=== PATIENT | female | born 1990 | race Caucasian/White ===

== ENCOUNTER 2017-05-02 06:43 | Outpatient (CLI) | payer BC, SELFPAY ==
[2017-05-02 07:34] VITALS: BMI 40.7
[2017-05-02] MEDS: Betamethasone/Betamethasone 30 MG/5 ML Vial 12 MG IM (07:40)
[2017-05-02 07:55] LABS: Absolute Lymphocyte Count 1.14 X10^3/ul (0.83-4.51); Absolute Neutrophil Count 4.5 X10^3/uL (2.0-7.7); Eosinophils% 1.6 % (0-5); Hematocrit 34.3 % (37-47); Hemoglobin 11.7 g/dl (12.0-15.0); Lymphocyte # 1.14 X10^3/ul (4.0); Lymphocyte % 18.1 % (19-41); Mean Corp Hgb Conc 34.1 g/gl (32-36); Mean Corpuscular Hgb 30.6 pg (27.0-32.0); Mean Corpuscular Volume 89.8 fL (81-99); Mean Platelet Vol. 11.2 fl (6.2-12.0); Monocyte# 0.52 X10^3/uL; Monocyte% 8.3 % (0-10); Neutrophil # 4.52 X10^3/uL (2.7-7.7); Neutrophil % 71.8 % (47-70); POSITIVE COUNT NO; POSITIVE DIFFERENTIAL NO; POSITIVE MORPHOLOGY NO; Platelet Count 198 K/mm3 (150-450); RBC Distribution Width CV 14.1 % (11.6-14.6); RBC Distribution Width SD 46.3 fl (35.1-43.9); Red Blood Count 3.82 M/mm3 (4.2-5.4); White Blood Count 6.3 K/mm3 (4.4-11.0)
[2017-05-02] MEDS: Lactated Ringers 1,000 ML 15 ML IV (08:02)
--- NOTE | 2017-05-02 08:11 | OB.TRI.NOTE ---
History of Present Illness Date of Service: 05/02/17 Was patient seen by the physician?: Yes Reason For Visit: ROL Date of Service: 05/02/17 Final ELENI: 08/24/17 Final ELENI Source: US <20 weeks Gestational age: 23 Weeks and 5 Days History of Present Illness: @ 23.5 wks c/o spotting this morning. patient reports no leaking of fluid or cramping, just some bloating sensation. pt reports good movement. pt reports intercourse over the weekend but did not have pain or bleeding at that time. Home Medications Medication Instructions Recorded Vits [Prenatabs FA ] 1 tablet PO DAILY 07/31/16 Hydroxyprogesterone Caproate 250 mg IM Q7D 05/02/17 [[place]] Allergies No Known Allergies Allergy (Verified 05/02/17 07:52) - Pertinent Past Medical History Pertinent Past Medical History: OBHX: loss at 22 wks - SROM Physical Exam General: Alert, Oriented x3 Abdomen: Soft, Non Tender, Gravid Estimated gestational size: Appropriate for gestational size Presentation: Unable to assess Cervix Dilation (cm): 3 - bulging bag Effacement (%): 90 NST - FHR Rate Baby A Baseline: 150s Uterine Activity:: no ctx Impression/Plan 26yo @ 23.5 wks, suspected cervical incompetence 1) MAG started 2) Celestone x 1 given now 3) M Dr. Vallejo consulted will transport to dr. henderson at [facility] for possible emergency cerclage 4) transport notified.
[2017-05-02] MEDS: Magnesium Sulfate 20 GM/500 ML BAG IV (08:13)
--- NOTE | 2017-05-02 08:16 | OB.TRI.HP_ITS ---
History of Present Illness Date of Service: 05/02/17 Was patient seen by the physician?: Yes Reason For Visit: ROL Date of Service: 05/02/17 Final ELENI: 08/24/17 Final ELENI Source: US <20 weeks Gestational age: 23 Weeks and 5 Days History of Present Illness: @ 23.5 wks c/o spotting this morning. patient reports no leaking of fluid or cramping, just some bloating sensation. pt reports good movement. pt reports intercourse over the weekend but did not have pain or bleeding at that time. Home Medications Medication Instructions Recorded Vits [Prenatabs FA ] 1 tablet PO DAILY 07/31/16 Hydroxyprogesterone Caproate 250 mg IM Q7D 05/02/17 [[place]] Allergies No Known Allergies Allergy (Verified 05/02/17 07:52) - Pertinent Past Medical History Pertinent Past Medical History: OBHX: loss at 22 wks - SROM Physical Exam General: Alert, Oriented x3 Abdomen: Soft, Non Tender, Gravid Estimated gestational size: Appropriate for gestational size Presentation: Unable to assess Cervix Dilation (cm): 3 - bulging bag Effacement (%): 90 NST - FHR Rate Baby A Baseline: 150s Uterine Activity:: no ctx Impression/Plan 26yo @ 23.5 wks, suspected cervical incompetence 1) MAG started 2) Celestone x 1 given now 3) M Dr. Vallejo consulted will transport to dr. henderson at [facility] for possible emergency cerclage 4) transport notified.
== END 2017-05-02 08:30 | disposition home or self-care (01) ==
LOC: WPOUT 07:09 → WP 07:10
PROVIDERS: Obstetrics & Gynecology; Visit Provider Obstetrics & Gynecology
DX: O26.852 Spotting complicating pregnancy, second trimester (principal); Z3A.23 23 weeks gestation of pregnancy
CPT/HCPCS: 36415; 59050; 85025; 86850; 86900; 94760; 96372; 99218; J7120; A4216; G0378; J0702

== ENCOUNTER 2021-03-15 17:46 | Outpatient (CLI) | payer BC, SELFPAY | END 2021-03-15 23:59 | disposition short-term general hospital (02) | PROVIDERS: PCP Family Medicine; Referring Provider Family Medicine; Visit Provider Family Medicine | DX: U07.1 COVID-19 (principal) | CPT/HCPCS: 87635; U0003; U0005 ==

== ENCOUNTER 2021-06-30 09:20 | Inpatient (IN) | payer BC, SELFPAY ==
--- NOTE | 2021-06-28 16:19 | HP.PCM_ITS ---
History and Physical Date of Admission: 06/30/21 Pre-Op History and Physical ` HPI: The patient is a 30 year old female presenting for pre-operative visit. She is scheduled for , for previous cs and abdominal cerclage on 06/30/21. Procedure discussed along with risks, benefits and complications. Other alternatives discussed for management. Consent form signed? Yes. ? ? PAST MEDICAL HISTORY PAST MEDICAL HISTORY Diagnosis Date ? Cervical incompetence 11/2017 ? Gestational diabetes mellitus (GDM) in third trimester 10/17/2019 ? Shivam's thyroiditis ? ? Infertility, female ? ? Miscarriage ? ? Obesity ? ? Pre-eclampsia, severe 11/21/2019 ? Pre-eclampsia, severe ? ? Thyroid antibody positive ? ? ? PAST SURGICAL HISTORY PAST SURGICAL HISTORY Procedure Laterality Date ? ABDOMINAL REVISION OF CERCLAGE ? 11/2017 ? SECTION HX ? 05/02/2017 ? x2 - 23.5 weeks ? EXTRACTION ERUPTED TOOTH/EXR ? 01/2009 ? [place] teeth removed ? LAPS SURG CHOLECYSTECTOMY W/CHOLANGIOGRAPHY ? 11/14/2012 ? ? ? CURRENT MEDICATIONS Current Outpatient Medications Medication Sig Dispense Refill ? blood sugar diagnostic (ONETOUCH ULTRA TEST) test strip Pt is to test blood sugars 4 times daily 120 Each 2 ? insulin NPH (HumuLIN N,NovoLIN N) pen Inject 10 Units subcutaneously daily at bedtime. 3 mL 3 ? Insulin [place], Disposable, (MICRODOT INSULIN PEN NEEDLE) 31 gauge x 1/4 ndle 1 Pen Needle once daily. 30 Each 3 ? Lancets (ONETOUCH ULTRASOFT LANCETS) lancets Use as instructed 120 Each 2 ? blood sugar diagnostic (TRUE METRIX GLUCOSE TEST STRIP) test strip Use as instructed 120 Strip 2 ? Lancets lancets Use as instructed 120 Each 2 ? HYDROXYprogesterone caproate (JAYSHREE) 250 mg/mL injection Inject 1 mL intramuscularly one time a week for 11 doses. 4 mL 2 ? aspirin, enteric coated (ASPIRIN, ENTERIC COATED) 81 mg EC tablet Take 1 tablet by mouth once daily. ? ? ? cholecalciferol, vitamin D3, (VITAMIN D3 ORAL) Take 2,000 Units by mouth. ? ? ? Uhkfhnhk-Hx-Hbg-Fe-FA ( VITAMIN) tab Take 1 tablet by mouth once daily. ? ? ? Current Facility-Administered Medications Medication Dose Route Frequency Provider Last Rate Last Admin ? HYDROXYprogesterone caproate (PF) 250 mg injection (JAYSHREE) 250 mg INTRAMUSCULAR 1/WK Eleni Pearson MD 250 mg at 06/15/21 1444 ? ? ALLERGIES: Patient has no known allergies. ? PERSONAL HISTORY: SOCIAL HISTORY Social History ? Tobacco Use ? Smoking status: Never Smoker ? Smokeless tobacco: Never Used ? Tobacco comment: parents quit smoking Vaping Use ? Vaping Use: Never used Substance Use Topics ? Alcohol use: No ? Drug use: No ? FAMILY HISTORY: FAMILY HISTORY FAMILY HISTORY Problem Relation Age of Onset ? Hypertension Mother ? ? Alcohol/Drug Father ? ? Cancer Father ? ? other (endometriosis) Sister ? ? No Known Problems Brother ? ? No Known Problems Brother ? ? Hypertension Maternal Grandmother ? ? other (parkinsons) Maternal Grandmother ? ? Hypertension Maternal Grandfather ? ? other (myocardial infarction) Maternal Grandfather ? ? Diabetes Paternal Grandmother ? ? Hypertension Paternal Grandmother ? ? Alzheimer's Disease Paternal Grandmother ? ? Hypertension Paternal Grandfather ? ? No Known Problems Daughter ? ? No Known Problems Son ? ? Diabetes Paternal Uncle ? ? Asthma Other ? ? nephew ? ? REVIEW OF SYMPTOMS: negative except as noted above PHYSICAL EXAMINATION: ? VITALS: Blood pressure 136/86, weight 231 lb (104.8 kg), last menstrual period 10/06/2020, currently . ? GENERAL: The patient is well nourished, well hydrated in no acute distress. , The patient is oriented to time, place, and person. Neck: full range of motion ABD: soft, non tender ? IMPRESSION: @ 35.1 weeks- scheduled cs at 36 weeks ? PLAN: Repeat CS at 36 weeks- Abdominal cerclage in place. ? Pt has been counseled on risks/benefits and alternatives of surgery including but not limited to anesthesia, bleeding, infection, injury to pelvic structures including bowel, bladder, ureters and vessels. Pt wishes to proceed with surgery at this time. COVID testing Pre and post op instructions reviewed ? I have reviewed and updated past medical and surgical history, medications and allergies Eleni Pearson MD
[2021-06-30] VITALS (22 sets, daily range): BP systolic 119–148; BP diastolic 78–97; PULSE 61–88; RESP 16–18; TEMP 36.4–37.2; O2SAT 96–99; BMI 41.0
[2021-06-30] MEDS: Lactated Ringers 1,000 ML 999 ML IV (09:40)
[2021-06-30 10:14] LABS: Absolute Lymphocyte Count 1.14 X10^3/uL (0.83-4.51); Basophil# 0.01 X10^3/uL; Basophil% 0.2 % (0-1); Eosinophil# 0.03 X10^3/uL; Eosinophils% 0.5 % (0-5); Hematocrit 34.7 % (37-47); Hemoglobin 11.5 g/dL (12.0-15.0); Lymphocyte # 1.14 X10^3/ul (0.83-4.51); Lymphocyte % 20.7 % (19-41); Mean Corp Hgb Conc 33.1 g/dL (32-36); Mean Corpuscular Volume 87.6 fL (81-99); Mean Platelet Vol. 12.7 fl (6.2-12.0); Monocyte# 0.37 X10^3/uL; Monocyte% 6.7 % (0-10); NRBC Flagged by Analyzer 0 % (0-5); Neutrophil # 3.95 X10^3/uL (2.7-7.7); Neutrophil % 71.7 % (47-70); Platelet Count 158 K/mm3 (150-450); RBC Distribution Width CV 13.6 % (11.6-14.6); RBC Distribution Width SD 43.7 fl (35.1-43.9); Red Blood Count 3.96 M/mm3 (4.2-5.4); White Blood Count 5.5 K/mm3 (4.4-11.0)
[2021-06-30] MEDS: Acetaminophen 500 MG Tablet 1000 MG PO ×3 (10:26→23:08)
[2021-06-30] MEDS: Sodium Citrate/Citric Acid 30 ML UDC PO (10:27)
[2021-06-30 10:40] LABS: Bedside Glucose 69 mg/dL (74-106)
[2021-06-30] MEDS: Cefazolin 2 GM in 0.9% Normal Saline 100 ML IV (10:51)
--- NOTE | 2021-06-30 11:49 | EX.PCM.OBRPT ---
Assessment & Plan (1) Delivery by section: (2) Gestational diabetes mellitus (GDM): (3) Obesity affecting : Maternal Data Information Gestational age: 36 Details Operative Information Date of Procedure: 06/30/21 Pre-Operative Diagnosis: 36 weeks, Abdominal cerclage, Previous section, GDMA2, obesity in Post-Operative Diagnosis: same, live female Indications for : Repeat Elective Indications Narrative: H/o cervical incompetence with abdominal cerclage in place Classification: Scheduled Procedure Type: low transverse structural steel fitter #1: Summer Nelson Type of Anesthesia: Spinal Antibiotic Given: Ancef 2 grams IV x1 Estimated Blood Loss: 600 Fluids Replaced: 1000 Procedure Start Time: :03 Procedure Stop Time: :49 Time of Delivery: : Findings Description of Procedure: After informed consent was obtained the patient was taken the operating room she was given spinal anesthesia. She was then placed in the supine position. She was prepped and draped in the normal sterile fashion. Anesthesia was found to be adequate. At this time a Pfannenstiel skin incision was made with a knife was carried down to the underlying layer of the fascia. The fascial incision was then extended laterally using curved Em scissor. Attention was then turned to the superior aspect of the fascial edge was grasped with 2 straight Marine clamps tented up and the rectus muscle dissected off sharply using curved Em scissor. Attention was then turned to the inferior aspect where again Marine clamps were placed in the rectus muscles were tented up and the fascia was dissected off sharply using the curved Em scissor. Rectus muscles were then in the midline bluntly and peritoneum was entered bluntly. Gentle opposing traction was placed. At this time the vesicouterine peritoneum was identified. Bladder adhesions to lower uterine segment. Scalpel was used to make a uterine incision in a low transverse fashion. The uterus was then entered bluntly gentle opposing traction was placed to extend this incision. Membranes were ruptured clear. 's head was brought to the uterine incision was delivered atraumatically. Cord was clamped and cut infant was handed to the waiting nursery team. The Placenta was removed from the uterus. The uterus was then removed from the abdominal cavity. The uterus was cleared of all clots and debris using a lap. Able to palpate where abdominal uterine cerclage was placed. thin lower uterine segment. At this time the uterine incision was reapproximated using #1 Vicryl in a running locked fashion. Followed by a second layer 1-0 vicryl figure of eights for hemostasis. Hemostasis was appreciated. Posterior cul-de-sac was then cleared of all clots and debris. Uterus was placed back in the abdominal cavity. Gutters were cleared of all clots and debris. Uterine incision was reevaluated and noted to be of excellent hemostasis. lucero placed. At this time the peritoneum was grasped with Kellys reapproximated using #2 Vicryl suture in a running fashion. Muscle had multiple areas of oozing, bovie and 2-0 vicyrl in figure of eight fashion used to obtain hemostasis. Lucero placed. Fascia was then reapproximated using #1 PDS in a running fashion. Lucero placed in subcu layer. Subcu layer was reapproximated with #2 0 plain gut suture in an interrupted fashion. Subcu layer was closed using 4-0Vicryl. Dry sterile dressing was applied. Instrument lap needle count correct ?2. Anticipated normal postoperative course. Presentation: Positive for Vertex Amniotic Membrane Rupture Type: Artificial Amniotic Fluid Description: Clear Placental Delivery Description: Manual Removal Placenta Disposition: [facility] Cord Vessel Description: 3 Vessels Cord Entanglement: None Infant A Gender: Female (1 minute): 8 (5 minute): 9 Delayed Cord Clamping: No Complications Risks of Surgery Discussed w/Patient: Bleeding, Anesthesia Risks, Infection, Need for Future C-Sections and Injury to surrounding structure(s) including bowel and bladder Complications: none
[2021-06-30] MEDS: Oxytocin 30 units/NS 500 ml 30 UNITS/500 ML IV.SOLN 167 UNITS IV (12:04)
[2021-06-30] MEDS: Ketorolac 30 MG/ML Syringe IV ×3 (12:25→23:06)
[2021-06-30 13:11] LABS: Bedside Glucose 69 mg/dL (74-106)
[2021-06-30] MEDS: Lactated Ringers 1,000 ML 100 ML IV (15:12)
[2021-06-30 18:01] LABS: Hematocrit 33.7 % (37-47); Hemoglobin 11.3 g/dL (12.0-15.0); Mean Corp Hgb Conc 33.5 g/dL (32-36); Mean Corpuscular Hgb 29.4 pg (27.0-32.0); Mean Corpuscular Volume 87.8 fL (81-99); Mean Platelet Vol. 11.9 fl (6.2-12.0); Platelet Count 143 K/mm3 (150-450); RBC Distribution Width CV 13.6 % (11.6-14.6); RBC Distribution Width SD 42.9 fl (35.1-43.9); Red Blood Count 3.84 M/mm3 (4.2-5.4); White Blood Count 6.5 K/mm3 (4.4-11.0)
[2021-06-30 18:19] LABS: AST(SGOT) 16 U/L (15-37); Alanine Aminotransfer ALT/SGPT 22 U/L (13-56); Creatinine, Serum 0.43 mg/dL (0.55-1.02); EST Glomerular Filtration Rate 184 mL/min (>60); Est Glom Filt Rate - Afr Amer 223 mL/min (>60); Estimated Creatinine Clearance 158.25 ml/min; Uric Acid 4.4 mg/dL (2.6-6.0)
[2021-06-30] MEDS: Enoxaparin 40 MG/0.4 ML Syringe SC (23:12)
[2021-06-30] MEDS: 0.9% Saline Lock 10 ML Syringe IV (23:17)
[2021-07-01] VITALS (8 sets, daily range): BP systolic 124–146; BP diastolic 75–93; PULSE 73–99; RESP 12–18; TEMP 36.4–36.9; O2SAT 96–98
[2021-07-01] MEDS: Ketorolac 30 MG/ML Syringe IV (05:18)
[2021-07-01] MEDS: 0.9% Saline Lock 10 ML Syringe IV (05:18)
[2021-07-01] MEDS: Acetaminophen 500 MG Tablet 1000 MG PO ×4 (05:19→23:07)
[2021-07-01 05:52] LABS: Hematocrit 32.6 % (37-47); Hemoglobin 10.6 g/dL (12.0-15.0); Mean Corp Hgb Conc 32.5 g/dL (32-36); Mean Corpuscular Hgb 28.7 pg (27.0-32.0); Mean Corpuscular Volume 88.3 fL (81-99); Mean Platelet Vol. 12.6 fl (6.2-12.0); Platelet Count 134 K/mm3 (150-450); RBC Distribution Width CV 13.9 % (11.6-14.6); RBC Distribution Width SD 44.8 fl (35.1-43.9); Red Blood Count 3.69 M/mm3 (4.2-5.4); White Blood Count 5.7 K/mm3 (4.4-11.0)
[2021-07-01 07:06] LABS: Bedside Glucose 73 mg/dL (74-106)
--- NOTE | 2021-07-01 07:30 | NURSING ---
bedside report given to Elaine Martinez RN who is assuming care of pt at this time
--- NOTE | 2021-07-01 08:33 | PCM.PROGNOTE ---
Subjective Subjective Patient seen in special care nursery. She is up to the chair. She reports some incisional pain but overall doing well. Denies any nausea or vomiting headaches or blurry vision. She is voiding without difficulty. Not passing flatus. Is tolerating a regular diet. Pumping at this time. Objective Data Objective Data Vital Signs: Vital Signs Temp Pulse Resp BP Pulse Ox 97.9 F 84 16 139/93 H 97 07/01/21 07:42 07/01/21 07:42 07/01/21 07:42 07/01/21 07:42 07/01/21 07:42 Oxygen Delivery Method Room Air Weight: 105 kg Body Mass Index (BMI) 41.0 Intake & Output: Intake and Output for Last 24 Hours 06/29/21 06/30/21 07/01/21 23:59 23:59 23:59 Intake Total 4118.33 / 4118.33 Output Total 1125 / 1125 740 / 740 Balance 2993.33 / 2993.33 -740 / -740 Lab / Micro Data Result Diagrams: 07/01/21 05:40 06/30/21 17:50 Labs: Laboratory Results - last 24 hr 06/30/21 09:50: WBC 5.5, RBC 3.96 L, Hgb 11.5 L, Hct 34.7 L, MCV 87.6, MCH 29.0, MCHC 33.1, RDW Std Deviation 43.7, RDW Coeff of Tammy 13.6, Plt Count 158, MPV 12.7 H, Immature Gran % (Auto) 0.200, Neut % (Auto) 71.7 H, Lymph % (Auto) 20.7, [place] % (Auto) 6.7, Eos % (Auto) 0.5, Baso % (Auto) 0.2, Absolute Neuts (auto) 4.0, Absolute Lymphs (auto) 1.14, Nucleated RBC % 0 06/30/21 09:50: Blood Type O NEGATIVE, Antibody Screen NEGATIVE 06/30/21 10:37: POC Glucose 69 L 06/30/21 13:04: POC Glucose 69 L 06/30/21 14:55: Screen NEGATIVE, Baby's Blood Type O POSITIVE, Baby's BACILIO NEGATIVE 06/30/21 17:50: WBC 6.5, RBC 3.84 L, Hgb 11.3 L, Hct 33.7 L, MCV 87.8, MCH 29.4, MCHC 33.5, RDW Std Deviation 42.9, RDW Coeff of Tammy 13.6, Plt Count 143 L, MPV 11.9 06/30/21 17:50: Creatinine 0.43 L, Estim Creat Clear Calc 158.25, Est GFR (MDRD) Af Amer 223, Est GFR (MDRD) Non-Af 184, Uric Acid 4.4, AST 16, ALT 22 07/01/21 05:36: POC Glucose 73 L 07/01/21 05:40: WBC 5.7, RBC 3.69 L, Hgb 10.6 L, Hct 32.6 L, MCV 88.3, MCH 28.7, MCHC 32.5, RDW Std Deviation 44.8 H, RDW Coeff of Tammy 13.9, Plt Count 134 L, MPV 12.6 H Physical Exam Narrative Dressing dry and intact. Fundus firm. Const alert and oriented x3 General Appearance: cooperative HEENT normocephalic Neck General: normal visual inspection GI soft to palpation and non-distended GI Narrative: Fundus firm Extremity normal to inspection and no calf tenderness Skin no rashes or lesions noted Neuro oriented x3 and CN's II-XII intact bilaterally Psych mental status grossly normal Assessment & Plan Assessment/Plan (1) Delivery by section: (2) Obesity: QUALIFIERS: Obesity type: due to excess calories Obesity classification: adult class 3 (BMI >= 40) Serious obesity comorbidity presence: without serious comorbidity Body mass index: BMI 40.0-44.9 Qualified Code(s): E66.01 - Morbid (severe) obesity due to excess calories; Z68.41 - Body mass index [BMI] 40.0-44.9, adult PLAN: POD#1 , mildly elevated BPs - PRE E labs normal, asymptomatic Routine care pain mgmt monitor VS ambulation will start Labetalol 200mg BID baby in SCN- possible transport to [facility]- pt understands will not be discharged until tomorrow if that occurs as long as Bp well controlled.
[2021-07-01] MEDS: Senna/Docusate Sodium 1 Tablet PO (10:04)
[2021-07-01] MEDS: Labetalol 200 MG Tablet PO ×2 (10:04→22:02)
[2021-07-01] MEDS: Enoxaparin 40 MG/0.4 ML Syringe SC ×2 (10:04→22:02)
[2021-07-01] MEDS: Ibuprofen 600 MG Tablet PO ×2 (11:57→19:01)
[2021-07-01] MEDS: oxyCODONE 5 MG Tablet PO ×2 (14:56→23:06)
[2021-07-02 01:11] VITALS: BP 145/93; PULSE 90; RESP 16; TEMP 36.2; O2SAT 96
[2021-07-02] MEDS: Ibuprofen 600 MG Tablet PO ×2 (01:14→06:30)
[2021-07-02] MEDS: Acetaminophen 500 MG Tablet 1000 MG PO (04:56)
--- NOTE | 2021-07-02 07:03 | DS.PCM_ITS ---
Providers Date of Admission: 06/30/21 Primary Care Physician: Dr. Henrietta Moore MD Reason For Visit: REPEAT Diagnosis Discharge Diagnosis (1) Delivery by section: Status: Acute (2) Obesity: Status: Acute Code(s): E66.9 - Obesity, unspecified Qualifiers: Obesity type: due to excess calories Obesity classification: adult class 3 (BMI >= 40) Serious obesity comorbidity presence: without serious comorbidity Body mass index: BMI 40.0-44.9 Qualified Code(s): E66.01 - Morbid (severe) obesity due to excess calories; Z68.41 - Body mass index [BMI] 40.0- 44.9, adult Plan: Occasional elevated blood pressures- Patient to be d/c on Labetalol 200 mg BID Follow up early next week for BP and incision check Medications at Discharge Home Medications Prenatabs FA 1 tab PO DAILY 07/31/16 labetalol 200 mg PO BID #60 tab 07/02/21 oxycodone 5 - 10 mg PO Q4H PRN PRN 5 Days #10 tab 07/02/21 Hospital Course Operations section Summary of Care Provided Hospital Course: Patient for scheduled repeat section. Hospital course uneventful Physical Exam Narrative Patient seen at bedside. Ambulating and passing flatus. Voiding without difficulty. Denies headache, vision changes, SB, CP or RUQ pain. Pumping. Dressing dry and intact. Desires discharge home kevin to go to [facility] to see baby in NICU. Const alert and no apparent distress General Appearance: cooperative and comfortable Exam Limitations: no limitations HEENT normocephalic Eyes General Eye: normal appearance of both eyes Neck full ROM General: normal visual inspection Chest Chest: symmetrical chest wall rise Resp normal respiratory effort and normal air movement Effort and Inspection: symmetric chest movement Auscultation: clear to auscultation bilaterally Cardio regular rate and regular rhythm GI normal to inspection, nondistended, normoactive bowel sounds Back/Spine normal ROM Extremity full ROM and no calf tenderness General Extremity: normal exam except as noted Skin no rashes or lesions noted Neuro CN's II-XII intact bilaterally Psych mental status grossly normal Weight / BMI Weight Weight: 231 lb 7.766 oz Body Mass Index (BMI) 41.0 ABG / Lab / Microbiology Data Result Diagrams: 07/01/21 05:40 06/30/21 17:50 Laboratory: Laboratory Results - last 24 hr 07/01/21 05:36: POC Glucose 73 L D/C Instructions Discharge Diet: No restrictions May resume sexual activity in: 6-8 weeks Weight Bearing Status: Weight bearing as tolerated Lifting Restrictions: 20 lbs Call your doctor if your incision/area has: Continuous Slow Oozing, Increased Pain/ Swelling, Increased Redness, Foul Smelling Discharge and Swelling at the incision site Call your doctor if you observe: Fever of 101 or Higher, Inability to urinate, Using more than 1 pad per hour, Shortness of breath, Chest pain, Calf discomfort and Uncontrolled pain Remove Dressing in: 5 days Cleanse incision/area with: Soap & Water and Keep Dressing Clean & Dry When: 1 week in office for incision check or sooner if needed 6 weeks Meaningful Use Info Meaningful Use Diagnoses (Choose all that apply): None applicable Discharge Plan Admission Admit Date/Time: 06/30/21 09:20 Primary Reason for Your Visit: Repeat section Attending Provider: Eleni Alcantara Primary Care Provider: Henrietta Moore Discharge Orders/Prescriptions Prescriptions: New labetalol 200 mg Tablet 200 mg PO BID Qty: 60 RF: 1 oxycodone 5 mg Tablet 5 - 10 mg PO Q4H PRN PRN (Reason: Pain Score 4-10) 5 Days Qty: 10 RF: 0 Continued Prenatabs FA 1 TABLET tablet 1 tab PO DAILY RF: 0 Discontinued hydroxyprogesterone cap(ppres) [Bonnie] 250 MG/ML oil 250 mg IM Q7D RF: 0 Aspir-81 81 mg PO/SL DAILY RF: 0 Novolin N Flexpen 10 units OTHER QHS RF: 0 calcium-vitamin D3 2 cap PO/SL DAILY RF: 0 Referrals / Follow Up: Henrietta Moore MD [Primary Care Provider] - Disposition Disposition (needs filled in before D/C Order can be placed): Home, Self Care
[2021-07-02 08:29] VITALS: BP 138/90; PULSE 105; RESP 16; TEMP 36.7; O2SAT 96
[2021-07-02 08:33] VITALS: BP 138/90; PULSE 103; RESP 16; TEMP 36.7; O2SAT 98
[2021-07-02] MEDS: Senna/Docusate Sodium 1 Tablet PO (09:02)
[2021-07-02] MEDS: Labetalol 200 MG Tablet PO (09:03)
[2021-07-02] MEDS: Enoxaparin 40 MG/0.4 ML Syringe SC (09:03)
== END 2021-07-02 10:10 | disposition home or self-care (01) | DRG 786 ==
PROVIDERS: Admitting Provider Obstetrics & Gynecology; PCP Family Medicine; Referring Provider Obstetrics & Gynecology; Visit Provider Obstetrics & Gynecology
PROC: 10D00Z1 Extraction of Products of Conception, Low, Open Approach (ICD-10-PCS; CPT 59514; principal; 2021-06-30 11:45)
DX: O24.429 Gestational diabetes mellitus in childbirth, unspecified control (principal); O60.14X0 Preterm labor third trimester with preterm delivery third trimester, not applicable or unspecified; O99.214 Obesity complicating childbirth; E66.01 Morbid (severe) obesity due to excess calories; Z87.891 Personal history of nicotine dependence; Z37.0 Single live birth; Z3A.36 36 weeks gestation of pregnancy
CPT/HCPCS: 59050; 82565; 82962; 84450; 84460; 84550; 85025; 85027; 85461; 86850; 86900; 86901; 90384; 99218; 99251; J7120; A4216; G0378; G0463; J2405; J2790

== ENCOUNTER → 2022-11-22 | Outpatient (CLI) | payer BC, SELFPAY ==
[2022-11-22 18:52] LABS: Thyroid Stim Hormone (TSH) 1.47 uIU/mL (0.358-3.74)
== END | disposition home or self-care (01) ==
LOC: BFHLAB 15:59
PROVIDERS: PCP Family Medicine; Referring Provider Family Medicine; Visit Provider Family Medicine
DX: R76.8 Other specified abnormal immunological findings in serum (principal)
CPT/HCPCS: 36415; 84443

== ENCOUNTER 2024-10-11 09:40 | Outpatient (CLI) | payer BC, SELFPAY ==
--- NOTE | 2024-10-11 09:45 | RAD_ITS ---
PROCEDURE: HAND MIN 3 VIEWS 10/11/2024 REASON FOR EXAM: MASS OF LEFT HAND TECHNIQUE: HAND MIN 3 VIEWS Laterality: Left COMPARISON: None provided. RAD/Hand Min 3 Views IMPRESSION: No radiopaque foreign body is seen. Soft tissue prominence is seen in the 1st interspace, between the 1st and 2nd m etacarpal bones. No cortical or periosteal changes are seen. No osseous destructive process is evident. No arthritic process is seen. Satisfactory osseous alignment is noted. No fracture site is evident. Reading Location: [place] [id number]
== END 2024-10-11 23:59 | disposition home or self-care (01) ==
PROVIDERS: PCP Family Medicine; Referring Provider Surgery Plastic and Reconstructive Surgery; Visit Provider Surgery Plastic and Reconstructive Surgery
DX: R22.32 Localized swelling, mass and lump, left upper limb (principal)
CPT/HCPCS: 73130

== ENCOUNTER → 2024-10-14 | Outpatient (CLI) | payer BC, SELFPAY ==
--- NOTE | 2024-10-14 10:13 | US_ITS ---
PROCEDURE: EXT NON VASC LIMITED/SOFT TISS 10/14/2024 REASON FOR EXAM: MASS OF LEFT HAND Mass in the inner aspect of the wrist. Palmar side. TECHNIQUE: EXT NON VASC LIMITED/SOFT TISS COMPARISON: None FINDINGS: The palpable lump corresponds to a 1.9 cm 1.5 cm 1.2 cm cyst. Low-level echoes are seen within it. US/Ext Non Vasc Limited/Soft Tiss IMPRESSION: The palpable lump corresponds to a 1.9 cm 1.5 cm 1.2 cm cyst. Low-level echoes are seen within it. Reading Location: [id number]
== END | disposition home or self-care (01) ==
LOC: US 10:10
PROVIDERS: PCP Family Medicine; Referring Provider Surgery Plastic and Reconstructive Surgery; Visit Provider Surgery Plastic and Reconstructive Surgery
DX: R22.32 Localized swelling, mass and lump, left upper limb (principal)
CPT/HCPCS: 76882

== ENCOUNTER 2024-11-19 06:52 | Outpatient (CLI) | payer BC, SELFPAY ==
--- OUTSIDE RECORDS SUMMARY | 2024-10-15 09:23 | XMS RPT_ITS ---
Author Name Auto Generated Organization [facility] Care Team Providers [facility] [employer] Liaison Officer Name Role Phone NACHO VERMA Referring Unavail able IOANAEL, ANDRZEJ E Primary Care Unavailable NACHO VERMA Referring Unavail able NACHO VERMA Attending Unavail able MIEDEL, ANDRZEJ E Primary Care Unavailable NACHO VERMA Attending Unavail able MIEDEL, NADRZEJ E Primary Care Unavailable NACHO VERMA Attending Unavail able NENACHO WOO Attending Unavail able MIEDEL, ANDRZEJ E Primary Care Unavailable ROULA PAYAN Attending Unavailable NENACHO WOO Referring Unavail able MIEDEL, ANDRZEJ E Primary Care Unavailable NENACHO WOO Attending Unavail able BIBIANAEDEL, ANDRZEJ E Primary Care Unavailable PROBLEMS DATE TYPE CONDITION / CODE ATTENDING STATUS [facility] 10/15/2024 Active Insulin resistan ce / E88.819(ICD-10) NACHO VERMA Active [facility] 10/15/2024 Active Metabolic syndro me / E88.810(ICD-10) NACHO VERMA Active [facility] 10/15/2024 Active Constipation, unspecified constipation type / K59.00(ICD-10) NACHO VERMA Active [facility] 09/02/2024 Active Class 2 severe o besity with serious comorbidity and body mass index (BMI) of 39.0 to 39.9 in adult, unspecified obesity type (HCC) / E66.812(ICD-10) NACHO VERMA Active [facility] 09/02/2024 Active Class 2 severe o besity with serious comorbidity and body mass index (BMI) of 39.0 to 39.9 in adult, unspecified obesity type (HCC) / Z68.39(ICD-10) NACHO VERMA Active [facility] 09/02/2024 Active Class 2 severe o besity with serious comorbidity and body mass index (BMI) of 39.0 to 39.9 in adult, unspecified obesity type (HCC) / E66.01(ICD-10) NACHO VERMA Active [facility] 06/22/2024 Active Screening for di abetes mellitus / Z13.1(ICD-10) NA Active [facility] 06/22/2024 Active Class 2 obesity with body mass index (BMI) of 39.0 to 39.9 in adult, unspecified obesity type, unspecified whether serious comorbidity present / E66.812(ICD-10) NA Active [facility] 06/22/2024 Active Class 2 obesity with body mass index (BMI) of 39.0 to 39.9 in adult, unspecified obesity type, unspecified whether serious comorbidity present / Z68.39(ICD-10) NA Active [facility] 06/22/2024 Active Screening for metabolic disorder / Z13.228(ICD-10) NA Active [facility] 06/06/2024 Active Dyslipidemia / E78.5(ICD-10) NACHO VERMA Active [facility] 06/06/2024 Active Malaise and fati kenneth / R53.81(ICD-10) NACHO VERMA Active [facility] 06/06/2024 Active Malaise and fati kenneth / R53.83(ICD-10) NACHO VERMA Active [facility] 06/06/2024 Active Migraine without status migrainosus, not intractable, unspecified migraine type / G43.909(ICD-10) NACHO VERMA Active [facility] 06/06/2024 Active Screening choles terol level / Z13.220(ICD-10) NACHO VERMA Active [facility] 06/06/2024 Active Screening for deficiency anemia / Z13.0(ICD-10) NACHO VERMA Active [facility] 06/06/2024 Active Screening for th yroid disorder / Z13.29(ICD-10) NACHO VERMA Active [facility] 06/06/2024 Active Encounter for vi tamin deficiency screening / Z13.21(ICD-10) NACHO VERMA Active [facility] PROCEDURES No Procedure Records Found RESULTS PROGRESS Observed: 10/15/2024 9:20 AM Status: COMPLETED Source: [facility] HNO ID: [id number] Author: NACHO VERMA MD Service: ? Author Type: Physician Type: Progress Notes Filed: 10/15/2024 12:42 Note Text: Some documentation from previous visit of 09/02/24 was copied and pasted, documentation has been reviewed and edited as necessary for today's visit. Patient Summary: Marietta is a 34 year old Female who presents for follow-up evaluation of obesity/weight management to treat and prevent related co-morbidities. In our previous visits we have discussed lifestyle intervention including a nutrition recommendations and physical activity optimization. Her last office visit was 6 weeks ago. Assessment/plan from last visit: - Weight loss of 5 lbs and reduction of 2 inches in waist circumference since last visit; current weight 210.8 lbs. - Engaged in regular exercise, attending CrossFit classes three times per week. - Dietary intake includes high protein, low carbohydrate meals with increased vegetable consumption. - Continue metformin as prescribed; patient inquired about timing of second dose, advised to take with either breakfast or lunch. - Reordered phentermine due to prescription. - Continue topiramate to manage evening cravings. - Encouraged patient to monitor fiber intake, aiming for 25-30 grams daily to aid in weight loss and improve insulin sensitivity. - Discussed importance of protein intake, advised to consume 30 grams of protein per meal. - Recommended follow-up with a dietitian at [facility] for further nutritional guidance. - Scheduled follow-up appointments on October 15 and December 04 to monitor progress. Interval History PT specifies the following items as new or significant updates since the last appointment: - still doing crossfit 3 x week - horseback riding/walking on off days. -hunger / snacking has improved - feels like she needs to work on water intake at home - getting about 80oz - Reports feeling stronger and noticing changes in muscle tone and body composition. - Adheres to a structured dietary plan, tracking intake and consuming approximately 110 grams of protein daily. - Reports improvement in late-night snacking and a decrease in overall hunger. - Recently switched protein powders, noting a preference for the new product over Premier Protein. - Reports adequate hydration, consuming approximately 90 ounces of water daily. - Reports occasional constipation, despite maintaining a high-fiber diet. Weight loss since last vist: 4 lb Total weight loss: 15 - Last Wt 10/15/24 : 94.8 kg (209 lb) 205.8lb at home 09/02/24 : 96.6 kg (213 lb) 210.8 lbs at home 07/04/24 : 98.8 kg (218 lb) 06/06/24 : 101.6 kg (224 lb) 5% weight loss = 213 lbs, 10% weight loss = 202 lbs Anti-obesity medications: Phentermine. Benefit:decreased appetite Adverse effects: none Anti-obesity medications: Topiramate. Benefit:Decreased food noise Adverse effects: none -ADDED METFORMIN (started 07/04) 1000mg BID XR Benefit: insulin resistance insulin 16 ?? PCOS Adverse effects: Weight promoting medications: none Previous Diet (initial appointment): Awake - 5:15-5:30am B - sometimes greens or premier protein (30g) almond milk unsweetened - great value light malagasy yogurt, unsweet coconut shavings and almond shavings , venecian jerky S - L - venusian burger with no bun - broccoli , cheese stick S - pretzels , protein balls, PB- oats, portia seeds, pp, agave, oats D - deer meat- with fries and broccoli, chicken fries or fish sticks , salmon, grilled shrimp S - chips (occasional) Fluids: 64oz water, almond milk in shake (8-10oz unsw), 2 x week diet soda or [place] water, beer or wine 1-2 x week Bedtime - 10:30pm hard time falling asleep (11-11:30pm) Quality of diet: 24hr recall suggests unhealthy diet. Characterization of diet:unhealthy snacking, excessive cravings, and evening snacking. 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 of impaired eating habits:excessive hunger, mindlessness , emotion, and stress Eating Disorder no Cravings: salty and sweet Dietary changes: B - sometimes greens or premier protein (30g) almond milk unsweetened - great value light malagasy yogurt, unsweet coconut shavings and almond shavings , venecian jerky S - deer jerky, sometimes an extra shake, almonds L - venusian burger with no bun, tomato/lettuce - broccoli , cheese stick OR Grilled chicken w/ salad S - typically not snack D - deer meat- with fries and broccoli, chicken fries or fish sticks , salmon, grilled shrimp , sweet potatoes - trying to have more fish. S - way less chips (occasional)- maybe 1x week- Quest chips Fluids - 80-100 oz Eating 3 meals a day, including breakfast Increasing water intake Increasing servings of vegetables Controlling portions Increasing protein Reducing carbohydrates Eating less take out/fast food Current Barriers: stress eating, food cravings, eating high-calorie foods, and inadequate sleep duration Exercise: Crossfit- 3-4 x week, horseback riding/walking on off days Regular exercise: yes cardio (bike/walking) 2 times a weeks Total 4 times a week for 45 minutes each time Strength/resistance exercise:yes 2 days a week - at home bowflex decreased Stress: no Sleep: increased to 6-7 from 5-6 hours no CRISTY stable Estimated Creatinine Clearance: 127.1 mL/min (based on SCr of 0.69 mg/dL). PAST MEDICAL HISTORY Diagnosis Date Cervical incompetence 11/2017 Gestational diabetes mellitus (GDM) in third trimester (HCC) 10/17/2019 Shivam's thyroiditis Infertility, female Miscarriage (HCC) Obesity Other complications of the puerperium, not elsewhere classified (CODE) 10/10/2017 Pre-eclampsia, severe (HCC) 11/21/2019 Pre-eclampsia, severe (HCC) Thyroid antibody positive Current Outpatient Medications Medication Sig Dispense Refill topiramate (TOPAMAX) 50 mg tablet Take 1 tablet by mouth once daily. 12:00 or 1:00 90 tablet 0 Phentermine HCl 37.5 mg tablet Take 1 tablet by mouth daily before breakfast for 90 days. TAKE 1 TABLET BY MOUTH ONCE DAILY IN THE MORNING 30 tablet 2 metFORMIN ER (GLUCOPHAGE XR) 500 mg 24 hr tablet Take 2 tablets by mouth two times a day. 360 tablet 0 Norethindrone Acet-Ethinyl Est (MICROGESTIN 1.5/30) 1.5-30 mg-mcg Take 1 tablet by mouth once daily. 21 tablet 11 No current facility-administered medications for this visit. ROS Constitutional: (+) weight loss Cardiovascular: (-) chest pain, (-) palpitations Gastrointestinal: (+) constipation, (-) diarrhea Neurological: (-) extremity tingling ROS/Fam Hx pertaining to AOMs: GEN: Fatigue:yes CV: h/o palpitations/cardiac arrhythmia, Chest pain: no HTN: no PULM: Asthma:no GI: GERD:no ; Gallstones:no ; Fatty liver disease:no Pancreatitis: no MSK: Joint Pain:no : Nephrolithiasis: no Symptoms of PCOS: no ?? 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 Physical Exam Waist: 47"-->45"--> 44.25" Results: recent labs reviewed with the patient. Latest Ref Rng AND Units 06/22/2024 CMP Sodium 136 - 144 mmol/L 139 Potassium 3.7 - 5.1 mmol/L 4.3 Chloride 98 - 107 mmol/L 105 CO2 22 - 30 mmol/L 23 Glucose 74 - 99 mg/dL 87 BUN 7 - 21 mg/dL 15 Creatinine 0.58 - 0.96 mg/dL 0.69 EGFR >=60 mL/min/1.73m? 118 Protein, Total 6.3 - 8.0 g/dL 7.0 Albumin 3.9 - 4.9 g/dL 4.2 Calcium 8.5 - 10.2 mg/dL 9.3 Bilirubin, Total 0.2 - 1.3 mg/dL 0.4 AST 13 - 35 U/L 21 ALT 7 - 38 U/L 30 Alkaline Phosphatase 34 - 123 U/L 18 Cholesterol, Total (mg/dL) Date Value 04/29/2023 258 05/17/2012 221 HDL Cholesterol (mg/dL) Date Value 04/29/2023 37 05/17/2012 34 LDL Cholesterol, Calculated (mg/dL) Date Value 04/29/2023 200 05/17/2012 149 Triglyceride (mg/dL) Date Value 04/29/2023 106 05/17/2012 188 Latest Ref Rng AND Units 04/29/2023 CBC WBC 3.70 - 11.00 k/uL 4.80 RBC 3.90 - 5.20 m/uL 5.10 Hemoglobin 11.5 - 15.5 g/dL 15.2 Hematocrit 36.0 - 46.0 % 46.1 MCV 80.0 - 100.0 fL 90.4 MCH 26.0 - 34.0 pg 29.8 MCHC 30.5 - 36.0 g/dL 33.0 RDW-CV 11.5 - 15.0 % 12.2 Platelet Count 150 - 400 k/uL 251 MPV 9.0 - 12.7 fL 11.5 Vitamin D 25 Hydroxy Date Value Ref Range Status 04/29/2023 56.0 31.0 - 80.0 ng/mL Final 04/13/2019 27.6 (L) 31.0 - 80.0 ng/mL Final Comment: Classification of 25 [place] Vitamin D status: Insufficiency/Moderate Deficiency: < or = 30 ng/mL Sufficiency/Optimal Levels: 31 to 80 ng/mL Toxicity: > 100 ng/mL Test performed by chemiluminescent immunoassay. TSH Date Value 04/29/2023 0.931 mIU/L 12/07/2020 1.550 uU/mL 04/22/2019 2.430 uU/mL ) Hemoglobin A1C (%) Date Value 06/22/2024 5.1 04/29/2023 5.1 01/23/2019 5.2 No components found for: "SQINSULN" 16 Assessment/Plan: 1. Insulin resistance (E88.819) 2. Metabolic syndrome (E88.810) 3. Dyslipidemia (E78.5) 4. Class 2 obesity with body mass index (BMI) of 39.0 to 39.9 in adult, unspecified obesity type, unspecified whether serious comorbidity present (E66.812) - Weight loss progress noted; lowest home weight 205.8 lbs, waist circumference decreased to 44.25 inches. - Continues CrossFit 3x/week; additional physical activity includes horseback riding and walking on off days. - Nutrition improved; late-night eating reduced, protein intake ~110g/day, water intake ~90 oz/day. - Continue metformin 1000 mg PO BID. - Continue phentermine as prescribed. - Continue topiramate 50 mg daily at lunch; discussed option to adjust timing or increase to BID if needed for appetite control. - Reviewed importance of tracking and measuring food intake; advised calorie intake of 2035-5413/day during weight loss phase. - Encouraged minimum 30g protein per meal to support muscle synthesis. - Discussed importance of non-scale victories and body composition changes. - Advised to write out personal goals to maintain motivation. - Follow-up December 04 at 3:00 PM; subsequent visit February 27 at 3:30 PM. 5. Malaise and fatigue (R53.81) -whole foods -aim for 7.5-9 hrs of sleep 6. Migraine without status migrainosus, not intractable, unspecified migraine type (G43.909) -continue topiramate 7. Constipation, unspecified constipation type (K59.00) - Recent increase in constipation; fiber intake approximately 24g/day per tracking - Advised to increase fiber intake to 30g/day; recommended additional cup of vegetables and use of high-fiber wraps. - Discussed use of Smooth Move tea, Miralax, or stool softeners as needed; cautioned against high-sugar/carb gummy supplements. Prescription instructions reviewed with patient as applicable. Potential red flag symptoms discussed with the patient. Reviewed appropriate action plan to take if red flag symptoms occur. Patient agreeable to treatment plan. Phentermine. Risk/benefits discussed at length including potential side effects of increased anxiety, insomnia, increased heart rate, and increased blood pressure. I have asked the patient to monitor blood pressure and avoid any stimulants (in the form of caffeinated beverages like coffee, tea, sports drinks) initially. Patient denies history of arrhythmias, coronary artery disease (atherosclerosis), heart failure, pulmonary hypertension, stroke, valvular heart disease (prolapse, regurgitation, stenosis). The patient is currently enrolled in a diet and exercise program The patient has no known history of contraindications The patient is free from drug or ETHO abuse The patient is not or and is aware not to become while using this medication OARS was reviewed. PDMP website checked and validated. All prescriptions have been APPROPRIATELY filled. No suspicious activity was identified. Topiramate. Discussed risks/benefits with the patient. Patient aware that this is an off-label use of the medication. BDenies history of kidney stones, seizures or glaucoma. yes hx of migraines yes history of poor sleep. Advised not to mix with alcohol. Educated on increased risk for drowsiness, dizziness, fatigue, kidney stones, osteoporosis and increased eye pressure. Patient of childbearing age. Discussed the risk of defects with topiramate and the need for double control methods as well as regular tests. Contraception: ocps Follow up in 6 weeks as scheduled I spent a total of 35 minutes on the date of the service which included preparing to see the patient, [id number] patient care, completing clinical documentation, obtaining and/or reviewing separately obtained history, performing a medically appropriate examination, counseling and educating the patient/family/caregiver, and ordering medications, tests, or procedures Nacho Alcantara MD, GEORGI JOHNSTON . CNOV Observed: 10/15/2024 9:20 AM Status: COMPLETED Source: [facility] Office Visit (OBGYWM) MARIETTA PIÑA ([id number]) 1990 F Date Time Provider Department 10/15/24 9:20 AM NACHO VERMA OBGYWM During your visit today, we recorded the following information about you: Pulse Blood pressure Weight Last Period 100/minute 118/78 94.8 kg 10/08/24 Nacho Verma MD 10/15/2024 12:42 PM Signed Some documentation from previous visit of 09/02/24 was copied and pasted, documentation has been reviewed and edited as necessary for today's visit. Patient Summary: Marietta is a 34 year old Female who presents for follow-up evaluation of obesity/weight management to treat and prevent related co-morbidities. In our previous visits we have discussed lifestyle intervention including a nutrition recommendations and physical activity optimization. Her last office visit was 6 weeks ago. Assessment/plan from last visit: - Weight loss of 5 lbs and reduction of 2 inches in waist circumference since last visit; current weight 210.8 lbs. - Engaged in regular exercise, attending CrossFit classes three times per week. - Dietary intake includes high protein, low carbohydrate meals with increased vegetable consumption. - Continue metformin as prescribed; patient inquired about timing of second dose, advised to take with either breakfast or lunch. - Reordered phentermine due to prescription. - Continue topiramate to manage evening cravings. - Encouraged patient to monitor fiber intake, aiming for 25-30 grams daily to aid in weight loss and improve insulin sensitivity. - Discussed importance of protein intake, advised to consume 30 grams of protein per meal. - Recommended follow-up with a dietitian at [facility] for further nutritional guidance. - Scheduled follow-up appointments on October 15 and December 04 to monitor progress. Interval History PT specifies the following items as new or significant updates since the last appointment: - still doing crossfit 3 x week - horseback riding/walking on off days. -hunger / snacking has improved - feels like she needs to work on water intake at home - getting about 80oz - Reports feeling stronger and noticing changes in muscle tone and body composition. - Adheres to a structured dietary plan, tracking intake and consuming approximately 110 grams of protein daily. - Reports improvement in late-night snacking and a decrease in overall hunger. - Recently switched protein powders, noting a preference for the new product over Premier Protein. - Reports adequate hydration, consuming approximately 90 ounces of water daily. - Reports occasional constipation, despite maintaining a high-fiber diet. Weight loss since last vist: 4 lb Total weight loss: 15 - Last Wt 10/15/24 : 94.8 kg (209 lb) 205.8lb at home 09/02/24 : 96.6 kg (213 lb) 210.8 lbs at home 07/04/24 : 98.8 kg (218 lb) 06/06/24 : 101.6 kg (224 lb) 5% weight loss = 213 lbs, 10% weight loss = 202 lbs Anti-obesity medications: Phentermine. Benefit:decreased appetite Adverse effects: none Anti-obesity medications: Topiramate. Benefit:Decreased food noise Adverse effects: none -ADDED METFORMIN (started 07/04) 1000mg BID XR Benefit: insulin resistance insulin 16 ?? PCOS Adverse effects: Weight promoting medications: none Previous Diet (initial appointment): Awake - 5:15-5:30am B - sometimes greens or premier protein (30g) almond milk unsweetened - great value light malagasy yogurt, unsweet coconut shavings and almond shavings , venecian jerky S - L - venusian burger with no bun - broccoli , cheese stick S - pretzels , protein balls, PB- oats, portia seeds, pp, agave, oats D - deer meat- with fries and broccoli, chicken fries or fish sticks , salmon, grilled shrimp S - chips (occasional) Fluids: 64oz water, almond milk in shake (8-10oz unsw), 2 x week diet soda or [place] water, beer or wine 1-2 x week Bedtime - 10:30pm hard time falling asleep (11-11:30pm) Quality of diet: 24hr recall suggests unhealthy diet. Characterization of diet:unhealthy snacking, excessive cravings, and evening snacking. 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 [facility] of impaired eating habits:excessive hunger, mindlessness , emotion, and stress Eating Disorder no Cravings: salty and sweet Dietary changes: B - sometimes greens or premier protein (30g) almond milk unsweetened - great value light malagasy yogurt, unsweet coconut shavings and almond shavings , venecian jerky S - deer jerky, sometimes an extra shake, almonds L - venusian burger with no bun, tomato/lettuce - broccoli , cheese stick OR Grilled chicken w/ salad S - typically not snack D - deer meat- with fries and broccoli, chicken fries or fish sticks , salmon, grilled shrimp , sweet potatoes - trying to have more fish. S - way less chips (occasional)- maybe 1x week- Quest chips Fluids - 80-100 oz Eating 3 meals a day, including breakfast Increasing water intake Increasing servings of vegetables Controlling portions Increasing protein Reducing carbohydrates Eating less take out/fast food Current Barriers: stress eating, food cravings, eating high-calorie foods, and inadequate sleep duration Exercise: Crossfit- 3-4 x week, horseback riding/walking on off days Regular exercise: yes cardio (bike/walking) 2 times a weeks Total 4 times a week for 45 minutes each time Strength/resistance exercise:yes 2 days a week - at home bowflex decreased Stress: no Sleep: increased to 6-7 from 5-6 hours no CRISTY stable Estimated Creatinine Clearance: 127.1 mL/min (based on SCr of 0.69 mg/dL). PAST MEDICAL HISTORY Diagnosis Date Cervical incompetence 11/2017 Gestational diabetes mellitus (GDM) in third trimester (HCC) 10/17/2019 Shivam's thyroiditis Infertility, female Miscarriage (HCC) Obesity Other complications of the puerperium, not elsewhere classified (CODE) 10/10/2017 Pre-eclampsia, severe (HCC) 11/21/2019 Pre-eclampsia, severe (HCC) Thyroid antibody positive Current Outpatient Medications Medication Sig Dispense Refill topiramate (TOPAMAX) 50 mg tablet Take 1 tablet by mouth once daily. 12:00 or 1:00 90 tablet 0 Phentermine HCl 37.5 mg tablet Take 1 tablet by mouth daily before breakfast for 90 days. TAKE 1 TABLET BY MOUTH ONCE DAILY IN THE MORNING 30 tablet 2 metFORMIN ER (GLUCOPHAGE XR) 500 mg 24 hr tablet Take 2 tablets by mouth two times a day. 360 tablet 0 Norethindrone Acet-Ethinyl Est (MICROGESTIN 1.5/30) 1.5-30 mg-mcg Take 1 tablet by mouth once daily. 21 tablet 11 No current facility-administered medications for this visit. ROS Constitutional: (+) weight loss Cardiovascular: (-) chest pain, (-) palpitations Gastrointestinal: (+) constipation, (-) diarrhea Neurological: (-) extremity tingling ROS/Fam Hx pertaining to AOMs: GEN: Fatigue:yes CV: h/o palpitations/cardiac arrhythmia, Chest pain: no HTN: no PULM: Asthma:no GI: GERD:no ; Gallstones:no ; Fatty liver disease:no Pancreatitis: no MSK: Joint Pain:no : Nephrolithiasis: no Symptoms of PCOS: no ?? 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 Physical Exam Waist: 47"-->45"--> 44.25" Results: recent labs reviewed with the patient. Latest Ref Rng AND Units 06/22/2024 CMP Sodium 136 - 144 mmol/L 139 Potassium 3.7 - 5.1 mmol/L 4.3 Chloride 98 - 107 mmol/L 105 CO2 22 - 30 mmol/L 23 Glucose 74 - 99 mg/dL 87 BUN 7 - 21 mg/dL 15 Creatinine 0.58 - 0.96 mg/dL 0.69 EGFR >=60 mL/min/1.73m? 118 Protein, Total 6.3 - 8.0 g/dL 7.0 Albumin 3.9 - 4.9 g/dL 4.2 Calcium 8.5 - 10.2 mg/dL 9.3 Bilirubin, Total 0.2 - 1.3 mg/dL 0.4 AST 13 - 35 U/L 21 ALT 7 - 38 U/L 30 Alkaline Phosphatase 34 - 123 U/L 18 Cholesterol, Total (mg/dL) Date Value 04/29/2023 258 05/17/2012 221 HDL Cholesterol (mg/dL) Date Value 04/29/2023 37 05/17/2012 34 LDL Cholesterol, Calculated (mg/dL) Date Value 04/29/2023 200 05/17/2012 149 Triglyceride (mg/dL) Date Value 04/29/2023 106 05/17/2012 188 Latest Ref Rng AND Units 04/29/2023 CBC WBC 3.70 - 11.00 k/uL 4.80 RBC 3.90 - 5.20 m/uL 5.10 Hemoglobin 11.5 - 15.5 g/dL 15.2 Hematocrit 36.0 - 46.0 % 46.1 MCV 80.0 - 100.0 fL 90.4 MCH 26.0 - 34.0 pg 29.8 MCHC 30.5 - 36.0 g/dL 33.0 RDW-CV 11.5 - 15.0 % 12.2 Platelet Count 150 - 400 k/uL 251 MPV 9.0 - 12.7 fL 11.5 Vitamin D 25 Hydroxy Date Value Ref Range Status 04/29/2023 56.0 31.0 - 80.0 ng/mL Final 04/13/2019 27.6 (L) 31.0 - 80.0 ng/mL Final Comment: Classification of 25 [place] Vitamin D status: Insufficiency/Moderate Deficiency: < or = 30 ng/mL Sufficiency/Optimal Levels: 31 to 80 ng/mL Toxicity: > 100 ng/mL Test performed by chemiluminescent immunoassay. TSH Date Value 04/29/2023 0.931 mIU/L 12/07/2020 1.550 uU/mL 04/22/2019 2.430 uU/mL ) Hemoglobin A1C (%) Date Value 06/22/2024 5.1 04/29/2023 5.1 01/23/2019 5.2 No components found for: "SQINSULN" 16 Assessment/Plan: 1. Insulin resistance (E88.819) 2. Metabolic syndrome (E88.810) 3. Dyslipidemia (E78.5) 4. Class 2 obesity with body mass index (BMI) of 39.0 to 39.9 in adult, unspecified obesity type, unspecified whether serious comorbidity present (E66.812) - Weight loss progress noted; lowest home weight 205.8 lbs, waist circumference decreased to 44.25 inches. - Continues CrossFit 3x/week; additional physical activity includes horseback riding and walking on off days. - Nutrition improved; late-night eating reduced, protein intake ~110g/day, water intake ~90 oz/day. - Continue metformin 1000 mg PO BID. - Continue phentermine as prescribed. - Continue topiramate 50 mg daily at lunch; discussed option to adjust timing or increase to BID if needed for appetite control. - Reviewed importance of tracking and measuring food intake; advised calorie intake of 8810-5814/day during weight loss phase. - Encouraged minimum 30g protein per meal to support muscle synthesis. - Discussed importance of non-scale victories and body composition changes. - Advised to write out personal goals to maintain motivation. - Follow-up December 04 at 3:00 PM; subsequent visit February 27 at 3:30 PM. 5. Malaise and fatigue (R53.81) -whole foods -aim for 7.5-9 hrs of sleep 6. Migraine without status migrainosus, not intractable, unspecified migraine type (G43.909) -continue topiramate 7. Constipation, unspecified constipation type (K59.00) - Recent increase in constipation; fiber intake approximately 24g/day per tracking - Advised to increase fiber intake to 30g/day; recommended additional cup of vegetables and use of high-fiber wraps. - Discussed use of Smooth Move tea, Miralax, or stool softeners as needed; cautioned against high-sugar/carb gummy supplements. Prescription instructions reviewed with patient as applicable. Potential red flag symptoms discussed with the patient. Reviewed appropriate action plan to take if red flag symptoms occur. Patient agreeable to treatment plan. Phentermine. Risk/benefits discussed at length including potential side effects of increased anxiety, insomnia, increased heart rate, and increased blood pressure. I have asked the patient to monitor blood pressure and avoid any stimulants (in the form of caffeinated beverages like coffee, tea, sports drinks) initially. Patient denies history of arrhythmias, coronary artery disease (atherosclerosis), heart failure, pulmonary hypertension, stroke, valvular heart disease (prolapse, regurgitation, stenosis). The patient is currently enrolled in a diet and exercise program The patient has no known history of contraindications The patient is free from drug or ETHO abuse The patient is not or and is aware not to become while using this medication OARS was reviewed. PDMP website checked and validated. All prescriptions have been APPROPRIATELY filled. No suspicious activity was identified. Topiramate. Discussed risks/benefits with the patient. Patient aware that this is an off-label use of the medication. BDenies history of kidney stones, seizures or glaucoma. yes hx of migraines yes history of poor sleep. Advised not to mix with alcohol. Educated on increased risk for drowsiness, dizziness, fatigue, kidney stones, osteoporosis and increased eye pressure. Patient of childbearing age. Discussed the risk of defects with topiramate and the need for double control methods as well as regular tests. Contraception: ocps Follow up in 6 weeks as scheduled I spent a total of 35 minutes on the date of the service which included preparing to see the patient, [id number] patient care, completing clinical documentation, obtaining and/or reviewing separately obtained history, performing a medically appropriate examination, counseling and educating the patient/family/caregiver, and ordering medications, tests, or procedures Nacho Alcantara MD, FACOG, [facility] . Nacho Verma MD 10/15/2024 12:42 PM Signed - Continue your current weight-loss medications as prescribed; refills are available through these dates: Topiramate (50 mg once daily at lunch) - refilled through December Metformin (2 pills in the morning and 2 at night) - refilled through November Phentermine - refilled through November - If you notice increased evening cravings or special situations (period, weekends, camping), you may split topiramate into two 50 mg doses (noon and mid-afternoon) to help curb food urges. - Track and measure everything you eat to maintain a 1,200-1,500 calorie/day deficit: Weigh and log portions at least nightly to identify high-calorie foods. Keep breakfast and lunch the same most days; vary dinner within your calorie goals. Use barcode scanning or the Snap-It photo feature in your chelsea to simplify entry. - Aim for at least 110 g protein daily, with a minimum of 30 g per meal; add an egg or other protein source to your shake if needed. - Increase fiber to >=30 g/day to help with constipation: Add another cup of vegetables, choose low-carb high-fiber wraps, or sprinkle seeds (portia, flax, hemp) in measured amounts. Each night, review your chelsea?s fiber total and adjust the next day. If constipation continues, try Smooth Move tea at bedtime or a gentle stool softener/Miralax; avoid gummy fiber supplements that add sugar. - Continue drinking at least 64 oz of water daily; aim for 90-120 oz when possible. - Exercise plan: CrossFit 3 days/week (keep learning movements at your pace). Off-day activity: walking or horseback riding. - Monitoring: Use your gym?s body composition scale regularly to track visceral fat and muscle trends. Consider purchasing an inexpensive home body-comp scale (use same conditions each weigh-in: morning, before food/drink). - Behavioral goals: Write 1-2 personal goals each month (e.g., a 10-minute daily walk, completing a book) to stay motivated. When stressed or bored, try non-food activities (walk, deep breathing, journaling) to break snack habits. - Follow-up appointments: December 04 at 3:00 pm February 27 at 3:30 pm Supplements that may improve energy/fatigue: B-complex vitamins- may support cellular energy and can reduce fatigue CoQ10- (coenzyme Q10)-could enhance mitochondrial energy production, may reduce fatigue Iron (only if iron deficiency) Rhodiola Rosea-is an Adaptogen that may reduce fatigue and boost endurance, improve depression Ashwagandha-is an adaptogen that may support stress resistance and may improve energy levels indirectly. Supports cortisol balance and may help with Abdominal fat. Creatine- may increase physical performance and short bursts of energy. L-Carnitine- could assist in fat metabolism and may improve energy Magnesium Glycinate- may improve sleep,m muscle relaxation, blood sugar control and mood. Ginseng: an adaptogen that may improve fatigue *Adaptogens: are active ingredients in certain plants and mushrooms that may impact how your body deals with stress, anxiety and fatigue. For hormonal balance and Metabolic health: Edgardo-Inositol and K-Iochl-Ssymiikv-can improve insulin sensitivity, often used for PCOS- related weight management Magnesium- may support glucose metabolism and energy production Magnesium L-Threonate- improved sleep quality and brain health Magnesium Glycinate- calm, deeper sleep Magnesium Citrate- can aide in constipation relief Magnesium Malate- may help with chronic pain, fibromyalgia, and fatigue Carroll 3 fatty acids (fish oils)- may reduce inflammation, supports metabolism, and may aid in fat loss Chromium Picolinate- may improve blood sugar control and reduce cravings Vitamin D- low levels can be associated with weight gain and fatigue. Can aid in bone health, depression, gut health etc. Berberine- may enhance insulin sensitivity, support weight loss and blood sugar balance. N-Acetyl Cysteine (NAC) - may support ovulation, reduce insulin resistance, antioxidant benefits. CoQ10 (Ubiquinone) - used as an antioxidant which protects your cells from damage. This supplement may help with migraines, heart failure and high blood pressure. Collagen Peptides- may help with joints, skin hair and nails (note this is not a complete protein and should not be used as your protein source) Probiotics- can help support a healthy gut microbiome, which can improve digestion and overall well-being. Fiber Supplement- may improve digestive health, help with weight management, and potentially lower cholesterol levels. Fish Oil- provides Carroll 3- fatty acids which can be beneficial for heart health, reduce inflammation and support brain function. L-Carnitine- vital in transporting fatty acids in to cells for energy production. Some potential benefits are cardiovascular health, Brain function, Exercise performance and recovery, reduce fasting glucose levels. Red Yeast Rice- may help to lower cholesterol levels, particularly LDL (the bad choleasterol) it may also improve blood vessel function and decrease arterial stiffness. Not all supplements work for everyone and data can be limited. Some supplements may interfere with medications you are taking. Creating a Mindful Eating Environment: 10 Mindless Eating Solutions If you're looking for easier ways to make healthy changes to your diet and lifestyle, consider these simple ?mindless eating solutions? for staying on-track with nutrition: Serve Salad and Vegetables First. Before bringing out your main dish, serve salad and vegetables first to ensure you're eating enough of this important food group. This strategy will also help you eat less of the rest of your dish which is likely higher in calories, etc. Serve Your Main [facility] on the Stove or Counter. Studies show that we're likely to eat less if our food is placed on the stove or counter rather than right in front of us. Eat on Smaller Plates. Similar to the strategy mentioned above, studies show that you're likely to consume less food if you're eating from a smaller plate. This is likely due to the increase of smaller portion sizes. Turn off Your Television. Watching television as you eat can be highly distracting, and it affects your ability to eat mindfully. For example: you're less likely to notice when you're full, so you might consume excess calories. Keep Mostly Water On-hand. Calories from drinks can add up quickly, especially in fruit juices, alcohol and soft drinks. By minimizing the amounts of those drinks on-hand, you're more likely to consume water when you're thirsty - and water has amazing health benefits! Keep Your Kitchen Organized. An organized refrigerator, counter and cabinet space makes you more likely to find and choose the foods which are healthiest for you. On the contrary, a messy kitchen space may make you more apt to grab the first item you see. Pre-cut Your Fruits and Vegetables. Let's admit it: We're more likely to put off eating produce if we have to go through the ?burden? of cutting it first. Pre-cut fruits and vegetables will eliminate this extra step. Have at Least Six Single Servings of Lean Protein On-hand. This includes lean meats such as turkey and chicken, yogurt, eggs, nuts, beans and legumes. By having plenty of lean protein on-hand, you can better manage your appetite and hunger levels. Keep All Snack Foods in One Inconvenient Cupboard. You're less likely to reach for unhealthy snack foods if they're not all gazing up at you from plain sight! Keep Only a Fruit Bowl on Your Counter. This way, if you're one to grab foods based off of their availability, you'll reach for healthier fruits rather than less healthy snack foods. https://www.obesityaction.org/community/news/community-news/bodtel-j-jrqfxlr-ea- ting-environment/ Tips to reduce food cravings Aim to eat nutritionally balanced meals. Foods with protein and fiber provide longer-lasting satisfaction. Avoid long stretches of not eating. Eat a nutritious meal or snack every 3-4 hours. Waiting too long to eat because you are busy or distracted may only lead to stronger hunger when you do eat and the risk of overeating. Also keep in mind that if your bedtime is more than 4 hours after you?ve finished dinner, you may feel hungry again; to avoid snacking late night which can disrupt sleep, try to go to bed earlier when possible. Avoid choosing hyperpalatable or ultraprocessed snacks that are high in sodium, fat, sugar, and calories but low in nutrition. These are the types of foods that trigger the brain reward pathways and cause cravings to eat more. Choose satisfying, less-processed snacks like fresh fruit, a handful of nuts, or a cup of low-sugar yogurt. Limit environmental cues to eat, such as scrolling through social media posts about food or [employer] (online videos of people eating enormous quantities of decadent meals) and watching television cooking shows. In an office setting, detour away from the candy bowls and platters of bagels and treats that may be sitting in the break room. Food cravings are sometimes learned behaviors that are associated with an event or environment, such as craving potato chips while watching late-night television. If so, research suggests that it is possible to ?unlearn? the behavior and reduce the craving by avoiding the food completely for an extended time. [25] In addition, you can try changing the association by changing your evening routine with a different activity like listening to an audiobook or podcast. Practice mindfulness when sensing a growing craving. Ask yourself if you are stressed, bored, angry? If so, try instead doing breathing exercises, talking a brisk 5-10 minute walk, listening to a meditation chelsea or podcast, or playing a few favorite songs. If you can distract yourself from eating for about 5-7 minutes, the craving may subside. Learn more about mindful eating. Try other dopamine-inducing activities such as taking a walk in nature on a chela day, dancing, or watching a funny video and laughing aloud! What the Food Groups Do For You Customer Strategy Manager are always stressing the importance of a balanced diet, and for good reason. Each food group--and each food within a given group--offers a different nutrient package. This doesn?t mean that you have to cover each group in every meal. But over the course of a day, you should have something from each group. And over the longer term--say, a week or a month--you should strive to eat a variety of foods from within each group, particularly vegetables and fruits.Here?s a quick overview of what each group has to offer--and how much we should all be consuming. Vegetables and fruits. Fruit and vegetable intake is associated with reduced risk of a number of chronic diseases, including cardiovascular disease, type 2 diabetes, certain kinds of cancer, and dementia. Some of these benefits come from the nutrients and fiber in produce. These include not only the obvious vitamins and minerals, but also phytochemicals ranging from the anti-carcinogenic isothiocyanates in cruciferous vegetables like broccoli and cauliflower to antioxidants like vitamin C and hesperetin in citrus fruits. Fiber, too, is associated with a host of benefits, including bowel health, increased insulin sensitivity, and slower digestion that makes you feel vieyra longer. Increasing your intake of fruits and vegetables may also improve your overall diet simply by displacing less healthy foods. The USDA now recommends daily consumption of 2 to 3 cups (roughly four to six half-cup servings) of vegetables and another 1? to 2 cups of fruit (three to four half-cup servings; see Table 1, page 9).Whole grains. Carbohydrates are primarily an energy source to fuel your body. But whole grains--such as quinoa, barley, and brown rice--do even more for you. Whole grains come packaged with their natural fiber, vitamins, minerals, and phytochemicals, so they deliver additional health benefits. Perhaps that?s why research shows that people who eat whole grains tend to live longer and have a lower risk of chronic diseases, especially cardiovascular disease. By contrast, refined grains (such as white flour) have been stripped of their fiber-rich bran (the outer coating of the kernel) as well as the vitamin- and mineral-packed germ (see Figure 2, at left). For people up to age 50, the recommended intake is 38 grams for men and 25 grams for women (unless they are or , in which case the recommendation goes up to 28 grams and 29 grams, respectively). The recommendation is lower for people over age 50: 30 grams for men, and 21 grams for women. Dairy. Our first food as infants is milk, and dairy is associated with improved bone health, especially in children and adolescents. While adults don?t need to consume dairy products, dairy foods offer protein and an array of vitamins and minerals, including calcium. Some dairy foods ([place] yogurt, cottage cheese, other cheeses) are better sources of protein than others (milk, regular yogurt), but keep in mind that many types of cheese are high in sodium and saturated fat. If you can?t consume dairy or prefer not to, make sure you meet your calcium needs through other foods or supplements. Protein. You need protein in order to maintain your muscles, bones, skin, and every other organ and tissue in your body. Protein also helps you stay satisfied and manage hunger. Not only is protein important in your overall diet, but emerging research suggests that you should have some at all three meals, especially if you are older. However, keep in mind that while it?s important to get enough protein, more is not necessarily better!Protein foods are a diverse group, including both animal sources (fish and seafood, meats, poultry, eggs, and dairy) and plant sources (soy products, pulses--that is, beans, lentils, chickpeas, and dry peas--and nuts and seeds). As with any food, quality counts: some protein-rich foods have more health benefits than others. [place] and other oily fish provide heart-healthy omega-3 fatty acids. Pulses and whole or minimally processed soy foods like tofu, tempeh, and edamame offer phytochemicals and fiber. On the other hand, fatty or processed meats come with excess saturated fat and other components that don?t support optimal health. Fats and oils. Fat is an essential element of the diet. It?s a major source of energy. In addition, the body requires fat to make cell membranes, provide a protective coating for nerves, maintain healthy skin and hair, and perform other vital functions.After some decades of thinking that we needed to limit fat to be healthy, scientists now know that it?s not how much fat we eat (within reason), but the quality of the fat. For example, it?s crystal clear that we need to avoid artificial trans fats--the hydrogenated vegetable oils that were once used in a variety of processed foods to help keep them from spoiling. Fortunately, those are largely gone from the food supply now, as the result of an FDA ruling in July 2017 banning them from foods sold in [place] grocery stores and restaurants. As for saturated fats--the kind found in animal products like meat and cheese--while limited amounts (less than 10% of daily calories) are fine for most people, they may contribute to a number of health problems, including increased LDL (bad) cholesterol and chronic inflammation, especially when eaten in excess.Most of the fat we eat should be unsaturated. This includes polyunsaturated fats from fatty fish like salmon, walnuts, sunflower seeds, flaxseeds, and some vegetable oils, as well as monounsaturated fats from nuts, peanuts, avocados, olive oil, and canola oil. Unsaturated fats have a number of benefits for health, especially cardiovascular health. A shorthand way of thinking of the different types of fats is this: if they are solid at room temperature, like the marbling in meats, they may lead to stiffer arteries (and therefore high blood pressure) as your body deposits them in arterial linings. If they are liquid at room temperature, like the olive oil you drizzle on your salad, they will help keep arteries more flexible. Allergies As of Date: 10/15/2024 (No Known Allergies) Date Reviewed: 10/15/2024 Reviewed by: Delma Crockett MA - Fully Assessed Reason for Visit: Weight Management [3933] Primary Visit Diagnosis:Insulin resistance [E88.819] Other Visit Diagnoses:Metabolic syndrome [E88.810] Dyslipidemia [E78.5] Malaise and fatigue [R53.81, R53.83] Migraine without status migrainosus, not intractable, unspecified migraine type [G43.909] Constipation, unspecified constipation type [K59.00] Class 2 obesity with body mass index (BMI) of 39.0 to 39.9 in adult, unspecified obesity type, unspecified whether serious comorbidity present [E66.812, Z68.39] Prescriptions as of 10/15/2024 - topiramate (TOPAMAX) 50 mg tablet Take 1 tablet by mouth once daily. 12:00 or 1:00 - Phentermine HCl 37.5 mg tablet Take 1 tablet by mouth daily before breakfast for 90 days. TAKE 1 TABLET BY MOUTH ONCE DAILY IN THE MORNING - metFORMIN ER (GLUCOPHAGE XR) 500 mg 24 hr tablet Take 2 tablets by mouth two times a day. - Norethindrone Acet-Ethinyl Est (MICROGESTIN 1.530) 1.5-30 mg-mcg Take 1 tablet by mouth once daily. 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] 06/05/2009 11/11/2015 Cholecystitis with cholelithiasis [K80.10] 10/19/2012 11/11/2015 Obesity in [O99.210] 10/22/2015 Family history of cleft lip and palate [Z82.79] 10/22/2015 Patient requested diagnostic testing [Z01.89] 10/22/2015 11/27/2015 Rh negative status in duong in fi*11/12/2015 Patient requested diagnostic testing [Z01.89] 04/07/2016 04/13/2017 History of delivery [Z87.51] 12/22/2016 Incompetent cervix, abdominal cerclage in place*05/02/2017 H/O section [Z98.891] 05/05/2017 Elevated blood pressure reading without diagnos*10/10/2017 Maternal care for intrauterine [O36.4XX0] 10/10/2017 02/17/2021 Other complications of the puerperium, not else*10/10/2017 labor second tri w delivery sec*10/10/2017 02/17/2021 Single stillbirth (CODE) [Z37.1] 08/16/2016 Obesity, Class III, BMI >= 40 [E66.813] 11/28/2017 History of premature rupture of membran*06/10/2019 History of diet controlled gestational diabetes*10/17/2019 06/08/2021 Gestational hypertension [O13.9] 11/04/2019 02/17/2021 Prematurity [P07.30] 11/04/2019 02/17/2021 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] 11/05/2019 Anovulation [N97.0] 11/05/2019 Elevated blood pressure reading [R03.0] 11/21/2019 35 weeks gestation of [Z3A.35] 11/21/2019 02/17/2021 Pre-eclampsia, severe [O14.10] 11/21/2019 02/17/2021 Pre-eclampsia in third trimester [O14.93] 11/21/2019 02/17/2021 with history of section, ant*11/26/2020 Short interval between pregnancies affecting pr*11/26/2020 H/O pre-eclampsia in prior , currently*11/26/2020 History of gestational diabetes in prior pregna*11/26/2020 Gestational diabetes mellitus, class A1 [O24.41*05/07/2021 06/08/2021 Insulin controlled gestational diabetes mellitu*06/08/2021 Other instructions from your clinician: - Continue your current weight-loss medications as prescribed; refills are available through these dates: Topiramate (50 mg once daily at lunch) - refilled through December Metformin (2 pills in the morning and 2 at night) - refilled through November Phentermine - refilled through November - If you notice increased evening cravings or special situations (period, weekends, camping), you may split topiramate into two 50 mg doses (noon and mid-afternoon) to help curb food urges. - Track and measure everything you eat to maintain a 1,200-1,500 calorie/day deficit: Weigh and log portions at least nightly to identify high-calorie foods. Keep breakfast and lunch the same most days; vary dinner within your calorie goals. Use barcode scanning or the Snap-It photo feature in your chelsea to simplify entry. - Aim for at least 110 g protein daily, with a minimum of 30 g per meal; add an egg or other protein source to your shake if needed. - Increase fiber to >=30 g/day to help with constipation: Add another cup of vegetables, choose low-carb high-fiber wraps, or sprinkle seeds (portia, flax, hemp) in measured amounts. Each night, review your chelsea?s fiber total and adjust the next day. If constipation continues, try Smooth Move tea at bedtime or a gentle stool softener/Miralax; avoid gummy fiber supplements that add sugar. - Continue drinking at least 64 oz of water daily; aim for 90-120 oz when possible. - Exercise plan: CrossFit 3 days/week (keep learning movements at your pace). Off-day activity: walking or horseback riding. - Monitoring: Use your gym?s body composition scale regularly to track visceral fat and muscle trends. Consider purchasing an inexpensive home body-comp scale (use same conditions each weigh-in: morning, before food/drink). - Behavioral goals: Write 1-2 personal goals each month (e.g., a 10-minute daily walk, completing a book) to stay motivated. When stressed or bored, try non-food activities (walk, deep breathing, journaling) to break snack habits. - Follow-up appointments: December 04 at 3:00 pm February 27 at 3:30 pm Supplements that may improve energy/fatigue: B-complex vitamins- may support cellular energy and can reduce fatigue CoQ10- (coenzyme Q10)-could enhance mitochondrial energy production, may reduce fatigue Iron (only if iron deficiency) Rhodiola Rosea-is an Adaptogen that may reduce fatigue and boost endurance, improve depression Ashwagandha-is an adaptogen that may support stress resistance and may improve energy levels indirectly. Supports cortisol balance and may help with Abdominal fat. Creatine- may increase physical performance and short bursts of energy. L-Carnitine- could assist in fat metabolism and may improve energy Magnesium Glycinate- may improve sleep,m muscle relaxation, blood sugar control and mood. Ginseng: an adaptogen that may improve fatigue *Adaptogens: are active ingredients in certain plants and mushrooms that may impact how your body deals with stress, anxiety and fatigue. For hormonal balance and Metabolic health: Edgardo-Inositol and D-Qursd-Remkmfap-can improve insulin sensitivity, often used for PCOS- related weight management Magnesium- may support glucose metabolism and energy production Magnesium L-Threonate- improved sleep quality and brain health Magnesium Glycinate- calm, deeper sleep Magnesium Citrate- can aide in constipation relief Magnesium Malate- may help with chronic pain, fibromyalgia, and fatigue Carroll 3 fatty acids (fish oils)- may reduce inflammation, supports metabolism, and may aid in fat loss Chromium Picolinate- may improve blood sugar control and reduce cravings Vitamin D- low levels can be associated with weight gain and fatigue. Can aid in bone health, depression, gut health etc. Berberine- may enhance insulin sensitivity, support weight loss and blood sugar balance. N-Acetyl Cysteine (NAC) - may support ovulation, reduce insulin resistance, antioxidant benefits. CoQ10 (Ubiquinone) - used as an antioxidant which protects your cells from damage. This supplement may help with migraines, heart failure and high blood pressure. Collagen Peptides- may help with joints, skin hair and nails (note this is not a complete protein and should not be used as your protein source) Probiotics- can help support a healthy gut microbiome, which can improve digestion and overall well-being. Fiber Supplement- may improve digestive health, help with weight management, and potentially lower cholesterol levels. Fish Oil- provides Carroll 3- fatty acids which can be beneficial for heart health, reduce inflammation and support brain function. L-Carnitine- vital in transporting fatty acids in to cells for energy production. Some potential benefits are cardiovascular health, Brain function, Exercise performance and recovery, reduce fasting glucose levels. Red Yeast Rice- may help to lower cholesterol levels, particularly LDL (the bad choleasterol) it may also improve blood vessel function and decrease arterial stiffness. Not all supplements work for everyone and data can be limited. Some supplements may interfere with medications you are taking. Creating a Mindful Eating Environment: 10 Mindless Eating Solutions If you're looking for easier ways to make healthy changes to your diet and lifestyle, consider these simple ?mindless eating solutions? for staying on-track with nutrition: Serve Salad and Vegetables First. Before bringing out your main dish, serve salad and vegetables first to ensure you're eating enough of this important food group. This strategy will also help you eat less of the rest of your dish which is likely higher in calories, etc. Serve Your Main [facility] on the Stove or Counter. Studies show that we're likely to eat less if our food is placed on the stove or counter rather than right in front of us. Eat on Smaller Plates. Similar to the strategy mentioned above, studies show that you're likely to consume less food if you're eating from a smaller plate. This is likely due to the increase of smaller portion sizes. Turn off Your Television. Watching television as you eat can be highly distracting, and it affects your ability to eat mindfully. For example: you're less likely to notice when you're full, so you might consume excess calories. Keep Mostly Water On-hand. Calories from drinks can add up quickly, especially in fruit juices, alcohol and soft drinks. By minimizing the amounts of those drinks on-hand, you're more likely to consume water when you're thirsty - and water has amazing health benefits! Keep Your Kitchen Organized. An organized refrigerator, counter and cabinet space makes you more likely to find and choose the foods which are healthiest for you. On the contrary, a messy kitchen space may make you more apt to grab the first item you see. Pre-cut Your Fruits and Vegetables. Let's admit it: We're more likely to put off eating produce if we have to go through the ?burden? of cutting it first. Pre-cut fruits and vegetables will eliminate this extra step. Have at Least Six Single Servings of Lean Protein On-hand. This includes lean meats such as turkey and chicken, yogurt, eggs, nuts, beans and legumes. By having plenty of lean protein on-hand, you can better manage your appetite and hunger levels. Keep All Snack Foods in One Inconvenient Cupboard. You're less likely to reach for unhealthy snack foods if they're not all gazing up at you from plain sight! Keep Only a Fruit Bowl on Your Counter. This way, if you're one to grab foods based off of their availability, you'll reach for healthier fruits rather than less healthy snack foods. https://www.obesityaction.org/community/news/community-news/mbhchw-c-rryckv g-foegdq-ekibkbhxgrs/ Tips to reduce food cravings Aim to eat nutritionally balanced meals. Foods with protein and fiber provide longer-lasting satisfaction. Avoid long stretches of not eating. Eat a nutritious meal or snack every 3-4 hours. Waiting too long to eat because you are busy or distracted may only lead to stronger hunger when you do eat and the risk of overeating. Also keep in mind that if your bedtime is more than 4 hours after you?ve finished dinner, you may feel hungry again; to avoid snacking late night which can disrupt sleep, try to go to bed earlier when possible. Avoid choosing hyperpalatable or ultraprocessed snacks that are high in sodium, fat, sugar, and calories but low in nutrition. These are the types of foods that trigger the brain reward pathways and cause cravings to eat more. Choose satisfying, less-processed snacks like fresh fruit, a handful of nuts, or a cup of low-sugar yogurt. Limit environmental cues to eat, such as scrolling through social media posts about food or mukbang (online videos of people eating enormous quantities of decadent meals) and watching television cooking shows. In an office setting, detour away from the candy bowls and platters of bagels and treats that may be sitting in the break room. Food cravings are sometimes learned behaviors that are associated with an event or environment, such as craving potato chips while watching late-night television. If so, research suggests that it is possible to ?unlearn? the behavior and reduce the craving by avoiding the food completely for an extended time. [25] In addition, you can try changing the association by changing your evening routine with a different activity like listening to an audiobook or podcast. Practice mindfulness when sensing a growing craving. Ask yourself if you are stressed, bored, angry? If so, try instead doing breathing exercises, talking a brisk 5-10 minute walk, listening to a meditation chelsea or podcast, or playing a few favorite songs. If you can distract yourself from eating for about 5-7 minutes, the craving may subside. Learn more about mindful eating. Try other dopamine-inducing activities such as taking a walk in nature on a chela day, dancing, or watching a funny video and laughing aloud! What the Food Groups Do For You Customer Strategy Manager are always stressing the importance of a balanced diet, and for good reason. Each food group--and each food within a given group--offers a different nutrient package. This doesn?t mean that you have to cover each group in every meal. But over the course of a day, you should have something from each group. And over the longer term--say, a week or a month--you should strive to eat a variety of foods from within each group, particularly vegetables and fruits.Here?s a quick overview of what each group has to offer--and how much we should all be consuming. Vegetables and fruits. Fruit and vegetable intake is associated with reduced risk of a number of chronic diseases, including cardiovascular disease, type 2 diabetes, certain kinds of cancer, and dementia. Some of these benefits come from the nutrients and fiber in produce. These include not only the obvious vitamins and minerals, but also phytochemicals ranging from the anti-carcinogenic isothiocyanates in cruciferous vegetables like broccoli and cauliflower to antioxidants like vitamin C and hesperetin in citrus fruits. Fiber, too, is associated with a host of benefits, including bowel health, increased insulin sensitivity, and slower digestion that makes you feel vieyra longer. Increasing your intake of fruits and vegetables may also improve your overall diet simply by displacing less healthy foods. The USDA now recommends daily consumption of 2 to 3 cups (roughly four to six half-cup servings) of vegetables and another 1? to 2 cups of fruit (three to four half-cup servings; see Table 1, page 9).Whole grains. Carbohydrates are primarily an energy source to fuel your body. But whole grains--such as quinoa, barley, and brown rice--do even more for you. Whole grains come packaged with their natural fiber, vitamins, minerals, and phytochemicals, so they deliver additional health benefits. Perhaps that?s why research shows that people who eat whole grains tend to live longer and have a lower risk of chronic diseases, especially cardiovascular disease. By contrast, refined grains (such as white flour) have been stripped of their fiber-rich bran (the outer coating of the kernel) as well as the vitamin- and mineral-packed germ (see Figure 2, at left). For people up to age 50, the recommended intake is 38 grams for men and 25 grams for women (unless they are or , in which case the recommendation goes up to 28 grams and 29 grams, respectively). The recommendation is lower for people over age 50: 30 grams for men, and 21 grams for women. Dairy. Our first food as infants is milk, and dairy is associated with improved bone health, especially in children and adolescents. While adults don?t need to consume dairy products, dairy foods offer protein and an array of vitamins and minerals, including calcium. Some dairy foods ([place] yogurt, cottage cheese, other cheeses) are better sources of protein than others (milk, regular yogurt), but keep in mind that many types of cheese are high in sodium and saturated fat. If you can?t consume dairy or prefer not to, make sure you meet your calcium needs through other foods or supplements. Protein. You need protein in order to maintain your muscles, bones, skin, and every other organ and tissue in your body. Protein also helps you stay satisfied and manage hunger. Not only is protein important in your overall diet, but emerging research suggests that you should have some at all three meals, especially if you are older. However, keep in mind that while it?s important to get enough protein, more is not necessarily better!Protein foods are a diverse group, including both animal sources (fish and seafood, meats, poultry, eggs, and dairy) and plant sources (soy products, pulses--that is, beans, lentils, chickpeas, and dry peas--and nuts and seeds). As with any food, quality counts: some protein-rich foods have more health benefits than others. [place] and other oily fish provide heart-healthy omega-3 fatty acids. Pulses and whole or minimally processed soy foods like tofu, tempeh, and edamame offer phytochemicals and fiber. On the other hand, fatty or processed meats come with excess saturated fat and other components that don?t support optimal health. Fats and oils. Fat is an essential element of the diet. It?s a major source of energy. In addition, the body requires fat to make cell membranes, provide a protective coating for nerves, maintain healthy skin and hair, and perform other vital functions.After some decades of thinking that we needed to limit fat to be healthy, scientists now know that it?s not how much fat we eat (within reason), but the quality of the fat. For example, it?s crystal clear that we need to avoid artificial trans fats--the hydrogenated vegetable oils that were once used in a variety of processed foods to help keep them from spoiling. Fortunately, those are largely gone from the food supply now, as the result of an FDA ruling in July 2017 banning them from foods sold in [place] grocery stores and restaurants. As for saturated fats--the kind found in animal products like meat and cheese--while limited amounts (less than 10% of daily calories) are fine for most people, they may contribute to a number of health problems, including increased LDL (bad) cholesterol and chronic inflammation, especially when eaten in excess.Most of the fat we eat should be unsaturated. This includes polyunsaturated fats from fatty fish like salmon, walnuts, sunflower seeds, flaxseeds, and some vegetable oils, as well as monounsaturated fats from nuts, peanuts, avocados, olive oil, and canola oil. Unsaturated fats have a number of benefits for health, especially cardiovascular health. A shorthand way of thinking of the different types of fats is this: if they are solid at room temperature, like the marbling in meats, they may lead to stiffer arteries (and therefore high blood pressure) as your body deposits them in arterial linings. If they are liquid at room temperature, like the olive oil you drizzle on your salad, they will help keep arteries more flexible. Encounter Status:Closed by NACHO GARZA on 10/15/24 MURALI Observed: 09/02/2024 10:50 AM Status: COMPLETED Source: [facility] Office Visit (OBGYWM) MARIETTA PIÑA ([id number]) 1990 F Date Time Provider Department 09/02/24 10:50 AM NACHO VERMA OBGYWLisha During your visit today, we recorded the following information about you: Pulse Respiration Blood pressure Weight 96/minute 18/minute 126/74 96.6 kg Last Period 08/20/24 Nacho Verma MD 09/02/2024 12:47 PM Signed Some documentation from previous visit of 07/04/24 was copied and pasted, documentation has been reviewed and edited as necessary for today's visit. Patient Summary: Marietta is a 33 year old Female who presents for follow-up evaluation of obesity/weight management to treat and prevent related co-morbidities. In our previous visits we have discussed lifestyle intervention including a nutrition recommendations and physical activity optimization. Her last office visit was 2 month ago. Assessment/plan from last visit: - Insulin level at 16, indicating insulin resistance; ideal level is 10 or below. - Continuing phentermine once daily. - Topiramate 50 mg once daily, currently taken at lunchtime; discussed potential to increase to 50 mg twice daily if needed to manage evening hunger- consider later date - Initiated metformin with a gradual titration schedule: start with one tablet at dinner, increase to two tablets at dinner once tolerated, then add one tablet at breakfast or lunch, aiming for a total of four tablets daily as tolerated. - Discussed potential side effects of metformin, including bloating, diarrhea, and nausea; advised to adjust titration pace based on tolerance. - Emphasized importance of maintaining a diet high in protein and whole foods to minimize side effects and support weight loss. - Referred to hospital nutrition consultation; will ensure follow-up. - Encouraged continuation of food tracking using the "Lose It" chelsea, focusing on meeting protein goals and monitoring carbohydrate intake. - Advised on meal composition: consume protein first, followed by vegetables, then starches to optimize glucose and insulin response. - Recommended increasing water intake to 90-120 ounces daily. - Discussed benefits of regular physical activity; encouraged maintaining a consistent exercise routine, even if brief. - Scheduled follow-up appointment on September 02 to monitor progress and adjust treatment as necessary. Interval History PT specifies the following items as new or significant updates since the last appointment: - Joined a CrossFit gym, [employer], and has been attending at least three times a week for the past six weeks. - Reports a loss of 7.4 lbs and 7% body fat according to the gym's scale. - Noticed a difference in clothing fit, particularly in jeans, which are looser around the legs and belly. - Reports feeling vieyra faster and has been able to control cravings better. - Occasionally forgets to take the second dose of metformin. - Recently missed a few doses of phentermine due to a delay in refill at [facility]. - Reports improvement in numbness and tingling in fingers and toes. - No issues with palpitations or chest pain. - Blood pressure has been stable at home. - Reports improvement in sleep, now getting 6-7 hours per night, up from 5-6 hours previously. - Reports feeling more rested and staying asleep more often since starting exercise. - Has been trying to measure food portions using a scale. - Reports eating less chips after dinner and trying to have snacks earlier in the day to avoid late-night eating. - Reports being more mindful of eating out of boredom and trying to drink water instead. - Reports talking to a parent coach over the phone but did not find the advice helpful. - Reports feeling restricted but manageable with the current diet. Weight loss since last vist: 5 lb Total weight loss: 11 - Last Wt 09/02/24 : 96.6 kg (213 lb) 210.8 lbs at home 07/04/24 : 98.8 kg (218 lb) 06/06/24 : 101.6 kg (224 lb) 5% weight loss = 213 lbs, 10% weight loss = 202 lbs Anti-obesity medications: Phentermine. Benefit:decreased appetite Adverse effects: none Anti-obesity medications: Topiramate. Benefit:Decreased food noise Adverse effects: none -ADDED METFORMIN (started 07/04) 1000mg BID XR Benefit: insulin resistance insulin 16 ?? PCOS Adverse effects: Weight promoting medications: none Previous Diet (initial appointment): Awake - 5:15-5:30am B - sometimes greens or premier protein (30g) almond milk unsweetened - great value light malagasy yogurt, unsweet coconut shavings and almond shavings , venecian jerky S - L - venusian burger with no bun - broccoli , cheese stick S - pretzels , protein balls, PB- oats, portia seeds, pp, agave, oats D - deer meat- with fries and broccoli, chicken fries or fish sticks , salmon, grilled shrimp S - chips (occasional) Fluids: 64oz water, almond milk in shake (8-10oz unsw), 2 x week diet soda or [place] water, beer or wine 1-2 x week Bedtime - 10:30pm hard time falling asleep (11-11:30pm) Quality of diet: 24hr recall suggests unhealthy diet. Characterization of diet:unhealthy snacking, excessive cravings, and evening snacking. 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 Living of impaired eating habits:excessive hunger, mindlessness , emotion, and stress Eating Disorder no Cravings: salty and sweet Dietary changes: B - sometimes greens or premier protein (30g) almond milk unsweetened - great value light malagasy yogurt, unsweet coconut shavings and almond shavings , venecian jerky S - deer jerky, sometimes an extra shake, almonds L - venusian burger with no bun - broccoli , cheese stick OR Grilled chicken w/ salad S - pretzels , protein balls, PB- oats, portia seeds, pp, agave, oats D - deer meat- with fries and broccoli, chicken fries or fish sticks , salmon, grilled shrimp , sweet potatoes S - way less chips (occasional)- maybe 2 x week but tries to have before dinner ,. Fluids - 80-100 oz Eating 3 meals a day, including breakfast Increasing water intake Increasing servings of vegetables Controlling portions Increasing protein Reducing carbohydrates Eating less take out/fast food Current Barriers: stress eating, food cravings, eating high-calorie foods, and inadequate sleep duration Exercise: Crossfit- 3-4 x week Regular exercise: yes cardio (bike/walking) 2 times a weeks Total 4 times a week for 45 minutes each time Strength/resistance exercise:yes 2 days a week - at home bowflex decreased Stress: no Sleep: increased to 6-7 from 5-6 hours no CRISTY stable Estimated Creatinine Clearance: 129.8 mL/min (based on SCr of 0.69 mg/dL). PAST MEDICAL HISTORY Diagnosis Date Cervical incompetence 11/2017 Gestational diabetes mellitus (GDM) in third trimester (HCC) 10/17/2019 Shivam's thyroiditis Infertility, female Miscarriage (HCC) Obesity Other complications of the puerperium, not elsewhere classified (CODE) 10/10/2017 Pre-eclampsia, severe (HCC) 11/21/2019 Pre-eclampsia, severe (HCC) Thyroid antibody positive Current Outpatient Medications Medication Sig Dispense Refill metFORMIN ER (GLUCOPHAGE XR) 500 mg 24 hr tablet Take 2 tablets by mouth two times a day. 360 tablet 0 topiramate (TOPAMAX) 50 mg tablet Take 1 tablet by mouth daily at bedtime. 30 tablet 2 Phentermine HCl 37.5 mg tablet Take 1 tablet by mouth daily before breakfast for 90 days. TAKE 1 TABLET BY MOUTH ONCE DAILY IN THE MORNING 30 tablet 2 Norethindrone Acet-Ethinyl Est (MICROGESTIN 1.5/30) 1.5-30 mg-mcg Take 1 tablet by mouth once daily. 21 tablet 11 No current facility-administered medications for this visit. ROS Constitutional: (+) weight loss Cardiovascular: (-) chest pain, (-) palpitations Gastrointestinal: (+) constipation, (-) diarrhea Neurological: (-) extremity tingling ROS/Fam Hx pertaining to AOMs: GEN: Fatigue:yes CV: h/o palpitations/cardiac arrhythmia, Chest pain: no HTN: no PULM: Asthma:no GI: GERD:no ; Gallstones:no ; Fatty liver disease:no Pancreatitis: no MSK: Joint Pain:no : Nephrolithiasis: no Symptoms of PCOS: no ?? 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 Physical Exam Waist: 47"-->45" Results: recent labs reviewed with the patient. Latest Ref Rng AND Units 06/22/2024 CMP Sodium 136 - 144 mmol/L 139 Potassium 3.7 - 5.1 mmol/L 4.3 Chloride 98 - 107 mmol/L 105 CO2 22 - 30 mmol/L 23 Glucose 74 - 99 mg/dL 87 BUN 7 - 21 mg/dL 15 Creatinine 0.58 - 0.96 mg/dL 0.69 EGFR >=60 mL/min/1.73m? 118 Protein, Total 6.3 - 8.0 g/dL 7.0 Albumin 3.9 - 4.9 g/dL 4.2 Calcium 8.5 - 10.2 mg/dL 9.3 Bilirubin, Total 0.2 - 1.3 mg/dL 0.4 AST 13 - 35 U/L 21 ALT 7 - 38 U/L 30 Alkaline Phosphatase 34 - 123 U/L 18 Cholesterol, Total (mg/dL) Date Value 04/29/2023 258 05/17/2012 221 HDL Cholesterol (mg/dL) Date Value 04/29/2023 37 05/17/2012 34 LDL Cholesterol, Calculated (mg/dL) Date Value 04/29/2023 200 05/17/2012 149 Triglyceride (mg/dL) Date Value 04/29/2023 106 05/17/2012 188 Latest Ref Rng AND Units 04/29/2023 CBC WBC 3.70 - 11.00 k/uL 4.80 RBC 3.90 - 5.20 m/uL 5.10 Hemoglobin 11.5 - 15.5 g/dL 15.2 Hematocrit 36.0 - 46.0 % 46.1 MCV 80.0 - 100.0 fL 90.4 MCH 26.0 - 34.0 pg 29.8 MCHC 30.5 - 36.0 g/dL 33.0 RDW-CV 11.5 - 15.0 % 12.2 Platelet Count 150 - 400 k/uL 251 MPV 9.0 - 12.7 fL 11.5 Vitamin D 25 Hydroxy Date Value Ref Range Status 04/29/2023 56.0 31.0 - 80.0 ng/mL Final 04/13/2019 27.6 (L) 31.0 - 80.0 ng/mL Final Comment: Classification of 25 OH Vitamin D status: Insufficiency/Moderate Deficiency: < or = 30 ng/mL Sufficiency/Optimal Levels: 31 to 80 ng/mL Toxicity: > 100 ng/mL Test performed by chemiluminescent immunoassay. TSH Date Value 04/29/2023 0.931 mIU/L 12/07/2020 1.550 uU/mL 04/22/2019 2.430 uU/mL ) Hemoglobin A1C (%) Date Value 06/22/2024 5.1 04/29/2023 5.1 01/23/2019 5.2 No components found for: "SQINSULN" 16 Assessment/Plan: 1. Insulin resistance (E88.819) 2. Metabolic syndrome (E88.810) 3. Dyslipidemia (E78.5) 4. Class 2 obesity with body mass index (BMI) of 39.0 to 39.9 in adult, unspecified obesity type, unspecified whether serious comorbidity present (E66.812) - Weight loss of 5 lbs and reduction of 2 inches in waist circumference since last visit; current weight 210.8 lbs. - Engaged in regular exercise, attending [employer] classes three times per week. - Dietary intake includes high protein, low carbohydrate meals with increased vegetable consumption. - Continue metformin as prescribed; patient inquired about timing of second dose, advised to take with either breakfast or lunch. - Reordered phentermine due to prescription. - Continue topiramate to manage evening cravings. - Encouraged patient to monitor fiber intake, aiming for 25-30 grams daily to aid in weight loss and improve insulin sensitivity. - Discussed importance of protein intake, advised to consume 30 grams of protein per meal. - Recommended follow-up with a dietitian at [facility] for further nutritional guidance. - Scheduled follow-up appointments on October 15 and December 04 to monitor progress. 5. Malaise and fatigue (R53.81) - Improvement in sleep duration, now averaging 6-7 hours per night. - Advised patient to continue regular exercise and maintain a balanced diet to further improve energy levels. 6. Migraine without status migrainosus, not intractable, unspecified migraine type (G43.909) - No current issues reported. - continue topiramate 7. Constipation, unspecified constipation type (K59.00) - Mild improvement noted. - Advised to increase dietary fiber intake to 25-30 grams daily and maintain adequate hydration (80-100 ounces of water per day). Prescription instructions reviewed with patient as applicable. Potential red flag symptoms discussed with the patient. Reviewed appropriate action plan to take if red flag symptoms occur. Patient agreeable to treatment plan. Phentermine. Risk/benefits discussed at length including potential side effects of increased anxiety, insomnia, increased heart rate, and increased blood pressure. I have asked the patient to monitor blood pressure and avoid any stimulants (in the form of caffeinated beverages like coffee, tea, sports drinks) initially. Patient denies history of arrhythmias, coronary artery disease (atherosclerosis), heart failure, pulmonary hypertension, stroke, valvular heart disease (prolapse, regurgitation, stenosis). The patient is currently enrolled in a diet and exercise program The patient has no known history of contraindications The patient is free from drug or ETHO abuse The patient is not or and is aware not to become while using this medication OARS was reviewed. PDMP website checked and validated. All prescriptions have been APPROPRIATELY filled. No suspicious activity was identified. Topiramate. Discussed risks/benefits with the patient. Patient aware that this is an off-label use of the medication. BDenies history of kidney stones, seizures or glaucoma. yes hx of migraines yes history of poor sleep. Advised not to mix with alcohol. Educated on increased risk for drowsiness, dizziness, fatigue, kidney stones, osteoporosis and increased eye pressure. Patient of childbearing age. Discussed the risk of defects with topiramate and the need for double control methods as well as regular tests. Contraception: ocps Follow up in 4-6 weeks as scheduled I spent a total of 43 minutes on the date of the service which included preparing to see the patient, [id number] patient care, completing clinical documentation, obtaining and/or reviewing separately obtained history, performing a medically appropriate examination, counseling and educating the patient/family/caregiver, and ordering medications, tests, or procedures Nacho Alcantara MD, FACOG, [facility] . Nacho Verma MD 09/02/2024 12:47 PM Signed - Continue metformin twice daily, taking doses at breakfast and lunch (whichever schedule is easiest to remember). - Continue topiramate once daily at lunchtime. 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 - Keep taking your daily control pills and use condoms during your antibiotic course as a precaution. - Track fiber in the Lose It chelsea and aim for at least 30 g of fiber per day to improve constipation. - Drink about 80-100 oz of water each day. - Eat three balanced meals daily: start with protein (about 30 g per meal), fill most of your plate with vegetables, then add carbohydrates last. - Use a food scale to measure meat and carb portions (weigh before or after cooking, whichever you prefer) and keep total daily calories between 1,200 and 1,500, adjusting down toward 1,200 if weight loss stalls. - Choose high-protein snacks such as beef sticks, 4 oz protein shakes, measured nuts or almonds, [place]an yogurt, protein chips (e.g., Quest), or single-serve dried edamame packets. - Limit regular chips or higher-carb snacks to no more than twice per week, ideally having them earlier (before dinner) if you crave them. - When you feel non-hunger cravings, use an ?activity box? in your kitchen (e.g., a coloring book, a small household task) before eating; if you?re still hungry afterward, then have a snack. - If you feel low on energy before your 4:30-5:30 pm [employer] classes, consider a small protein-rich shake. Aim to eat protein again within two hours after your workout to support muscle recovery. - Continue CrossFit at [facility] at least three times per week, choosing workouts scaled to your level. - Call [facility]?s nutrition department to schedule your dietitian visit (we?ve faxed your referral) and follow their high-protein, lower-carb program. - Follow up here on October 15 (appointment already scheduled). - December 04 at 3:00 pm. Why You May Want to Weigh Yourself Every Day At any given moment, an estimated 24% of men and 38% of women in the [place] are trying to lose weight (1Trusted Source). Meanwhile, obesity has skyrocketed and working-age adults are gaining about 2.2 pounds (1 kg) annually, on average (2Trusted Source, 3Trusted Source). Recent studies have shown that daily self-weighing may be a powerful tool for both losing and maintaining weight. However, many people believe that weighing yourself daily contributes to bad mental health and disordered eating habits. So what should you believe? This article sets the record straight on whether you should start weighing yourself daily. Weighing Yourself Daily Helps You Lose More Weight The simple act of self-weighing has received lots of attention and stirred up controversy for years. Some people have even thrown away their scale, claiming that it?s a highly misleading weight loss tool that results in bad self-esteem and disordered eating habits (4, 5). However, recent studies generally agree that daily weighing is associated with greater weight loss and less weight regain than less-frequent self-weighing (6Trusted Source, 7, 8, 9). One study showed that participants who weighed themselves daily for six months lost 13 more pounds (6 kg), on average, than those who weighed themselves less frequently (10. What?s more, those who weigh themselves daily tend to adopt more favorable weight control behaviors, exercise better restraint toward food and eat impulsively less often (10, 11). Interestingly, adopting healthy weight-related behaviors has been shown to be especially important when people emerge from adolescence into adulthood (12). One study in participants aged 18-25 showed that daily self-weighing resulted in better weight loss than less-frequent weighing (13). The researchers concluded that daily self-weighing is a particularly valuable self-regulation tool for this age group. Furthermore, another study showed that people who weighed themselves every day ate 347 fewer calories per day than those who did not. After six months, the group that weighed themselves daily ended up losing a whopping 10 times more weight than the control group (14). BOTTOM LINE: Daily self-weighing may cause people to lose more weight and gain less of it back, compared to less-frequent weighing. Daily Weighing May Motivate You and Improve Self-Control Being aware of your weight is a garza factor in successful weight loss. Awareness of your weight trend -- that is, whether your weight is going up or down -- is also important. In fact, weighing yourself more often is linked to weight control, while weighing yourself less often has been associated with weight gain. One study found that participants who weighed themselves less often were more likely to report increased calorie intake and decreased restraint toward food (15). Self-weighing promotes self-regulation and awareness of your weight trend and weight-related behaviors. That?s why it generally results in greater weight loss (14). Although the exact number on the scale may be unimportant, monitoring weight loss progress motivates you to keep going and generally improves weight-related behavior and self-control. Also, by being more aware of your weight, you can quickly react to lapses in your progress and make necessary adjustments to maintain your goal. Since most people are able to sustain a habit of daily self-weighing, the adherence and acceptability of it is generally quite high (16Trusted Source, 17, 18, 19, 20). It?s a minor addition to your daily routine that may help you reap major benefits for your weight. BOTTOM LINE: Daily self-weighing helps you maintain awareness of your weight. Monitoring weight loss progress further motivates you to keep going and improves your self-control. Daily Weighing Helps You Keep the Weight Off Frequent self-weighing has been shown to be a great way to prevent weight gain in the long-term (15, 2, 22, 23). 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 It found that there was a significant link between self-weighing frequency and weight change. In normal-weight individuals, daily weighing resulted in a slight weight loss, while those who weighed themselves monthly gained 4.4 pounds (2 kg), on average. However, the largest difference was in overweight individuals. Those who weighed themselves daily lost 10 pounds (4.4 kg), while those who weighed themselves monthly gained 2.2 pounds (1 kg), on average (24). Another study came to a similar conclusion, showing that self-weighing was a significant predictor of body weight over time. Participants lost an extra pound (0.45 kg) of body weight for every 11 days they self-weighed (25). The main reason why this is so effective is that consistent self-weighing allows you to catch weight gain before it escalates and make the necessary changes to prevent more weight gain (15). BOTTOM LINE: Daily weighing may help prevent long-term weight gain, especially in overweight people. Weighing Yourself Daily Is Not as Bad as People Think Not so long ago, frequent self-weighing was thought to be damaging to your mental health. This notion still exists today. Self-weighing is claimed to have negative effects on your mood by continuously reinforcing that your body size is not ideal or appropriate, resulting in an increased risk of developing an eating disorder (4Trusted Source, 5Trusted Source). Although this may be true in a small group of people, most studies have repeatedly come to a different conclusion (9Trusted Source, 26Trusted Source, 27Trusted Source). The available research suggests there is very little evidence that frequent self-weighing is a cause of negative mood or body dissatisfaction, especially as part of a weight loss program (8Trusted Source, 12Trusted Source, 14Trusted Source, 26Trusted Source, 28Trusted Source, 29Trusted Source). In fact, studies indicate that frequent self-weighing may increase body satisfaction, rather than decrease it (9Trusted Source). That said, there is a group of people who may develop a negative body image, low self-esteem or undesirable eating behaviors as a result of daily self-weighing (30Trusted Source). If you find that daily self-weighing causes you to have bad feelings about yourself or your eating behaviors, you should find other methods to measure your progress. BOTTOM LINE: Most studies do not link frequent self-weighing to negative mood or body dissatisfaction. Some even associate them with higher body satisfaction. How to Weigh Yourself for Best Results The best time to weigh yourself is right after you wake up, after going to the bathroom and before you eat or drink. Your weight tends to fluctuate less in the morning than later in the day when you?ve had plenty to eat and drink. That is also why people weigh the least in the morning. Also, it is best if you always weigh yourself in similar clothing each day. However, you need to keep in mind that your weight may fluctuate from day to day and can be affected by many factors, including: What you ate or drank the previous day Bloating or water retention Menstrual cycle Whether you?ve had bowel movements recently Therefore, it is important to assess the trend of your weight over a longer period of time, instead of drawing conclusions from each and every weighing. A basic scale will do just fine. However, many scales also have the ability to measure your body mass index (BMI), body fat percentage and muscle mass, which may help you get a better picture of your progress. There are also several apps available for your phone or computer that allow you to easily enter your daily weight and see the trend of your weight change. Happy Scale for iPhone and Denise for Android are two such apps. BOTTOM LINE: It is best to weigh yourself right after you wake up, after going to the bathroom and before you eat or drink anything. Other Ways to Track Your Progress Although self-weighing may be a valuable tool, it has some limitations. If you?re exercising and gaining muscle, the scale may not show your progress and instead simply show that you have gained weight. While losing weight can indicate progress, a scale does not differentiate between healthy weight (muscle) and unhealthy weight (fat). Therefore, it may be good to add other ways of tracking your progress to your regimen. Here are some examples: Measure circumference: Muscle has much less volume than fat, so your circumference may be decreasing even if your weight stays the same or goes up. Measure body fat percentage: By measuring your body fat percentage, you can observe changes in fat mass, regardless of your weight. Take pictures of yourself regularly: You can observe any changes in your physique by comparing photos of yourself in similar clothing. Note how your clothes feel: Any changes in your weight will probably affect how your clothes fit. Feeling them become looser or tighter is one of the best indicators of changes in your body. BOTTOM LINE: Other ways to track your progress include measuring your circumference, measuring your body fat percentage and taking pictures of yourself. Take Home Message Weighing yourself every day can help increase your awareness of your weight and weight-related behaviors. It may help you lose more weight and prevent you from gaining that weight back in the long-term. Daily self-weighing may just be that extra motivation you need to achieve your weight goals. https://www.SnapMDline.com/nutrition/daily-weighing Creating a Mindful Eating Environment: 10 Mindless Eating Solutions If you're looking for easier ways to make healthy changes to your diet and lifestyle, consider these simple ?mindless eating solutions? for staying on-track with nutrition: Serve Salad and Vegetables First. Before bringing out your main dish, serve salad and vegetables first to ensure you're eating enough of this important food group. This strategy will also help you eat less of the rest of your dish which is likely higher in calories, etc. Serve Your Main [facility] on the Stove or Counter. Studies show that we're likely to eat less if our food is placed on the stove or counter rather than right in front of us. Eat on Smaller Plates. Similar to the strategy mentioned above, studies show that you're likely to consume less food if you're eating from a smaller plate. This is likely due to the increase of smaller portion sizes. Turn off Your Television. Watching television as you eat can be highly distracting, and it affects your ability to eat mindfully. For example: you're less likely to notice when you're full, so you might consume excess calories. Keep Mostly Water On-hand. Calories from drinks can add up quickly, especially in fruit juices, alcohol and soft drinks. By minimizing the amounts of those drinks on-hand, you're more likely to consume water when you're thirsty - and water has amazing health benefits! Keep Your Kitchen Organized. An organized refrigerator, counter and cabinet space makes you more likely to find and choose the foods which are healthiest for you. On the contrary, a messy kitchen space may make you more apt to grab the first item you see. Pre-cut Your Fruits and Vegetables. Let's admit it: We're more likely to put off eating produce if we have to go through the ?burden? of cutting it first. Pre-cut fruits and vegetables will eliminate this extra step. Have at Least Six Single Servings of Lean Protein On-hand. This includes lean meats such as turkey and chicken, yogurt, eggs, nuts, beans and legumes. By having plenty of lean protein on-hand, you can better manage your appetite and hunger levels. Keep All Snack Foods in One Inconvenient Cupboard. You're less likely to reach for unhealthy snack foods if they're not all gazing up at you from plain sight! Keep Only a Fruit Bowl on Your Counter. This way, if you're one to grab foods based off of their availability, you'll reach for healthier fruits rather than less healthy snack foods. https://www.obesityaction.org/community/news/community-news/rshwuy-v-vuzhett-ea- ting-environment/ A diet that leaves you feeling full and satisfied over the course of the day leaves less room for wondering about whether you should have a snack when you?re bored. 1. Eat regularly throughout the day Try to spread out your calorie intake throughout a regular meal and snack schedule. This may keep you more full and less hungry than eating the same number of calories on a less regular meal schedule (5Trusted Source). If you?re feeling content with your food choices for the day, you might be less likely to reach for a snack when you?re bored. What?s more, knowing that you plan to eat a meal or snack in the next few hours could be motivation to hold back from eating until then. The same meal schedule doesn?t work for everyone. Some people like to have three meals and a few snacks each day, while others may prefer to have more or less. Finding a routine that works for you and sticking with it seems to matter more than exactly how many meals and snacks you have each day. 2. Don?t restrict your favorite foods If you tend to crave or reach for certain foods when you?re bored, you might be tempted to completely stop eating those foods to remove the temptation. However, for some people, research shows this approach might be counterproductive. If you find you?re more susceptible to food cravings, depriving yourself of certain foods might make you crave them more in the short term (6Trusted Source, 7Trusted Source, 8Trusted Source). Rather than eliminating the foods you crave, try eating them regularly but in moderation. This might help reduce your urge to snack on those foods when you?re bored. 3. Have nutritious, filling snacks When you?ve just had a filling meal or snack, you may be less likely to associate feeling bored with wanting to eat. Certain foods are more filling than others. Some particularly filling foods include: Protein: eggs, fish, meat, yogurt, cottage cheese Fiber-rich foods: oatmeal, quinoa, whole grains, legumes, popcorn Foods high in water: fruits, vegetables, soups 4. Eat from a plate Sometimes it?s hard to distinguish between hunger and boredom. Ocassationally, there may still be times when you reach for a snack when you?re bored. To avoid overeating and letting boredom get the best of your appetite in those moments, portion your snacks onto a plate or serving dish rather than eating them directly from the bag or container. Visual cues, such as the plate size, container size, and even the type of dish you eat from, can all influence how much you eat (17Trusted Source, 18Trusted Source, 19Trusted Source). SUMMARY Eating a healthy diet comprising regular meals, nutritious and filling snacks, and appropriate portion sizes may be more satisfying and thus make it less tempting to eat when you?re feeling bored. 5-8. Tune in to your emotions Researchers know that your emotions and mood often influence when, what, and how much you eat. Experts have also suggested that how well you regulate your emotions can influence boredom eating. Poor emotional regulation could potentially lead to an increase in eating when you?re feeling bored (22Trusted Source, 23Trusted Source). Practicing self-awareness and developing a better understanding of how your own emotions are influencing your appetite is a great starting place to combat boredom eating. 5. Eat mindfully To be mindful means to be conscious, aware, and focused on the present moment. To eat mindfully means to be aware of your mental and physical states related to food. Some studies have found mindfulness is particularly helpful at helping people reduce eating in response to emotions like boredom (24Trusted Source, 25Trusted Source, 26Trusted Source). Mindful eating is useful in differentiating between boredom and hunger, as it emphasizes paying close attention to your cravings and hunger and fullness cues. 6. Know your hunger signs Being perceptive of your specific hunger and fullness signs may be one of the most effective ways to determine whether you?re hungry or bored. When your body is physically hungry and in need of calories for energy, you may notice signs like your stomach growling, a headache, and feelings of weakness or fatigue. On the other hand, when you?re experiencing boredom hunger -- or another type of emotional hunger -- you may crave a certain food without any of the traditional signs of physical hunger. 7. Embrace being bored Throughout 2019 and into 2020, people reported feeling bored at higher rates than usual due to the COVID-19 pandemic (27Trusted Source). In certain situations, being bored too often may have detrimental health effects, such as increased rates of depression and altered eating habits (1Trusted Source, 28Trusted Source). Still, a little boredom is OK and normal to experience from time to time. What?s more, research has linked boredom to certain benefits. For example, it may help motivate creativity (29Trusted Source, 30Trusted Source). Trying to prevent boredom or override the feeling by eating and finding other distractions doesn?t always work. You might find meaning in the downtime by trying to embrace boredom instead. 8. Take it easy on yourself Remember, it?s normal to reach for a snack out of boredom on occasion. When it happens, don?t take it as a failure. Rather, use it as a learning experience and opportunity to treat yourself with kindness and compassion. SUMMARY Your mood and emotions play a significant role in psychologically induced hunger like boredom eating. Learning to be aware of your emotions, hunger triggers, and fullness cues can help prevent you from eating because you?re bored. 9-11. Understand your environment Much of what you eat is influenced by your environment, and the same goes for when and how much you eat. Here are a few specific ways you can tailor your environment to discourage yourself from boredom eating when the urge strikes. 9. Know your triggers Especially when it comes to psychological types of hunger like boredom eating, external factors often trigger the urge to eat. Identifying the triggers in your life that tend to cause the urge to eat when you?re bored is garza to breaking the habit. Some common triggers to be aware of are stress, food availability, and pictures of food. Make notes in a food journal about what you?re doing and your environment when you feel the urge to eat. This might help identify -- and stop -- boredom eating patterns. 10. Avoid the urge to eat in front of a screen Eating in front of a screen while you?re bored can influence you to overeat when you aren?t even hungry. Many people turn to screen-based activities like watching TV or scrolling on their phone when they?re feeling bored. Some studies have found that people tend to eat more than they otherwise would when they?re distracted or in front of a screen, such as a TV or computer (35Trusted Source, 36Trusted Source, 37Trusted Source). Break associations you might have between eating and screen time by making a point of eating meals at a table -- not in front of the TV -- and putting your phone away while you?re dining. Consider replacing mindless eating during screen time with another activity, such as knitting, doodling, or playing with a toy or piece of jewelry, to keep your hands busy while you watch TV. 11. Change your scenery Sometimes all it takes to get your mind off food when you?re feeling bored is a little change of scenery. When you?re bored and fighting the urge to snack, standing up and moving to a new location -- even if it?s just from one room to another -- may be enough to distract your mind from food until the boredom passes. SUMMARY External factors often trigger urges to eat when you?re not physically hungry. Identifying the factors in your environment that trigger boredom eating is garza to breaking those habits. 12-13. Mix things up To be bored means that you?re feeling uninterested in your current activity. The feeling often occurs when the day has been monotonous or repetitive. The same goes for boredom eating. You may eat simply as a way to escape the regular routines of the day (38Trusted Source, 39Trusted Source). Adding variety to your day keeps things feeling fresh and exciting, and it might fend off boredom eating. 12. Take a walk When you?re feeling bored, taking a walk not only provides a distraction from any urges to snack but also physically removes you from food temptations. Sometimes a quick [id number] walk is all it takes to recenter yourself and forget about the urge to snack out of boredom. If you?re not able to take a walk, you might find it helpful to take a few minutes to stretch or do breathing exercises. 13. Make new habits One of the upsides of being bored is that it can drive you to try new things. Next time you feel bored, take a few minutes to think about how you?d really like to be spending that time. Is there a new hobby you?d like to try or an old book that you never got around to reading? Try to look at boredom as a space for meaningful stimulation in your day. 13 Ways to Stop Eating When You're Bored (Chartboost.GetMaid) Disrupted Sleep Linked to Weight Gain - YouTube How To Improve Your Sleep To Impact Your Weight Loss: [email or web address]'s.GetMaid/ep42/ Weight Loss and Sleep Updated November 29, 2019 Written by Chidi Crow Medically Reviewed by Ketty Whitley In This Article The Connection Between Sleep and Weight Sleep and Obesity Sleep During Weight Loss Maintaining a Healthy Relationship With Your Body Losing weight is challenging, and keeping weight off can be just as difficult. Although the medical community is still untangling the complicated relationship between sleep and body weight, several potential links have emerged that highlight the potential weight loss benefits of getting a good night?s rest and the negative health impacts of sleep deprivation. The Connection Between Sleep and Weight Over the past several decades, the amount of time that Americans spend sleeping has steadily decreased1, as has the self-reported quality of that sleep. For much of the same time period, the average body mass index (BMI) of Americans increased2, reflecting a trend toward higher body weights and elevated rates of obesity. In response to these trends, many researchers began to hypothesize about potential connections between weight and sleep. Numerous studies have suggested that restricted sleep and poor sleep quality may lead to metabolic disorders, weight gain, and an increased risk of obesity and other chronic health conditions. While there is continuing debate within the medical community about the exact nature of this relationship, the existing research points to a positive correlation between good sleep and healthy body weight. There remains much to be discovered about the intricate details of how sleep and weight are connected. Several hypotheses offer paths for additional research with the hope that increasing our understanding of the relationship between weight and sleep will lead to reduced obesity and better weight-loss methods. Can Lack of Sleep Increase Appetite? One common hypothesis about the connection between weight and sleep involves how sleep affects appetite. While we often think of appetite as simply a matter of stomach grumbling, it?s actually controlled by neurotransmitters, which are chemical messengers that allow neurons (nerve cells) to communicate with one another. The neurotransmitters ghrelin and leptin are thought to be central to appetite. Ghrelin promotes hunger, and leptin contributes to feeling full. The body naturally increases and decreases the levels of these neurotransmitters throughout the day, signaling the need to consume calories3. A lack of sleep may affect the body?s regulation of these neurotransmitters. In one study, men who got 4 hours of sleep had increased ghrelin and decreased leptin compared to those who got 10 hours of sleep. This dysregulation of ghrelin and leptin may lead to increased appetite and diminished feelings of fullness in people who are sleep deprived. In addition, several studies have also indicated that sleep deprivation affects food preferences. Sleep-deprived individuals tend to choose foods that are high in calories and carbohydrates4. Other hypotheses regarding the connection between sleep and increased appetite involve the body?s endocannabinoid system5 and orexin6, a neurotransmitter targeted by some sleep aids. Many researchers believe that the connection between sleep and dysregulation of neurotransmitters is complicated and additional studies are needed to further understand the neurobiological relationship. Does Sleep Increase Metabolism? Metabolism7 is a chemical process in which the body converts what we eat and drink into energy needed to survive. All of our collective activities, from breathing to exercising and everything in between, is part of metabolism. While activities like exercise can temporarily increase metabolism, sleep cannot8. Metabolism actually slows about 15% during sleep, reaching its lowest level in the morning 9. In fact, many studies have shown that sleep deprivation (whether due to self-induction, insomnia, untreated sleep apnea, or other sleep disorders) commonly leads to metabolic [id number]. Poor sleep is associated with increased oxidative stress, glucose (blood sugar) intolerance (a precursor to diabetes), and insulin resistance. Extra time spent awake may increase the opportunities to eat11, and sleeping less may disrupt circadian rhythms, leading to weight gain12. How is Sleep Related to Physical Activity? Losing sleep can result in having less energy for exercise and physical activity. Feeling tired can also make sports and exercising less safe, especially activities like weightlifting and or those requiring balance. While researchers are still working to understand this sebfpuoasf10, it?s well known that exercise is essential to maintaining weight loss and overall health. Getting regular exercise can improve sleep quality, especially if that exercise involves natural light. While even taking a short walk during the day may help improve sleep, more activity can have a more dramatic impact. Engaging in at least 150 minutes of moderate-intensity or 75 minutes of high-intensity exercise per week can improve daytime concentration and decrease daytime [id number]. Sleep and Obesity In children and adolescents, the link between not getting enough sleep and an increased risk of obesity is well-established, although the reason for this link is still being debated. Insufficient sleep in children can lead to metabolic irregularities as discussed earlier, skipping breakfast in the mornings, and increased intake of sweet, salty, fatty, and starchy foods15. In adults, the research is less clear. While a large analysis of past studies suggests that people getting less than 6 hours of sleep at night are more likely to be diagnosed as obese16, it?s challenging for these studies to determine cause and effect. Obesity itself can increase the risk of developing conditions that interfere with sleep, like sleep apnea and depression. It?s not clear if getting less sleep is the cause of obesity in these studies, if obesity is causing the participants to get less sleep, or perhaps a mix of both. Even though more studies are needed to understand this connection, experts encourage improving sleep quality when treating obesity in adults. Sleep During Weight Loss Getting adequate, quality sleep is an important part of a healthy weight loss plan. Most importantly, research has shown that losing sleep while dieting can reduce the amount of weight lost17 and encourage [id number]. Tips for Quality Sleep During Weight Loss There are many ways to improve sleep. Here are a few research-based tips for sleeping better when you?re trying to lose weight: Keep a regular sleep schedule: Big swings in your sleep schedule or trying to catch up on sleep after a week of late nights can cause changes in metabolism and reduce insulin [id number], making it easier for blood sugar to be elevated. Sleep in a dark room: Exposure to artificial light while sleeping, such as a TV or bedside lamp, is associated with an increased risk of weight gain and runwaxi71. Don?t eat right before bed: Eating late may reduce the success of weight loss [id number] Reduce Stress: Chronic stress may lead to poor sleep and weight gain in several ways, including eating to cope with negative Be an Early Bird: People with late bedtimes may consume more calories and be at a higher risk for weight gain23. Early birds may be more likely to maintain weight loss when compared to night owls24. Maintaining a Healthy Relationship With Your Body Deciding if you should attempt to change your body weight is a personal decision best made with the guidance of your doctor. Don?t take all the health and weight loss information you read [id number] at face value. Weight loss isn?t appropriate for everyone and doesn?t always mean better health. Remember that health is a lifelong journey that includes not only healthy habits but also having a healthy relationship with your body. If you?re considering weight loss, the National Institutes of Health offers a helpful resource for choosing a safe weight loss hykuvqq75nMoigyve Source National [place] of Diabetes and Digestive and Kidney DiseasesNIDDK research creates knowledge about and treatments for diseases that are among the most chronic, costly, and consequential for patients, their families, and the Nation. niddk.nih.gov . https://www.sleepfoundation.org/physical-health/bfhlxd-lkbm-avl-sleep Sleep Hygiene Tips Set a sleep schedule and stick to it. Try to go to bed at night and awaken in the morning around the same times, even on weekends. This helps to regulate the body?s sleep cycles and circadian rhythms. Try to exercise at some point in the day but avoid vigorous activity (running, fast dancing, high-intensity interval training) one hour before bedtime. Regular exercise of adequate intensity can promote muscle relaxation and deeper sleep later on. If you?re in the habit of napping during the day, aim for a 10-20 minute power nap to achieve the goals of reduced fatigue and increased alertness. It?s best to take naps in the early afternoon to avoid interference with nighttime sleep. Try to avoid large meals, heavy snacking,or alcohol 2-3 hours before bed. If you are sensitive to caffeine, try to avoid drinking caffeinated beverages 4-6 hours before bedtime. Stop using electronic devices an hour before bed, especially those emitting blue light such as smartphones, tablets, and televisions. Schedule before-bed activities to signal that you are winding down, such as changing into pajamas and brushing teeth. Create a quiet, dark, relaxing environment in your bedroom. Dim the lights and turn off your cell phone?s sound and vibration modes if possible. Ensure a comfortable temperature, as feeling too hot or cold can disrupt sleep. Create calming bedtime rituals such as practicing deep breathing exercises, doing light yoga stretches, or listening to soothing relaxing music. If you awaken and can?t return to sleep, don?t stay in bed. Get up and do quiet relaxing activities, such as reading, until you feel tired enough to fall back asleep. Educational Podcasts: The Dr. Tovar Show- Real Conversations about Health and Weight Obesity: A Disease The Obesity Guide Podcast with Michaelle Clayton MD Conquer Your Weight, Martina King MD Docs who lift podcast, Efrain Freeman and Marty Campo Optimal Protein- Makayla Martinez On the Pen Obesity Medicine Podcast (especially if you are on an injection) Allergies As of Date: 09/02/2024 (No Known Allergies) Date Reviewed: 09/02/2024 Reviewed by: Radha Connelly LPN - Fully Assessed Reason for Visit: Weight Management [3933] Primary Visit Diagnosis:Insulin resistance [E88.819] Other Visit Diagnoses:Metabolic syndrome [E88.810] Dyslipidemia [E78.5] Malaise and fatigue [R53.81, R53.83] Migraine without status migrainosus, not intractable, unspecified migraine type [G43.909] Constipation, unspecified constipation type [K59.00] Class 2 obesity with body mass index (BMI) of 39.0 to 39.9 in adult, unspecified obesity type, unspecified whether serious comorbidity present [E66.812, Z68.39] Order(s):Phentermine HCl 37.5 mg tabletTake 1 tablet by mouth daily before breakfast for 90 days. TAKE 1 TABLET BY MOUTH ONCE DAILY IN THE MORNINGDisp: 30 tabletRfl: 2 metFORMIN ER (GLUCOPHAGE XR) 500 mg 24 hr tabletTake 2 tablets by mouth two times a day.Disp: 360 tabletRfl: 0 Prescriptions as of 09/02/2024 - Phentermine HCl 37.5 mg tablet Take 1 tablet by mouth daily before breakfast for 90 days. TAKE 1 TABLET BY MOUTH ONCE DAILY IN THE MORNING - metFORMIN ER (GLUCOPHAGE XR) 500 mg 24 hr tablet Take 2 tablets by mouth two times a day. - topiramate (TOPAMAX) 50 mg tablet Take 1 tablet by mouth daily at bedtime. - Norethindrone Acet-Ethinyl Est (MICROGESTIN 1.530) 1.5-30 mg-mcg Take 1 tablet by mouth once daily. 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] 06/05/2009 11/11/2015 Cholecystitis with cholelithiasis [K80.10] 10/19/2012 11/11/2015 Obesity in [O99.210] 10/22/2015 Family history of cleft lip and palate [Z82.79] 10/22/2015 Patient requested diagnostic testing [Z01.89] 10/22/2015 11/27/2015 Rh negative status in duong in fi*11/12/2015 Patient requested diagnostic testing [Z01.89] 04/07/2016 04/13/2017 History of delivery [Z87.51] 12/22/2016 Incompetent cervix, abdominal cerclage in place*05/02/2017 H/O section [Z98.891] 05/05/2017 Elevated blood pressure reading without diagnos*10/10/2017 Maternal care for intrauterine [O36.4XX0] 10/10/2017 02/17/2021 Other complications of the puerperium, not else*10/10/2017 labor second tri w delivery sec*10/10/2017 02/17/2021 Single stillbirth (CODE) [Z37.1] 08/16/2016 Obesity, Class III, BMI >= 40 [E66.813] 11/28/2017 History of premature rupture of membran*06/10/2019 History of diet controlled gestational diabetes*10/17/2019 06/08/2021 Gestational hypertension [O13.9] 11/04/2019 02/17/2021 Prematurity [P07.30] 11/04/2019 02/17/2021 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] 11/05/2019 Anovulation [N97.0] 11/05/2019 Elevated blood pressure reading [R03.0] 11/21/2019 35 weeks gestation of [Z3A.35] 11/21/2019 02/17/2021 Pre-eclampsia, severe [O14.10] 11/21/2019 02/17/2021 Pre-eclampsia in third trimester [O14.93] 11/21/2019 02/17/2021 with history of section, ant*11/26/2020 Short interval between pregnancies affecting pr*11/26/2020 H/O pre-eclampsia in prior , currently*11/26/2020 History of gestational diabetes in prior pregna*11/26/2020 Gestational diabetes mellitus, class A1 [O24.41*05/07/2021 06/08/2021 Insulin controlled gestational diabetes mellitu*06/08/2021 Other instructions from your clinician: - Continue metformin twice daily, taking doses at breakfast and lunch (whichever schedule is easiest to remember). - Continue topiramate once daily at lunchtime. 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 - Keep taking your daily control pills and use condoms during your antibiotic course as a precaution. - Track fiber in the Lose It chelsea and aim for at least 30 g of fiber per day to improve constipation. - Drink about 80-100 oz of water each day. - Eat three balanced meals daily: start with protein (about 30 g per meal), fill most of your plate with vegetables, then add carbohydrates last. - Use a food scale to measure meat and carb portions (weigh before or after cooking, whichever you prefer) and keep total daily calories between 1,200 and 1,500, adjusting down toward 1,200 if weight loss stalls. - Choose high-protein snacks such as beef sticks, 4 oz protein shakes, measured nuts or almonds, [place] yogurt, protein chips (e.g., Quest), or single-serve dried edamame packets. - Limit regular chips or higher-carb snacks to no more than twice per week, ideally having them earlier (before dinner) if you crave them. - When you feel non-hunger cravings, use an ?activity box? in your kitchen (e.g., a coloring book, a small household task) before eating; if you?re still hungry afterward, then have a snack. - If you feel low on energy before your 4:30-5:30 pm Cross[employer] classes, consider a small protein-rich shake. Aim to eat protein again within two hours after your workout to support muscle recovery. - Continue CrossFit at [employer] [facility] at least three times per week, choosing workouts scaled to your level. - Call [facility]?s nutrition department to schedule your dietitian visit (we?ve faxed your referral) and follow their high-protein, lower-carb program. - Follow up here on October 15 (appointment already scheduled). - December 04 at 3:00 pm. Why You May Want to Weigh Yourself Every Day At any given moment, an estimated 24% of men and 38% of women in the [place] are trying to lose weight (1Trusted Source). Meanwhile, obesity has skyrocketed and working-age adults are gaining about 2.2 pounds (1 kg) annually, on average (2Trusted Source, 3Trusted Source). Recent studies have shown that daily self-weighing may be a powerful tool for both losing and maintaining weight. However, many people believe that weighing yourself daily contributes to bad mental health and disordered eating habits. So what should you believe? This article sets the record straight on whether you should start weighing yourself daily. Weighing Yourself Daily Helps You Lose More Weight The simple act of self-weighing has received lots of attention and stirred up controversy for years. Some people have even thrown away their scale, claiming that it?s a highly misleading weight loss tool that results in bad self-esteem and disordered eating habits (4, 5). However, recent studies generally agree that daily weighing is associated with greater weight loss and less weight regain than less-frequent self-weighing (6Trusted Source, 7, 8, 9). One study showed that participants who weighed themselves daily for six months lost 13 more pounds (6 kg), on average, than those who weighed themselves less frequently (10. What?s more, those who weigh themselves daily tend to adopt more favorable weight control behaviors, exercise better restraint toward food and eat impulsively less often (10, 11). Interestingly, adopting healthy weight-related behaviors has been shown to be especially important when people emerge from adolescence into adulthood (12). One study in participants aged 18-25 showed that daily self-weighing resulted in better weight loss than less-frequent weighing (13). The researchers concluded that daily self-weighing is a particularly valuable self-regulation tool for this age group. Furthermore, another study showed that people who weighed themselves every day ate 347 fewer calories per day than those who did not. After six months, the group that weighed themselves daily ended up losing a whopping 10 times more weight than the control group (14). BOTTOM LINE: Daily self-weighing may cause people to lose more weight and gain less of it back, compared to less-frequent weighing. Daily Weighing May Motivate You and Improve Self-Control Being aware of your weight is a garza factor in successful weight loss. Awareness of your weight trend -- that is, whether your weight is going up or down -- is also important. In fact, weighing yourself more often is linked to weight control, while weighing yourself less often has been associated with weight gain. One study found that participants who weighed themselves less often were more likely to report increased calorie intake and decreased restraint toward food (15). Self-weighing promotes self-regulation and awareness of your weight trend and weight-related behaviors. That?s why it generally results in greater weight loss (14). Although the exact number on the scale may be unimportant, monitoring weight loss progress motivates you to keep going and generally improves weight-related behavior and self-control. Also, by being more aware of your weight, you can quickly react to lapses in your progress and make necessary adjustments to maintain your goal. Since most people are able to sustain a habit of daily self-weighing, the adherence and acceptability of it is generally quite high (16Trusted Source, 17, 18, 19, 20). It?s a minor addition to your daily routine that may help you reap major benefits for your weight. BOTTOM LINE: Daily self-weighing helps you maintain awareness of your weight. Monitoring weight loss progress further motivates you to keep going and improves your self-control. Daily Weighing Helps You Keep the Weight Off Frequent self-weighing has been shown to be a great way to prevent weight gain in the long-term (15, 2, 22, 23). 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 It found that there was a significant link between self-weighing frequency and weight change. In normal-weight individuals, daily weighing resulted in a slight weight loss, while those who weighed themselves monthly gained 4.4 pounds (2 kg), on average. However, the largest difference was in overweight individuals. Those who weighed themselves daily lost 10 pounds (4.4 kg), while those who weighed themselves monthly gained 2.2 pounds (1 kg), on average (24). Another study came to a similar conclusion, showing that self-weighing was a significant predictor of body weight over time. Participants lost an extra pound (0.45 kg) of body weight for every 11 days they self-weighed (25). The main reason why this is so effective is that consistent self-weighing allows you to catch weight gain before it escalates and make the necessary changes to prevent more weight gain (15). BOTTOM LINE: Daily weighing may help prevent long-term weight gain, especially in overweight people. Weighing Yourself Daily Is Not as Bad as People Think Not so long ago, frequent self-weighing was thought to be damaging to your mental health. This notion still exists today. Self-weighing is claimed to have negative effects on your mood by continuously reinforcing that your body size is not ideal or appropriate, resulting in an increased risk of developing an eating disorder (4Trusted Source, 5Trusted Source). Although this may be true in a small group of people, most studies have repeatedly come to a different conclusion (9Trusted Source, 26Trusted Source, 27Trusted Source). The available research suggests there is very little evidence that frequent self-weighing is a cause of negative mood or body dissatisfaction, especially as part of a weight loss program (8Trusted Source, 12Trusted Source, 14Trusted Source, 26Trusted Source, 28Trusted Source, 29Trusted Source). In fact, studies indicate that frequent self-weighing may increase body satisfaction, rather than decrease it (9Trusted Source). That said, there is a group of people who may develop a negative body image, low self-esteem or undesirable eating behaviors as a result of daily self-weighing (30Trusted Source). If you find that daily self-weighing causes you to have bad feelings about yourself or your eating behaviors, you should find other methods to measure your progress. BOTTOM LINE: Most studies do not link frequent self-weighing to negative mood or body dissatisfaction. Some even associate them with higher body satisfaction. How to Weigh Yourself for Best Results The best time to weigh yourself is right after you wake up, after going to the bathroom and before you eat or drink. Your weight tends to fluctuate less in the morning than later in the day when you?ve had plenty to eat and drink. That is also why people weigh the least in the morning. Also, it is best if you always weigh yourself in similar clothing each day. However, you need to keep in mind that your weight may fluctuate from day to day and can be affected by many factors, including: What you ate or drank the previous day Bloating or water retention Menstrual cycle Whether you?ve had bowel movements recently Therefore, it is important to assess the trend of your weight over a longer period of time, instead of drawing conclusions from each and every weighing. A basic scale will do just fine. However, many scales also have the ability to measure your body mass index (BMI), body fat percentage and muscle mass, which may help you get a better picture of your progress. There are also several apps available for your phone or computer that allow you to easily enter your daily weight and see the trend of your weight change. Crescentrating Scale for iPhone and Denise for Android are two such apps. BOTTOM LINE: It is best to weigh yourself right after you wake up, after going to the bathroom and before you eat or drink anything. Other Ways to Track Your Progress Although self-weighing may be a valuable tool, it has some limitations. If you?re exercising and gaining muscle, the scale may not show your progress and instead simply show that you have gained weight. While losing weight can indicate progress, a scale does not differentiate between healthy weight (muscle) and unhealthy weight (fat). Therefore, it may be good to add other ways of tracking your progress to your regimen. Here are some examples: Measure circumference: Muscle has much less volume than fat, so your circumference may be decreasing even if your weight stays the same or goes up. Measure body fat percentage: By measuring your body fat percentage, you can observe changes in fat mass, regardless of your weight. Take pictures of yourself regularly: You can observe any changes in your physique by comparing photos of yourself in similar clothing. Note how your clothes feel: Any changes in your weight will probably affect how your clothes fit. Feeling them become looser or tighter is one of the best indicators of changes in your body. BOTTOM LINE: Other ways to track your progress include measuring your circumference, measuring your body fat percentage and taking pictures of yourself. Take Home Message Weighing yourself every day can help increase your awareness of your weight and weight-related behaviors. It may help you lose more weight and prevent you from gaining that weight back in the long-term. Daily self-weighing may just be that extra motivation you need to achieve your weight goals. https://www.healthline.com/nutrition/daily-weighing Creating a Mindful Eating Environment: 10 Mindless Eating Solutions If you're looking for easier ways to make healthy changes to your diet and lifestyle, consider these simple ?mindless eating solutions? for staying on-track with nutrition: Serve Salad and Vegetables First. Before bringing out your main dish, serve salad and vegetables first to ensure you're eating enough of this important food group. This strategy will also help you eat less of the rest of your dish which is likely higher in calories, etc. Serve Your Main [facility] on the Stove or Counter. Studies show that we're likely to eat less if our food is placed on the stove or counter rather than right in front of us. Eat on Smaller Plates. Similar to the strategy mentioned above, studies show that you're likely to consume less food if you're eating from a smaller plate. This is likely due to the increase of smaller portion sizes. Turn off Your Television. Watching television as you eat can be highly distracting, and it affects your ability to eat mindfully. For example: you're less likely to notice when you're full, so you might consume excess calories. Keep Mostly Water On-hand. Calories from drinks can add up quickly, especially in fruit juices, alcohol and soft drinks. By minimizing the amounts of those drinks on-hand, you're more likely to consume water when you're thirsty - and water has amazing health benefits! Keep Your Kitchen Organized. An organized refrigerator, counter and cabinet space makes you more likely to find and choose the foods which are healthiest for you. On the contrary, a messy kitchen space may make you more apt to grab the first item you see. Pre-cut Your Fruits and Vegetables. Let's admit it: We're more likely to put off eating produce if we have to go through the ?burden? of cutting it first. Pre-cut fruits and vegetables will eliminate this extra step. Have at Least Six Single Servings of Lean Protein On-hand. This includes lean meats such as turkey and chicken, yogurt, eggs, nuts, beans and legumes. By having plenty of lean protein on-hand, you can better manage your appetite and hunger levels. Keep All Snack Foods in One Inconvenient Cupboard. You're less likely to reach for unhealthy snack foods if they're not all gazing up at you from plain sight! Keep Only a Fruit Bowl on Your Counter. This way, if you're one to grab foods based off of their availability, you'll reach for healthier fruits rather than less healthy snack foods. https://www.obesityaction.org/community/news/community-news/ovvybp-p-rjmygq a-sgglxe-bdkmosggjbt/ A diet that leaves you feeling full and satisfied over the course of the day leaves less room for wondering about whether you should have a snack when you?re bored. 1. Eat regularly throughout the day Try to spread out your calorie intake throughout a regular meal and snack schedule. This may keep you more full and less hungry than eating the same number of calories on a less regular meal schedule (5Trusted Source). If you?re feeling content with your food choices for the day, you might be less likely to reach for a snack when you?re bored. What?s more, knowing that you plan to eat a meal or snack in the next few hours could be motivation to hold back from eating until then. The same meal schedule doesn?t work for everyone. Some people like to have three meals and a few snacks each day, while others may prefer to have more or less. Finding a routine that works for you and sticking with it seems to matter more than exactly how many meals and snacks you have each day. 2. Don?t restrict your favorite foods If you tend to crave or reach for certain foods when you?re bored, you might be tempted to completely stop eating those foods to remove the temptation. However, for some people, research shows this approach might be counterproductive. If you find you?re more susceptible to food cravings, depriving yourself of certain foods might make you crave them more in the short term (6Trusted Source, 7Trusted Source, 8Trusted Source). Rather than eliminating the foods you crave, try eating them regularly but in moderation. This might help reduce your urge to snack on those foods when you?re bored. 3. Have nutritious, filling snacks When you?ve just had a filling meal or snack, you may be less likely to associate feeling bored with wanting to eat. Certain foods are more filling than others. Some particularly filling foods include: Protein: eggs, fish, meat, yogurt, cottage cheese Fiber-rich foods: oatmeal, quinoa, whole grains, legumes, popcorn Foods high in water: fruits, vegetables, soups 4. Eat from a plate Sometimes it?s hard to distinguish between hunger and boredom. Ocassationally, there may still be times when you reach for a snack when you?re bored. To avoid overeating and letting boredom get the best of your appetite in those moments, portion your snacks onto a plate or serving dish rather than eating them directly from the bag or container. Visual cues, such as the plate size, container size, and even the type of dish you eat from, can all influence how much you eat (17Trusted Source, 18Trusted Source, 19Trusted Source). SUMMARY Eating a healthy diet comprising regular meals, nutritious and filling snacks, and appropriate portion sizes may be more satisfying and thus make it less tempting to eat when you?re feeling bored. 5-8. Tune in to your emotions Researchers know that your emotions and mood often influence when, what, and how much you eat. Experts have also suggested that how well you regulate your emotions can influence boredom eating. Poor emotional regulation could potentially lead to an increase in eating when you?re feeling bored (22Trusted Source, 23Trusted Source). Practicing self-awareness and developing a better understanding of how your own emotions are influencing your appetite is a great starting place to combat boredom eating. 5. Eat mindfully To be mindful means to be conscious, aware, and focused on the present moment. To eat mindfully means to be aware of your mental and physical states related to food. Some studies have found mindfulness is particularly helpful at helping people reduce eating in response to emotions like boredom (24Trusted Source, 25Trusted Source, 26Trusted Source). Mindful eating is useful in differentiating between boredom and hunger, as it emphasizes paying close attention to your cravings and hunger and fullness cues. 6. Know your hunger signs Being perceptive of your specific hunger and fullness signs may be one of the most effective ways to determine whether you?re hungry or bored. When your body is physically hungry and in need of calories for energy, you may notice signs like your stomach growling, a headache, and feelings of weakness or fatigue. On the other hand, when you?re experiencing boredom hunger -- or another type of emotional hunger -- you may crave a certain food without any of the traditional signs of physical hunger. 7. Embrace being bored Throughout 2019 and into 2020, people reported feeling bored at higher rates than usual due to the COVID-19 pandemic (27Trusted Source). In certain situations, being bored too often may have detrimental health effects, such as increased rates of depression and altered eating habits (1Trusted Source, 28Trusted Source). Still, a little boredom is OK and normal to experience from time to time. What?s more, research has linked boredom to certain benefits. For example, it may help motivate creativity (29Trusted Source, 30Trusted Source). Trying to prevent boredom or override the feeling by eating and finding other distractions doesn?t always work. You might find meaning in the downtime by trying to embrace boredom instead. 8. Take it easy on yourself Remember, it?s normal to reach for a snack out of boredom on occasion. When it happens, don?t take it as a failure. Rather, use it as a learning experience and opportunity to treat yourself with kindness and compassion. SUMMARY Your mood and emotions play a significant role in psychologically induced hunger like boredom eating. Learning to be aware of your emotions, hunger triggers, and fullness cues can help prevent you from eating because you?re bored. 9-11. Understand your environment Much of what you eat is influenced by your environment, and the same goes for when and how much you eat. Here are a few specific ways you can tailor your environment to discourage yourself from boredom eating when the urge strikes. 9. Know your triggers Especially when it comes to psychological types of hunger like boredom eating, external factors often trigger the urge to eat. Identifying the triggers in your life that tend to cause the urge to eat when you?re bored is garza to breaking the habit. Some common triggers to be aware of are stress, food availability, and pictures of food. Make notes in a food journal about what you?re doing and your environment when you feel the urge to eat. This might help identify -- and stop -- boredom eating patterns. 10. Avoid the urge to eat in front of a screen Eating in front of a screen while you?re bored can influence you to overeat when you aren?t even hungry. Many people turn to screen-based activities like watching TV or scrolling on their phone when they?re feeling bored. Some studies have found that people tend to eat more than they otherwise would when they?re distracted or in front of a screen, such as a TV or computer (35Trusted Source, 36Trusted Source, 37Trusted Source). Break associations you might have between eating and screen time by making a point of eating meals at a table -- not in front of the TV -- and putting your phone away while you?re dining. Consider replacing mindless eating during screen time with another activity, such as knitting, doodling, or playing with a toy or piece of jewelry, to keep your hands busy while you watch TV. 11. Change your scenery Sometimes all it takes to get your mind off food when you?re feeling bored is a little change of scenery. When you?re bored and fighting the urge to snack, standing up and moving to a new location -- even if it?s just from one room to another -- may be enough to distract your mind from food until the boredom passes. SUMMARY External factors often trigger urges to eat when you?re not physically hungry. Identifying the factors in your environment that trigger boredom eating is garza to breaking those habits. 12-13. Mix things up To be bored means that you?re feeling uninterested in your current activity. The feeling often occurs when the day has been monotonous or repetitive. The same goes for boredom eating. You may eat simply as a way to escape the regular routines of the day (38Trusted Source, 39Trusted Source). Adding variety to your day keeps things feeling fresh and exciting, and it might fend off boredom eating. 12. Take a walk When you?re feeling bored, taking a walk not only provides a distraction from any urges to snack but also physically removes you from food temptations. Sometimes a quick [id number] walk is all it takes to recenter yourself and forget about the urge to snack out of boredom. If you?re not able to take a walk, you might find it helpful to take a few minutes to stretch or do breathing exercises. 13. Make new habits One of the upsides of being bored is that it can drive you to try new things. Next time you feel bored, take a few minutes to think about how you?d really like to be spending that time. Is there a new hobby you?d like to try or an old book that you never got around to reading? Try to look at boredom as a space for meaningful stimulation in your day. 13 Ways to Stop Eating When You're Bored (Chartboost.GetMaid) Disrupted Sleep Linked to Weight Gain - YouTube How To Improve Your Sleep To Impact Your Weight Loss: [email or web address].GetMaid/ep42/ Weight Loss and Sleep Updated November 29, 2019 Written by Chidi Crow Medically Reviewed by Ketty Whitley In This Article The Connection Between Sleep and Weight Sleep and Obesity Sleep During Weight Loss Maintaining a Healthy Relationship With Your Body Losing weight is challenging, and keeping weight off can be just as difficult. Although the medical community is still untangling the complicated relationship between sleep and body weight, several potential links have emerged that highlight the potential weight loss benefits of getting a good night?s rest and the negative health impacts of sleep deprivation. The Connection Between Sleep and Weight Over the past several decades, the amount of time that Americans spend sleeping has steadily decreased1, as has the self-reported quality of that sleep. For much of the same time period, the average body mass index (BMI) of Americans increased2, reflecting a trend toward higher body weights and elevated rates of obesity. In response to these trends, many researchers began to hypothesize about potential connections between weight and sleep. Numerous studies have suggested that restricted sleep and poor sleep quality may lead to metabolic disorders, weight gain, and an increased risk of obesity and other chronic health conditions. While there is continuing debate within the medical community about the exact nature of this relationship, the existing research points to a positive correlation between good sleep and healthy body weight. There remains much to be discovered about the intricate details of how sleep and weight are connected. Several hypotheses offer paths for additional research with the hope that increasing our understanding of the relationship between weight and sleep will lead to reduced obesity and better weight-loss methods. Can Lack of Sleep Increase Appetite? One common hypothesis about the connection between weight and sleep involves how sleep affects appetite. While we often think of appetite as simply a matter of stomach grumbling, it?s actually controlled by neurotransmitters, which are chemical messengers that allow neurons (nerve cells) to communicate with one another. The neurotransmitters ghrelin and leptin are thought to be central to appetite. Ghrelin promotes hunger, and leptin contributes to feeling full. The body naturally increases and decreases the levels of these neurotransmitters throughout the day, signaling the need to consume calories3. A lack of sleep may affect the body?s regulation of these neurotransmitters. In one study, men who got 4 hours of sleep had increased ghrelin and decreased leptin compared to those who got 10 hours of sleep. This dysregulation of ghrelin and leptin may lead to increased appetite and diminished feelings of fullness in people who are sleep deprived. In addition, several studies have also indicated that sleep deprivation affects food preferences. Sleep-deprived individuals tend to choose foods that are high in calories and carbohydrates4. Other hypotheses regarding the connection between sleep and increased appetite involve the body?s endocannabinoid system5 and orexin6, a neurotransmitter targeted by some sleep aids. Many researchers believe that the connection between sleep and dysregulation of neurotransmitters is complicated and additional studies are needed to further understand the neurobiological relationship. Does Sleep Increase Metabolism? Metabolism7 is a chemical process in which the body converts what we eat and drink into energy needed to survive. All of our collective activities, from breathing to exercising and everything in between, is part of metabolism. While activities like exercise can temporarily increase metabolism, sleep cannot8. Metabolism actually slows about 15% during sleep, reaching its lowest level in the morning 9. In fact, many studies have shown that sleep deprivation (whether due to self-induction, insomnia, untreated sleep apnea, or other sleep disorders) commonly leads to metabolic [id number]. Poor sleep is associated with increased oxidative stress, glucose (blood sugar) intolerance (a precursor to diabetes), and insulin resistance. Extra time spent awake may increase the opportunities to eat11, and sleeping less may disrupt circadian rhythms, leading to weight gain12. How is Sleep Related to Physical Activity? Losing sleep can result in having less energy for exercise and physical activity. Feeling tired can also make sports and exercising less safe, especially activities like weightlifting and or those requiring balance. While researchers are still working to understand this [id number], it?s well known that exercise is essential to maintaining weight loss and overall health. Getting regular exercise can improve sleep quality, especially if that exercise involves natural light. While even taking a short walk during the day may help improve sleep, more activity can have a more dramatic impact. Engaging in at least 150 minutes of moderate-intensity or 75 minutes of high-intensity exercise per week can improve daytime concentration and decrease daytime [id number]. Sleep and Obesity In children and adolescents, the link between not getting enough sleep and an increased risk of obesity is well-established, although the reason for this link is still being debated. Insufficient sleep in children can lead to metabolic irregularities as discussed earlier, skipping breakfast in the mornings, and increased intake of sweet, salty, fatty, and starchy foods15. In adults, the research is less clear. While a large analysis of past studies suggests that people getting less than 6 hours of sleep at night are more likely to be diagnosed as obese16, it?s challenging for these studies to determine cause and effect. Obesity itself can increase the risk of developing conditions that interfere with sleep, like sleep apnea and depression. It?s not clear if getting less sleep is the cause of obesity in these studies, if obesity is causing the participants to get less sleep, or perhaps a mix of both. Even though more studies are needed to understand this connection, experts encourage improving sleep quality when treating obesity in adults. Sleep During Weight Loss Getting adequate, quality sleep is an important part of a healthy weight loss plan. Most importantly, research has shown that losing sleep while dieting can reduce the amount of weight lost17 and encourage [id number]. Tips for Quality Sleep During Weight Loss There are many ways to improve sleep. Here are a few research-based tips for sleeping better when you?re trying to lose weight: Keep a regular sleep schedule: Big swings in your sleep schedule or trying to catch up on sleep after a week of late nights can cause changes in metabolism and reduce insulin [id number], making it easier for blood sugar to be elevated. Sleep in a dark room: Exposure to artificial light while sleeping, such as a TV or bedside lamp, is associated with an increased risk of weight gain and [id number]. Don?t eat right before bed: Eating late may reduce the success of weight loss [id number] Reduce Stress: Chronic stress may lead to poor sleep and weight gain in several ways, including eating to cope with negative Be an Early Bird: People with late bedtimes may consume more calories and be at a higher risk for weight gain23. Early birds may be more likely to maintain weight loss when compared to night owls24. Maintaining a Healthy Relationship With Your Body Deciding if you should attempt to change your body weight is a personal decision best made with the guidance of your doctor. Don?t take all the health and weight loss information you read at face value. Weight loss isn?t appropriate for everyone and doesn?t always mean better health. Remember that health is a lifelong journey that includes not only healthy habits but also having a healthy relationship with your body. If you?re considering weight loss, the National Institutes of Health offers a helpful resource for choosing a safe weight loss [id number] Source National [place] of Diabetes and Digestive and Kidney DiseasesNIDDK research creates knowledge about and treatments for diseases that are among the most chronic, costly, and consequential for patients, their families, and the Nation. niddk.nih.gov . https://www.sleepfoundation.org/physical-health/llcuro-gdtp-mkw-sleep Sleep Hygiene Tips Set a sleep schedule and stick to it. Try to go to bed at night and awaken in the morning around the same times, even on weekends. This helps to regulate the body?s sleep cycles and circadian rhythms. Try to exercise at some point in the day but avoid vigorous activity (running, fast dancing, high-intensity interval training) one hour before bedtime. Regular exercise of adequate intensity can promote muscle relaxation and deeper sleep later on. If you?re in the habit of napping during the day, aim for a 10-20 minute power nap to achieve the goals of reduced fatigue and increased alertness. It?s best to take naps in the early afternoon to avoid interference with nighttime sleep. Try to avoid large meals, heavy snacking,or alcohol 2-3 hours before bed. If you are sensitive to caffeine, try to avoid drinking caffeinated beverages 4-6 hours before bedtime. Stop using electronic devices an hour before bed, especially those emitting blue light such as smartphones, tablets, and televisions. Schedule before-bed activities to signal that you are winding down, such as changing into pajamas and brushing teeth. Create a quiet, dark, relaxing environment in your bedroom. Dim the lights and turn off your cell phone?s sound and vibration modes if possible. Ensure a comfortable temperature, as feeling too hot or cold can disrupt sleep. Create calming bedtime rituals such as practicing deep breathing exercises, doing light yoga stretches, or listening to soothing relaxing music. If you awaken and can?t return to sleep, don?t stay in bed. Get up and do quiet relaxing activities, such as reading, until you feel tired enough to fall back asleep. Educational Podcasts: The Dr. Tovar Show- Real Conversations about Health and Weight Obesity: A Disease The Obesity Guide Podcast with Michaelle Clayton MD Conquer Your Weight, Martina King MD Docs who lift podcast, Efrain Freeman and Marty Campo Optimal Protein- Makayla Spina On the Pen Obesity Medicine Podcast (especially if you are on an injection) Prescriptions ordered this encounter Disp Refills Start End PHENTERMINE 37.5 MG TABLET 30 t* 2 09/02/2024 12/01/2024 Route: PO Sig: Take 1 tablet by mouth daily before breakfast for 90 days. TAKE 1 TABLET BY MOUTH ONCE DAILY IN THE MORNING METFORMIN ER 500 MG TABLET,EXTENDED * 360 * 0 09/02/2024 12/01/2024 Route: PO Sig: Take 2 tablets by mouth two times a day. Medications Discontinued During This Encounter Prescriptions - Phentermine HCl 37.5 mg tablet (Discontinued) Reported on 09/02/2024 - metFORMIN ER (GLUCOPHAGE XR) 500 mg 24 hr tablet (Discontinued) Take 2 tablets by mouth two times a day. Encounter Status:Closed by NACHO GARZA on 09/02/24 PROGRESS Observed: 09/02/2024 10:50 AM Status: COMPLETED Source: [facility] ID: [id number] Author: NACHO VERMA MD Service: ? Author Type: Physician Type: Progress Notes Filed: 09/02/2024 12:47 Note Text: Some documentation from previous visit of 07/04/24 was copied and pasted, documentation has been reviewed and edited as necessary for today's visit. Patient Summary: Marietta is a 33 year old Female who presents for follow-up evaluation of obesity/weight management to treat and prevent related co-morbidities. In our previous visits we have discussed lifestyle intervention including a nutrition recommendations and physical activity optimization. Her last office visit was 2 month ago. Assessment/plan from last visit: - Insulin level at 16, indicating insulin resistance; ideal level is 10 or below. - Continuing phentermine once daily. - Topiramate 50 mg once daily, currently taken at lunchtime; discussed potential to increase to 50 mg twice daily if needed to manage evening hunger- consider later date - Initiated metformin with a gradual titration schedule: start with one tablet at dinner, increase to two tablets at dinner once tolerated, then add one tablet at breakfast or lunch, aiming for a total of four tablets daily as tolerated. - Discussed potential side effects of metformin, including bloating, diarrhea, and nausea; advised to adjust titration pace based on tolerance. - Emphasized importance of maintaining a diet high in protein and whole foods to minimize side effects and support weight loss. - Referred to hospital nutrition consultation; will ensure follow-up. - Encouraged continuation of food tracking using the "Lose It" chelsea, focusing on meeting protein goals and monitoring carbohydrate intake. - Advised on meal composition: consume protein first, followed by vegetables, then starches to optimize glucose and insulin response. - Recommended increasing water intake to 90-120 ounces daily. - Discussed benefits of regular physical activity; encouraged maintaining a consistent exercise routine, even if brief. - Scheduled follow-up appointment on September 02 to monitor progress and adjust treatment as necessary. Interval History PT specifies the following items as new or significant updates since the last appointment: - Joined a CrossFit gym, [employer], and has been attending at least three times a week for the past six weeks. - Reports a loss of 7.4 lbs and 7% body fat according to the gym's scale. - Noticed a difference in clothing fit, particularly in jeans, which are looser around the legs and belly. - Reports feeling vieyra faster and has been able to control cravings better. - Occasionally forgets to take the second dose of metformin. - Recently missed a few doses of phentermine due to a delay in refill at [facility]. - Reports improvement in numbness and tingling in fingers and toes. - No issues with palpitations or chest pain. - Blood pressure has been stable at home. - Reports improvement in sleep, now getting 6-7 hours per night, up from 5-6 hours previously. - Reports feeling more rested and staying asleep more often since starting exercise. - Has been trying to measure food portions using a scale. - Reports eating less chips after dinner and trying to have snacks earlier in the day to avoid late-night eating. - Reports being more mindful of eating out of boredom and trying to drink water instead. - Reports talking to a parent coach over the phone but did not find the advice helpful. - Reports feeling restricted but manageable with the current diet. Weight loss since last vist: 5 lb Total weight loss: 11 - Last Wt 09/02/24 : 96.6 kg (213 lb) 210.8 lbs at home 07/04/24 : 98.8 kg (218 lb) 06/06/24 : 101.6 kg (224 lb) 5% weight loss = 213 lbs, 10% weight loss = 202 lbs Anti-obesity medications: Phentermine. Benefit:decreased appetite Adverse effects: none Anti-obesity medications: Topiramate. Benefit:Decreased food noise Adverse effects: none -ADDED METFORMIN (started 07/04) 1000mg BID XR Benefit: insulin resistance insulin 16 ?? PCOS Adverse effects: Weight promoting medications: none Previous Diet (initial appointment): Awake - 5:15-5:30am B - sometimes greens or premier protein (30g) almond milk unsweetened - great value light malagasy yogurt, unsweet coconut shavings and almond shavings , venecian jerky S - L - venusian burger with no bun - broccoli , cheese stick S - pretzels , protein balls, PB- oats, portia seeds, pp, agave, oats D - deer meat- with fries and broccoli, chicken fries or fish sticks , salmon, grilled shrimp S - chips (occasional) Fluids: 64oz water, almond milk in shake (8-10oz unsw), 2 x week diet soda or [place] water, beer or wine 1-2 x week Bedtime - 10:30pm hard time falling asleep (11-11:30pm) Quality of diet: 24hr recall suggests unhealthy diet. Characterization of diet:unhealthy snacking, excessive cravings, and evening snacking. 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 Living of impaired eating habits:excessive hunger, mindlessness , emotion, and stress Eating Disorder no Cravings: salty and sweet Dietary changes: B - sometimes greens or premier protein (30g) almond milk unsweetened - great value light malagasy yogurt, unsweet coconut shavings and almond shavings , venecian jerky S - deer jerky, sometimes an extra shake, almonds L - venusian burger with no bun - broccoli , cheese stick OR Grilled chicken w/ salad S - pretzels , protein balls, PB- oats, portia seeds, pp, agave, oats D - deer meat- with fries and broccoli, chicken fries or fish sticks , salmon, grilled shrimp , sweet potatoes S - way less chips (occasional)- maybe 2 x week but tries to have before dinner ,. Fluids - 80-100 oz Eating 3 meals a day, including breakfast Increasing water intake Increasing servings of vegetables Controlling portions Increasing protein Reducing carbohydrates Eating less take out/fast food Current Barriers: stress eating, food cravings, eating high-calorie foods, and inadequate sleep duration Exercise: Crossfit- 3-4 x week Regular exercise: yes cardio (bike/walking) 2 times a weeks Total 4 times a week for 45 minutes each time Strength/resistance exercise:yes 2 days a week - at home bowflex decreased Stress: no Sleep: increased to 6-7 from 5-6 hours no CRISTY stable Estimated Creatinine Clearance: 129.8 mL/min (based on SCr of 0.69 mg/dL). PAST MEDICAL HISTORY Diagnosis Date Cervical incompetence 11/2017 Gestational diabetes mellitus (GDM) in third trimester (HCC) 10/17/2019 Shivam's thyroiditis Infertility, female Miscarriage (HCC) Obesity Other complications of the puerperium, not elsewhere classified (CODE) 10/10/2017 Pre-eclampsia, severe (HCC) 11/21/2019 Pre-eclampsia, severe (HCC) Thyroid antibody positive Current Outpatient Medications Medication Sig Dispense Refill metFORMIN ER (GLUCOPHAGE XR) 500 mg 24 hr tablet Take 2 tablets by mouth two times a day. 360 tablet 0 topiramate (TOPAMAX) 50 mg tablet Take 1 tablet by mouth daily at bedtime. 30 tablet 2 Phentermine HCl 37.5 mg tablet Take 1 tablet by mouth daily before breakfast for 90 days. TAKE 1 TABLET BY MOUTH ONCE DAILY IN THE MORNING 30 tablet 2 Norethindrone Acet-Ethinyl Est (MICROGESTIN 1.5/30) 1.5-30 mg-mcg Take 1 tablet by mouth once daily. 21 tablet 11 No current facility-administered medications for this visit. ROS Constitutional: (+) weight loss Cardiovascular: (-) chest pain, (-) palpitations Gastrointestinal: (+) constipation, (-) diarrhea Neurological: (-) extremity tingling ROS/Fam Hx pertaining to AOMs: GEN: Fatigue:yes CV: h/o palpitations/cardiac arrhythmia, Chest pain: no HTN: no PULM: Asthma:no GI: GERD:no ; Gallstones:no ; Fatty liver disease:no Pancreatitis: no MSK: Joint Pain:no : Nephrolithiasis: no Symptoms of PCOS: no ?? 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 Physical Exam Waist: 47"-->45" Results: recent labs reviewed with the patient. Latest Ref Rng AND Units 06/22/2024 CMP Sodium 136 - 144 mmol/L 139 Potassium 3.7 - 5.1 mmol/L 4.3 Chloride 98 - 107 mmol/L 105 CO2 22 - 30 mmol/L 23 Glucose 74 - 99 mg/dL 87 BUN 7 - 21 mg/dL 15 Creatinine 0.58 - 0.96 mg/dL 0.69 EGFR >=60 mL/min/1.73m? 118 Protein, Total 6.3 - 8.0 g/dL 7.0 Albumin 3.9 - 4.9 g/dL 4.2 Calcium 8.5 - 10.2 mg/dL 9.3 Bilirubin, Total 0.2 - 1.3 mg/dL 0.4 AST 13 - 35 U/L 21 ALT 7 - 38 U/L 30 Alkaline Phosphatase 34 - 123 U/L 18 Cholesterol, Total (mg/dL) Date Value 04/29/2023 258 05/17/2012 221 HDL Cholesterol (mg/dL) Date Value 04/29/2023 37 05/17/2012 34 LDL Cholesterol, Calculated (mg/dL) Date Value 04/29/2023 200 05/17/2012 149 Triglyceride (mg/dL) Date Value 04/29/2023 106 05/17/2012 188 Latest Ref Rng AND Units 04/29/2023 CBC WBC 3.70 - 11.00 k/uL 4.80 RBC 3.90 - 5.20 m/uL 5.10 Hemoglobin 11.5 - 15.5 g/dL 15.2 Hematocrit 36.0 - 46.0 % 46.1 MCV 80.0 - 100.0 fL 90.4 MCH 26.0 - 34.0 pg 29.8 MCHC 30.5 - 36.0 g/dL 33.0 RDW-CV 11.5 - 15.0 % 12.2 Platelet Count 150 - 400 k/uL 251 MPV 9.0 - 12.7 fL 11.5 Vitamin D 25 Hydroxy Date Value Ref Range Status 04/29/2023 56.0 31.0 - 80.0 ng/mL Final 04/13/2019 27.6 (L) 31.0 - 80.0 ng/mL Final Comment: Classification of 25 OH Vitamin D status: Insufficiency/Moderate Deficiency: < or = 30 ng/mL Sufficiency/Optimal Levels: 31 to 80 ng/mL Toxicity: > 100 ng/mL Test performed by chemiluminescent immunoassay. TSH Date Value 04/29/2023 0.931 mIU/L 12/07/2020 1.550 uU/mL 04/22/2019 2.430 uU/mL ) Hemoglobin A1C (%) Date Value 06/22/2024 5.1 04/29/2023 5.1 01/23/2019 5.2 No components found for: "SQINSULN" 16 Assessment/Plan: 1. Insulin resistance (E88.819) 2. Metabolic syndrome (E88.810) 3. Dyslipidemia (E78.5) 4. Class 2 obesity with body mass index (BMI) of 39.0 to 39.9 in adult, unspecified obesity type, unspecified whether serious comorbidity present (E66.812) - Weight loss of 5 lbs and reduction of 2 inches in waist circumference since last visit; current weight 210.8 lbs. - Engaged in regular exercise, attending CrossFit classes three times per week. - Dietary intake includes high protein, low carbohydrate meals with increased vegetable consumption. - Continue metformin as prescribed; patient inquired about timing of second dose, advised to take with either breakfast or lunch. - Reordered phentermine due to prescription. - Continue topiramate to manage evening cravings. - Encouraged patient to monitor fiber intake, aiming for 25-30 grams daily to aid in weight loss and improve insulin sensitivity. - Discussed importance of protein intake, advised to consume 30 grams of protein per meal. - Recommended follow-up with a dietitian at [facility] for further nutritional guidance. - Scheduled follow-up appointments on October 15 and December 04 to monitor progress. 5. Malaise and fatigue (R53.81) - Improvement in sleep duration, now averaging 6-7 hours per night. - Advised patient to continue regular exercise and maintain a balanced diet to further improve energy levels. 6. Migraine without status migrainosus, not intractable, unspecified migraine type (G43.909) - No current issues reported. - continue topiramate 7. Constipation, unspecified constipation type (K59.00) - Mild improvement noted. - Advised to increase dietary fiber intake to 25-30 grams daily and maintain adequate hydration (80-100 ounces of water per day). Prescription instructions reviewed with patient as applicable. Potential red flag symptoms discussed with the patient. Reviewed appropriate action plan to take if red flag symptoms occur. Patient agreeable to treatment plan. Phentermine. Risk/benefits discussed at length including potential side effects of increased anxiety, insomnia, increased heart rate, and increased blood pressure. I have asked the patient to monitor blood pressure and avoid any stimulants (in the form of caffeinated beverages like coffee, tea, sports drinks) initially. Patient denies history of arrhythmias, coronary artery disease (atherosclerosis), heart failure, pulmonary hypertension, stroke, valvular heart disease (prolapse, regurgitation, stenosis). The patient is currently enrolled in a diet and exercise program The patient has no known history of contraindications The patient is free from drug or ETHO abuse The patient is not or and is aware not to become while using this medication OARS was reviewed. PDMP website checked and validated. All prescriptions have been APPROPRIATELY filled. No suspicious activity was identified. Topiramate. Discussed risks/benefits with the patient. Patient aware that this is an off-label use of the medication. BDenies history of kidney stones, seizures or glaucoma. yes hx of migraines yes history of poor sleep. Advised not to mix with alcohol. Educated on increased risk for drowsiness, dizziness, fatigue, kidney stones, osteoporosis and increased eye pressure. Patient of childbearing age. Discussed the risk of defects with topiramate and the need for double control methods as well as regular tests. Contraception: ocps Follow up in 4-6 weeks as scheduled I spent a total of 43 minutes on the date of the service which included preparing to see the patient, [id number]-ra-[id number] patient care, completing clinical documentation, obtaining and/or reviewing separately obtained history, performing a medically appropriate examination, counseling and educating the patient/family/caregiver, and ordering medications, tests, or procedures Nacho Alcantara MD, FACOG, GEORGI . PROGRESS Observed: 08/13/2024 12:14 PM Status: COMPLETED Source: [facility] HNO ID: [id number] Author: ROULA PAYAN RD Service: ? Author Type: Registered Dietitian Type: Progress Notes Filed: 08/13/2024 12:49 Note Text: 12:14 PM [facility] Nutrition Therapy: Virtual Consult - Initial Assessment I have communicated my name and active licensure. The patient?s identity and physical location were verified at the time of this visit. Either the patient or their legal unit support representative has been informed of the risks and benefits of -- and alternatives to -- treatment through a remote evaluation and consents to proceed with the evaluation remotely. Nutrition Diagnosis: Overweight/obesity, related to, excess energy intake and physical inactivity, as evidenced by BMI above normative standard for age and gender. RECOMMENDED MALNUTRITION DIAGNOSIS: NO MALNUTRITION IDENTIFIED NUTRITION CARE PLAN Nutrition Intervention 08/13/2024: modify type and amount of food or beverage Protein goal; 79-99 gms (1.2-1.5 gm/Kg IBW) Aim for 30 grams protein in each meal Include a serving whole grain at lunch and dinner - use the plate method as a guide Good whole grains: farro, barley, brown/black rice, quinoa, buckwheat, beans/lentils; aim for 25-35 grams fiber daily Stay well hydrate - at least 64 oz daily Continue regular exercise - aim for at least 30 min cardio most days and 2-3 days of weight resistance Work on adequate sleep AT LEAST 6 hours preferably at least 7 All meals and snacks at the dinner table; minimize distractions, no TV while eating. Make meals last at least 20 min, chew each bite of food 20 x per bite.Portion out all foods, never eat out of container. Become more mindful of meal: Enjoy flavors, textures etc. Use hunger/fullness scale. Nutrition Monitoring AND Evaluation: 1-2 lb weight loss per week Need for Follow up: 4-6 weeks or as needed Patient presents for initial MNT as relates to class 2 obesity Body mass index is 37.21 kg/m?. Now on Metformin, Topiramate, and Phentermine for assistance with weightloss. Hunger and appetite improved. Other medical issues Hashimotos, elevated blood pressure, dyslipidmia, history GDM. Goal weight 180-185 lbs. Current intake includes three meals and occ evening snack, stuggling with desire for snacking in evening. Choosing lean proteins, vegetables; whole grains/fiiber limited. Beverages appropriate. Including regular exercise less than recommended, but is active with small kids and is active at work. 224.8 Patient's symptoms are: Weight Concerns: following a plan for weightloss Diet History: Breakfast - shake; almond milk with protein powder (30 gm) and a venison meat stick Snack - no Lunch - salads with chicken,; left over deer burger, deer steaks, occ half bun; water Snack - no Dinner - 6-grilled chicken; deer burgers, deer steaks; protein pancakes with pork sausage, home cooked air fried fries; chicken basil, mozz and tomato; salmon; broccoli; Snack - try to avoid Beverages - water 72 oz Alcohol- 1 per week Vitamins/Supplements - MVI, biotin, D3K2 Activity: Activities of Daily Living: Active 75% of the day. 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 Resting Metabolic Rate: 1651 Estimated Protein needs: 79-99 gms at 1.2-1.5 gms/kg IBW Malnutrition Screening Significant unintentional weight loss? No Eating less than 75% of usual intake for more than 2 weeks? No Potential Signs of Inflammation: no identifiable sources Food Insecurity: No Food Insecurity (08/13/2024) Hunger Vital Sign Worried About Running Out of Food in the Last Year: Never true Ran Out of Food in the Last Year: Never true Education Materials Provided: Improving Health with Fiber and Healthy Lunch/Dinner Plate plate method READINESS TO LEARN Cognitive ability: Alert and oriented Motivation to learn: Interested Family support: Unable to assess - Family not present Instruction provided to: Patient Patient learns best by: Individual Instruction Factors affecting learning: None Physical limitations affecting learning: None Referred by: Shelbie Garza MNDillon Billing Type: Initial Assess 2 units 12:42 Total Time (mins): 28 SIGNATURE: Roula Payan RD PATIENT NAME: Marietta Piña DATE: August 13, 2024 TIME: 12:16 PM CNPN Observed: 08/13/2024 12:00 AM Status: COMPLETED Source: [facility] Telephone (OBGYWM) JORYMARIETTA MCKEON ([id number]) 1990 F Date Time Provider Department 08/13/24 NACHO VERMA During your visit today, we recorded the following information about you: Mallory Lopez RN 08/13/2024 5:06 PM Signed Fax/Referral update received from [facility] Nutrition and Diabetes Services stating Pt was scheduled for 08/14/24, but cancelled that appointment due to meeting with the [facility] Dietitian on 08/13/24. MARIO Gonzalez Deidre, MD 08/27/2024 8:07 AM Signed Noted- thank you Allergies As of Date: 08/13/2024 (No Known Allergies) Date Reviewed: 07/04/2024 Reviewed by: Delma Crockett MA - Fully Assessed Prescriptions as of 08/27/2024 - metFORMIN ER (GLUCOPHAGE XR) 500 mg 24 hr tablet Take 2 tablets by mouth two times a day. - topiramate (TOPAMAX) 50 mg tablet Take 1 tablet by mouth daily at bedtime. - Phentermine HCl 37.5 mg tablet Take 1 tablet by mouth daily before breakfast for 90 days. TAKE 1 TABLET BY MOUTH ONCE DAILY IN THE MORNING - Norethindrone Acet-Ethinyl Est (MICROGESTIN .07/19) 1.5-30 mg-mcg Take 1 tablet by mouth once daily. 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] 06/05/2009 11/11/2015 Cholecystitis with cholelithiasis [K80.10] 10/19/2012 11/11/2015 Obesity in [O99.210] 10/22/2015 Family history of cleft lip and palate [Z82.79] 10/22/2015 Patient requested diagnostic testing [Z01.89] 10/22/2015 11/27/2015 Rh negative status in duong in *11/12/2015 Patient requested diagnostic testing [Z01.89] 04/07/2016 04/13/2017 History of delivery [Z87.51] 12/22/2016 Incompetent cervix, abdominal cerclage in place*05/02/2017 H/O section [Z98.891] 05/05/2017 Elevated blood pressure reading without diagnos*10/10/2017 Maternal care for intrauterine [O36.4XX0] 10/10/2017 02/17/2021 Other complications of the puerperium, not else*10/10/2017 labor second tri w delivery sec*10/10/2017 02/17/2021 Single stillbirth (CODE) [Z37.1] 08/16/2016 Obesity, Class III, BMI >= 40 [E66.813] 11/28/2017 History of premature rupture of membran*06/10/2019 History of diet controlled gestational diabetes*10/17/2019 06/08/2021 Gestational hypertension [O13.9] 11/04/2019 02/17/2021 Prematurity [P07.30] 11/04/2019 02/17/2021 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] 11/05/2019 Anovulation [N97.0] 11/05/2019 Elevated blood pressure reading [R03.0] 11/21/2019 35 weeks gestation of [Z3A.35] 11/21/2019 02/17/2021 Pre-eclampsia, severe [O14.10] 11/21/2019 02/17/2021 Pre-eclampsia in third trimester [O14.93] 11/21/2019 02/17/2021 with history of section, ant*11/26/2020 Short interval between pregnancies affecting pr*11/26/2020 H/O pre-eclampsia in prior , currently*11/26/2020 History of gestational diabetes in prior pregna*11/26/2020 Gestational diabetes mellitus, class A1 [O24.41*05/07/2021 06/08/2021 Insulin controlled gestational diabetes mellitu*06/08/2021 Encounter Status:Closed by NACHO GARZA on 08/27/24 PROGRESS Observed: 08/01/2024 4:38 PM Status: COMPLETED Source: [facility] HNO ID: [id number] Author: EDITA PRIEST RN Service: ? Author Type: Registered Nurse Type: Progress Notes Filed: 08/01/2024 16:39 Note Text: Future appointment with [facility] Nutrition Services. Scan on 08/01/2024 4:22 PM by Provider, External, PAMickeyC: [facility] Nutrition Services CNOV Observed: 07/04/2024 9:20 AM Status: COMPLETED Source: [facility] Office Visit (OBGYWM) MARIETTA PIÑA ([id number]) 1990 F Date Time Provider Department 07/04/24 9:20 AM NACHO VERMA OBMANNY During your visit today, we recorded the following information about you: Pulse Blood pressure Weight Last Period 96/minute 124/76 98.9 kg 06/18/24 Nacho Verma MD 07/04/2024 11:43 AM Signed Some documentation from previous visit of 06/06/24 was copied and pasted, documentation has been reviewed and edited as necessary for today's visit. Patient Summary: Marietta is a 33 year old Female who presents for follow-up evaluation of obesity/weight management to treat and prevent related co-morbidities. In our previous visits we have discussed lifestyle intervention including a nutrition recommendations and physical activity optimization. Her last office visit was 1 month ago. Assessment/plan from last visit: -LABs ordered - Nutrition Consult ordered to [facility] - Declines Surgery consult to BMI at current time - Protein 90-160g recommend -tracking reviewed- lose it chelsea reviewed - continue phentermine (started by PCP - add topiramate - off label use reviewed. Risks reviewed. Common SE reviewed with patient. - start OCPs. Interval History PT specifies the following items as new or significant updates since the last appointment: - Currently taking phentermine once daily and topiramate once daily for weight management. - Recently switched topiramate to lunchtime to reduce evening hunger, reporting improvement. - Initially experienced sleepiness with topiramate, but no longer an issue. - Denies numbness, tingling, chest pain, palpitations, or significant brain fog with topiramate. - Reports reduced cravings and better control over snacking, particularly in the evenings. - Tracking food intake using the "Lose It" chelsea, aiming for 150g of protein per day, currently averaging 120-130g. - Diet includes high-protein foods such as venison burgers, chicken, grilled shrimp, and salmon; working on reducing carbohydrate intake. - Drinks water to manage hunger, but concerned about nocturnal urination. - Reports stress eating and occasional cravings for high-calorie foods like mongolian fries. - Sleep duration: 5-6 hours per night, working on improving sleep hygiene. - Physical activity: Less gym time, but more outdoor activities; aiming to resume a regular exercise regimen. - Reports low alkaline phosphatase levels on recent lab results. Weight loss since last vist: 6 lb Total weight loss: 6 - Last Wt 07/04/24 : 98.8 kg (218 lb) 06/06/24 : 101.6 kg (224 lb) 5% weight loss = 213 lbs, 10% weight loss = 202 lbs Anti-obesity medications: Phentermine. Benefit:decreased appetite Adverse effects: none Anti-obesity medications: Topiramate. Benefit:Decreased food noise Adverse effects: none -ADDED METFORMIN (started 07/04) 1000mg BID XR Benefit: insulin resistance Adverse effects: Weight promoting medications: none Previous Diet (initial appointment): Awake - 5:15-5:30am B - sometimes greens or premier protein (30g) almond milk unsweetened - great value light malagasy yogurt, unsweet coconut shavings and almond shavings , venecian jerky S - L - venusian burger with no bun - broccoli , cheese stick S - pretzels , protein balls, PB- oats, portia seeds, pp, agave, oats D - deer meat- with fries and broccoli, chicken fries or fish sticks , salmon, grilled shrimp S - chips (occasional) Fluids: 64oz water, almond milk in shake (8-10oz unsw), 2 x week diet soda or [place] water, beer or wine 1-2 x week Bedtime - 10:30pm hard time falling asleep (11-11:30pm) Quality of diet: 24hr recall suggests unhealthy diet. Characterization of diet:unhealthy snacking, excessive cravings, and evening snacking. 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 of impaired eating habits:excessive hunger, mindlessness , emotion, and stress Eating Disorder no Cravings: salty and sweet Dietary changes: B - sometimes greens or premier protein (30g) almond milk unsweetened - great value light malagasy yogurt, unsweet coconut shavings and almond shavings , venecian jerky S - L - venusian burger with no bun - broccoli , cheese stick S - pretzels , protein balls, PB- oats, portia seeds, pp, agave, oats D - deer meat- with fries and broccoli, chicken fries or fish sticks , salmon, grilled shrimp S - chips (occasional) Fluids - Eating 3 meals a day, including breakfast Increasing water intake Increasing servings of vegetables Controlling portions Increasing protein Reducing carbohydrates Eating less take out/fast food Current Barriers: stress eating, food cravings, eating high-calorie foods, and inadequate sleep duration Exercise: Regular exercise: yes cardio (bike/walking) 2 times a weeks Total 4 times a week for 45 minutes each time Strength/resistance exercise:yes 2 days a week - at home bowflex decreased Stress: no Sleep: 5-6 hours no CRISTY stable Estimated Creatinine Clearance: 133.3 mL/min (based on SCr of 0.69 mg/dL). PAST MEDICAL HISTORY Diagnosis Date Cervical incompetence 11/2017 Gestational diabetes mellitus (GDM) in third trimester (HCC) 10/17/2019 Shivam's thyroiditis Infertility, female Miscarriage (HCC) Obesity Other complications of the puerperium, not elsewhere classified (CODE) 10/10/2017 Pre-eclampsia, severe (HCC) 11/21/2019 Pre-eclampsia, severe (HCC) Thyroid antibody positive Current Outpatient Medications Medication Sig Dispense Refill topiramate (TOPAMAX) 50 mg tablet Take 1 tablet by mouth daily at bedtime. 30 tablet 2 Phentermine HCl 37.5 mg tablet Take 1 tablet by mouth daily before breakfast for 90 days. TAKE 1 TABLET BY MOUTH ONCE DAILY IN THE MORNING 30 tablet 2 Norethindrone Acet-Ethinyl Est (MICROGESTIN 1.5/30) 1.5-30 mg-mcg Take 1 tablet by mouth once daily. 21 tablet 11 No current facility-administered medications for this visit. ROSConstitutional: (+) sleep disturbance Cardiovascular: (-) chest pain, (-) palpitations Neurological: (-) numbness/tingling, (-) brain fog Psychiatric: (+) stress eating, (-) major cravings ROS/Fam Hx pertaining to AOMs: GEN: Fatigue:yes CV: h/o palpitations/cardiac arrhythmia, Chest pain: no HTN: no PULM: Asthma:no GI: GERD:no ; Gallstones:no ; Fatty liver disease:no Pancreatitis: no MSK: Joint Pain:no : Nephrolithiasis: no Symptoms of PCOS: no ?? 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 Latest Ref Rng AND Units 06/22/2024 CMP Sodium 136 - 144 mmol/L 139 Potassium 3.7 - 5.1 mmol/L 4.3 Chloride 98 - 107 mmol/L 105 CO2 22 - 30 mmol/L 23 Glucose 74 - 99 mg/dL 87 BUN 7 - 21 mg/dL 15 Creatinine 0.58 - 0.96 mg/dL 0.69 EGFR >=60 mL/min/1.73m? 118 Protein, Total 6.3 - 8.0 g/dL 7.0 Albumin 3.9 - 4.9 g/dL 4.2 Calcium 8.5 - 10.2 mg/dL 9.3 Bilirubin, Total 0.2 - 1.3 mg/dL 0.4 AST 13 - 35 U/L 21 ALT 7 - 38 U/L 30 Alkaline Phosphatase 34 - 123 U/L 18 Cholesterol, Total (mg/dL) Date Value 04/29/2023 258 05/17/2012 221 HDL Cholesterol (mg/dL) Date Value 04/29/2023 37 05/17/2012 34 LDL Cholesterol, Calculated (mg/dL) Date Value 04/29/2023 200 05/17/2012 149 Triglyceride (mg/dL) Date Value 04/29/2023 106 05/17/2012 188 Latest Ref Rng AND Units 04/29/2023 CBC WBC 3.70 - 11.00 k/uL 4.80 RBC 3.90 - 5.20 m/uL 5.10 Hemoglobin 11.5 - 15.5 g/dL 15.2 Hematocrit 36.0 - 46.0 % 46.1 MCV 80.0 - 100.0 fL 90.4 MCH 26.0 - 34.0 pg 29.8 MCHC 30.5 - 36.0 g/dL 33.0 RDW-CV 11.5 - 15.0 % 12.2 Platelet Count 150 - 400 k/uL 251 MPV 9.0 - 12.7 fL 11.5 Vitamin D 25 Hydroxy Date Value Ref Range Status 04/29/2023 56.0 31.0 - 80.0 ng/mL Final 04/13/2019 27.6 (L) 31.0 - 80.0 ng/mL Final Comment: Classification of 25 [place] Vitamin D status: Insufficiency/Moderate Deficiency: < or = 30 ng/mL Sufficiency/Optimal Levels: 31 to 80 ng/mL Toxicity: > 100 ng/mL Test performed by chemiluminescent immunoassay. TSH Date Value 04/29/2023 0.931 mIU/L 12/07/2020 1.550 uU/mL 04/22/2019 2.430 uU/mL ) Hemoglobin A1C (%) Date Value 06/22/2024 5.1 04/29/2023 5.1 01/23/2019 5.2 No components found for: "SQINSULN" Assessment/Plan: Marietta Piña is a 33 year old yo with Class II obesity who presented today for follow up for supervised weight loss to treat and prevent related co-morbidities. 1. Insulin resistance (E88.819) 2. Metabolic syndrome (E88.810) 3. Class 2 severe obesity with serious comorbidity and body mass index (BMI) of 39.0 to 39.9 in adult, unspecified obesity type (HCC) (E66.812) - Insulin level at 16, indicating insulin resistance; ideal level is 10 or below. - Continuing phentermine once daily. - Topiramate 50 mg once daily, currently taken at lunchtime; discussed potential to increase to 50 mg twice daily if needed to manage evening hunger- consider later date - Initiated metformin with a gradual titration schedule: start with one tablet at dinner, increase to two tablets at dinner once tolerated, then add one tablet at breakfast or lunch, aiming for a total of four tablets daily as tolerated. - Discussed potential side effects of metformin, including bloating, diarrhea, and nausea; advised to adjust titration pace based on tolerance. - Emphasized importance of maintaining a diet high in protein and whole foods to minimize side effects and support weight loss. - Referred to hospital nutrition consultation; will ensure follow-up. - Encouraged continuation of food tracking using the "Lose It" chelsea, focusing on meeting protein goals and monitoring carbohydrate intake. - Advised on meal composition: consume protein first, followed by vegetables, then starches to optimize glucose and insulin response. - Recommended increasing water intake to 90-120 ounces daily. - Discussed benefits of regular physical activity; encouraged maintaining a consistent exercise routine, even if brief. - Scheduled follow-up appointment on September 02 to monitor progress and adjust treatment as necessary. 4. Dyslipidemia (E78.5) -repeat labs next year 5. Malaise and fatigue (R53.81) - Discussed potential benefits of magnesium glycinate 400 mg at bedtime to improve sleep quality. - Recommended considering melatonin or ashwagandha to support sleep and reduce stress. - Advised aiming for 7.5 to 9 hours of sleep per night to support overall health and weight loss efforts. 6. Migraine without status migrainosus, not intractable, unspecified migraine type (G43.909) -topiramate - An overall goal of 150-200 minutes per week of exercise has been effective in weight loss and maintenance. Prescription instructions reviewed with patient as applicable. Potential red flag symptoms discussed with the patient. Reviewed appropriate action plan to take if red flag symptoms occur. Patient agreeable to treatment plan. Follow up in 4 weeks I spent a total of 42 minutes on the date of the service which included preparing to see the patient, [id number] patient care, completing clinical documentation, obtaining and/or reviewing separately obtained history, performing a medically appropriate examination, counseling and educating the patient/family/caregiver, and ordering medications, tests, or procedures Nacho Alcantara MD, FACOG, [facility] . Nacho Verma MD 07/04/2024 11:42 AM Signed Continue taking your Phentermine once a day as usual. Switch your Topiramate dosing to lunchtime as you have been; continue with this change if you feel it controls your evening hunger well. Begin adding Metformin as discussed. Start with one pill with dinner. If you tolerate it well for a few days, increase to two pills with dinner; later, when comfortable, add one pill with breakfast or lunch. Increase gradually at your own pace and report any nausea, diarrhea, or other side effects. For meals, try eating in this order: first protein, then vegetables, and finally starch. This method may help stabilize your blood sugar and control hunger. Focus on whole foods and balance your carbs by choosing lower-processed options (for example, wrapping your burger in lettuce or using baked sweet potato slices instead of bread). Continue tracking your food intake with your chelsea and aim to reach your protein goal (around 150 grams daily); your current progress is encouraging. Aim to drink between 90 to 120 ounces of water each day. Keep up any physical activity--even short walks (10 minutes at a time) add up and support your overall health. Consider taking magnesium glycinate (400 mg) at night to help with sleep if you continue having difficulty staying asleep. Your next appointment is scheduled for September 02. If you experience any new side effects (such as numbness, tingling, chest pain, or significant changes in mood or appetite) or have concerns with any medication changes before your next visit, please contact our office. When you take medications like TOPAMAX? and ZONEGRAN? they tend to cause an imbalance in your pH levels. This imbalance causes side effects like foggy head, forgetfulness, confusion, difficulty recalling simple words or names, and tingling in your hands and feet. Citric acid may help to neutralize the imbalance caused by the medication. Also stay hydrated! With low fluid intake, urine output is decreased and urine flow is slower, both of which increase the risk of pH imbalance. Avoid soda as well. Increase the proportion of fruits and vegetables and reduce your daily protein intake to 0.8-1.0 g per kg body weight. Micropelt Link: [employer] Hydration AllSource Analysis : TRUE LEMON Water Enhancer True Lemon (Mixx) If neither of these are effective you can try: Euphasia https://[employer]GetMaid/pages/olenhaq-vyks-hlbvvhi Sources https://www.ncbi.nlm.nih.gov/pmc/articles/EOM3842851/ https://www.ncbi.nlm.nih.gov/pmc/articles/SRG6806406/ VEGAN PROTEIN LIST SOY Tempeh: 17g protein 8g carbohydrate in 1/2 cup, Shelled Edamame: 9g Protein, 8g carbohydrate in 1/2cup Tofu: 9g protein,2 g carbohydrate per 3oz Soy Milk: 7g Protein, 15g carbohydrate in 1 cup Nutritional Yeast 8g Protein, 5g Carbohydrate in 2TBSP (16g) Seitan 30g Protein, 6.8g Carbohydrate in 1/2 cup Whole Grains Quinoa: 8g protein in 1cup Wild rice 6.5g protein in 1 cup Legumes Lentils 12g protein, 23g carbohydrate in 1/2 cup cooked Chickpea 6g protein, 17g carbohydrate in 1/2 cup cooked Black Beans 7g protein, 19g carbohydrate in 1/2 cup cooked Green Split peas 8g protein, 22g carbohydrate in 1/2 cup cooked [place] 8g protein, 20g carbohydrate in 1/2 cup cooked Seeds Pumpkin 8g protein, 3 carbohydrate in 1/4cup Hemp 9g protein, 3 carbohydrate in 3 Tablespoons Tahini 10g protein, 3 carbohydrate in 2 Tablespoons Portia 5g protein, 10g carbohydrate in 2 tablespoons Nuts Almonds 6g protein, 6g carbohydrate in 1/4cup Walnuts 4g protein, 4g carbohydrate in 1/4cup Cashew 4g protein, 9g carbohydrate in 1/4cup Peanuts 8g protein, 5g carbohydrate in 1/4cup Peanut butter 7g protein, 6g carbohydrate in 2 TBSP Potatoes Russet potato- 1 medium (173g) 4.5g protein, 37g carbohydrate Red Potato- 1 large (299g) 6.9g protein, 59g carbohydrate Sweet Potato - 1 medium (114g) 2.3g protein, 24g carbohydrate Sprouted grain bread Jabari bread- per slice 5g protein, 15g carbohydrate Vegetables Artichoke- 4.2g protein, 13g carbohydrate in 1 medium (128g) Green Peas- 8g protein, 21g carbohydrates in 1 cup Brussel Sprouts - 3g protein, 8g carbohydrate in 1 cup [place]rise [place]- 4.3g protein, 19g carbohydrate in 1/2cup Spinach- 1g protein, 1g carbohydrate in 1 cup 3g carb8g carb 20g protein, 4 carbohydrate per scoop QUICK VEGAN PROTEIN PRODUCTS/SNACKS: NOT high in protein- BUT LOW CARB SUBSTITUTE FOR NOODLES A diet that leaves you feeling full and satisfied over the course of the day leaves less room for wondering about whether you should have a snack when you?re bored. 1. Eat regularly throughout the day Try to spread out your calorie intake throughout a regular meal and snack schedule. This may keep you more full and less hungry than eating the same number of calories on a less regular meal schedule (5Trusted Source). If you?re feeling content with your food choices for the day, you might be less likely to reach for a snack when you?re bored. What?s more, knowing that you plan to eat a meal or snack in the next few hours could be motivation to hold back from eating until then. The same meal schedule doesn?t work for everyone. Some people like to have three meals and a few snacks each day, while others may prefer to have more or less. Finding a routine that works for you and sticking with it seems to matter more than exactly how many meals and snacks you have each day. 2. Don?t restrict your favorite foods If you tend to crave or reach for certain foods when you?re bored, you might be tempted to completely stop eating those foods to remove the temptation. However, for some people, research shows this approach might be counterproductive. If you find you?re more susceptible to food cravings, depriving yourself of certain foods might make you crave them more in the short term (6Trusted Source, 7Trusted Source, 8Trusted Source). Rather than eliminating the foods you crave, try eating them regularly but in moderation. This might help reduce your urge to snack on those foods when you?re bored. 3. Have nutritious, filling snacks When you?ve just had a filling meal or snack, you may be less likely to associate feeling bored with wanting to eat. Certain foods are more filling than others. Some particularly filling foods include: Protein: eggs, fish, meat, yogurt, cottage cheese Fiber-rich foods: oatmeal, quinoa, whole grains, legumes, popcorn Foods high in water: fruits, vegetables, soups 4. Eat from a plate Sometimes it?s hard to distinguish between hunger and boredom. Ocassationally, there may still be times when you reach for a snack when you?re bored. To avoid overeating and letting boredom get the best of your appetite in those moments, portion your snacks onto a plate or serving dish rather than eating them directly from the bag or container. Visual cues, such as the plate size, container size, and even the type of dish you eat from, can all influence how much you eat (17Trusted Source, 18Trusted Source, 19Trusted Source). SUMMARY Eating a healthy diet comprising regular meals, nutritious and filling snacks, and appropriate portion sizes may be more satisfying and thus make it less tempting to eat when you?re feeling bored. 5-8. Tune in to your emotions Researchers know that your emotions and mood often influence when, what, and how much you eat. Experts have also suggested that how well you regulate your emotions can influence boredom eating. Poor emotional regulation could potentially lead to an increase in eating when you?re feeling bored (22Trusted Source, 23Trusted Source). Practicing self-awareness and developing a better understanding of how your own emotions are influencing your appetite is a great starting place to combat boredom eating. 5. Eat mindfully To be mindful means to be conscious, aware, and focused on the present moment. To eat mindfully means to be aware of your mental and physical states related to food. Some studies have found mindfulness is particularly helpful at helping people reduce eating in response to emotions like boredom (24Trusted Source, 25Trusted Source, 26Trusted Source). Mindful eating is useful in differentiating between boredom and hunger, as it emphasizes paying close attention to your cravings and hunger and fullness cues. 6. Know your hunger signs Being perceptive of your specific hunger and fullness signs may be one of the most effective ways to determine whether you?re hungry or bored. When your body is physically hungry and in need of calories for energy, you may notice signs like your stomach growling, a headache, and feelings of weakness or fatigue. On the other hand, when you?re experiencing boredom hunger -- or another type of emotional hunger -- you may crave a certain food without any of the traditional signs of physical hunger. 7. Embrace being bored Throughout 2019 and into 2020, people reported feeling bored at higher rates than usual due to the COVID-19 pandemic (27Trusted Source). In certain situations, being bored too often may have detrimental health effects, such as increased rates of depression and altered eating habits (1Trusted Source, 28Trusted Source). Still, a little boredom is OK and normal to experience from time to time. What?s more, research has linked boredom to certain benefits. For example, it may help motivate creativity (29Trusted Source, 30Trusted Source). Trying to prevent boredom or override the feeling by eating and finding other distractions doesn?t always work. You might find meaning in the downtime by trying to embrace boredom instead. 8. Take it easy on yourself Remember, it?s normal to reach for a snack out of boredom on occasion. When it happens, don?t take it as a failure. Rather, use it as a learning experience and opportunity to treat yourself with kindness and compassion. SUMMARY Your mood and emotions play a significant role in psychologically induced hunger like boredom eating. Learning to be aware of your emotions, hunger triggers, and fullness cues can help prevent you from eating because you?re bored. 9-11. Understand your environment Much of what you eat is influenced by your environment, and the same goes for when and how much you eat. Here are a few specific ways you can tailor your environment to discourage yourself from boredom eating when the urge strikes. 9. Know your triggers Especially when it comes to psychological types of hunger like boredom eating, external factors often trigger the urge to eat. Identifying the triggers in your life that tend to cause the urge to eat when you?re bored is garza to breaking the habit. Some common triggers to be aware of are stress, food availability, and pictures of food. Make notes in a food journal about what you?re doing and your environment when you feel the urge to eat. This might help identify -- and stop -- boredom eating patterns. 10. Avoid the urge to eat in front of a screen Eating in front of a screen while you?re bored can influence you to overeat when you aren?t even hungry. Many people turn to screen-based activities like watching TV or scrolling on their phone when they?re feeling bored. Some studies have found that people tend to eat more than they otherwise would when they?re distracted or in front of a screen, such as a TV or computer (35Trusted Source, 36Trusted Source, 37Trusted Source). Break associations you might have between eating and screen time by making a point of eating meals at a table -- not in front of the TV -- and putting your phone away while you?re dining. Consider replacing mindless eating during screen time with another activity, such as knitting, doodling, or playing with a toy or piece of jewelry, to keep your hands busy while you watch TV. 11. Change your scenery Sometimes all it takes to get your mind off food when you?re feeling bored is a little change of scenery. When you?re bored and fighting the urge to snack, standing up and moving to a new location -- even if it?s just from one room to another -- may be enough to distract your mind from food until the boredom passes. SUMMARY External factors often trigger urges to eat when you?re not physically hungry. Identifying the factors in your environment that trigger boredom eating is garza to breaking those habits. 12-13. Mix things up To be bored means that you?re feeling uninterested in your current activity. The feeling often occurs when the day has been monotonous or repetitive. The same goes for boredom eating. You may eat simply as a way to escape the regular routines of the day (38Trusted Source, 39Trusted Source). Adding variety to your day keeps things feeling fresh and exciting, and it might fend off boredom eating. 12. Take a walk When you?re feeling bored, taking a walk not only provides a distraction from any urges to snack but also physically removes you from food temptations. Sometimes a quick [id number] walk is all it takes to recenter yourself and forget about the urge to snack out of boredom. If you?re not able to take a walk, you might find it helpful to take a few minutes to stretch or do breathing exercises. 13. Make new habits One of the upsides of being bored is that it can drive you to try new things. Next time you feel bored, take a few minutes to think about how you?d really like to be spending that time. Is there a new hobby you?d like to try or an old book that you never got around to reading? Try to look at boredom as a space for meaningful stimulation in your day. 13 Ways to Stop Eating When You're Bored (Turbocoating) Creating a Mindful Eating Environment: 10 Mindless Eating Solutions If you're looking for easier ways to make healthy changes to your diet and lifestyle, consider these simple ?mindless eating solutions? for staying on-track with nutrition: Serve Salad and Vegetables First. Before bringing out your main dish, serve salad and vegetables first to ensure you're eating enough of this important food group. This strategy will also help you eat less of the rest of your dish which is likely higher in calories, etc. Serve Your Main [facility] on the Stove or Counter. Studies show that we're likely to eat less if our food is placed on the stove or counter rather than right in front of us. Eat on Smaller Plates. Similar to the strategy mentioned above, studies show that you're likely to consume less food if you're eating from a smaller plate. This is likely due to the increase of smaller portion sizes. Turn off Your Television. Watching television as you eat can be highly distracting, and it affects your ability to eat mindfully. For example: you're less likely to notice when you're full, so you might consume excess calories. Keep Mostly Water On-hand. Calories from drinks can add up quickly, especially in fruit juices, alcohol and soft drinks. By minimizing the amounts of those drinks on-hand, you're more likely to consume water when you're thirsty - and water has amazing health benefits! Keep Your Kitchen Organized. An organized refrigerator, counter and cabinet space makes you more likely to find and choose the foods which are healthiest for you. On the contrary, a messy kitchen space may make you more apt to grab the first item you see. Pre-cut Your Fruits and Vegetables. Let's admit it: We're more likely to put off eating produce if we have to go through the ?burden? of cutting it first. Pre-cut fruits and vegetables will eliminate this extra step. Have at Least Six Single Servings of Lean Protein On-hand. This includes lean meats such as turkey and chicken, yogurt, eggs, nuts, beans and legumes. By having plenty of lean protein on-hand, you can better manage your appetite and hunger levels. Keep All Snack Foods in One Inconvenient Cupboard. You're less likely to reach for unhealthy snack foods if they're not all gazing up at you from plain sight! Keep Only a Fruit Bowl on Your Counter. This way, if you're one to grab foods based off of their availability, you'll reach for healthier fruits rather than less healthy snack foods. https://www.obesityaction.org/community/news/community-news/tkwwkw-r-ehndayb-ea- ting-environment/ HOW DOES CHRONIC STRESS AFFECT EATING PATTERNS? Chronic stress can affect the body?s use of calories and nutrients in various ways. It raises the body?s metabolic needs and increases the use and excretion of many nutrients. If one does not eat a nutritious diet, a deficiency may occur.Stress also creates a chain reaction of behaviors that can negatively affect eating habits, leading to other health problems down the road. Stress places a greater demand on the body for oxygen, energy, and nutrients. Yet people who experience chronic stress may crave comforting foods such as highly processed snacks or sweets, which can be high in unhealthy fats, sugar, and calories but low in micronutrients. People feeling stress may lack the time or motivation to prepare nutritious, balanced meals, or may skip or forget to eat meals. Stress can disrupt sleep by causing training officer sleep or more frequent awakenings, which leads to fatigue during the day. In order to cope with daytime fatigue, people may use stimulants to increase energy such as with caffeine or high-calorie snack foods. The reverse may also be true that poor-quality sleep is itself a stressor. Studies have found that sleep restriction causes a significant increase in cortisol levels. During acute stress, adrenaline suppresses the appetite.But with chronic stress, elevated levels of cortisol may cause cravings, particularly for foods high in sugar, fat, and calories, which may then lead to weight gain. Cortisol favors the accumulation of fat in the belly area, also called central adiposity, which is associated with insulin resistance and an increased risk of type 2 diabetes, cardiovascular disease, and certain breast cancers.4,6-8 It also lowers levels of the hormone leptin (that promotes satiety) while increasing the hormone ghrelin (that increases appetite). https://cdn1.sph.[employer].edu/wp-content/uploads/sites//HeatlhyLivingG- zhsf59-27.1.pdf Disrupted Sleep Linked to Weight Gain - YouTube How To Improve Your Sleep To Impact Your Weight Loss: [email or web address] Weight Loss and Sleep Updated November 29, 2019 Written by Chidi Crow Medically Reviewed by Ketty Whitley In This Article The Connection Between Sleep and Weight Sleep and Obesity Sleep During Weight Loss Maintaining a Healthy Relationship With Your Body Losing weight is challenging, and keeping weight off can be just as difficult. Although the medical community is still untangling the complicated relationship between sleep and body weight, several potential links have emerged that highlight the potential weight loss benefits of getting a good night?s rest and the negative health impacts of sleep deprivation. The Connection Between Sleep and Weight Over the past several decades, the amount of time that Americans spend sleeping has steadily decreased1, as has the self-reported quality of that sleep. For much of the same time period, the average body mass index (BMI) of Americans increased2, reflecting a trend toward higher body weights and elevated rates of obesity. In response to these trends, many researchers began to hypothesize about potential connections between weight and sleep. Numerous studies have suggested that restricted sleep and poor sleep quality may lead to metabolic disorders, weight gain, and an increased risk of obesity and other chronic health conditions. While there is continuing debate within the medical community about the exact nature of this relationship, the existing research points to a positive correlation between good sleep and healthy body weight. There remains much to be discovered about the intricate details of how sleep and weight are connected. Several hypotheses offer paths for additional research with the hope that increasing our understanding of the relationship between weight and sleep will lead to reduced obesity and better weight-loss methods. Can Lack of Sleep Increase Appetite? One common hypothesis about the connection between weight and sleep involves how sleep affects appetite. While we often think of appetite as simply a matter of stomach grumbling, it?s actually controlled by neurotransmitters, which are chemical messengers that allow neurons (nerve cells) to communicate with one another. The neurotransmitters ghrelin and leptin are thought to be central to appetite. Ghrelin promotes hunger, and leptin contributes to feeling full. The body naturally increases and decreases the levels of these neurotransmitters throughout the day, signaling the need to consume calories3. A lack of sleep may affect the body?s regulation of these neurotransmitters. In one study, men who got 4 hours of sleep had increased ghrelin and decreased leptin compared to those who got 10 hours of sleep. This dysregulation of ghrelin and leptin may lead to increased appetite and diminished feelings of fullness in people who are sleep deprived. In addition, several studies have also indicated that sleep deprivation affects food preferences. Sleep-deprived individuals tend to choose foods that are high in calories and carbohydrates4. Other hypotheses regarding the connection between sleep and increased appetite involve the body?s endocannabinoid system5 and orexin6, a neurotransmitter targeted by some sleep aids. Many researchers believe that the connection between sleep and dysregulation of neurotransmitters is complicated and additional studies are needed to further understand the neurobiological relationship. Does Sleep Increase Metabolism? Metabolism7 is a chemical process in which the body converts what we eat and drink into energy needed to survive. All of our collective activities, from breathing to exercising and everything in between, is part of metabolism. While activities like exercise can temporarily increase metabolism, sleep cannot8. Metabolism actually slows about 15% during sleep, reaching its lowest level in the morning 9. In fact, many studies have shown that sleep deprivation (whether due to self-induction, insomnia, untreated sleep apnea, or other sleep disorders) commonly leads to metabolic njusnnpgcqawr24. Poor sleep is associated with increased oxidative stress, glucose (blood sugar) intolerance (a precursor to diabetes), and insulin resistance. Extra time spent awake may increase the opportunities to eat11, and sleeping less may disrupt circadian rhythms, leading to weight gain12. How is Sleep Related to Physical Activity? Losing sleep can result in having less energy for exercise and physical activity. Feeling tired can also make sports and exercising less safe, especially activities like weightlifting and or those requiring balance. While researchers are still working to understand this [id number], it?s well known that exercise is essential to maintaining weight loss and overall health. Getting regular exercise can improve sleep quality, especially if that exercise involves natural light. While even taking a short walk during the day may help improve sleep, more activity can have a more dramatic impact. Engaging in at least 150 minutes of moderate-intensity or 75 minutes of high-intensity exercise per week can improve daytime concentration and decrease daytime btsakxavno47. Sleep and Obesity In children and adolescents, the link between not getting enough sleep and an increased risk of obesity is well-established, although the reason for this link is still being debated. Insufficient sleep in children can lead to metabolic irregularities as discussed earlier, skipping breakfast in the mornings, and increased intake of sweet, salty, fatty, and starchy foods15. In adults, the research is less clear. While a large analysis of past studies suggests that people getting less than 6 hours of sleep at night are more likely to be diagnosed as obese16, it?s challenging for these studies to determine cause and effect. Obesity itself can increase the risk of developing conditions that interfere with sleep, like sleep apnea and depression. It?s not clear if getting less sleep is the cause of obesity in these studies, if obesity is causing the participants to get less sleep, or perhaps a mix of both. Even though more studies are needed to understand this connection, experts encourage improving sleep quality when treating obesity in adults. Sleep During Weight Loss Getting adequate, quality sleep is an important part of a healthy weight loss plan. Most importantly, research has shown that losing sleep while dieting can reduce the amount of weight lost17 and encourage wkcjhopavc95. Tips for Quality Sleep During Weight Loss There are many ways to improve sleep. Here are a few research-based tips for sleeping better when you?re trying to lose weight: Keep a regular sleep schedule: Big swings in your sleep schedule or trying to catch up on sleep after a week of late nights can cause changes in metabolism and reduce insulin mctrhdsobtv28, making it easier for blood sugar to be elevated. Sleep in a dark room: Exposure to artificial light while sleeping, such as a TV or bedside lamp, is associated with an increased risk of weight gain and . Don?t eat right before bed: Eating late may reduce the success of weight loss jaunsnsb00 Reduce Stress: Chronic stress may lead to poor sleep and weight gain in several ways, including eating to cope with negative qeshidzd43 Be an Early Bird: People with late bedtimes may consume more calories and be at a higher risk for weight gain23. Early birds may be more likely to maintain weight loss when compared to night owls24. Maintaining a Healthy Relationship With Your Body Deciding if you should attempt to change your body weight is a personal decision best made with the guidance of your doctor. Don?t take all the health and weight loss information you read at face value. Weight loss isn?t appropriate for everyone and doesn?t always mean better health. Remember that health is a lifelong journey that includes not only healthy habits but also having a healthy relationship with your body. If you?re considering weight loss, the National Institutes of Health offers a helpful resource for choosing a safe weight loss ewqivgd90jWxszggl Source National [place] of Diabetes and Digestive and Kidney DiseasesNIDDK research creates knowledge about and treatments for diseases that are among the most chronic, costly, and consequential for patients, their families, and the Nation. niddk.nih.gov . https://www.sleepfoundation.org/physical-health/zymjdu-mipq-yvm-sleep Sleep Hygiene Tips Set a sleep schedule and stick to it. Try to go to bed at night and awaken in the morning around the same times, even on weekends. This helps to regulate the body?s sleep cycles and circadian rhythms. Try to exercise at some point in the day but avoid vigorous activity (running, fast dancing, high-intensity interval training) one hour before bedtime. Regular exercise of adequate intensity can promote muscle relaxation and deeper sleep later on. If you?re in the habit of napping during the day, aim for a 10-20 minute power nap to achieve the goals of reduced fatigue and increased alertness. It?s best to take naps in the early afternoon to avoid interference with nighttime sleep. Try to avoid large meals, heavy snacking,or alcohol 2-3 hours before bed. If you are sensitive to caffeine, try to avoid drinking caffeinated beverages 4-6 hours before bedtime. Stop using electronic devices an hour before bed, especially those emitting blue light such as smartphones, tablets, and televisions. Schedule before-bed activities to signal that you are winding down, such as changing into pajamas and brushing teeth. Create a quiet, dark, relaxing environment in your bedroom. Dim the lights and turn off your cell phone?s sound and vibration modes if possible. Ensure a comfortable temperature, as feeling too hot or cold can disrupt sleep. Create calming bedtime rituals such as practicing deep breathing exercises, doing light yoga stretches, or listening to soothing relaxing music. If you awaken and can?t return to sleep, don?t stay in bed. Get up and do quiet relaxing activities, such as reading, until you feel tired enough to fall back asleep. Nacho Verma MD 07/04/2024 12:14 PM Signed Addended by: NACHO GARZA on: 07/04/2024 12:14 PM Modules accepted: Orders Allergies As of Date: 07/04/2024 (No Known Allergies) Date Reviewed: 07/04/2024 Reviewed by: Delma Crockett MA - Fully Assessed Primary Visit Diagnosis:Insulin resistance [E88.819] Other Visit Diagnoses:Dyslipidemia [E78.5] Malaise and fatigue [R53.81, R53.83] Migraine without status migrainosus, not intractable, unspecified migraine type [G43.909] Metabolic syndrome [E88.810] Class 2 severe obesity with serious comorbidity and body mass index (BMI) of 39.0 to 39.9 in adult, unspecified obesity type (HCC) [E66.812, Z68.39, E66.01] Order(s):metFORMIN ER (GLUCOPHAGE XR) 500 mg 24 hr tabletTake 2 tablets by mouth two times a day.Disp: 360 tabletRfl: 0 CONSULT TO NUTRITION THERAPY [9000] Order #: [id number]: 4 FUTURE Prescriptions as of 07/04/2024 - metFORMIN ER (GLUCOPHAGE XR) 500 mg 24 hr tablet Take 2 tablets by mouth two times a day. - topiramate (TOPAMAX) 50 mg tablet Take 1 tablet by mouth daily at bedtime. - Phentermine HCl 37.5 mg tablet Take 1 tablet by mouth daily before breakfast for 90 days. TAKE 1 TABLET BY MOUTH ONCE DAILY IN THE MORNING - Norethindrone Acet-Ethinyl Est (MICROGESTIN 1.5/30) 1.5-30 mg-mcg Take 1 tablet by mouth once daily. 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] 06/05/2009 11/11/2015 Cholecystitis with cholelithiasis [K80.10] 10/19/2012 11/11/2015 Obesity in [O99.210] 10/22/2015 Family history of cleft lip and palate [Z82.79] 10/22/2015 Patient requested diagnostic testing [Z01.89] 10/22/2015 11/27/2015 Rh negative status in duong in *11/12/2015 Patient requested diagnostic testing [Z01.89] 04/07/2016 04/13/2017 History of delivery [Z87.51] 12/22/2016 Incompetent cervix, abdominal cerclage in place*05/02/2017 H/O section [Z98.891] 05/05/2017 Elevated blood pressure reading without diagnos*10/10/2017 Maternal care for intrauterine [O36.4XX0] 10/10/2017 02/17/2021 Other complications of the puerperium, not else*10/10/2017 labor second tri w delivery sec*10/10/2017 02/17/2021 Single stillbirth (CODE) [Z37.1] 08/16/2016 Obesity, Class III, BMI >= 40 [E66.813] 11/28/2017 History of premature rupture of membran*06/10/2019 History of diet controlled gestational diabetes*10/17/2019 06/08/2021 Gestational hypertension [O13.9] 11/04/2019 02/17/2021 Prematurity [P07.30] 11/04/2019 02/17/2021 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] 11/05/2019 Anovulation [N97.0] 11/05/2019 Elevated blood pressure reading [R03.0] 11/21/2019 35 weeks gestation of [Z3A.35] 11/21/2019 02/17/2021 Pre-eclampsia, severe [O14.10] 11/21/2019 02/17/2021 Pre-eclampsia in third trimester [O14.93] 11/21/2019 02/17/2021 with history of section, ant*11/26/2020 Short interval between pregnancies affecting pr*11/26/2020 H/O pre-eclampsia in prior , currently*11/26/2020 History of gestational diabetes in prior pregna*11/26/2020 Gestational diabetes mellitus, class A1 [O24.41*05/07/2021 06/08/2021 Insulin controlled gestational diabetes mellitu*06/08/2021 Other instructions from your clinician: Continue taking your Phentermine once a day as usual. Switch your Topiramate dosing to lunchtime as you have been; continue with this change if you feel it controls your evening hunger well. Begin adding Metformin as discussed. Start with one pill with dinner. If you tolerate it well for a few days, increase to two pills with dinner; later, when comfortable, add one pill with breakfast or lunch. Increase gradually at your own pace and report any nausea, diarrhea, or other side effects. For meals, try eating in this order: first protein, then vegetables, and finally starch. This method may help stabilize your blood sugar and control hunger. Focus on whole foods and balance your carbs by choosing lower-processed options (for example, wrapping your burger in lettuce or using baked sweet potato slices instead of bread). Continue tracking your food intake with your chelsea and aim to reach your protein goal (around 150 grams daily); your current progress is encouraging. Aim to drink between 90 to 120 ounces of water each day. Keep up any physical activity--even short walks (10 minutes at a time) add up and support your overall health. Consider taking magnesium glycinate (400 mg) at night to help with sleep if you continue having difficulty staying asleep. Your next appointment is scheduled for September 02. If you experience any new side effects (such as numbness, tingling, chest pain, or significant changes in mood or appetite) or have concerns with any medication changes before your next visit, please contact our office. When you take medications like TOPAMAX? and ZONEGRAN? they tend to cause an imbalance in your pH levels. This imbalance causes side effects like foggy head, forgetfulness, confusion, difficulty recalling simple words or names, and tingling in your hands and feet. Citric acid may help to neutralize the imbalance caused by the medication. Also stay hydrated! With low fluid intake, urine output is decreased and urine flow is slower, both of which increase the risk of pH imbalance. Avoid soda as well. Increase the proportion of fruits and vegetables and reduce your daily protein intake to 0.8-1.0 g per kg body weight. Micropelt Link: [employer].com : TRUE LEMON Water Enhancer True Lemon (Mixx) If neither of these are effective you can try: Euphasia https://[employer]Get[employer]aid/pages/jnhzoek-tvdu-gkoooqn Sources https://www.ncbi.nlm.nih.gov/pmc/articles/FQG2676973/ https://www.ncbi.nlm.nih.gov/pmc/articles/MZE4060998/ VEGAN PROTEIN LIST SOY Tempeh: 17g protein 8g carbohydrate in 1/2 cup, Shelled [place]amame: 9g Protein, 8g carbohydrate in 1/2cup Tofu: 9g protein,2 g carbohydrate per 3oz Soy Milk: 7g Protein, 15g carbohydrate in 1 cup Nutritional Yeast 8g Protein, 5g Carbohydrate in 2TBSP (16g) Seitan 30g Protein, 6.8g Carbohydrate in 1/2 cup Whole Grains Quinoa: 8g protein in 1cup Wild rice 6.5g protein in 1 cup Legumes Lentils 12g protein, 23g carbohydrate in 1/2 cup cooked Chickpea 6g protein, 17g carbohydrate in 1/2 cup cooked Black Beans 7g protein, 19g carbohydrate in 1/2 cup cooked Green Split peas 8g protein, 22g carbohydrate in 1/2 cup cooked [place] 8g protein, 20g carbohydrate in 1/2 cup cooked Seeds Pumpkin 8g protein, 3 carbohydrate in 1/4cup Hemp 9g protein, 3 carbohydrate in 3 Tablespoons Tahini 10g protein, 3 carbohydrate in 2 Tablespoons Portia 5g protein, 10g carbohydrate in 2 tablespoons Nuts Almonds 6g protein, 6g carbohydrate in 1/4cup Walnuts 4g protein, 4g carbohydrate in 1/4cup Cashew 4g protein, 9g carbohydrate in 1/4cup Peanuts 8g protein, 5g carbohydrate in 1/4cup Peanut butter 7g protein, 6g carbohydrate in 2 TBSP Potatoes Russet potato- 1 medium (173g) 4.5g protein, 37g carbohydrate Red Potato- 1 large (299g) 6.9g protein, 59g carbohydrate Sweet Potato - 1 medium (114g) 2.3g protein, 24g carbohydrate Sprouted grain bread Jabari bread- per slice 5g protein, 15g carbohydrate Vegetables Artichoke- 4.2g protein, 13g carbohydrate in 1 medium (128g) Green Peas- 8g protein, 21g carbohydrates in 1 cup Brussel Sprouts - 3g protein, 8g carbohydrate in 1 cup [place]- 4.3g protein, 19g carbohydrate in 1/2cup Spinach- 1g protein, 1g carbohydrate in 1 cup 3g carb8g carb 20g protein, 4 carbohydrate per scoop QUICK VEGAN PROTEIN PRODUCTS/SNACKS: NOT high in protein- BUT LOW CARB SUBSTITUTE FOR NOODLES A diet that leaves you feeling full and satisfied over the course of the day leaves less room for wondering about whether you should have a snack when you?re bored. 1. Eat regularly throughout the day Try to spread out your calorie intake throughout a regular meal and snack schedule. This may keep you more full and less hungry than eating the same number of calories on a less regular meal schedule (5Trusted Source). If you?re feeling content with your food choices for the day, you might be less likely to reach for a snack when you?re bored. What?s more, knowing that you plan to eat a meal or snack in the next few hours could be motivation to hold back from eating until then. The same meal schedule doesn?t work for everyone. Some people like to have three meals and a few snacks each day, while others may prefer to have more or less. Finding a routine that works for you and sticking with it seems to matter more than exactly how many meals and snacks you have each day. 2. Don?t restrict your favorite foods If you tend to crave or reach for certain foods when you?re bored, you might be tempted to completely stop eating those foods to remove the temptation. However, for some people, research shows this approach might be counterproductive. If you find you?re more susceptible to food cravings, depriving yourself of certain foods might make you crave them more in the short term (6Trusted Source, 7Trusted Source, 8Trusted Source). Rather than eliminating the foods you crave, try eating them regularly but in moderation. This might help reduce your urge to snack on those foods when you?re bored. 3. Have nutritious, filling snacks When you?ve just had a filling meal or snack, you may be less likely to associate feeling bored with wanting to eat. Certain foods are more filling than others. Some particularly filling foods include: Protein: eggs, fish, meat, yogurt, cottage cheese Fiber-rich foods: oatmeal, quinoa, whole grains, legumes, popcorn Foods high in water: fruits, vegetables, soups 4. Eat from a plate Sometimes it?s hard to distinguish between hunger and boredom. Ocassationally, there may still be times when you reach for a snack when you?re bored. To avoid overeating and letting boredom get the best of your appetite in those moments, portion your snacks onto a plate or serving dish rather than eating them directly from the bag or container. Visual cues, such as the plate size, container size, and even the type of dish you eat from, can all influence how much you eat (17Trusted Source, 18Trusted Source, 19Trusted Source). SUMMARY Eating a healthy diet comprising regular meals, nutritious and filling snacks, and appropriate portion sizes may be more satisfying and thus make it less tempting to eat when you?re feeling bored. 5-8. Tune in to your emotions Researchers know that your emotions and mood often influence when, what, and how much you eat. Experts have also suggested that how well you regulate your emotions can influence boredom eating. Poor emotional regulation could potentially lead to an increase in eating when you?re feeling bored (22Trusted Source, 23Trusted Source). Practicing self-awareness and developing a better understanding of how your own emotions are influencing your appetite is a great starting place to combat boredom eating. 5. Eat mindfully To be mindful means to be conscious, aware, and focused on the present moment. To eat mindfully means to be aware of your mental and physical states related to food. Some studies have found mindfulness is particularly helpful at helping people reduce eating in response to emotions like boredom (24Trusted Source, 25Trusted Source, 26Trusted Source). Mindful eating is useful in differentiating between boredom and hunger, as it emphasizes paying close attention to your cravings and hunger and fullness cues. 6. Know your hunger signs Being perceptive of your specific hunger and fullness signs may be one of the most effective ways to determine whether you?re hungry or bored. When your body is physically hungry and in need of calories for energy, you may notice signs like your stomach growling, a headache, and feelings of weakness or fatigue. On the other hand, when you?re experiencing boredom hunger -- or another type of emotional hunger -- you may crave a certain food without any of the traditional signs of physical hunger. 7. Embrace being bored Throughout 2019 and into 2020, people reported feeling bored at higher rates than usual due to the COVID-19 pandemic (27Trusted Source). In certain situations, being bored too often may have detrimental health effects, such as increased rates of depression and altered eating habits (1Trusted Source, 28Trusted Source). Still, a little boredom is OK and normal to experience from time to time. What?s more, research has linked boredom to certain benefits. For example, it may help motivate creativity (29Trusted Source, 30Trusted Source). Trying to prevent boredom or override the feeling by eating and finding other distractions doesn?t always work. You might find meaning in the downtime by trying to embrace boredom instead. 8. Take it easy on yourself Remember, it?s normal to reach for a snack out of boredom on occasion. When it happens, don?t take it as a failure. Rather, use it as a learning experience and opportunity to treat yourself with kindness and compassion. SUMMARY Your mood and emotions play a significant role in psychologically induced hunger like boredom eating. Learning to be aware of your emotions, hunger triggers, and fullness cues can help prevent you from eating because you?re bored. 9-11. Understand your environment Much of what you eat is influenced by your environment, and the same goes for when and how much you eat. Here are a few specific ways you can tailor your environment to discourage yourself from boredom eating when the urge strikes. 9. Know your triggers Especially when it comes to psychological types of hunger like boredom eating, external factors often trigger the urge to eat. Identifying the triggers in your life that tend to cause the urge to eat when you?re bored is garza to breaking the habit. Some common triggers to be aware of are stress, food availability, and pictures of food. Make notes in a food journal about what you?re doing and your environment when you feel the urge to eat. This might help identify -- and stop -- boredom eating patterns. 10. Avoid the urge to eat in front of a screen Eating in front of a screen while you?re bored can influence you to overeat when you aren?t even hungry. Many people turn to screen-based activities like watching TV or scrolling on their phone when they?re feeling bored. Some studies have found that people tend to eat more than they otherwise would when they?re distracted or in front of a screen, such as a TV or computer (35Trusted Source, 36Trusted Source, 37Trusted Source). Break associations you might have between eating and screen time by making a point of eating meals at a table -- not in front of the TV -- and putting your phone away while you?re dining. Consider replacing mindless eating during screen time with another activity, such as knitting, doodling, or playing with a toy or piece of jewelry, to keep your hands busy while you watch TV. 11. Change your scenery Sometimes all it takes to get your mind off food when you?re feeling bored is a little change of scenery. When you?re bored and fighting the urge to snack, standing up and moving to a new location -- even if it?s just from one room to another -- may be enough to distract your mind from food until the boredom passes. SUMMARY External factors often trigger urges to eat when you?re not physically hungry. Identifying the factors in your environment that trigger boredom eating is garza to breaking those habits. 12-13. Mix things up To be bored means that you?re feeling uninterested in your current activity. The feeling often occurs when the day has been monotonous or repetitive. The same goes for boredom eating. You may eat simply as a way to escape the regular routines of the day (38Trusted Source, 39Trusted Source). Adding variety to your day keeps things feeling fresh and exciting, and it might fend off boredom eating. 12. Take a walk When you?re feeling bored, taking a walk not only provides a distraction from any urges to snack but also physically removes you from food temptations. Sometimes a quick [id number] walk is all it takes to recenter yourself and forget about the urge to snack out of boredom. If you?re not able to take a walk, you might find it helpful to take a few minutes to stretch or do breathing exercises. 13. Make new habits One of the upsides of being bored is that it can drive you to try new things. Next time you feel bored, take a few minutes to think about how you?d really like to be spending that time. Is there a new hobby you?d like to try or an old book that you never got around to reading? Try to look at boredom as a space for meaningful stimulation in your day. 13 Ways to Stop Eating When You're Bored (Turbocoating) Creating a Mindful Eating Environment: 10 Mindless Eating Solutions If you're looking for easier ways to make healthy changes to your diet and lifestyle, consider these simple ?mindless eating solutions? for staying on-track with nutrition: Serve Salad and Vegetables First. Before bringing out your main dish, serve salad and vegetables first to ensure you're eating enough of this important food group. This strategy will also help you eat less of the rest of your dish which is likely higher in calories, etc. Serve Your Main [facility] on the Stove or Counter. Studies show that we're likely to eat less if our food is placed on the stove or counter rather than right in front of us. Eat on Smaller Plates. Similar to the strategy mentioned above, studies show that you're likely to consume less food if you're eating from a smaller plate. This is likely due to the increase of smaller portion sizes. Turn off Your Television. Watching television as you eat can be highly distracting, and it affects your ability to eat mindfully. For example: you're less likely to notice when you're full, so you might consume excess calories. Keep Mostly Water On-hand. Calories from drinks can add up quickly, especially in fruit juices, alcohol and soft drinks. By minimizing the amounts of those drinks on-hand, you're more likely to consume water when you're thirsty - and water has amazing health benefits! Keep Your Kitchen Organized. An organized refrigerator, counter and cabinet space makes you more likely to find and choose the foods which are healthiest for you. On the contrary, a messy kitchen space may make you more apt to grab the first item you see. Pre-cut Your Fruits and Vegetables. Let's admit it: We're more likely to put off eating produce if we have to go through the ?burden? of cutting it first. Pre-cut fruits and vegetables will eliminate this extra step. Have at Least Six Single Servings of Lean Protein On-hand. This includes lean meats such as turkey and chicken, yogurt, eggs, nuts, beans and legumes. By having plenty of lean protein on-hand, you can better manage your appetite and hunger levels. Keep All Snack Foods in One Inconvenient Cupboard. You're less likely to reach for unhealthy snack foods if they're not all gazing up at you from plain sight! Keep Only a Fruit Bowl on Your Counter. This way, if you're one to grab foods based off of their availability, you'll reach for healthier fruits rather than less healthy snack foods. https://www.obesityaction.org/community/news/community-news/nfinrc-w-yzdvtk w-zcplte-luwqfrxkakj/ HOW DOES CHRONIC STRESS AFFECT EATING PATTERNS? Chronic stress can affect the body?s use of calories and nutrients in various ways. It raises the body?s metabolic needs and increases the use and excretion of many nutrients. If one does not eat a nutritious diet, a deficiency may occur.Stress also creates a chain reaction of behaviors that can negatively affect eating habits, leading to other health problems down the road. Stress places a greater demand on the body for oxygen, energy, and nutrients. Yet people who experience chronic stress may crave comforting foods such as highly processed snacks or sweets, which can be high in unhealthy fats, sugar, and calories but low in micronutrients. People feeling stress may lack the time or motivation to prepare nutritious, balanced meals, or may skip or forget to eat meals. Stress can disrupt sleep by causing training officer sleep or more frequent awakenings, which leads to fatigue during the day. In order to cope with daytime fatigue, people may use stimulants to increase energy such as with caffeine or high-calorie snack foods. The reverse may also be true that poor-quality sleep is itself a stressor. Studies have found that sleep restriction causes a significant increase in cortisol levels. During acute stress, adrenaline suppresses the appetite.But with chronic stress, elevated levels of cortisol may cause cravings, particularly for foods high in sugar, fat, and calories, which may then lead to weight gain. Cortisol favors the accumulation of fat in the belly area, also called central adiposity, which is associated with insulin resistance and an increased risk of type 2 diabetes, cardiovascular disease, and certain breast cancers.4,6-8 It also lowers levels of the hormone leptin (that promotes satiety) while increasing the hormone ghrelin (that increases appetite). https://cdn1.sph.[employer].edu/wp-content/uploads/sites//HeatlhyLiv edqPumsh30-75.1.pdf Disrupted Sleep Linked to Weight Gain - YouTube How To Improve Your Sleep To Impact Your Weight Loss: [email or web address]'s.GetMaid/ep42/ Weight Loss and Sleep Updated November 29, 2019 Written by Chidi Crow Medically Reviewed by Ketty Whitley In This Article The Connection Between Sleep and Weight Sleep and Obesity Sleep During Weight Loss Maintaining a Healthy Relationship With Your Body Losing weight is challenging, and keeping weight off can be just as difficult. Although the medical community is still untangling the complicated relationship between sleep and body weight, several potential links have emerged that highlight the potential weight loss benefits of getting a good night?s rest and the negative health impacts of sleep deprivation. The Connection Between Sleep and Weight Over the past several decades, the amount of time that Americans spend sleeping has steadily decreased1, as has the self-reported quality of that sleep. For much of the same time period, the average body mass index (BMI) of Americans increased2, reflecting a trend toward higher body weights and elevated rates of obesity. In response to these trends, many researchers began to hypothesize about potential connections between weight and sleep. Numerous studies have suggested that restricted sleep and poor sleep quality may lead to metabolic disorders, weight gain, and an increased risk of obesity and other chronic health conditions. While there is continuing debate within the medical community about the exact nature of this relationship, the existing research points to a positive correlation between good sleep and healthy body weight. There remains much to be discovered about the intricate details of how sleep and weight are connected. Several hypotheses offer paths for additional research with the hope that increasing our understanding of the relationship between weight and sleep will lead to reduced obesity and better weight-loss methods. Can Lack of Sleep Increase Appetite? One common hypothesis about the connection between weight and sleep involves how sleep affects appetite. While we often think of appetite as simply a matter of stomach grumbling, it?s actually controlled by neurotransmitters, which are chemical messengers that allow neurons (nerve cells) to communicate with one another. The neurotransmitters ghrelin and leptin are thought to be central to appetite. Ghrelin promotes hunger, and leptin contributes to feeling full. The body naturally increases and decreases the levels of these neurotransmitters throughout the day, signaling the need to consume calories3. A lack of sleep may affect the body?s regulation of these neurotransmitters. In one study, men who got 4 hours of sleep had increased ghrelin and decreased leptin compared to those who got 10 hours of sleep. This dysregulation of ghrelin and leptin may lead to increased appetite and diminished feelings of fullness in people who are sleep deprived. In addition, several studies have also indicated that sleep deprivation affects food preferences. Sleep-deprived individuals tend to choose foods that are high in calories and carbohydrates4. Other hypotheses regarding the connection between sleep and increased appetite involve the body?s endocannabinoid system5 and orexin6, a neurotransmitter targeted by some sleep aids. Many researchers believe that the connection between sleep and dysregulation of neurotransmitters is complicated and additional studies are needed to further understand the neurobiological relationship. Does Sleep Increase Metabolism? Metabolism7 is a chemical process in which the body converts what we eat and drink into energy needed to survive. All of our collective activities, from breathing to exercising and everything in between, is part of metabolism. While activities like exercise can temporarily increase metabolism, sleep cannot8. Metabolism actually slows about 15% during sleep, reaching its lowest level in the morning 9. In fact, many studies have shown that sleep deprivation (whether due to self-induction, insomnia, untreated sleep apnea, or other sleep disorders) commonly leads to metabolic [id number]. Poor sleep is associated with increased oxidative stress, glucose (blood sugar) intolerance (a precursor to diabetes), and insulin resistance. Extra time spent awake may increase the opportunities to eat11, and sleeping less may disrupt circadian rhythms, leading to weight gain12. How is Sleep Related to Physical Activity? Losing sleep can result in having less energy for exercise and physical activity. Feeling tired can also make sports and exercising less safe, especially activities like weightlifting and or those requiring balance. While researchers are still working to understand this [id number], it?s well known that exercise is essential to maintaining weight loss and overall health. Getting regular exercise can improve sleep quality, especially if that exercise involves natural light. While even taking a short walk during the day may help improve sleep, more activity can have a more dramatic impact. Engaging in at least 150 minutes of moderate-intensity or 75 minutes of high-intensity exercise per week can improve daytime concentration and decrease daytime [id number]. Sleep and Obesity In children and adolescents, the link between not getting enough sleep and an increased risk of obesity is well-established, although the reason for this link is still being debated. Insufficient sleep in children can lead to metabolic irregularities as discussed earlier, skipping breakfast in the mornings, and increased intake of sweet, salty, fatty, and starchy foods15. In adults, the research is less clear. While a large analysis of past studies suggests that people getting less than 6 hours of sleep at night are more likely to be diagnosed as obese16, it?s challenging for these studies to determine cause and effect. Obesity itself can increase the risk of developing conditions that interfere with sleep, like sleep apnea and depression. It?s not clear if getting less sleep is the cause of obesity in these studies, if obesity is causing the participants to get less sleep, or perhaps a mix of both. Even though more studies are needed to understand this connection, experts encourage improving sleep quality when treating obesity in adults. Sleep During Weight Loss Getting adequate, quality sleep is an important part of a healthy weight loss plan. Most importantly, research has shown that losing sleep while dieting can reduce the amount of weight lost17 and encourage [id number]. Tips for Quality Sleep During Weight Loss There are many ways to improve sleep. Here are a few research-based tips for sleeping better when you?re trying to lose weight: Keep a regular sleep schedule: Big swings in your sleep schedule or trying to catch up on sleep after a week of late nights can cause changes in metabolism and reduce insulin [id number], making it easier for blood sugar to be elevated. Sleep in a dark room: Exposure to artificial light while sleeping, such as a TV or bedside lamp, is associated with an increased risk of weight gain and . Don?t eat right before bed: Eating late may reduce the success of weight loss [id number] Reduce Stress: Chronic stress may lead to poor sleep and weight gain in several ways, including eating to cope with negative [id number] Be an Early Bird: People with late bedtimes may consume more calories and be at a higher risk for weight gain23. Early birds may be more likely to maintain weight loss when compared to night owls24. Maintaining a Healthy Relationship With Your Body Deciding if you should attempt to change your body weight is a personal decision best made with the guidance of your doctor. Don?t take all the health and weight loss information you read at face value. Weight loss isn?t appropriate for everyone and doesn?t always mean better health. Remember that health is a lifelong journey that includes not only healthy habits but also having a healthy relationship with your body. If you?re considering weight loss, the National Institutes of Health offers a helpful resource for choosing a safe weight loss [id number] Source National [place] of Diabetes and Digestive and Kidney DiseasesNIDDK research creates knowledge about and treatments for diseases that are among the most chronic, costly, and consequential for patients, their families, and the Nation. niddk.nih.gov . https://www.sleepfoundation.org/physical-health/racbxs-kvhe-bdu-sleep Sleep Hygiene Tips Set a sleep schedule and stick to it. Try to go to bed at night and awaken in the morning around the same times, even on weekends. This helps to regulate the body?s sleep cycles and circadian rhythms. Try to exercise at some point in the day but avoid vigorous activity (running, fast dancing, high-intensity interval training) one hour before bedtime. Regular exercise of adequate intensity can promote muscle relaxation and deeper sleep later on. If you?re in the habit of napping during the day, aim for a 10-20 minute power nap to achieve the goals of reduced fatigue and increased alertness. It?s best to take naps in the early afternoon to avoid interference with nighttime sleep. Try to avoid large meals, heavy snacking,or alcohol 2-3 hours before bed. If you are sensitive to caffeine, try to avoid drinking caffeinated beverages 4-6 hours before bedtime. Stop using electronic devices an hour before bed, especially those emitting blue light such as smartphones, tablets, and televisions. Schedule before-bed activities to signal that you are winding down, such as changing into pajamas and brushing teeth. Create a quiet, dark, relaxing environment in your bedroom. Dim the lights and turn off your cell phone?s sound and vibration modes if possible. Ensure a comfortable temperature, as feeling too hot or cold can disrupt sleep. Create calming bedtime rituals such as practicing deep breathing exercises, doing light yoga stretches, or listening to soothing relaxing music. If you awaken and can?t return to sleep, don?t stay in bed. Get up and do quiet relaxing activities, such as reading, until you feel tired enough to fall back asleep. Prescriptions ordered this encounter Disp Refills Start End METFORMIN ER 500 MG TABLET,EXTENDED * 360 * 0 07/04/2024 10/02/2024 Route: ORAL Sig: Take 2 tablets by mouth two times a day. Encounter Status:Closed by NACHO GARZA on 07/04/24 PROGRESS Observed: 07/04/2024 9:20 AM Status: COMPLETED Source: [facility] ID: [id number] Author: NACHO VERMA MD Service: ? Author Type: Physician Type: Progress Notes Filed: 07/04/2024 11:43 Note Text: Some documentation from previous visit of 06/06/24 was copied and pasted, documentation has been reviewed and edited as necessary for today's visit. Patient Summary: Marietta is a 33 year old Female who presents for follow-up evaluation of obesity/weight management to treat and prevent related co-morbidities. In our previous visits we have discussed lifestyle intervention including a nutrition recommendations and physical activity optimization. Her last office visit was 1 month ago. Assessment/plan from last visit: -LABs ordered - Nutrition Consult ordered to [facility] - Declines Surgery consult to BMI at current time - Protein 90-160g recommend -tracking reviewed- lose it chelsea reviewed - continue phentermine (started by PCP - add topiramate - off label use reviewed. Risks reviewed. Common SE reviewed with patient. - start OCPs. Interval History PT specifies the following items as new or significant updates since the last appointment: - Currently taking phentermine once daily and topiramate once daily for weight management. - Recently switched topiramate to lunchtime to reduce evening hunger, reporting improvement. - Initially experienced sleepiness with topiramate, but no longer an issue. - Denies numbness, tingling, chest pain, palpitations, or significant brain fog with topiramate. - Reports reduced cravings and better control over snacking, particularly in the evenings. - Tracking food intake using the "Lose It" chelsea, aiming for 150g of protein per day, currently averaging 120-130g. - Diet includes high-protein foods such as venison burgers, chicken, grilled shrimp, and salmon; working on reducing carbohydrate intake. - Drinks water to manage hunger, but concerned about nocturnal urination. - Reports stress eating and occasional cravings for high-calorie foods like mongolian fries. - Sleep duration: 5-6 hours per night, working on improving sleep hygiene. - Physical activity: Less gym time, but more outdoor activities; aiming to resume a regular exercise regimen. - Reports low alkaline phosphatase levels on recent lab results. Weight loss since last vist: 6 lb Total weight loss: 6 - Last Wt 07/04/24 : 98.8 kg (218 lb) 06/06/24 : 101.6 kg (224 lb) 5% weight loss = 213 lbs, 10% weight loss = 202 lbs Anti-obesity medications: Phentermine. Benefit:decreased appetite Adverse effects: none Anti-obesity medications: Topiramate. Benefit:Decreased food noise Adverse effects: none -ADDED METFORMIN (started 07/04) 1000mg BID XR Benefit: insulin resistance Adverse effects: Weight promoting medications: none Previous Diet (initial appointment): Awake - 5:15-5:30am B - sometimes greens or premier protein (30g) almond milk unsweetened - great value light malagasy yogurt, unsweet coconut shavings and almond shavings , venecian jerky S - L - venusian burger with no bun - broccoli , cheese stick S - pretzels , protein balls, PB- oats, portia seeds, pp, agave, oats D - deer meat- with fries and broccoli, chicken fries or fish sticks , salmon, grilled shrimp S - chips (occasional) Fluids: 64oz water, almond milk in shake (8-10oz unsw), 2 x week diet soda or [place] water, beer or wine 1-2 x week Bedtime - 10:30pm hard time falling asleep (11-11:30pm) Quality of diet: 24hr recall suggests unhealthy diet. Characterization of diet:unhealthy snacking, excessive cravings, and evening snacking. 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 of impaired eating habits:excessive hunger, mindlessness , emotion, and stress Eating Disorder no Cravings: salty and sweet Dietary changes: B - sometimes greens or premier protein (30g) almond milk unsweetened - great value light malagasy yogurt, unsweet coconut shavings and almond shavings , venecian jerky S - L - venusian burger with no bun - broccoli , cheese stick S - pretzels , protein balls, PB- oats, portia seeds, pp, agave, oats D - deer meat- with fries and broccoli, chicken fries or fish sticks , salmon, grilled shrimp S - chips (occasional) Fluids - Eating 3 meals a day, including breakfast Increasing water intake Increasing servings of vegetables Controlling portions Increasing protein Reducing carbohydrates Eating less take out/fast food Current Barriers: stress eating, food cravings, eating high-calorie foods, and inadequate sleep duration Exercise: Regular exercise: yes cardio (bike/walking) 2 times a weeks Total 4 times a week for 45 minutes each time Strength/resistance exercise:yes 2 days a week - at home bowflex decreased Stress: no Sleep: 5-6 hours no CRISTY stable Estimated Creatinine Clearance: 133.3 mL/min (based on SCr of 0.69 mg/dL). PAST MEDICAL HISTORY Diagnosis Date Cervical incompetence 11/2017 Gestational diabetes mellitus (GDM) in third trimester (HCC) 10/17/2019 Shivam's thyroiditis Infertility, female Miscarriage (HCC) Obesity Other complications of the puerperium, not elsewhere classified (CODE) 10/10/2017 Pre-eclampsia, severe (HCC) 11/21/2019 Pre-eclampsia, severe (HCC) Thyroid antibody positive Current Outpatient Medications Medication Sig Dispense Refill topiramate (TOPAMAX) 50 mg tablet Take 1 tablet by mouth daily at bedtime. 30 tablet 2 Phentermine HCl 37.5 mg tablet Take 1 tablet by mouth daily before breakfast for 90 days. TAKE 1 TABLET BY MOUTH ONCE DAILY IN THE MORNING 30 tablet 2 Norethindrone Acet-Ethinyl Est (MICROGESTIN 1.5/30) 1.5-30 mg-mcg Take 1 tablet by mouth once daily. 21 tablet 11 No current facility-administered medications for this visit. ROSConstitutional: (+) sleep disturbance Cardiovascular: (-) chest pain, (-) palpitations Neurological: (-) numbness/tingling, (-) brain fog Psychiatric: (+) stress eating, (-) major cravings ROS/Fam Hx pertaining to AOMs: GEN: Fatigue:yes CV: h/o palpitations/cardiac arrhythmia, Chest pain: no HTN: no PULM: Asthma:no GI: GERD:no ; Gallstones:no ; Fatty liver disease:no Pancreatitis: no MSK: Joint Pain:no : Nephrolithiasis: no Symptoms of PCOS: no ?? 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 Latest Ref Rng AND Units 06/22/2024 CMP Sodium 136 - 144 mmol/L 139 Potassium 3.7 - 5.1 mmol/L 4.3 Chloride 98 - 107 mmol/L 105 CO2 22 - 30 mmol/L 23 Glucose 74 - 99 mg/dL 87 BUN 7 - 21 mg/dL 15 Creatinine 0.58 - 0.96 mg/dL 0.69 EGFR >=60 mL/min/1.73m? 118 Protein, Total 6.3 - 8.0 g/dL 7.0 Albumin 3.9 - 4.9 g/dL 4.2 Calcium 8.5 - 10.2 mg/dL 9.3 Bilirubin, Total 0.2 - 1.3 mg/dL 0.4 AST 13 - 35 U/L 21 ALT 7 - 38 U/L 30 Alkaline Phosphatase 34 - 123 U/L 18 Cholesterol, Total (mg/dL) Date Value 04/29/2023 258 05/17/2012 221 HDL Cholesterol (mg/dL) Date Value 04/29/2023 37 05/17/2012 34 LDL Cholesterol, Calculated (mg/dL) Date Value 04/29/2023 200 05/17/2012 149 Triglyceride (mg/dL) Date Value 04/29/2023 106 05/17/2012 188 Latest Ref Rng AND Units 04/29/2023 CBC WBC 3.70 - 11.00 k/uL 4.80 RBC 3.90 - 5.20 m/uL 5.10 Hemoglobin 11.5 - 15.5 g/dL 15.2 Hematocrit 36.0 - 46.0 % 46.1 MCV 80.0 - 100.0 fL 90.4 MCH 26.0 - 34.0 pg 29.8 MCHC 30.5 - 36.0 g/dL 33.0 RDW-CV 11.5 - 15.0 % 12.2 Platelet Count 150 - 400 k/uL 251 MPV 9.0 - 12.7 fL 11.5 Vitamin D 25 Hydroxy Date Value Ref Range Status 04/29/2023 56.0 31.0 - 80.0 ng/mL Final 04/13/2019 27.6 (L) 31.0 - 80.0 ng/mL Final Comment: Classification of 25 OH Vitamin D status: Insufficiency/Moderate Deficiency: < or = 30 ng/mL Sufficiency/Optimal Levels: 31 to 80 ng/mL Toxicity: > 100 ng/mL Test performed by chemiluminescent immunoassay. TSH Date Value 04/29/2023 0.931 mIU/L 12/07/2020 1.550 uU/mL 04/22/2019 2.430 uU/mL ) Hemoglobin A1C (%) Date Value 06/22/2024 5.1 04/29/2023 5.1 01/23/2019 5.2 No components found for: "SQINSULN" Assessment/Plan: Marietta Piña is a 33 year old yo with Class II obesity who presented today for follow up for supervised weight loss to treat and prevent related co-morbidities. 1. Insulin resistance (E88.819) 2. Metabolic syndrome (E88.810) 3. Class 2 severe obesity with serious comorbidity and body mass index (BMI) of 39.0 to 39.9 in adult, unspecified obesity type (HCC) (E66.812) - Insulin level at 16, indicating insulin resistance; ideal level is 10 or below. - Continuing phentermine once daily. - Topiramate 50 mg once daily, currently taken at lunchtime; discussed potential to increase to 50 mg twice daily if needed to manage evening hunger- consider later date - Initiated metformin with a gradual titration schedule: start with one tablet at dinner, increase to two tablets at dinner once tolerated, then add one tablet at breakfast or lunch, aiming for a total of four tablets daily as tolerated. - Discussed potential side effects of metformin, including bloating, diarrhea, and nausea; advised to adjust titration pace based on tolerance. - Emphasized importance of maintaining a diet high in protein and whole foods to minimize side effects and support weight loss. - Referred to hospital nutrition consultation; will ensure follow-up. - Encouraged continuation of food tracking using the "Lose It" chelsea, focusing on meeting protein goals and monitoring carbohydrate intake. - Advised on meal composition: consume protein first, followed by vegetables, then starches to optimize glucose and insulin response. - Recommended increasing water intake to 90-120 ounces daily. - Discussed benefits of regular physical activity; encouraged maintaining a consistent exercise routine, even if brief. - Scheduled follow-up appointment on September 02 to monitor progress and adjust treatment as necessary. 4. Dyslipidemia (E78.5) -repeat labs next year 5. Malaise and fatigue (R53.81) - Discussed potential benefits of magnesium glycinate 400 mg at bedtime to improve sleep quality. - Recommended considering melatonin or ashwagandha to support sleep and reduce stress. - Advised aiming for 7.5 to 9 hours of sleep per night to support overall health and weight loss efforts. 6. Migraine without status migrainosus, not intractable, unspecified migraine type (G43.909) -topiramate - An overall goal of 150-200 minutes per week of exercise has been effective in weight loss and maintenance. Prescription instructions reviewed with patient as applicable. Potential red flag symptoms discussed with the patient. Reviewed appropriate action plan to take if red flag symptoms occur. Patient agreeable to treatment plan. Follow up in 4 weeks I spent a total of 42 minutes on the date of the service which included preparing to see the patient, [id number] patient care, completing clinical documentation, obtaining and/or reviewing separately obtained history, performing a medically appropriate examination, counseling and educating the patient/family/caregiver, and ordering medications, tests, or procedures Nacho Alcantara MD, FACOG, GEORGI . CNPN Observed: 07/02/2024 12:00 AM Status: COMPLETED Source: [facility] Telephone (OBGYWM) MARIETTA PIÑA ([id number]) 1990 F Date Time Provider Department 07/02/24 NACHO VERMA OBGYWM During your visit today, we recorded the following information about you: Nacho Verma MD 07/02/2024 12:33 PM Signed Please let her know I had an opening on 07/04 at 9:20 Edita Priest RN 07/02/2024 1:54 PM Signed Left message for patient to call office. Scheduled patient for this date/time if she wants it. Edita Priest RN Allergies As of Date: 07/02/2024 (No Known Allergies) Date Reviewed: 06/06/2024 Reviewed by: Delma Crockett MA - Fully Assessed Prescriptions as of 07/04/2024 - topiramate (TOPAMAX) 50 mg tablet Take 1 tablet by mouth daily at bedtime. - Phentermine HCl 37.5 mg tablet Take 1 tablet by mouth daily before breakfast for 90 days. TAKE 1 TABLET BY MOUTH ONCE DAILY IN THE MORNING - Norethindrone Acet-Ethinyl Est (MICROGESTIN 1.530) 1.5-30 mg-mcg Take 1 tablet by mouth once daily. Problem List As Of Date 07/02/2024 Noted Resolved Contraception [TXY2533] 06/05/2009 11/11/2015 Secondary oligomenorrhea [N91.4] 06/05/2009 11/11/2015 Cholecystitis with cholelithiasis [K80.10] 10/19/2012 11/11/2015 Obesity in [O99.210] 10/22/2015 Family history of cleft lip and palate [Z82.79] 10/22/2015 Patient requested diagnostic testing [Z01.89] 10/22/2015 11/27/2015 Rh negative status in duong in *11/12/2015 Patient requested diagnostic testing [Z01.89] 04/07/2016 04/13/2017 History of delivery [Z87.51] 12/22/2016 Incompetent cervix, abdominal cerclage in place*05/02/2017 H/O section [Z98.891] 05/05/2017 Elevated blood pressure reading without diagnos*10/10/2017 Maternal care for intrauterine [O36.4XX0] 10/10/2017 02/17/2021 Other complications of the puerperium, not else*10/10/2017 labor second tri w delivery sec*10/10/2017 02/17/2021 Single stillbirth (CODE) [Z37.1] 08/16/2016 Obesity, Class III, BMI >= 40 [E66.813] 11/28/2017 History of premature rupture of membran*06/10/2019 History of diet controlled gestational diabetes*10/17/2019 06/08/2021 Gestational hypertension [O13.9] 11/04/2019 02/17/2021 Prematurity [P07.30] 11/04/2019 02/17/2021 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] 11/05/2019 Anovulation [N97.0] 11/05/2019 Elevated blood pressure reading [R03.0] 11/21/2019 35 weeks gestation of [Z3A.35] 11/21/2019 02/17/2021 Pre-eclampsia, severe [O14.10] 11/21/2019 02/17/2021 Pre-eclampsia in third trimester [O14.93] 11/21/2019 02/17/2021 with history of section, ant*11/26/2020 Short interval between pregnancies affecting pr*11/26/2020 H/O pre-eclampsia in prior , currently*11/26/2020 History of gestational diabetes in prior pregna*11/26/2020 Gestational diabetes mellitus, class A1 [O24.41*05/07/2021 06/08/2021 Insulin controlled gestational diabetes mellitu*06/08/2021 Encounter Status:Closed by RUSSEL RODRIGUEZ on 07/04/24 CNPN Observed: 07/01/2024 12:00 AM Status: COMPLETED Source: [facility] Telephone (O[employer]WM) MARIETTA PIÑA ([id number]) 1990 F Date Time Provider Department 07/01/24 NACHO VERMA During your visit today, we recorded the following information about you: KingTawnya 07/01/2024 11:02 AM Signed Pt is scheduled monthly for wgt mgt appt, appt for 07/25/24 w/ Dr. Garza has to be reschedule there is nothing for the month for July.Pt is asking if this appt can be skipped or if this could be scheduled into another open slot.Please assist and advise, thank you. Nacho Verma MD 07/01/2024 11:15 AM Signed Unfortunately I am completley booked- only potential day but I would not know until about one week before would be August 08 at 3pm- but I can't guarantee that date and time as I am in surgery. So long as she is doing well and if she feels she can skip the July appt then that is fine she can be seen at August appt. Russel Rodriguez RN 07/01/2024 11:26 AM Signed Left message for patient to call office. MARIO Saldaña Trisha, RN 07/02/2024 11:02 AM Signed Patient notified. She feels she is doing well right now, but would like a call back if you do end up adding in August 08 and could see her. MARIO Saldaña Deidre, MD 07/02/2024 12:29 PM Signed Noted - if someone cancels or I have time on we will let her know Allergies As of Date: 07/01/2024 (No Known Allergies) Date Reviewed: 06/06/2024 Reviewed by: Delma Crockett MA - Fully Assessed Reason for Visit: Appointment [[id number]] Prescriptions as of 07/02/2024 - topiramate (TOPAMAX) 50 mg tablet Take 1 tablet by mouth daily at bedtime. - Phentermine HCl 37.5 mg tablet Take 1 tablet by mouth daily before breakfast for 90 days. TAKE 1 TABLET BY MOUTH ONCE DAILY IN THE MORNING - Norethindrone Acet-Ethinyl Est (MICROGESTIN .07/19) 1.5-30 mg-mcg Take 1 tablet by mouth once daily. Problem List As Of Date 07/01/2024 Noted Resolved Contraception [YQC9474] 06/05/2009 11/11/2015 Secondary oligomenorrhea [N91.4] 06/05/2009 11/11/2015 Cholecystitis with cholelithiasis [K80.10] 10/19/2012 11/11/2015 Obesity in [O99.210] 10/22/2015 Family history of cleft lip and palate [Z82.79] 10/22/2015 Patient requested diagnostic testing [Z01.89] 10/22/2015 11/27/2015 Rh negative status in duong in fi*11/12/2015 Patient requested diagnostic testing [Z01.89] 04/07/2016 04/13/2017 History of delivery [Z87.51] 12/22/2016 Incompetent cervix, abdominal cerclage in place*05/02/2017 H/O section [Z98.891] 05/05/2017 Elevated blood pressure reading without diagnos*10/10/2017 Maternal care for intrauterine [O36.4XX0] 10/10/2017 02/17/2021 Other complications of the puerperium, not else*10/10/2017 labor second tri w delivery sec*10/10/2017 02/17/2021 Single stillbirth (CODE) [Z37.1] 08/16/2016 Obesity, Class III, BMI >= 40 [E66.813] 11/28/2017 History of premature rupture of membran*06/10/2019 History of diet controlled gestational diabetes*10/17/2019 06/08/2021 Gestational hypertension [O13.9] 11/04/2019 02/17/2021 Prematurity [P07.30] 11/04/2019 02/17/2021 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] 11/05/2019 Anovulation [N97.0] 11/05/2019 Elevated blood pressure reading [R03.0] 11/21/2019 35 weeks gestation of [Z3A.35] 11/21/2019 02/17/2021 Pre-eclampsia, severe [O14.10] 11/21/2019 02/17/2021 Pre-eclampsia in third trimester [O14.93] 11/21/2019 02/17/2021 with history of section, ant*11/26/2020 Short interval between pregnancies affecting pr*11/26/2020 H/O pre-eclampsia in prior , currently*11/26/2020 History of gestational diabetes in prior pregna*11/26/2020 Gestational diabetes mellitus, class A1 [O24.41*05/07/2021 06/08/2021 Insulin controlled gestational diabetes mellitu*06/08/2021 Encounter Status:Closed by TAWNYA PATEL on 07/01/24 INSULIN SERPL-ACNC Collected: 06/22/2024 7:56 AM Sta tus: F Source: [facility] Comment: Specimen Type : BLOOD SPECIMEN Ordering Facility: [facility] Address: [address] [place] [address] TYPE CODE TESTS RESULT OUT OF RANGE REFERENCE UNITS LAB 68078-4([facility]) Insulin SerPl-aCnc 16.4 2.6-24.9 uU/mL Performed By: #### [id number] # ### [facility] CLIA [id number] [address] [place] [address] DEPRECATED HGB A1C BLD Collected: 06/22 7:56 AM Status: F Source: [facility] Comment: Specimen Type : BLOOD SPECIMEN Ordering Facility: [facility] Address: [address] [place] [address] TYPE CODE TESTS RESULT OUT OF RANGE REFERENCE UNITS LAB 4548-4(LOINC) HbA1c MFr Bld 5.1 4.3-5.6 % Result Comment: [place] [employer] Association guidelines indicate that patients with HgbA1c in the range 5.7-6.4% are at increased risk for development of diabetes, and intervention by lifestyle modification may be beneficial. HgbA1c greater or equal to 6.5% is considered diagnostic of diabetes. LAB 86779-0(LOINC) Est. average glucose Bld gHb Est-mCnc 100 mg/dL Result Comment: eAG: (Estima paul average glucose) is a calculated value from HgbA1c and is unit support representative of the average blood glucose level in the last 2-3 month period. Performed By: #### [id number] # ### [facility] CLIA [id number] [address] [place] [address] OF RAND COMP METAB 2000 PNL SERPL Collected: 7:56 AM Status: F Source: [facility] Comment: Specimen Type : BLOOD SPECIMEN Ordering Facility: [facility] Address: [address] [place], [place] [address] [id number] TYPE CODE TESTS RESULT OUT OF RANGE REFERENCE UNITS LAB 2885-2(LOINC) Prot SerPl-mCnc 7.0 6.3-8.0 g/dL LAB 1751-7(LOINC) Albumin SerPl-mCnc 4.2 3.9-4.9 g/dL LAB 58631-2(LOINC) Calcium SerPl-mCnc 9.3 8.5-10.2 mg/dL LAB 1975-2(LOINC) Bilirub SerPl-mCnc 0.4 0.2-1.3 mg/dL LAB 6768-6(LOINC) ALP SerPl-cCnc 18 Low 34-123 U/L LAB 1920-8(LOINC) AST SerPl-cCnc 21 13-35 U/L LAB 1742-6(LOINC) ALT SerPl-cCnc 30 7-38 U/L LAB 2345-7(LOINC) Glucose SerPl-mCnc 87 74-99 mg/dL Result Comment: The [place] [employer] Association (ADA) provides guidance for cutoff values for fasting glucose and random glucose. The ADA defines fasting as no caloric intake for at least 8 hours. Fasting plasma glucose results between 100 to 125 mg/dL indicate increased risk for diabetes (prediabetes). Fasting plasma glucose results greater than or equal to 126 mg/dL meet the criteria for diagnosis of diabetes. In the absence of unequivocal hyperglycemia, results should be confirmed by repeat testing. In a patient with classic symptoms of hyperglycemia or hyperglycemic crisis, random plasma glucose results greater than or equal to 200 mg/dL meet the criteria for diagnosis of diabetes. Reference: Standards of Medical Care in Diabetes 2016, [place] Diabetes Association. Diabetes Care. 2016.39(Suppl 1). LAB 3094-0(LOINC) BUN SerPl-mCnc 15 7-21 mg/ dL LAB 2160-0(LOINC) Creat SerPl-mCnc 0.69 0.58-0.96 mg/dL LAB 2951-2(LOINC) Sodium SerPl-sCnc 139 136-144 mmol/L LAB 2823-3(LOINC) Potassium SerPl-sCnc 4.3 3.7-5.1 mmol/L LAB 2075-0(LOINC) Chloride SerPl-sCnc 105 98-107 mmol/L LAB 9(LOINC) CO2 SerPl-sCnc 23 22-30 mmo l/L LAB 58400-4(LOINC) Anion Gap SerPl-sCnc 11 8-15 mmol/L LAB 10556-3(LOINC) Creatinine + eGFR Pnl SerPlBld 118 >=60 mL/min/1 .73m??? Result Comment: Estimated Gl omerular Filtration Rate (eGFR) is calculated using the 2020 CKD-EPI creatinine equation. This equation utilizes serum creatinine, sex, and age as parameters. The creatinine assay has traceable calibration to isotope dilution-mass spectrometry. Refer to KDIGO guidelines for clinical interpretation. In patients with unstable renal function, e.g. those with acute kidney injury, the eGFR may not accurately reflect actual GFR. Performed By: #### 21505-1 # ### [facility] CLIA [id number] [address] [place] [address] CNOV Observed: 06/06/2024 10:20 AM Status: COMPLETED Source: [facility] Office Visit (OBGYWM) MARIETTA PIÑA ([id number]) 1990 F Date Time Provider Department 06/06/24 10:20 AM NACHO VERMA OBGYWM During your visit today, we recorded the following information about you: Pulse Blood pressure Weight Height 93/minute 120/74 101.6 kg 1.613 m Nacho Verma MD 06/06/2024 12:04 PM Signed Patient Summary: Marietta Piña is a 33 year old female with obesity who presents for an initial evaluation of overweight/obesity to treat and prevent co-morbidities and is interested in open to all options. Motivation for seeking treatment for the disease of overweight/obesity : She wants to get healthier Goal weight: 180 lb Lowest recall weight: 196 lb (2019) Highest non- recall weight: 228 lb Patient identified barriers to weight loss: Late night eating and stress eating Weight History: She reports has family history of obesity (mom) and late adulthood weight gain. She states her weight gain is related to the following factors, including weight retention , consumption of unhealthy foods, and inadequate sleep duration. Difficulty losing weight? Yes History of weight loss with regain? Yes she lost weight in Nov [id number] she lost 30 lbs. She was consistent in healthy eating and tracking food and exercise. Has slowly regained some weight back. - Last Wt 06/06/24 : 101.6 kg (224 lb) 5% weight loss = 213 lbs, 10% weight loss = 202 lbs WEIGHT GRAPH: Diet/Nutrition overview: Awake - 5:15-5:30am B - sometimes greens or premier protein (30g) almond milk unsweetened - great value light malagasy yogurt, unsweet coconut shavings and almond shavings S - L - bagged salad w/ mozz cheese, newsome bites, sometimes with chicken, left overs- spaghetti, veggies- carrots, peppers S - pretzels , protein balls, PB- oats, portia seeds, pp, agave, oats D - deer meat- with fries and broccoli, chicken fries or fish sticks , pasta with sausage. S - chips (3 days per week) , ice cream (3 days per week) Fluids: 64oz water, almond milk in shake (8-10oz unsw), 2 x week diet soda or [place] water, beer or wine 1-2 x week Bedtime - 10:30pm hard time falling asleep (11-11:30pm) Quality of diet: 24hr recall suggests unhealthy diet. Characterization of diet:unhealthy snacking, excessive cravings, and evening snacking. 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 CRISTY NO ; CPAP NO Stress Stress:no, Cause:Work Obesity Related Comorbidities: Prior Weight Loss Surgery:No PAST MEDICAL HISTORY Diagnosis Date Cervical incompetence 11/2017 Gestational diabetes mellitus (GDM) in third trimester (HCC) 10/17/2019 Shivam's thyroiditis Infertility, female Miscarriage (HCC) Obesity Other complications of the puerperium, not elsewhere classified (CODE) 10/10/2017 Pre-eclampsia, severe (HCC) 11/21/2019 Pre-eclampsia, severe (HCC) Thyroid antibody positive PAST SURGICAL HISTORY Procedure Laterality Date ABDOMINAL REVISION OF CERCLAGE 11/2017 DELIVERY ONLY 06/30/2021 LTCS SECTION HX 05/02/2017 x2 - 23.5 weeks EXTRACTION ERUPTED TOOTH/EXR 01/2009 [place] teeth removed LAPS SURG CHOLECYSTECTOMY W/CHOLANGIOGRAPHY 11/14/2012 FAMILY HISTORY Problem Relation Age of Onset Hypertension Mother Alcohol/Drug Father Cancer Father other (endometriosis) Sister No Known Problems Brother No Known Problems Brother Hypertension Maternal Grandmother other (parkinsons) Maternal Grandmother Hypertension Maternal Grandfather other (myocardial infarction) Maternal Grandfather Diabetes Paternal Grandmother Hypertension Paternal Grandmother Alzheimer's Disease Paternal Grandmother Hypertension Paternal Grandfather No Known Problems Daughter No Known Problems Son Diabetes Paternal Uncle Asthma Other nephew Social History Tobacco Use Smoking status: Never Smokeless tobacco: Never Tobacco comments: parents quit smoking Vaping Use Vaping status: Never Used Substance Use Topics Alcohol use: No Drug use: No AOM Medications: Phentermine- 2nd refill- changed eating habits more protein, more vegetables Weight Promoting Medications: Diet/weight loss History: Past weight loss attempts? anti-obesity medications Phentermine currently and about a year ago-lost over 30 lbs over a years time. She was not on the phentermine the whole year. . Exercise: Regular exercise: yes cardio (bike/walking) 2 times a weeks Total 4 times a week for 45 minutes each time Strength/resistance exercise:yes 2 days a week - at home [employer] Barriers to regular exercise? no Work-related activity:Active. -she does have a desk but spends most of her day moving Gym Membership: no Activity Tracker: yes average steps per day 11,000 OCCUPATION [employer] Current Contraception: combined hormonal contraceptives Obesity ROS/ FHx GEN: Fatigue:yes CV: h/o palpitations/cardiac arrhythmia, Chest pain: no HTN: no PULM: Asthma:no GI: GERD:no ; Gallstones:no ; Fatty liver disease:no Pancreatitis: no MSK: Joint Pain:no : Nephrolithiasis: no Symptoms of PCOS: no ?? History was given metformin previously for ovulation NEURO: Migraines/FREITAS: yes 2x month ; H/o seizures: no Glaucoma:no; Cataracts no Symptoms of or History of pseudotumor cerebri:no Family or personal History of MEN2 or Medullary thyroid cancer: no PE BP 120/74 Pulse 93 Ht 161.3 cm (5' 3.5") Wt 101.6 kg (224 lb) LMP 05/21/2024 (Exact Date) SpO2 99% BMI 39.06 kg/m? Waist Circumference: 47 Neck Circumference: 16 GENERAL: Female in NAD. General adiposity. SKIN: acanthosis nigricans no, Skin tags: no Hirsutism: no HEENT: PERRL, No supraclavicular adiposity. No dorsal adiposity. ABDOMEN: Large pannus; EXTREMITIES: peripheral edema: minimal Results: reviewed with the patient No visits with results within 3 Month(s) from this visit. Latest known visit with results is: Appointment on 04/29/2023 Component Date Value Ref Range Status Vitamin D 25 Hydroxy 04/29/2023 56.0 31.0 - 80.0 ng/mL Final Insulin 04/29/2023 12.1 3.0 - 25.0 mU/L Final Hemoglobin A1C 04/29/2023 5.1 4.3 - 5.6 % Final Estimated Average Glucose 04/29/2023 100 mg/dL Final WBC 04/29/2023 4.80 3.70 - 11.00 k/uL Final RBC 04/29/2023 5.10 3.90 - 5.20 m/uL Final Hemoglobin 04/29/2023 15.2 11.5 - 15.5 g/dL Final Hematocrit 04/29/2023 46.1 (H) 36.0 - 46.0 % Final MCV 04/29/2023 90.4 80.0 - 100.0 fL Final MCH 04/29/2023 29.8 26.0 - 34.0 pg Final MCHC 04/29/2023 33.0 30.5 - 36.0 g/dL Final RDW-CV 04/29/2023 12.2 11.5 - 15.0 % Final Platelet Count 04/29/2023 251 150 - 400 k/uL Final MPV 04/29/2023 11.5 9.0 - 12.7 fL Final Absolute nRBC 04/29/2023 <0.01 <0.01 k/uL Final Cholesterol, Total 04/29/2023 258 (H) <200 mg/dL Final Triglyceride 04/29/2023 106 <150 mg/dL Final HDL Cholesterol 04/29/2023 37 (L) >39 mg/dL Final Non HDL Cholesterol 04/29/2023 221 (H) <130 mg/dL Final Fasting Time 04/29/2023 12 hrs Final VLDL Cholesterol 04/29/2023 21 <30 mg/dL Final TC:HDL Ratio 04/29/2023 6.97 (H) <5.10 Final LDL Cholesterol 04/29/2023 200 (H) <100 mg/dL Final LDL:HDL Ratio 04/29/2023 5.41 (H) <2.54 Final Protein, Total 04/29/2023 7.5 6.3 - 8.0 g/dL Final Albumin 04/29/2023 4.4 3.9 - 4.9 g/dL Final Calcium, Total 04/29/2023 9.8 8.5 - 10.2 mg/dL Final Bilirubin, Total 04/29/2023 0.5 0.2 - 1.3 mg/dL Final Alkaline Phosphatase 04/29/2023 20 (L) 34 - 123 U/L Final AST 04/29/2023 20 13 - 35 U/L Final ALT 04/29/2023 20 7 - 38 U/L Final Glucose 04/29/2023 88 74 - 99 mg/dL Final BUN 04/29/2023 10 7 - 21 mg/dL Final Creatinine 04/29/2023 0.76 0.58 - 0.96 mg/dL Final Sodium 04/29/2023 139 136 - 144 mmol/L Final Potassium 04/29/2023 4.3 3.7 - 5.1 mmol/L Final Chloride 04/29/2023 103 97 - 105 mmol/L Final CO2 04/29/2023 26 22 - 30 mmol/L Final Anion Gap 04/29/2023 10 9 - 18 mmol/L Final Estimated Glomerular Filtration Ra* 04/29/2023 107 >=60 mL/min/1.73m? Final TSH 04/29/2023 0.931 0.270 - 4.200 mIU/L Final Impression: Marietta Piña is a 33 year old Female with Class II obesity (Body mass index is 39.06 kg/m?.) who has early adulthood obesity with several periods of weight loss followed by weight gain . The causes of her obesity are multifactorial, biological, psychological and social and environmental. Specific factors include increased consumption of high calorie/process foods, irregular eating patterns , inadequate sleep duration, and post weight retention. She has few weight-related medical comorbidities which increase her cardiovascular mortality risk. There are additional metabolic obesity complications including dyslipidemia and PCOS. Other medical conditions as above. Regarding her lifestyle, as above, she has a few behavioral contributors ; her physical activity is suboptimal. Overall, it is clear that her quality of life is mildly compromised by her weight. It is likely a combination of weight loss therapies will be needed. She appears motivated today. Plan: -- Based on the severity and resistance of the obesity/overweight with co-morbidities, I believe a combination of behavioral and pharmacological intervention is the best and most appropriate usp therapeutic option. -- We discussed several strategies to track food intake and increase mindfulness around eating while will decrease calorie intake. She was counseled on the following: Eating primarily whole foods. Limit carbs, especially processed carbs. Do not drink your calories 30 grams of protein for breakfast decreases your hunger during the day by up to 40 % Premier Protein or generic 30 gm protein 1 gm sugar Walk for 15 minutes immediately a meal. -- Encouraged the patient to improve her physical activity. Although cardiovascular exercise is most beneficial for weight loss initially, we discussed healthy muscle from a combination of resistance training and cardiovascular exercise is the best usp plan. An overall goal of 150-200 minutes per week of exercise has been effective in weight loss and maintenance. -- Reviewed that monitoring weight daily and food intake can have a positive impact on overall weight loss and maintenance of weight loss. Activity tracking can be used to stay on target for exercise however should not be used to reward oneself She understands that there can be limitations of pharmacotherapy due to contraindications, side effects and cost. Patient was told to contact her insurance company to see what AOMs and supervised behavioral medical appointments are currently covered. Patient understands she will have more success when following a healthy lifestyle. We reviewed continued use of online tracking of daily weights, food journal and if desired physical activity. We reviewed that during management she is to report any concerning side effects of any pharmacotherapy she is placed on. She understands that she will need routine follow up in the office. Prior to any virtual visits in the future she will need to check her Blood pressure, weight, and pulse. -LABs ordered - Nutrition Consult ordered to [facility] - Declines Surgery consult to BMI at current time - Protein 90-160g recommend -tracking reviewed- lose it chelsea reviewed - continue phentermine (started by PCP - add topiramate - off label use reviewed. Risks reviewed. Common SE reviewed with patient. - start OCPs. (E78.5) Dyslipidemia (primary encounter diagnosis) (R53.81, R53.83) Malaise and fatigue (G43.909) Migraine without status migrainosus, not intractable, unspecified migraine type (Z13.220) Screening cholesterol level (Z13.0) Screening for deficiency anemia (Z13.1) Screening for diabetes mellitus (Z13.228) Screening for metabolic disorder (Z13.29) Screening for thyroid disorder (Z13.21) Encounter for vitamin deficiency screening (E66.812, Z68.39) Class 2 obesity with body mass index (BMI) of 39.0 to 39.9 in adult, unspecified obesity type, unspecified whether serious comorbidity present Prescription instructions reviewed with patient as applicable. Potential red flag symptoms discussed with the patient. Reviewed appropriate action plan to take if red flag symptoms occur. Patient agreeable to treatment plan. -- follow-up visit in 4 weeks for management of above interventions (june-September scheduled) I spent a total of 70 minutes on the date of the service which included preparing to see the patient, [id number] patient care, completing clinical documentation, obtaining and/or reviewing separately obtained history, performing a medically appropriate examination, counseling and educating the patient/family/caregiver, and ordering medications, tests, or procedures. Nacho Alcantara MD, FACOG, Nacho Peres MD 06/06/2024 12:02 PM Addendum Weight Management: You have taken the initiative to become a healthier version of yourself and to decrease the risks that come with the diagnosis of obesity or being overweight. We are happy to help you along this journey but know this is a lifetime commitment to yourself. Losing just 3-10 % of your body weight can decrease your risks of many other serious diseases like diabetes, heart disease, osteoarthritis, hypertension, cancer and so many others. During this time you will have triumphs, setbacks and plateaus- your body will fight against you but we are here to give you the tools and the resources to continue to reach your goals. We recommend during this time that you track your weight daily or at least five times per week as well as tracking your nutrition. You may track your activity but do not use hitting your fitness goals as a reward system as this can derail your success. We recommend weekly physical activity of 150-200 min/week-although physical exercise, this will be especially important for weight maintenance. Exercise can have many other benefits including improving insulin resistance, improving balance, bone health, improving mental health and cardiovascular health. Do not feel overwhelmed - we will discuss this more at your visits. Our time will be limited with each visit but we will try to touch on factors that are important to you and to your overall goals. We will try to set a goal at the end of each visit and then decide on what we want to accomplish with your upcoming visits. On your After Visit Summary (AVS), we will provide you with information that may be useful during this journey so please remember to read the information given. Check your AVS a few days after your appointment because we may have added more information specifically for you. Remember that if you are placed on medications, they are tools that can help you succeed but you must put in the work. Your nutrition will be the main factor. There are medications that work well for some and not for others- so it may take time to find the right combination for your body's needs. Please remember that factors such as other health co-morbidities one might have, as well as insurance coverage, will play a factor in determining which medications you can take. Most of the newer medications that are all the craze ,injectables, may not be covered or will only be covered if you fail months of oral medications or have Type 2 diabetes so please be patient with the process. It would be beneficial for you to determine what your insurance covers as far as Anti-Obesity Medications (AOMs), Nutritional Counseling, behavioral intervention and weight loss surgery. Please call your health insurance prior to your first appointment and write down coverage for each of those therapies. Most importantly, remember that ultimately our goal is to help you get to a healthier weight which will decrease your overall health risks. We will work together as a team and try to reach your personalized goals as well. Follow-up appointments Please arrive to follow-up visits a minimum of 15 minutes prior to your appointment. Follow-up weight management visits can be virtual. You will need to report a current blood pressure, heart rate (pulse) and weight at the beginning of each virtual appointment so you will need to have a reliable BP cuff, either wrist or upper arm. If you need to reschedule your appointment time or switch from an in-office visit to a virtual visit or vice versa, you need to call our office as we have designated appointment slots. This should not be done on [place] as you will not be scheduled appropriately and will need to be rescheduled. We appreciate that you have entrusted us with your health and know that we are committed to this process with you. Sincerely, Nacho Garza MD, [facility] AND Peace Colldao CNP Advanced Education from the [employer] Obesity Obesity is a disease that affects nearly one-third of the adult [place] population (approximately 60 million). The number of overweight and obese Americans has continued to increase since 1959, a trend that is not slowing down. Today, 64.5 percent of adult Americans (about 127 million) are categorized as being overweight or obese. Each year, obesity causes at least 300,000 excess deaths in the [place] and healthcare costs of [place] adults with obesity amount to approximately $100 billion. (AOA) Obesity is a complex, multi-factorial chronic disease involving: Environmental (social and cultural) The tendency toward obesity is a result of our environment: lack of physical activity along with high-calorie, low-cost foods. Home, work, school, and even the community can inhibit a healthy lifestyle. Genetic (Hereditary plays a large role in determining how susceptible people are to overweight and obesity). Genes also influence how the body cruz calories for energy and stores fat. Physiologic, metabolic, behavioral (eating too many calories while not getting enough exercise) and psychological components. It is the second leading cause of preventable in the [place] Behavioral changes brought on by economic development, modernization and urbanization have been linked to the rise in global obesity. Calculating BMI Body Mass Index (BMI) is a measurement tool used to determine excess body weight. Overweight is defined as a BMI of 25 or more, obesity is 30 or more, and severe obesity is 40 or more. You can visit www.nhlbi.nih.gov to estimate your BMI. Obesity Related Health Conditions The morbidity and mortality risk from being overweight is proportional to its degree. Individuals with morbid obesity, therefore, have the highest risk for developing numerous illnesses that often reduce mobility and quality of life due to their excess weight. In particular, type 2 diabetes, gallbladder disease and osteoarthritis have been found to increase concurrently with higher BMI. Premature , a 20-year shorter life span, has also been found in individuals with morbid obesity. All of the systems that make the body function are affected by morbid obesity. Type 2 diabetes Gallbladder disease and gallstones Liver disease Osteoarthritis, a disease in which the joints deteriorate. This is possibly the result of excess weight on the joints. Gout, another disease affecting the joints Pulmonary (breathing) problems, including sleep apnea in which a person can stop breathing for a short time during sleep Reproductive problems in women, including menstrual irregularities and infertility Gastroesophageal reflux/heartburn Hypertension Heart Disease Depression Psychological disorders/social impairments Urinary Stress Incontinence Obesity is also linked to higher rates of certain types of cancer. Obese men are more likely than non-obese men to from cancer of the colon, rectum, or prostate. Obese women are more likely than non-obese women to from cancer of the gallbladder, breast, uterus, cervix, or ovaries https://my.[facility].org/health/diseases/21294-swzedk-nwqusyktyy-oktkwwr-- education - Eat primarily whole foods. Limit carbs, especially processed carbs. Eat - Meat, vegetables and fruits with skin on if possible, eggs, cheese. - Do not drink your calories - 30 grams of protein for your first meal of the day decreases your hunger during the day by up to 40 %. Options include: Premier Protein or generic 30 gm protein 1 gm sugar or 5 eggs or 2-3 eggs and some unbreaded meat and/or cheese. No fruit, vegetables, bread, grain, yogurt, Smoothies, etc. - Walk for 15 minutes immediately after meal. TOPIRAMATE -- Take 25mg (1/2 tablet) daily x 2 weeks -- Then increase to 50mg daily after the initial two weeks so long as you are not having any side effects. -- You can take the tablet it at night at first (because of potential sleepiness side effects), but then you can take earlier around dinner after you have started the medication for a few days. You also may be able to take it in the morning if easier. -- We may increase the dose to 75mg a few weeks later if there is no change with 50mg, Typically the maximum medication dose would be 150mg daily but rarely would we need to titrate medication dose that high. -- The exact mechanism of topiramate on energy balance regulation is not clearly understood. Topiramate affects body mass index, fasting vpxizhb-[id number] ratio, and serum leptin and cortisol levels. It has shown to improve hypothalamic insulin and leptin signaling and action and reduce obesity in mice. These changes may be garza factors in weight loss due to topiramate. If at any point you are feeling the effects of the medication you can stay at that dose or if you experience side effects you can decrease it to the previous dose. -- Please see the handout to review the potential side effects and to explain this further -- Please let me know if you experience any changes in your vision, worsening depression or mood problems, or an increase in suicidal thoughts or behaviors. --This medication should NOT be combined with alcohol. Risks of drinking alcohol while taking this medication include mental and psychological side effects, including confusion, dizziness, drowsiness, and depression. -- There is an increased risk for oral clefts when topiramate is used in the first trimester of . -- There is a possible decrease in contraceptive efficacy when using estrogen-containing control with topiramate, please use a back up form of control such as condoms and monitor for throughout treatment. -- If you decide that you would like to get or if you have any of these side effects please let me know and we can safely discontinue the medication. - If you are on loop diuretic or thiazide diuretic we will want to monitor your potassium level, especially if you have a history of low potassium. - It is important to taper off of this medication when we finished with treatment, typically decreasing the dose 25 mg a week. Stopping Topiramate abruptly can cause irritability, anxiety and difficulty concentrating. Topiramate (toe pyre? a mate) What are the common names? Topamax Why is this medication prescribed? Topiramate is an anti-epileptic medications which has been approved by the FDA for patients 10 years of age or older for treatment of seizures. However, topiramate also has other uses such as the treatment of migraines. It also causes decrease in appetite and weight loss. The mechanism of weight loss is thought to be through inhibition of mitochondrial enzymes involved in energy expenditure and metabolism. Topiramate may work by helping you feel less hungry, less ?driven? to eat, more satisfied with less food. What special precautions should I follow? Before having topiramate prescribed, tell your doctor and pharmacist: If you have allergies to any component of topiramate If you are , plan to become , are breast-feeding, or if you become while taking topiramate What are the warnings and precautions for this medication? Immediately discontinue the medicine and seek medical help if you have severe cognitive/neuropsychiatric adverse symptoms or eye symptoms. Cognitive/neuropsychiatric adverse events: symptoms may include confusion, psychomotor slowing, difficulty with concentration/attention, difficulty with memory, speech or language problems, particularily word-finding difficulties, somnolence or fatigue Acute myopia and secondary angle closure glaucoma, usually within 1 month of starting treatment: symptoms may include blurred vision, redness and/or pain in the eye Oligohydrosis (decrease sweating) and hyperthermia (elevation in body temperature) Increase in suicidal behavior or ideation Metabolic acidosis, non-gap hyperchloremic (decreased serum bicarbonate below normal levels) resulting in hyperventilation or fatigue Kidney stones Paresthesias (numbness or tingling in hands or feet) Ataxia Dizziness Increase in urination frequency Drug interactions. Use of monamine oxidase inhibitors (MAOI?s), valproic acid, Caution use with dehydration or diarrheal illness, hepatic or renal impairment In case of emergency/overdose In case of overdose, call your local poison control center at or call local emergency services at 911. What other information should I know? Keep all appointments with your doctor and the laboratory. Do not let anyone else take your medication. Topiramate use needs to be monitored closely. Prescriptions may be refilled only a limited number of times. Keep a written list of all of your prescription and nonprescription ([id number]) medicines, in addition to vitamins, minerals, or other dietary supplements. How should I monitor while on this medication? Your doctor will check your baseline kidney function and electrolytes prior to starting this medication, then periodically. Continue to improve your dietary and physical activity habits as the combination works best while on this medication. Start out by taking the medication at bedtime as it can cause fatigue and sleepiness. Be sure to eat regular meals. Less hunger does not make it appropriate to skip meals. Make sure to have an eye exam, including the pressure in your eyes (intra-ocular pressure), once a year. What should I do if I forget a dose? Skip the missed dose and continue your regular dosing schedule the next day. Do not take a double dose to make up for a missed one. Sources Pubmed Health: http://www.ncbi.nlm.nih.gov/pubmedhealth/XBT4464809/ Drugs.com http://www.drugs.com/pro/topiramate.html Nutrition Reminders: NO NAKED CARBS!! Protein >= Carbs for each meal (if you are going to eat 50g carbs for lunch you should eat 50g protein or more). If you do not eat your carbs for lunch you do not get to save them for dinner- you use them or lose them. Balance your Protein between meals. Unless told otherwise your Minimum protein each day is 30grams per meal but don?t be afraid to eat more (try to aim for 1.6g protein per Kilogram of bodyweight). Focus on WHOLE FOODS if you can as your Gut Microbiome will benefit and you will feel more satisfied - the only caviot to this is protein shakes if needed. Water intake should be a minimum of 64oz per day- but more is better (to an extent) unless you have a medical condition that requires you to keep it to a minimum. Nothing is off limits- this is not about restricting yourself- this about learning what your body can have and still respond well to and learning how to balance food and still feel good. Track your food, weigh your food, measure your portion sizes as most people underestimate their food by approximately 40%. You should be tracking your Carbohydrates and Protein daily. It?s ok if you had a bad day- write it down and move on! Weigh yourself daily or at least 5 times per week, it will help to keep you accountable. If you are hungry- think about your stress level, your sleep (did you get 7.5-9hrs?) and your protein consumption- if you did not meet your goals then those could be contributing to your hunger. During weight loss phase it is ok to use two protein shakes per day and eating one meal along with it - studies have shown you will lose more weight and keep it off. Take a multivitamin daily Sit less Move more- Exercise including resistance training is very important for your health and if you are not getting routine exercise right now there will come a point when it will become an important piece of this process. Do Not skip meals- it could lead to you not getting enough protein or overeating at your next meal. Intermittent fasting can be a good tool for some but right now try to eat 3 regular meals. Only consume snacks if you are truly hungry. Why Is Protein So Important for Weight loss? consuming more protein not only reduces body weight but enhances body composition by decreasing fat mass while preserving fat-free mass During weight loss phase protein consumption (with normal kidney function) should be 1-1.6g protein per Kilogram of body weight (1kg=2.2lbs) On average Women need to Aim for a minimum 90g protein per day Consuming higher protein can also prevent weight regain after weight loss Protein consumption increases hormones responsible for satiety (feeling full)- these include Gut hormones like Glucagon-like peptide-1 (GLP-1), Cholecystokinin (CCK), Peptide Tyrosine-Tyrosine (PYY) and decreasing the Gut hormone responsible for causing hunger Ghrelin Protein has an increased thermogenesis effect of food- which means it take more calories to break down protein when consumed compared to carbohydrates or fats Protein also prevents a losing lean mass during weight loss (lose more fat and preserve fat free mass) which helps to increase resting energy expenditure (resting metabolic rate) Every pound of muscle cruz ~ 6 kcal per pound/day vs fat cruz ~ 2kcal per pound/day Carbohydrates - Why do You Crave Them? Eating too many refined carbohyrdates (sugar beverages, pastries, bread, pizza) which raises your blood glucose levels and therefore releasing insulin which in turn causes increase in hunger Carbohydrates suppress Ghrelin quickly but does not maintain the suppression for very long therefore hunger returns more quickly Consuming carbohydrates leads to a release of Dopamine ?feel good hormone? in our brain So how do you Curb these cravings? Eating Whole Foods with more fiber - High fiber carbs are absorbed and digested slowly so it does not impact blood sugar levels as much and will help in making you feel vieyra for longer; fiber also is healthy for your gut bacteria and can help with constipation. Remember- carbohydrates are not the enemy but know what a proper serving size is, choose nutritious carbohydrates and space them out between meals. Always- eat your protein first followed by your non starchy vegetables followed by your carbohydrates- it will help your body with your glucose and insulin regulation Processed Foods vs Whole Foods- Impact on Weight: People who eat Ultra Processed food tend to consume about 500 calories more per day Ultra Processed foods are considered ?Calorie Dense? so when a person feels full they have typically already over eaten and consumed more calories Whole Foods (unprocessed foods) tend to be more more filling and more Nutrient Dense Unprocessed foods can be more expensive and not realistic for everyone however when you have the choice to consume unprocessed vs Ultra processed foods always pick unprocessed. Why can't people stop eating Ultra Processed foods? They are economical and optimized for taste by [employer] - they are designed to make you want to keep eating them- they feed common cravings and bypass the mechanisms that tell your brain you are full Benefits of eating Whole Foods and cutting out Ultra Processed Foods Increased concentration and focus (decreased brain fog), improved mood, better sleep, Decrease in fatigue, improvement in gut health, decreased inflammation, Likely WEIGHT LOSS 5 (FIVE) gram carb vegetable options 1 cup raw OR ? cup cooked: Asparagus Post sprouts Beets Broccoli Brussel sprouts Cabbage Carrots Cauliflower Celery [place] Eggplant Green beans Lettuce Peppers Snap peas Spaghetti squash Spinach Tomato Turnips Zucchini 15 gram carb vegetable options ? cup cooked corn or hominy ? corn on the cob, large (5 oz) ? cup cooked green peas 4.3 gm complete protein ? cup cooked harvey beans 1 small potato or sweet potato ? cup cooked potato, plain ? cup cooked sweet potato, plain 1 cup winter squash (pumpkin, acorn, butternut) 1 cup marinara or pasta sauce - check label ? cup tomato juice ? cup tomato puree Beans, Seeds, Nuts ? cup cooked beans (kidney, leon, red, green, etc.) ? cup cooked lentils ? cup baked beans 4 tablespoons nut butter <15 gram carb fruit options Berries have the lowest sugar content 1/2 medium apple - 12.5 carbs 1/2 medium avocado - 6.5 gm carbs 1/2 medium banana - 15 carbs 1/2 cup blueberries - 11 carbs - may actually help you lose weight 1/2 cup fresh cherries -11 carbs 1 medium Toña -9 carbs 1/2 cup fresh cranberries - 6.5 carbs 1/2 c grapes - 15 carbs 1/2 medium grapefruit - 10.5 carbs 1/2 cup diced honeydew melon - 8 carbs 1 medium kiwi without skin - 11 carbs 1/2 cup sliced grady -14 carbs 1 medium nectarine - 15 carbs 1 medium orange -15.5 carbs 1 medium peach -14.5 carbs 1/2 cup fresh pineapple -11 carbs 1 medium plum -7.5 carbs 1 prune - 6 carbs 1/4 c raisins - 31.25 carbs 1/2 cup raspberries -7.5 carbs 1/2 c strawberries - 12.7 carbs 1 medium tangerine -12 carbs 1/2 cup diced watermelon - 6 carbs Grains Brown rice 1/2 c 5.5g protein 24 carb White long-grain rice 1/2 c 2g protein 22.5 carb Quinoa 1/2 c 4 gm complete protein 25 carb Oatmeal, old fashioned 1/2 c 5g protein 27g carb Protein - no carbs Egg 1 large - 6g Egg white 1 large 3.6g 3 oz is approximately the size of a deck of cards and equals 21 g protein so 4 oz is 28 gm protein Beef, Chicken, Lawn, Pork, [place] 1 oz 7g Fish, Tuna Fish 1 oz 7g (Starkist tuna packet 2.6 oz 17 gm protein) Seafood (Crabmeat, Shrimp, Lobster) 1 oz 6g Protein shakes (read labels) Premier Protein or generic [employer] Equate, [employer] High Performance- 30g protein AND 1g carb - meal replacement Premier Protein powder or generic- 30 gm protein, 1g carb Premier Protein plant protein powder - 25 gm protein, 0 sugar/2 carb Vanilla and chocolate (not a meal replacement) Fairlife 30 gram protein - 30g protein AND 3g carb BOOST Glucose Control Max 30g Protein Nutritional Drink - 30g protein AND 1 carb - meal replacement Slimfast High Protein - 20g protein AND 1g carb Ensure Max Protein Nutrition Shake 30g protein AND 2 carb Protein AND carbs Beef/Lawn Jerky 1 oz dried 10-15g protein - check carb count, can be high if sugar added Slim Otto - 6 gm protein and 4 net carb Great Value original turkey sausage sticks - 7 gm protein and 2 gm carb Eliezer (at [employer]) Original smoked sausage sticks - 8 gm protein and 0 carb Imitation Crab Meat 1 oz - 2g protein AND 4g carb Milk, skim 2% or 1% 8 oz - 8g protein AND 12g carb Fairlife 2% milk 8 oz -13 g protein AND 6g carb Venezuelan yogurt Full Fat Venezuelan Yogurt 1 cup - 20.4g protein AND 9.1g carb 2% Venezuel[place] Yogurt 1 cup - 22.7g protein AND 9.1g carb 0% (fat-free) Venezuelan Yogurt - 1 cup 24g protein AND 9.3g carb Aldi Protein Venezuelan yogurt single svg - 13/g15g protein AND 7g carb Chobani Zero Sugar single svg: - 12g protein AND 5g carb Chobani drinkable 15g, 20g and 30g protein AND 18 carb Dannon Venezuelan Light + Fit 1 single svg - 12g protein AND 9g carb Oikos Pro single svg - 20g protein AND 8g carb Oikos Triple Zero Venezuelan Nonfat Yogurt 1 single svg - 15g protein AND 7g carb Oikos Pro drinkable yogurt 1 single svg - 23 g protein AND 8 g carb :ratio, KETO Friendly Dairy Snack 1 single svg - 15g protein AND 2g carb :ratio Protein 1 single svg - 25g protein AND 8g carb Two Good Lowfat Venezuelan Yogurt, Joy, Lower Sugar - 12g protein AND 2g carb Yoplait Protein 1 single svg 15gm protein AND 5gm carb Dairy Free - [place] unsweetened Venezuelan almond/soy 15 gm protein AND 3 gm carb Dairy Free - True Goodness by [employer] coconut-based yogurt alternative 1 gm protein 1 gm net carb 180 oksana Cheese each oz Brie 5.9g protein AND 0.1g carb Cheddar 7g protein AND 0.4g carb Ahmet 6.7g protein AND 0.7g carb Cream Cheese 1.7g protein AND 1.2g carb Feta 4g protein AND 1.2g carb Mozzarella 6.3g protein AND 0.6g carb Parmesan 10g protein AND 0.9g carb Prydeinig 7.6g protein AND 1.5g carb Cottage Cheese 1/2 c [place] 2% 13g protein 7g carb [place] 2% 13g protein 5 g carb Good Culture 2% 14g protein 3g carb Lopez?s Low Fat 12g protein AND 4g carb Legumes Lentils ? cup 9g protein AND 20g carb Harvey beans ? cup 7g protein AND 20g carb Kidney, Black, [place], Cannellini beans ? cup 8g protein AND 20g carb Soybeans 1/2 c 14g complete protein AND 8.5g carb [place] milk, unsweetened 8 oz 1g protein AND 2g carb Soy milk 8 oz 3.5g protein AND 1.6g carb Tofu 1/2 cup 10g protein AND 2.3g carb Peanut butter, natural 2 Tbsp 7-8g protein AND 4g net carbs, 190 calories PB2 powder 2 Tbsp 6g protein AND 5g carb Nuts and Seeds per oz Almonds - 5.9g protein AND 6.1g carb [place] Nuts - 4.0g protein AND 3.4g carb Cashews - 5.1g protein AND 9.2g carb Hazelnuts - 4.2g protein AND 4.7g carb Hemp seeds/hearts 3 T/30 gms - 9.5 gm complete protein and 2.5 gm carb Peanuts - 7g protein AND 4.6g carb Pecans - 2.6g protein AND 3.9g carb Pistachios - 5.8g protein AND 7.8g carb Pumpkin Seeds - 6.9g protein AND 5g carb [place] Seeds - 5.8g protein AND 5.6g carb Walnuts - 4.3g protein AND 3.8g carb Edamame Beans (soybean) snack 1 pack 11 gm complete protein 2 carb Meal replacements: Meal Replacements Plant-based protein bars Meal replacements. One option that works for some people is to use meal replacements, as in the DiRECT and Look AHEAD trials.The available options in Look AHEAD included shakes, bars, and meals from a variety of companies (Yieldex, Hyglos, Myze, and [employer]). The calorie content was 150 to 220 calories, depending on the product. People who used meal replacements 12 times a week instead of preparing their own meals lost about 11% of their weight in the first year, whereas those who used just two per week lost about 6% of their weight. Keep in mind, though, that people in the trial who used meal replacements also tended to consume a healthier diet over all; they were more likely to have met their goals for dietary fat, fruits and vegetables, and dairy foods, and to have cut back on sweets, than those who didn?t use meal replacements. Similarly, in the DiRECT trial, participants consumed special nutritionally complete shakes and soups (the Counterweight-Plus program) for the first 12 weeks.If you opt for meal-replacement drinks, bars, or frozen entrees, here are some criteria to look for: calories, 150 to 300 fat, 3 to 10 grams protein, > 20 grams sugar < 5 g Meal replacements are typically fortified with vitamins and minerals and contain some fiber. Because they are calorie controlled, the amount of added sugars is usually minimal. If you want to try this approach to boost weight loss, ask your dietitian or another member of your health care team how to incorporate the replacements into your meal planning and discuss whether you might need to reduce your doses of diabetes medications to prevent hypoglycemia (low blood sugar) as you cut calories and lose weight. It is important to find a meal-replacement product that suits your taste. If you prefer not to consume processed foods, you can make your own portion-controlled versions. Note that meal replacements don?t work for everyone. While some people like meal-replacement shakes, bars, and soups and find them to be a convenient way to sustain a reduced calorie intake over time, others don?t feel satisfied drinking them and often end up simply adding them to what they?d normally eat--which could lead to weight gain. What?s more, some people have a hard time readjusting to eating real food after they stop using meal replacements. High Protein Snack Ideas 1. Jerky 2. [place] mix without dried fruit 3. Lawn roll-ups 4. Venezuelan yogurt 5. Veggies and yogurt dip 6. Tuna 7. Hard-boiled eggs 8. Peanut butter with celery 9. Cheese slices/ Cheese Stick 10. Handful of almonds, peanuts or walnuts 11. Cottage Cheese 12. Beef sticks 13. Protein bars 14. Canned [place] 15. Pumpkin seeds 16. Nut butter 17. Protein shakes 18. Avocado and chicken salad 19. Egg muffins 20. Leftover protein or lunch meat 21. 1/2 c blended cottage cheese or Venezuelan yogurt with dry ranch/Mrs. Dash/herb seasoning mix to make protein dip 22. 1/2 c blended cottage cheese with 1 Tbsp sugar-free dry cheesecake pudding mix 12g protein 10 carb 23. Pudding - 1 30 gm protein shake with 1/2 pkg sugar-free pudding 4 svgs - 7.8 gm protein, 5 carb each svg 24. SF Sunkist or Root Beer with 1-2 Tablespoons heavy whipping cream 25. Mini frozen dessert bites - layer protein yogurt, skinny syrup and crushed nuts and freeze Creating a Mindful Eating Environment: 10 Mindless Eating Solutions If you're looking for easier ways to make healthy changes to your diet and lifestyle, consider these simple ?mindless eating solutions? for staying on-track with nutrition: Serve Salad and Vegetables First. Before bringing out your main dish, serve salad and vegetables first to ensure you're eating enough of this important food group. This strategy will also help you eat less of the rest of your dish which is likely higher in calories, etc. Serve Your Main [facility] on the Stove or Counter. Studies show that we're likely to eat less if our food is placed on the stove or counter rather than right in front of us. Eat on Smaller Plates. Similar to the strategy mentioned above, studies show that you're likely to consume less food if you're eating from a smaller plate. This is likely due to the increase of smaller portion sizes. Turn off Your Television. Watching television as you eat can be highly distracting, and it affects your ability to eat mindfully. For example: you're less likely to notice when you're full, so you might consume excess calories. Keep Mostly Water On-hand. Calories from drinks can add up quickly, especially in fruit juices, alcohol and soft drinks. By minimizing the amounts of those drinks on-hand, you're more likely to consume water when you're thirsty - and water has amazing health benefits! Keep Your Kitchen Organized. An organized refrigerator, counter and cabinet space makes you more likely to find and choose the foods which are healthiest for you. On the contrary, a messy kitchen space may make you more apt to grab the first item you see. Pre-cut Your Fruits and Vegetables. Let's admit it: We're more likely to put off eating produce if we have to go through the ?burden? of cutting it first. Pre-cut fruits and vegetables will eliminate this extra step. Have at Least Six Single Servings of Lean Protein On-hand. This includes lean meats such as turkey and chicken, yogurt, eggs, nuts, beans and legumes. By having plenty of lean protein on-hand, you can better manage your appetite and hunger levels. Keep All Snack Foods in One Inconvenient Cupboard. You're less likely to reach for unhealthy snack foods if they're not all gazing up at you from plain sight! Keep Only a Fruit Bowl on Your Counter. This way, if you're one to grab foods based off of their availability, you'll reach for healthier fruits rather than less healthy snack foods. https://www.obesityaction.org/community/news/community-news/xyibzq-k-lmuxinf-ea- ting-environment/ A diet that leaves you feeling full and satisfied over the course of the day leaves less room for wondering about whether you should have a snack when you?re bored. 1. Eat regularly throughout the day Try to spread out your calorie intake throughout a regular meal and snack schedule. This may keep you more full and less hungry than eating the same number of calories on a less regular meal schedule (5Trusted Source). If you?re feeling content with your food choices for the day, you might be less likely to reach for a snack when you?re bored. What?s more, knowing that you plan to eat a meal or snack in the next few hours could be motivation to hold back from eating until then. The same meal schedule doesn?t work for everyone. Some people like to have three meals and a few snacks each day, while others may prefer to have more or less. Finding a routine that works for you and sticking with it seems to matter more than exactly how many meals and snacks you have each day. 2. Don?t restrict your favorite foods If you tend to crave or reach for certain foods when you?re bored, you might be tempted to completely stop eating those foods to remove the temptation. However, for some people, research shows this approach might be counterproductive. If you find you?re more susceptible to food cravings, depriving yourself of certain foods might make you crave them more in the short term (6Trusted Source, 7Trusted Source, 8Trusted Source). Rather than eliminating the foods you crave, try eating them regularly but in moderation. This might help reduce your urge to snack on those foods when you?re bored. 3. Have nutritious, filling snacks When you?ve just had a filling meal or snack, you may be less likely to associate feeling bored with wanting to eat. Certain foods are more filling than others. Some particularly filling foods include: Protein: eggs, fish, meat, yogurt, cottage cheese Fiber-rich foods: oatmeal, quinoa, whole grains, legumes, popcorn Foods high in water: fruits, vegetables, soups 4. Eat from a plate Sometimes it?s hard to distinguish between hunger and boredom. Ocassationally, there may still be times when you reach for a snack when you?re bored. To avoid overeating and letting boredom get the best of your appetite in those moments, portion your snacks onto a plate or serving dish rather than eating them directly from the bag or container. Visual cues, such as the plate size, container size, and even the type of dish you eat from, can all influence how much you eat (17Trusted Source, 18Trusted Source, 19Trusted Source). SUMMARY Eating a healthy diet comprising regular meals, nutritious and filling snacks, and appropriate portion sizes may be more satisfying and thus make it less tempting to eat when you?re feeling bored. 5-8. Tune in to your emotions Researchers know that your emotions and mood often influence when, what, and how much you eat. Experts have also suggested that how well you regulate your emotions can influence boredom eating. Poor emotional regulation could potentially lead to an increase in eating when you?re feeling bored (22Trusted Source, 23Trusted Source). Practicing self-awareness and developing a better understanding of how your own emotions are influencing your appetite is a great starting place to combat boredom eating. 5. Eat mindfully To be mindful means to be conscious, aware, and focused on the present moment. To eat mindfully means to be aware of your mental and physical states related to food. Some studies have found mindfulness is particularly helpful at helping people reduce eating in response to emotions like boredom (24Trusted Source, 25Trusted Source, 26Trusted Source). Mindful eating is useful in differentiating between boredom and hunger, as it emphasizes paying close attention to your cravings and hunger and fullness cues. 6. Know your hunger signs Being perceptive of your specific hunger and fullness signs may be one of the most effective ways to determine whether you?re hungry or bored. When your body is physically hungry and in need of calories for energy, you may notice signs like your stomach growling, a headache, and feelings of weakness or fatigue. On the other hand, when you?re experiencing boredom hunger -- or another type of emotional hunger -- you may crave a certain food without any of the traditional signs of physical hunger. 7. Embrace being bored Throughout 2019 and into 2020, people reported feeling bored at higher rates than usual due to the COVID-19 pandemic (27Trusted Source). In certain situations, being bored too often may have detrimental health effects, such as increased rates of depression and altered eating habits (1Trusted Source, 28Trusted Source). Still, a little boredom is OK and normal to experience from time to time. What?s more, research has linked boredom to certain benefits. For example, it may help motivate creativity (29Trusted Source, 30Trusted Source). Trying to prevent boredom or override the feeling by eating and finding other distractions doesn?t always work. You might find meaning in the downtime by trying to embrace boredom instead. 8. Take it easy on yourself Remember, it?s normal to reach for a snack out of boredom on occasion. When it happens, don?t take it as a failure. Rather, use it as a learning experience and opportunity to treat yourself with kindness and compassion. SUMMARY Your mood and emotions play a significant role in psychologically induced hunger like boredom eating. Learning to be aware of your emotions, hunger triggers, and fullness cues can help prevent you from eating because you?re bored. 9-11. Understand your environment Much of what you eat is influenced by your environment, and the same goes for when and how much you eat. Here are a few specific ways you can tailor your environment to discourage yourself from boredom eating when the urge strikes. 9. Know your triggers Especially when it comes to psychological types of hunger like boredom eating, external factors often trigger the urge to eat. Identifying the triggers in your life that tend to cause the urge to eat when you?re bored is garza to breaking the habit. Some common triggers to be aware of are stress, food availability, and pictures of food. Make notes in a food journal about what you?re doing and your environment when you feel the urge to eat. This might help identify -- and stop -- boredom eating patterns. 10. Avoid the urge to eat in front of a screen Eating in front of a screen while you?re bored can influence you to overeat when you aren?t even hungry. Many people turn to screen-based activities like watching TV or scrolling on their phone when they?re feeling bored. Some studies have found that people tend to eat more than they otherwise would when they?re distracted or in front of a screen, such as a TV or computer (35Trusted Source, 36Trusted Source, 37Trusted Source). Break associations you might have between eating and screen time by making a point of eating meals at a table -- not in front of the TV -- and putting your phone away while you?re dining. Consider replacing mindless eating during screen time with another activity, such as knitting, doodling, or playing with a toy or piece of jewelry, to keep your hands busy while you watch TV. 11. Change your scenery Sometimes all it takes to get your mind off food when you?re feeling bored is a little change of scenery. When you?re bored and fighting the urge to snack, standing up and moving to a new location -- even if it?s just from one room to another -- may be enough to distract your mind from food until the boredom passes. SUMMARY External factors often trigger urges to eat when you?re not physically hungry. Identifying the factors in your environment that trigger boredom eating is garza to breaking those habits. 12-13. Mix things up To be bored means that you?re feeling uninterested in your current activity. The feeling often occurs when the day has been monotonous or repetitive. The same goes for boredom eating. You may eat simply as a way to escape the regular routines of the day (38Tr[employer] Source, 39Trusted Source). Adding variety to your day keeps things feeling fresh and exciting, and it might fend off boredom eating. 12. Take a walk When you?re feeling bored, taking a walk not only provides a distraction from any urges to snack but also physically removes you from food temptations. Sometimes a quick [id number] walk is all it takes to recenter yourself and forget about the urge to snack out of boredom. If you?re not able to take a walk, you might find it helpful to take a few minutes to stretch or do breathing exercises. 13. Make new habits One of the upsides of being bored is that it can drive you to try new things. Next time you feel bored, take a few minutes to think about how you?d really like to be spending that time. Is there a new hobby you?d like to try or an old book that you never got around to reading? Try to look at boredom as a space for meaningful stimulation in your day. 13 Ways to Stop Eating When You're Bored (Turbocoating) Referring Provider: NACHO VERMA [[id number]] Allergies As of Date: 06/06/2024 (No Known Allergies) Date Reviewed: 06/06/2024 Reviewed by: Delma Crockett MA - Fully Assessed Reason for Visit: Weight Management [3933] Primary Visit Diagnosis:Dyslipidemia [E78.5] Other Visit Diagnoses:Malaise and fatigue [R53.81, R53.83] Migraine without status migrainosus, not intractable, unspecified migraine type [G43.909] Screening cholesterol level [Z13.220] Screening for deficiency anemia [Z13.0] Screening for diabetes mellitus [Z13.1] Screening for metabolic disorder [Z13.228] Screening for thyroid disorder [Z13.29] Encounter for vitamin deficiency screening [Z13.21] Class 2 obesity with body mass index (BMI) of 39.0 to 39.9 in adult, unspecified obesity type, unspecified whether serious comorbidity present [E66.812, Z68.39] Order(s):CONSULT TO [facility] WEIGHT MANAGEMENT PROGRAM [2413436] Order #: [id number]: 1 INSULIN, TOTAL, SERUM [SQINSULN] Order #: [id number] FUTURE HEMOGLOBIN A1C [CJZTE9F] Order #: [id number] FUTURE COMPREHENSIVE METABOLIC PANEL [SQCMP] Order #: [id number] FUTURE topiramate (TOPAMAX) 50 mg tabletTake 1 tablet by mouth daily at bedtime.Disp: 30 tabletRfl: 2 Phentermine HCl 37.5 mg tabletTake 1 tablet by mouth daily before breakfast for 90 days. TAKE 1 TABLET BY MOUTH ONCE DAILY IN THE MORNINGDisp: 30 tabletRfl: 2 Prescriptions as of 06/06/2024 - topiramate (TOPAMAX) 50 mg tablet Take 1 tablet by mouth daily at bedtime. - Phentermine HCl 37.5 mg tablet Take 1 tablet by mouth daily before breakfast for 90 days. TAKE 1 TABLET BY MOUTH ONCE DAILY IN THE MORNING - Norethindrone Acet-Ethinyl Est (MICROGESTIN .07/19) 1.5-30 mg-mcg Take 1 tablet by mouth once daily. 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] 06/05/2009 11/11/2015 Cholecystitis with cholelithiasis [K80.10] 10/19/2012 11/11/2015 Obesity in [O99.210] 10/22/2015 Family history of cleft lip and palate [Z82.79] 10/22/2015 Patient requested diagnostic testing [Z01.89] 10/22/2015 11/27/2015 Rh negative status in duong in fi*11/12/2015 Patient requested diagnostic testing [Z01.89] 04/07/2016 04/13/2017 History of delivery [Z87.51] 12/22/2016 Incompetent cervix, abdominal cerclage in place*05/02/2017 H/O section [Z98.891] 05/05/2017 Elevated blood pressure reading without diagnos*10/10/2017 Maternal care for intrauterine [O36.4XX0] 10/10/2017 02/17/2021 Other complications of the puerperium, not else*10/10/2017 labor second tri w delivery sec*10/10/2017 02/17/2021 Single stillbirth (CODE) [Z37.1] 08/16/2016 Obesity, Class III, BMI >= 40 [E66.01] 11/28/2017 History of premature rupture of membran*06/10/2019 History of diet controlled gestational diabetes*10/17/2019 06/08/2021 Gestational hypertension [O13.9] 11/04/2019 02/17/2021 Prematurity [P07.30] 11/04/2019 02/17/2021 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] 11/05/2019 Anovulation [N97.0] 11/05/2019 Elevated blood pressure reading [R03.0] 11/21/2019 35 weeks gestation of [Z3A.35] 11/21/2019 02/17/2021 Pre-eclampsia, severe [O14.10] 11/21/2019 02/17/2021 Pre-eclampsia in third trimester [O14.93] 11/21/2019 02/17/2021 with history of section, ant*11/26/2020 Short interval between pregnancies affecting pr*11/26/2020 H/O pre-eclampsia in prior , currently*11/26/2020 History of gestational diabetes in prior pregna*11/26/2020 Gestational diabetes mellitus, class A1 [O24.41*05/07/2021 06/08/2021 Insulin controlled gestational diabetes mellitu*06/08/2021 Other instructions from your clinician: Weight Management: You have taken the initiative to become a healthier version of yourself and to decrease the risks that come with the diagnosis of obesity or being overweight. We are happy to help you along this journey but know this is a lifetime commitment to yourself. Losing just 3-10 % of your body weight can decrease your risks of many other serious diseases like diabetes, heart disease, osteoarthritis, hypertension, cancer and so many others. During this time you will have triumphs, setbacks and plateaus- your body will fight against you but we are here to give you the tools and the resources to continue to reach your goals. We recommend during this time that you track your weight daily or at least five times per week as well as tracking your nutrition. You may track your activity but do not use hitting your fitness goals as a reward system as this can derail your success. We recommend weekly physical activity of 150-200 min/week-although physical exercise, this will be especially important for weight maintenance. Exercise can have many other benefits including improving insulin resistance, improving balance, bone health, improving mental health and cardiovascular health. Do not feel overwhelmed - we will discuss this more at your visits. Our time will be limited with each visit but we will try to touch on factors that are important to you and to your overall goals. We will try to set a goal at the end of each visit and then decide on what we want to accomplish with your upcoming visits. On your After Visit Summary (AVS), we will provide you with information that may be useful during this journey so please remember to read the information given. Check your AVS a few days after your appointment because we may have added more information specifically for you. Remember that if you are placed on medications, they are tools that can help you succeed but you must put in the work. Your nutrition will be the main factor. There are medications that work well for some and not for others- so it may take time to find the right combination for your body's needs. Please remember that factors such as other health co-morbidities one might have, as well as insurance coverage, will play a factor in determining which medications you can take. Most of the newer medications that are all the craze ,injectables, may not be covered or will only be covered if you fail months of oral medications or have Type 2 diabetes so please be patient with the process. It would be beneficial for you to determine what your insurance covers as far as Anti-Obesity Medications (AOMs), Nutritional Counseling, behavioral intervention and weight loss surgery. Please call your health insurance prior to your first appointment and write down coverage for each of those therapies. Most importantly, remember that ultimately our goal is to help you get to a healthier weight which will decrease your overall health risks. We will work together as a team and try to reach your personalized goals as well. Follow-up appointments Please arrive to follow-up visits a minimum of 15 minutes prior to your appointment. Follow-up weight management visits can be virtual. You will need to report a current blood pressure, heart rate (pulse) and weight at the beginning of each virtual appointment so you will need to have a reliable BP cuff, either wrist or upper arm. If you need to reschedule your appointment time or switch from an in-office visit to a virtual visit or vice versa, you need to call our office as we have designated appointment slots. This should not be done on [place] as you will not be scheduled appropriately and will need to be rescheduled. We appreciate that you have entrusted us with your health and know that we are committed to this process with you. Sincerely, Nacho Garza MD, [facility] Peace Collado CNP Advanced Education from the [employer]esity [employer] Obesity Obesity is a disease that affects nearly one-third of the adult [place] population (approximately 60 million). The number of overweight and obese Americans has continued to increase since 1960, a trend that is not slowing down. Today, 64.5 percent of adult Americans (about 127 million) are categorized as being overweight or obese. Each year, obesity causes at least 300,000 excess deaths in the [place] and healthcare costs of [place] adults with obesity amount to approximately $100 billion. (AOA) Obesity is a complex, multi-factorial chronic disease involving: Environmental (social and cultural) The tendency toward obesity is a result of our environment: lack of physical activity along with high-calorie, low-cost foods. Home, work, school, and even the community can inhibit a healthy lifestyle. Genetic (Hereditary plays a large role in determining how susceptible people are to overweight and obesity). Genes also influence how the body cruz calories for energy and stores fat. Physiologic, metabolic, behavioral (eating too many calories while not getting enough exercise) and psychological components. It is the second leading cause of preventable in the [place] Behavioral changes brought on by economic development, modernization and urbanization have been linked to the rise in global obesity. Calculating BMI Body Mass Index (BMI) is a measurement tool used to determine excess body weight. Overweight is defined as a BMI of 25 or more, obesity is 30 or more, and severe obesity is 40 or more. You can visit www.nhlbi.nih.gov to estimate your BMI. Obesity Related Health Conditions The morbidity and mortality risk from being overweight is proportional to its degree. Individuals with morbid obesity, therefore, have the highest risk for developing numerous illnesses that often reduce mobility and quality of life due to their excess weight. In particular, type 2 diabetes, gallbladder disease and osteoarthritis have been found to increase concurrently with higher BMI. Premature , a 20-year shorter life span, has also been found in individuals with morbid obesity. All of the systems that make the body function are affected by morbid obesity. Type 2 diabetes Gallbladder disease and gallstones Liver disease Osteoarthritis, a disease in which the joints deteriorate. This is possibly the result of excess weight on the joints. Gout, another disease affecting the joints Pulmonary (breathing) problems, including sleep apnea in which a person can stop breathing for a short time during sleep Reproductive problems in women, including menstrual irregularities and infertility Gastroesophageal reflux/heartburn Hypertension Heart Disease Depression Psychological disorders/social impairments Urinary Stress Incontinence Obesity is also linked to higher rates of certain types of cancer. Obese men are more likely than non-obese men to from cancer of the colon, rectum, or prostate. Obese women are more likely than non-obese women to from cancer of the gallbladder, breast, uterus, cervix, or ovaries https://my.[facility].org/health/diseases/21643-idilxl-cnfgmpblto-qnyd ent-education - Eat primarily whole foods. Limit carbs, especially processed carbs. Eat - Meat, vegetables and fruits with skin on if possible, eggs, cheese. - Do not drink your calories - 30 grams of protein for your first meal of the day decreases your hunger during the day by up to 40 %. Options include: Premier Protein or generic 30 gm protein 1 gm sugar or 5 eggs or 2-3 eggs and some unbreaded meat and/or cheese. No fruit, vegetables, bread, grain, yogurt, Smoothies, etc. - Walk for 15 minutes immediately after meal. TOPIRAMATE -- Take 25mg (1/2 tablet) daily x 2 weeks -- Then increase to 50mg daily after the initial two weeks so long as you are not having any side effects. -- You can take the tablet it at night at first (because of potential sleepiness side effects), but then you can take earlier around dinner after you have started the medication for a few days. You also may be able to take it in the morning if easier. -- We may increase the dose to 75mg a few weeks later if there is no change with 50mg, Typically the maximum medication dose would be 150mg daily but rarely would we need to titrate medication dose that high. -- The exact mechanism of topiramate on energy balance regulation is not clearly understood. Topiramate affects body mass index, fasting splsosf-hr-omejwak ratio, and serum leptin and cortisol levels. It has shown to improve hypothalamic insulin and leptin signaling and action and reduce obesity in mice. These changes may be garza factors in weight loss due to topiramate. If at any point you are feeling the effects of the medication you can stay at that dose or if you experience side effects you can decrease it to the previous dose. -- Please see the handout to review the potential side effects and to explain this further -- Please let me know if you experience any changes in your vision, worsening depression or mood problems, or an increase in suicidal thoughts or behaviors. --This medication should NOT be combined with alcohol. Risks of drinking alcohol while taking this medication include mental and psychological side effects, including confusion, dizziness, drowsiness, and depression. -- There is an increased risk for oral clefts when topiramate is used in the first trimester of . -- There is a possible decrease in contraceptive efficacy when using estrogen-containing control with topiramate, please use a back up form of control such as condoms and monitor for throughout treatment. -- If you decide that you would like to get or if you have any of these side effects please let me know and we can safely discontinue the medication. - If you are on loop diuretic or thiazide diuretic we will want to monitor your potassium level, especially if you have a history of low potassium. - It is important to taper off of this medication when we finished with treatment, typically decreasing the dose 25 mg a week. Stopping Topiramate abruptly can cause irritability, anxiety and difficulty concentrating. Topiramate (toe pyre? a mate) What are the common names? Topamax Why is this medication prescribed? Topiramate is an anti-epileptic medications which has been approved by the FDA for patients 10 years of age or older for treatment of seizures. However, topiramate also has other uses such as the treatment of migraines. It also causes decrease in appetite and weight loss. The mechanism of weight loss is thought to be through inhibition of mitochondrial enzymes involved in energy expenditure and metabolism. Topiramate may work by helping you feel less hungry, less ?driven? to eat, more satisfied with less food. What special precautions should I follow? Before having topiramate prescribed, tell your doctor and pharmacist: If you have allergies to any component of topiramate If you are , plan to become , are breast-feeding, or if you become while taking topiramate What are the warnings and precautions for this medication? Immediately discontinue the medicine and seek medical help if you have severe cognitive/neuropsychiatric adverse symptoms or eye symptoms. Cognitive/neuropsychiatric adverse events: symptoms may include confusion, psychomotor slowing, difficulty with concentration/attention, difficulty with memory, speech or language problems, particularily word-finding difficulties, somnolence or fatigue Acute myopia and secondary angle closure glaucoma, usually within 1 month of starting treatment: symptoms may include blurred vision, redness and/or pain in the eye Oligohydrosis (decrease sweating) and hyperthermia (elevation in body temperature) Increase in suicidal behavior or ideation Metabolic acidosis, non-gap hyperchloremic (decreased serum bicarbonate below normal levels) resulting in hyperventilation or fatigue Kidney stones Paresthesias (numbness or tingling in hands or feet) Ataxia Dizziness Increase in urination frequency Drug interactions. Use of monamine oxidase inhibitors (MAOI?s), valproic acid, Caution use with dehydration or diarrheal illness, hepatic or renal impairment In case of emergency/overdose In case of overdose, call your local poison control center at or call local emergency services at [phone]. What other information should I know? Keep all appointments with your doctor and the laboratory. Do not let anyone else take your medication. Topiramate use needs to be monitored closely. Prescriptions may be refilled only a limited number of times. Keep a written list of all of your prescription and nonprescription (dsup-mdj-hurpgra) medicines, in addition to vitamins, minerals, or other dietary supplements. How should I monitor while on this medication? Your doctor will check your baseline kidney function and electrolytes prior to starting this medication, then periodically. Continue to improve your dietary and physical activity habits as the combination works best while on this medication. Start out by taking the medication at bedtime as it can cause fatigue and sleepiness. Be sure to eat regular meals. Less hunger does not make it appropriate to skip meals. Make sure to have an eye exam, including the pressure in your eyes (intra-ocular pressure), once a year. What should I do if I forget a dose? Skip the missed dose and continue your regular dosing schedule the next day. Do not take a double dose to make up for a missed one. Sources Pubmed Health: http://www.ncbi.nlm.nih.gov/pubmedhealth/LKY7592733/ Drugs.com http://www.drugs.com/pro/topiramate.html Nutrition Reminders: NO NAKED CARBS!! Protein >= Carbs for each meal (if you are going to eat 50g carbs for lunch you should eat 50g protein or more). If you do not eat your carbs for lunch you do not get to save them for dinner- you use them or lose them. Balance your Protein between meals. Unless told otherwise your Minimum protein each day is 30grams per meal but don?t be afraid to eat more (try to aim for 1.6g protein per Kilogram of bodyweight). Focus on WHOLE FOODS if you can as your Gut Microbiome will benefit and you will feel more satisfied - the only caviot to this is protein shakes if needed. Water intake should be a minimum of 64oz per day- but more is better (to an extent) unless you have a medical condition that requires you to keep it to a minimum. Nothing is off limits- this is not about restricting yourself- this about learning what your body can have and still respond well to and learning how to balance food and still feel good. Track your food, weigh your food, measure your portion sizes as most people underestimate their food by approximately 40%. You should be tracking your Carbohydrates and Protein daily. It?s ok if you had a bad day- write it down and move on! Weigh yourself daily or at least 5 times per week, it will help to keep you accountable. If you are hungry- think about your stress level, your sleep (did you get 7.5-9hrs?) and your protein consumption- if you did not meet your goals then those could be contributing to your hunger. During weight loss phase it is ok to use two protein shakes per day and eating one meal along with it - studies have shown you will lose more weight and keep it off. Take a multivitamin daily Sit less Move more- Exercise including resistance training is very important for your health and if you are not getting routine exercise right now there will come a point when it will become an important piece of this process. Do Not skip meals- it could lead to you not getting enough protein or overeating at your next meal. Intermittent fasting can be a good tool for some but right now try to eat 3 regular meals. Only consume snacks if you are truly hungry. Why Is Protein So Important for Weight loss? consuming more protein not only reduces body weight but enhances body composition by decreasing fat mass while preserving fat-free mass During weight loss phase protein consumption (with normal kidney function) should be 1-1.6g protein per Kilogram of body weight (1kg=2.2lbs) On average Women need to Aim for a minimum 90g protein per day Consuming higher protein can also prevent weight regain after weight loss Protein consumption increases hormones responsible for satiety (feeling full)- these include Gut hormones like Glucagon-like peptide-1 (GLP-1), Cholecystokinin (CCK), Peptide Tyrosine-Tyrosine (PYY) and decreasing the Gut hormone responsible for causing hunger Ghrelin Protein has an increased thermogenesis effect of food- which means it take more calories to break down protein when consumed compared to carbohydrates or fats Protein also prevents a losing lean mass during weight loss (lose more fat and preserve fat free mass) which helps to increase resting energy expenditure (resting metabolic rate) Every pound of muscle cruz ~ 6 kcal per pound/day vs fat cruz ~ 2kcal per pound/day Carbohydrates - Why do You Crave Them? Eating too many refined carbohyrdates (sugar beverages, pastries, bread, pizza) which raises your blood glucose levels and therefore releasing insulin which in turn causes increase in hunger Carbohydrates suppress Ghrelin quickly but does not maintain the suppression for very long therefore hunger returns more quickly Consuming carbohydrates leads to a release of Dopamine ?feel good hormone? in our brain So how do you Curb these cravings? Eating Whole Foods with more fiber - High fiber carbs are absorbed and digested slowly so it does not impact blood sugar levels as much and will help in making you feel vieyra for longer; fiber also is healthy for your gut bacteria and can help with constipation. Remember- carbohydrates are not the enemy but know what a proper serving size is, choose nutritious carbohydrates and space them out between meals. Always- eat your protein first followed by your non starchy vegetables followed by your carbohydrates- it will help your body with your glucose and insulin regulation Processed Foods vs Whole Foods- Impact on Weight: People who eat Ultra Processed food tend to consume about 500 calories more per day Ultra Processed foods are considered ?Calorie Dense? so when a person feels full they have typically already over eaten and consumed more calories Whole Foods (unprocessed foods) tend to be more more filling and more Nutrient Dense Unprocessed foods can be more expensive and not realistic for everyone however when you have the choice to consume unprocessed vs Ultra processed foods always pick unprocessed. Why can't people stop eating Ultra Processed foods? They are economical and optimized for taste by Tapgage - they are designed to make you want to keep eating them- they feed common cravings and bypass the mechanisms that tell your brain you are full Benefits of eating Whole Foods and cutting out Ultra Processed Foods Increased concentration and focus (decreased brain fog), improved mood, better sleep, Decrease in fatigue, improvement in gut health, decreased inflammation, Likely WEIGHT LOSS 5 (FIVE) gram carb vegetable options 1 cup raw OR ? cup cooked: Asparagus Post sprouts Beets Broccoli Brussel sprouts Cabbage Carrots Cauliflower Celery [place] Eggplant Green beans Lettuce Peppers Snap peas Spaghetti squash Spinach Tomato Turnips Zucchini 15 gram carb vegetable options ? cup cooked corn or hominy ? corn on the cob, large (5 oz) ? cup cooked green peas 4.3 gm complete protein ? cup cooked harvey beans 1 small potato or sweet potato ? cup cooked potato, plain ? cup cooked sweet potato, plain 1 cup winter squash (pumpkin, acorn, butternut) 1 cup marinara or pasta sauce - check label ? cup tomato juice ? cup tomato puree Beans, Seeds, Nuts ? cup cooked beans (kidney, leon, red, green, etc.) ? cup cooked lentils ? cup baked beans 4 tablespoons nut butter <15 gram carb fruit options Berries have the lowest sugar content 1/2 medium apple - 12.5 carbs 1/2 medium avocado - 6.5 gm carbs 1/2 medium banana - 15 carbs 1/2 cup blueberries - 11 carbs - may actually help you lose weight 1/2 cup fresh cherries -11 carbs 1 medium Toña -9 carbs 1/2 cup fresh cranberries - 6.5 carbs 1/2 c grapes - 15 carbs 1/2 medium grapefruit - 10.5 carbs 1/2 cup diced honeydew melon - 8 carbs 1 medium kiwi without skin - 11 carbs 1/2 cup sliced grady -14 carbs 1 medium nectarine - 15 carbs 1 medium orange -15.5 carbs 1 medium peach -14.5 carbs 1/2 cup fresh pineapple -11 carbs 1 medium plum -7.5 carbs 1 prune - 6 carbs 1/4 c raisins - 31.25 carbs 1/2 cup raspberries -7.5 carbs 1/2 c strawberries - 12.7 carbs 1 medium tangerine -12 carbs 1/2 cup diced watermelon - 6 carbs Grains Brown rice 1/2 c 5.5g protein 24 carb White long-grain rice 1/2 c 2g protein 22.5 carb Quinoa 1/2 c 4 gm complete protein 25 carb Oatmeal, old fashioned 1/2 c 5g protein 27g carb Protein - no carbs Egg 1 large - 6g Egg white 1 large 3.6g 3 oz is approximately the size of a deck of cards and equals 21 g protein so 4 oz is 28 gm protein Beef, Chicken, Lawn, Pork, [place]rell 1 oz 7g Fish, Tuna Fish 1 oz 7g (Starkist tuna packet 2.6 oz 17 gm protein) Seafood (Crabmeat, Shrimp, Lobster) 1 oz 6g Protein shakes (read labels) Premier Protein or generic [employer] Equate, [employer] High Performance- 30g protein AND 1g carb - meal replacement Premier Protein powder or generic- 30 gm protein, 1g carb Premier Protein plant protein powder - 25 gm protein, 0 sugar/2 carb Vanilla and chocolate (not a meal replacement) Fairlife 30 gram protein - 30g protein AND 3g carb BOOST Glucose Control Max 30g Protein Nutritional Drink - 30g protein AND 1 carb - meal replacement Slimfast High Protein - 20g protein AND 1g carb Ensure Max Protein Nutrition Shake 30g protein AND 2 carb Protein AND carbs Beef/Lawn Jerky 1 oz dried 10-15g protein - check carb count, can be high if sugar added Slim Otto - 6 gm protein and 4 net carb Great Value original turkey sausage sticks - 7 gm protein and 2 gm carb Eliezer (at [employer]) Original smoked sausage sticks - 8 gm protein and 0 carb Imitation Crab Meat 1 oz - 2g protein AND 4g carb Milk, skim 2% or 1% 8 oz - 8g protein AND 12g carb Fairlife 2% milk 8 oz -13 g protein AND 6g carb Venezuelan yogurt Full Fat Venezuelan Yogurt 1 cup - 20.4g protein AND 9.1g carb 2% Venezuel[place] Yogurt 1 cup - 22.7g protein AND 9.1g carb 0% (fat-free) Venezuelan Yogurt - 1 cup 24g protein AND 9.3g carb Aldi Protein Venezuelan yogurt single svg - 13/g15g protein AND 7g carb Chobani Zero Sugar single svg: - 12g protein AND 5g carb Chobani drinkable 15g, 20g and 30g protein AND 18 carb Dannon Venezuelan Light + Fit 1 single svg - 12g protein AND 9g carb Oikos Pro single svg - 20g protein AND 8g carb Oikos Triple Zero Venezuelan Nonfat Yogurt 1 single svg - 15g protein AND 7g carb Oikos Pro drinkable yogurt 1 single svg - 23 g protein AND 8 g carb :ratio, KETO Friendly Dairy Snack 1 single svg - 15g protein AND 2g carb :ratio Protein 1 single svg - 25g protein AND 8g carb Two Good Lowfat Venezuelan Yogurt, Joy, Lower Sugar - 12g protein AND 2g carb Yoplait Protein 1 single svg 15gm protein AND 5gm carb Dairy Free - [place] unsweetened Venezuelan almond/soy 15 gm protein AND 3 gm carb Dairy Free - True Goodness by Meiabiodunr coconut-based yogurt alternative 1 gm protein 1 gm net carb 180 oksana Cheese each oz Brie 5.9g protein AND 0.1g carb Cheddar 7g protein AND 0.4g carb Ahmet 6.7g protein AND 0.7g carb Cream Cheese 1.7g protein AND 1.2g carb Feta 4g protein AND 1.2g carb Mozzarella 6.3g protein AND 0.6g carb Parmesan 10g protein AND 0.9g carb Prydeinig 7.6g protein AND 1.5g carb Cottage Cheese 1/2 c [place] 2% 13g protein 7g carb [place] 2% 13g protein 5 g carb Good Culture 2% 14g protein 3g carb Lopez?s Low Fat 12g protein AND 4g carb Legumes Lentils ? cup 9g protein AND 20g carb Harvey beans ? cup 7g protein AND 20g carb Kidney, Black, [place], Cannellini beans ? cup 8g protein AND 20g carb Soybeans 1/2 c 14g complete protein AND 8.5g carb [place] milk, unsweetened 8 oz 1g protein AND 2g carb Soy milk 8 oz 3.5g protein AND 1.6g carb Tofu 1/2 cup 10g protein AND 2.3g carb Peanut butter, natural 2 Tbsp 7-8g protein AND 4g net carbs, 190 calories PB2 powder 2 Tbsp 6g protein AND 5g carb Nuts and Seeds per oz Almonds - 5.9g protein AND 6.1g carb [place] Nuts - 4.0g protein AND 3.4g carb Cashews - 5.1g protein AND 9.2g carb Hazelnuts - 4.2g protein AND 4.7g carb Hemp seeds/hearts 3 T/30 gms - 9.5 gm complete protein and 2.5 gm carb Peanuts - 7g protein AND 4.6g carb Pecans - 2.6g protein AND 3.9g carb Pistachios - 5.8g protein AND 7.8g carb Pumpkin Seeds - 6.9g protein AND 5g carb [place] Seeds - 5.8g protein AND 5.6g carb Walnuts - 4.3g protein AND 3.8g carb Edamame Beans (soybean) snack 1 pack 11 gm complete protein 2 carb Meal replacements: Meal Replacements Plant-based protein bars Meal replacements. One option that works for some people is to use meal replacements, as in the DiRECT and Look AHEAD trials.The available options in Look AHEAD included shakes, bars, and meals from a variety of companies (Yieldex, Hyglos, Myze, and [employer]). The calorie content was 150 to 220 calories, depending on the product. People who used meal replacements 12 times a week instead of preparing their own meals lost about 11% of their weight in the first year, whereas those who used just two per week lost about 6% of their weight. Keep in mind, though, that people in the trial who used meal replacements also tended to consume a healthier diet over all; they were more likely to have met their goals for dietary fat, fruits and vegetables, and dairy foods, and to have cut back on sweets, than those who didn?t use meal replacements. Similarly, in the DiRECT trial, participants consumed special nutritionally complete shakes and soups (the Counterweight-Plus program) for the first 12 weeks.If you opt for meal-replacement drinks, bars, or frozen entrees, here are some criteria to look for: calories, 150 to 300 fat, 3 to 10 grams protein, > 20 grams sugar < 5 g Meal replacements are typically fortified with vitamins and minerals and contain some fiber. Because they are calorie controlled, the amount of added sugars is usually minimal. If you want to try this approach to boost weight loss, ask your dietitian or another member of your health care team how to incorporate the replacements into your meal planning and discuss whether you might need to reduce your doses of diabetes medications to prevent hypoglycemia (low blood sugar) as you cut calories and lose weight. It is important to find a meal-replacement product that suits your taste. If you prefer not to consume processed foods, you can make your own portion-controlled versions. Note that meal replacements don?t work for everyone. While some people like meal-replacement shakes, bars, and soups and find them to be a convenient way to sustain a reduced calorie intake over time, others don?t feel satisfied drinking them and often end up simply adding them to what they?d normally eat--which could lead to weight gain. What?s more, some people have a hard time readjusting to eating real food after they stop using meal replacements. High Protein Snack Ideas 1. Jerky 2. [place] mix without dried fruit 3. Lawn roll-ups 4. Venezuelan yogurt 5. Veggies and yogurt dip 6. Tuna 7. Hard-boiled eggs 8. Peanut butter with celery 9. Cheese slices/ Cheese Stick 10. Handful of almonds, peanuts or walnuts 11. Cottage Cheese 12. Beef sticks 13. Protein bars 14. Canned [place] 15. Pumpkin seeds 16. Nut butter 17. Protein shakes 18. Avocado and chicken salad 19. Egg muffins 20. Leftover protein or lunch meat 21. 1/2 c blended cottage cheese or Venezuelan yogurt with dry ranch/Mrs. Dash/herb seasoning mix to make protein dip 22. 1/2 c blended cottage cheese with 1 Tbsp sugar-free dry cheesecake pudding mix 12g protein 10 carb 23. Pudding - 1 30 gm protein shake with 1/2 pkg sugar-free pudding 4 svgs - 7.8 gm protein, 5 carb each svg 24. SF Sunkist or Root Beer with 1-2 Tablespoons heavy whipping cream 25. Mini frozen dessert bites - layer protein yogurt, skinny syrup and crushed nuts and freeze Creating a Mindful Eating Environment: 10 Mindless Eating Solutions If you're looking for easier ways to make healthy changes to your diet and lifestyle, consider these simple ?mindless eating solutions? for staying on-track with nutrition: Serve Salad and Vegetables First. Before bringing out your main dish, serve salad and vegetables first to ensure you're eating enough of this important food group. This strategy will also help you eat less of the rest of your dish which is likely higher in calories, etc. Serve Your Main [facility] on the Stove or Counter. Studies show that we're likely to eat less if our food is placed on the stove or counter rather than right in front of us. Eat on Smaller Plates. Similar to the strategy mentioned above, studies show that you're likely to consume less food if you're eating from a smaller plate. This is likely due to the increase of smaller portion sizes. Turn off Your Television. Watching television as you eat can be highly distracting, and it affects your ability to eat mindfully. For example: you're less likely to notice when you're full, so you might consume excess calories. Keep Mostly Water On-hand. Calories from drinks can add up quickly, especially in fruit juices, alcohol and soft drinks. By minimizing the amounts of those drinks on-hand, you're more likely to consume water when you're thirsty - and water has amazing health benefits! Keep Your Kitchen Organized. An organized refrigerator, counter and cabinet space makes you more likely to find and choose the foods which are healthiest for you. On the contrary, a messy kitchen space may make you more apt to grab the first item you see. Pre-cut Your Fruits and Vegetables. Let's admit it: We're more likely to put off eating produce if we have to go through the ?burden? of cutting it first. Pre-cut fruits and vegetables will eliminate this extra step. Have at Least Six Single Servings of Lean Protein On-hand. This includes lean meats such as turkey and chicken, yogurt, eggs, nuts, beans and legumes. By having plenty of lean protein on-hand, you can better manage your appetite and hunger levels. Keep All Snack Foods in One Inconvenient Cupboard. You're less likely to reach for unhealthy snack foods if they're not all gazing up at you from plain sight! Keep Only a Fruit Bowl on Your Counter. This way, if you're one to grab foods based off of their availability, you'll reach for healthier fruits rather than less healthy snack foods. https://www.obesityaction.org/community/news/community-news/knwnrw-v-vnxbsm [email or web address]-jlggyu-ddsygkvqled/ A diet that leaves you feeling full and satisfied over the course of the day leaves less room for wondering about whether you should have a snack when you?re bored. 1. Eat regularly throughout the day Try to spread out your calorie intake throughout a regular meal and snack schedule. This may keep you more full and less hungry than eating the same number of calories on a less regular meal schedule (5Trusted Source). If you?re feeling content with your food choices for the day, you might be less likely to reach for a snack when you?re bored. What?s more, knowing that you plan to eat a meal or snack in the next few hours could be motivation to hold back from eating until then. The same meal schedule doesn?t work for everyone. Some people like to have three meals and a few snacks each day, while others may prefer to have more or less. Finding a routine that works for you and sticking with it seems to matter more than exactly how many meals and snacks you have each day. 2. Don?t restrict your favorite foods If you tend to crave or reach for certain foods when you?re bored, you might be tempted to completely stop eating those foods to remove the temptation. However, for some people, research shows this approach might be counterproductive. If you find you?re more susceptible to food cravings, depriving yourself of certain foods might make you crave them more in the short term (6Trusted Source, 7Trusted Source, 8Trusted Source). Rather than eliminating the foods you crave, try eating them regularly but in moderation. This might help reduce your urge to snack on those foods when you?re bored. 3. Have nutritious, filling snacks When you?ve just had a filling meal or snack, you may be less likely to associate feeling bored with wanting to eat. Certain foods are more filling than others. Some particularly filling foods include: Protein: eggs, fish, meat, yogurt, cottage cheese Fiber-rich foods: oatmeal, quinoa, whole grains, legumes, popcorn Foods high in water: fruits, vegetables, soups 4. Eat from a plate Sometimes it?s hard to distinguish between hunger and boredom. Ocassationally, there may still be times when you reach for a snack when you?re bored. To avoid overeating and letting boredom get the best of your appetite in those moments, portion your snacks onto a plate or serving dish rather than eating them directly from the bag or container. Visual cues, such as the plate size, container size, and even the type of dish you eat from, can all influence how much you eat (17Trusted Source, 18Trusted Source, 19Trusted Source). SUMMARY Eating a healthy diet comprising regular meals, nutritious and filling snacks, and appropriate portion sizes may be more satisfying and thus make it less tempting to eat when you?re feeling bored. 5-8. Tune in to your emotions Researchers know that your emotions and mood often influence when, what, and how much you eat. Experts have also suggested that how well you regulate your emotions can influence boredom eating. Poor emotional regulation could potentially lead to an increase in eating when you?re feeling bored (22Trusted Source, 23Trusted Source). Practicing self-awareness and developing a better understanding of how your own emotions are influencing your appetite is a great starting place to combat boredom eating. 5. Eat mindfully To be mindful means to be conscious, aware, and focused on the present moment. To eat mindfully means to be aware of your mental and physical states related to food. Some studies have found mindfulness is particularly helpful at helping people reduce eating in response to emotions like boredom (24Trusted Source, 25Trusted Source, 26Trusted Source). Mindful eating is useful in differentiating between boredom and hunger, as it emphasizes paying close attention to your cravings and hunger and fullness cues. 6. Know your hunger signs Being perceptive of your specific hunger and fullness signs may be one of the most effective ways to determine whether you?re hungry or bored. When your body is physically hungry and in need of calories for energy, you may notice signs like your stomach growling, a headache, and feelings of weakness or fatigue. On the other hand, when you?re experiencing boredom hunger -- or another type of emotional hunger -- you may crave a certain food without any of the traditional signs of physical hunger. 7. Embrace being bored Throughout 2019 and into 2020, people reported feeling bored at higher rates than usual due to the COVID-19 pandemic (27Trusted Source). In certain situations, being bored too often may have detrimental health effects, such as increased rates of depression and altered eating habits (1Trusted Source, 28Trusted Source). Still, a little boredom is OK and normal to experience from time to time. What?s more, research has linked boredom to certain benefits. For example, it may help motivate creativity (29Trusted Source, 30Trusted Source). Trying to prevent boredom or override the feeling by eating and finding other distractions doesn?t always work. You might find meaning in the downtime by trying to embrace boredom instead. 8. Take it easy on yourself Remember, it?s normal to reach for a snack out of boredom on occasion. When it happens, don?t take it as a failure. Rather, use it as a learning experience and opportunity to treat yourself with kindness and compassion. SUMMARY Your mood and emotions play a significant role in psychologically induced hunger like boredom eating. Learning to be aware of your emotions, hunger triggers, and fullness cues can help prevent you from eating because you?re bored. 9-11. Understand your environment Much of what you eat is influenced by your environment, and the same goes for when and how much you eat. Here are a few specific ways you can tailor your environment to discourage yourself from boredom eating when the urge strikes. 9. Know your triggers Especially when it comes to psychological types of hunger like boredom eating, external factors often trigger the urge to eat. Identifying the triggers in your life that tend to cause the urge to eat when you?re bored is garza to breaking the habit. Some common triggers to be aware of are stress, food availability, and pictures of food. Make notes in a food journal about what you?re doing and your environment when you feel the urge to eat. This might help identify -- and stop -- boredom eating patterns. 10. Avoid the urge to eat in front of a screen Eating in front of a screen while you?re bored can influence you to overeat when you aren?t even hungry. Many people turn to screen-based activities like watching TV or scrolling on their phone when they?re feeling bored. Some studies have found that people tend to eat more than they otherwise would when they?re distracted or in front of a screen, such as a TV or computer (35Trusted Source, 36Trusted Source, 37Trusted Source). Break associations you might have between eating and screen time by making a point of eating meals at a table -- not in front of the TV -- and putting your phone away while you?re dining. Consider replacing mindless eating during screen time with another activity, such as knitting, doodling, or playing with a toy or piece of jewelry, to keep your hands busy while you watch TV. 11. Change your scenery Sometimes all it takes to get your mind off food when you?re feeling bored is a little change of scenery. When you?re bored and fighting the urge to snack, standing up and moving to a new location -- even if it?s just from one room to another -- may be enough to distract your mind from food until the boredom passes. SUMMARY External factors often trigger urges to eat when you?re not physically hungry. Identifying the factors in your environment that trigger boredom eating is garza to breaking those habits. 12-13. Mix things up To be bored means that you?re feeling uninterested in your current activity. The feeling often occurs when the day has been monotonous or repetitive. The same goes for boredom eating. You may eat simply as a way to escape the regular routines of the day (38Trusted Source, 39Trusted Source). Adding variety to your day keeps things feeling fresh and exciting, and it might fend off boredom eating. 12. Take a walk When you?re feeling bored, taking a walk not only provides a distraction from any urges to snack but also physically removes you from food temptations. Sometimes a quick [id number] walk is all it takes to recenter yourself and forget about the urge to snack out of boredom. If you?re not able to take a walk, you might find it helpful to take a few minutes to stretch or do breathing exercises. 13. Make new habits One of the upsides of being bored is that it can drive you to try new things. Next time you feel bored, take a few minutes to think about how you?d really like to be spending that time. Is there a new hobby you?d like to try or an old book that you never got around to reading? Try to look at boredom as a space for meaningful stimulation in your day. 13 Ways to Stop Eating When You're Bored (Turbocoating) Prescriptions ordered this encounter Disp Refills Start End TOPIRAMATE 50 MG TABLET 30 t* 2 06/06/2024 09/04/2024 Route: ORAL Sig: Take 1 tablet by mouth daily at bedtime. PHENTERMINE 37.5 MG TABLET 30 t* 2 06/06/2024 09/04/2024 Route: ORAL Sig: Take 1 tablet by mouth daily before breakfast for 90 days. TAKE 1 TABLET BY MOUTH ONCE DAILY IN THE MORNING Medications Discontinued During This Encounter Prescriptions - Phentermine HCl 37.5 mg tablet (Discontinued) TAKE 1 TABLET BY MOUTH ONCE DAILY IN THE MORNING Encounter Status:Closed by NACHO GARZA on 06/06/24 PROGRESS Observed: 06/06/2024 10:08 AM Status: COMPLETED Source: [facility] ID: [id number] Author: NACHO VERMA MD Service: ? Author Type: Physician Type: Progress Notes Filed: 06/06/2024 12:04 Note Text: Patient Summary: Marietta Piña is a 33 year old female with obesity who presents for an initial evaluation of overweight/obesity to treat and prevent co-morbidities and is interested in open to all options. Motivation for seeking treatment for the disease of overweight/obesity : She wants to get healthier Goal weight: 180 lb Lowest recall weight: 196 lb (2019) Highest non- recall weight: 228 lb Patient identified barriers to weight loss: Late night eating and stress eating Weight History: She reports has family history of obesity (mom) and late adulthood weight gain. She states her weight gain is related to the following factors, including weight retention , consumption of unhealthy foods, and inadequate sleep duration. Difficulty losing weight? Yes History of weight loss with regain? Yes she lost weight in Nov [id number] she lost 30 lbs. She was consistent in healthy eating and tracking food and exercise. Has slowly regained some weight back. - Last Wt 06/06/24 : 101.6 kg (224 lb) 5% weight loss = 213 lbs, 10% weight loss = 202 lbs WEIGHT GRAPH: Diet/Nutrition overview: Awake - 5:15-5:30am B - sometimes greens or premier protein (30g) almond milk unsweetened - great value light malagasy yogurt, unsweet coconut shavings and almond shavings S - L - bagged salad w/ mozz cheese, newsome bites, sometimes with chicken, left overs- spaghetti, veggies- carrots, peppers S - pretzels , protein balls, PB- oats, portia seeds, pp, agave, oats D - deer meat- with fries and broccoli, chicken fries or fish sticks , pasta with sausage. S - chips (3 days per week) , ice cream (3 days per week) Fluids: 64oz water, almond milk in shake (8-10oz unsw), 2 x week diet soda or [place] water, beer or wine 1-2 x week Bedtime - 10:30pm hard time falling asleep (11-11:30pm) Quality of diet: 24hr recall suggests unhealthy diet. Characterization of diet:unhealthy snacking, excessive cravings, and evening snacking. 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 CRISTY NO ; CPAP NO Stress Stress:no, Cause:Work Obesity Related Comorbidities: Prior Weight Loss Surgery:No PAST MEDICAL HISTORY Diagnosis Date Cervical incompetence 11/2017 Gestational diabetes mellitus (GDM) in third trimester (HCC) 10/17/2019 Shivam's thyroiditis Infertility, female Miscarriage (HCC) Obesity Other complications of the puerperium, not elsewhere classified (CODE) 10/10/2017 Pre-eclampsia, severe (HCC) 11/21/2019 Pre-eclampsia, severe (HCC) Thyroid antibody positive PAST SURGICAL HISTORY Procedure Laterality Date ABDOMINAL REVISION OF CERCLAGE 11/2017 DELIVERY ONLY 06/30/2021 LTCS SECTION HX 05/02/2017 x2 - 23.5 weeks EXTRACTION ERUPTED TOOTH/EXR 01/2009 [place] teeth removed LAPS SURG CHOLECYSTECTOMY W/CHOLANGIOGRAPHY 11/14/2012 FAMILY HISTORY Problem Relation Age of Onset Hypertension Mother Alcohol/Drug Father Cancer Father other (endometriosis) Sister No Known Problems Brother No Known Problems Brother Hypertension Maternal Grandmother other (parkinsons) Maternal Grandmother Hypertension Maternal Grandfather other (myocardial infarction) Maternal Grandfather Diabetes Paternal Grandmother Hypertension Paternal Grandmother Alzheimer's Disease Paternal Grandmother Hypertension Paternal Grandfather No Known Problems Daughter No Known Problems Son Diabetes Paternal Uncle Asthma Other nephew Social History Tobacco Use Smoking status: Never Smokeless tobacco: Never Tobacco comments: parents quit smoking Vaping Use Vaping status: Never Used Substance Use Topics Alcohol use: No Drug use: No AOM Medications: Phentermine- 2nd refill- changed eating habits more protein, more vegetables Weight Promoting Medications: Diet/weight loss History: Past weight loss attempts? anti-obesity medications Phentermine currently and about a year ago-lost over 30 lbs over a years time. She was not on the phentermine the whole year. . Exercise: Regular exercise: yes cardio (bike/walking) 2 times a weeks Total 4 times a week for 45 minutes each time Strength/resistance exercise:yes 2 days a week - at home [employer] Barriers to regular exercise? no Work-related activity:Active. -she does have a desk but spends most of her day moving Gym Membership: no Activity Tracker: yes average steps per day 11,000 OCCUPATION [employer] Current Contraception: combined hormonal contraceptives Obesity ROS/ FHx GEN: Fatigue:yes CV: h/o palpitations/cardiac arrhythmia, Chest pain: no HTN: no PULM: Asthma:no GI: GERD:no ; Gallstones:no ; Fatty liver disease:no Pancreatitis: no MSK: Joint Pain:no : Nephrolithiasis: no Symptoms of PCOS: no ?? History was given metformin previously for ovulation NEURO: Migraines/FREITAS: yes 2x month ; H/o seizures: no Glaucoma:no; Cataracts no Symptoms of or History of pseudotumor cerebri:no Family or personal History of MEN2 or Medullary thyroid cancer: no PE BP 120/74 Pulse 93 Ht 161.3 cm (5' 3.5") Wt 101.6 kg (224 lb) LMP 05/21/2024 (Exact Date) SpO2 99% BMI 39.06 kg/m? Waist Circumference: 47 Neck Circumference: 16 GENERAL: Female in NAD. General adiposity. SKIN: acanthosis nigricans no, Skin tags: no Hirsutism: no HEENT: PERRL, No supraclavicular adiposity. No dorsal adiposity. ABDOMEN: Large pannus; EXTREMITIES: peripheral edema: minimal Results: reviewed with the patient No visits with results within 3 Month(s) from this visit. Latest known visit with results is: Appointment on 04/29/2023 Component Date Value Ref Range Status Vitamin D 25 Hydroxy 04/29/2023 56.0 31.0 - 80.0 ng/mL Final Insulin 04/29/2023 12.1 3.0 - 25.0 mU/L Final Hemoglobin A1C 04/29/2023 5.1 4.3 - 5.6 % Final Estimated Average Glucose 04/29/2023 100 mg/dL Final WBC 04/29/2023 4.80 3.70 - 11.00 k/uL Final RBC 04/29/2023 5.10 3.90 - 5.20 m/uL Final Hemoglobin 04/29/2023 15.2 11.5 - 15.5 g/dL Final Hematocrit 04/29/2023 46.1 (H) 36.0 - 46.0 % Final MCV 04/29/2023 90.4 80.0 - 100.0 fL Final MCH 04/29/2023 29.8 26.0 - 34.0 pg Final MCHC 04/29/2023 33.0 30.5 - 36.0 g/dL Final RDW-CV 04/29/2023 12.2 11.5 - 15.0 % Final Platelet Count 04/29/2023 251 150 - 400 k/uL Final MPV 04/29/2023 11.5 9.0 - 12.7 fL Final Absolute nRBC 04/29/2023 <0.01 <0.01 k/uL Final Cholesterol, Total 04/29/2023 258 (H) <200 mg/dL Final Triglyceride 04/29/2023 106 <150 mg/dL Final HDL Cholesterol 04/29/2023 37 (L) >39 mg/dL Final Non HDL Cholesterol 04/29/2023 221 (H) <130 mg/dL Final Fasting Time 04/29/2023 12 hrs Final VLDL Cholesterol 04/29/2023 21 <30 mg/dL Final TC:HDL Ratio 04/29/2023 6.97 (H) <5.10 Final LDL Cholesterol 04/29/2023 200 (H) <100 mg/dL Final LDL:HDL Ratio 04/29/2023 5.41 (H) <2.54 Final Protein, Total 04/29/2023 7.5 6.3 - 8.0 g/dL Final Albumin 04/29/2023 4.4 3.9 - 4.9 g/dL Final Calcium, Total 04/29/2023 9.8 8.5 - 10.2 mg/dL Final Bilirubin, Total 04/29/2023 0.5 0.2 - 1.3 mg/dL Final Alkaline Phosphatase 04/29/2023 20 (L) 34 - 123 U/L Final AST 04/29/2023 20 13 - 35 U/L Final ALT 04/29/2023 20 7 - 38 U/L Final Glucose 04/29/2023 88 74 - 99 mg/dL Final BUN 04/29/2023 10 7 - 21 mg/dL Final Creatinine 04/29/2023 0.76 0.58 - 0.96 mg/dL Final Sodium 04/29/2023 139 136 - 144 mmol/L Final Potassium 04/29/2023 4.3 3.7 - 5.1 mmol/L Final Chloride 04/29/2023 103 97 - 105 mmol/L Final CO2 04/29/2023 26 22 - 30 mmol/L Final Anion Gap 04/29/2023 10 9 - 18 mmol/L Final Estimated Glomerular Filtration Ra* 04/29/2023 107 >=60 mL/min/1.73m? Final TSH 04/29/2023 0.931 0.270 - 4.200 mIU/L Final Impression: Marietta Piña is a 33 year old Female with Class II obesity (Body mass index is 39.06 kg/m?.) who has early adulthood obesity with several periods of weight loss followed by weight gain . The causes of her obesity are multifactorial, biological, psychological and social and environmental. Specific factors include increased consumption of high calorie/process foods, irregular eating patterns , inadequate sleep duration, and post weight retention. She has few weight-related medical comorbidities which increase her cardiovascular mortality risk. There are additional metabolic obesity complications including dyslipidemia and PCOS. Other medical conditions as above. Regarding her lifestyle, as above, she has a few behavioral contributors ; her physical activity is suboptimal. Overall, it is clear that her quality of life is mildly compromised by her weight. It is likely a combination of weight loss therapies will be needed. She appears motivated today. Plan: -- Based on the severity and resistance of the obesity/overweight with co-morbidities, I believe a combination of behavioral and pharmacological intervention is the best and most appropriate supervisor intermediates therapeutic option. -- We discussed several strategies to track food intake and increase mindfulness around eating while will decrease calorie intake. She was counseled on the following: Eating primarily whole foods. Limit carbs, especially processed carbs. Do not drink your calories 30 grams of protein for breakfast decreases your hunger during the day by up to 40 % Premier Protein or generic 30 gm protein 1 gm sugar Walk for 15 minutes immediately a meal. -- Encouraged the patient to improve her physical activity. Although cardiovascular exercise is most beneficial for weight loss initially, we discussed healthy muscle from a combination of resistance training and cardiovascular exercise is the best usp plan. An overall goal of 150-200 minutes per week of exercise has been effective in weight loss and maintenance. -- Reviewed that monitoring weight daily and food intake can have a positive impact on overall weight loss and maintenance of weight loss. Activity tracking can be used to stay on target for exercise however should not be used to reward oneself She understands that there can be limitations of pharmacotherapy due to contraindications, side effects and cost. Patient was told to contact her insurance company to see what AOMs and supervised behavioral medical appointments are currently covered. Patient understands she will have more success when following a healthy lifestyle. We reviewed continued use of online tracking of daily weights, food journal and if desired physical activity. We reviewed that during management she is to report any concerning side effects of any pharmacotherapy she is placed on. She understands that she will need routine follow up in the office. Prior to any virtual visits in the future she will need to check her Blood pressure, weight, and pulse. -LABs ordered - Nutrition Consult ordered to [facility] - Declines Surgery consult to BMI at current time - Protein 90-160g recommend -tracking reviewed- lose it chelsea reviewed - continue phentermine (started by PCP - add topiramate - off label use reviewed. Risks reviewed. Common SE reviewed with patient. - start OCPs. (E78.5) Dyslipidemia (primary encounter diagnosis) (R53.81, R53.83) Malaise and fatigue (G43.909) Migraine without status migrainosus, not intractable, unspecified migraine type (Z13.220) Screening cholesterol level (Z13.0) Screening for deficiency anemia (Z13.1) Screening for diabetes mellitus (Z13.228) Screening for metabolic disorder (Z13.29) Screening for thyroid disorder (Z13.21) Encounter for vitamin deficiency screening (E66.812, Z68.39) Class 2 obesity with body mass index (BMI) of 39.0 to 39.9 in adult, unspecified obesity type, unspecified whether serious comorbidity present Prescription instructions reviewed with patient as applicable. Potential red flag symptoms discussed with the patient. Reviewed appropriate action plan to take if red flag symptoms occur. Patient agreeable to treatment plan. -- follow-up visit in 4 weeks for management of above interventions (june-September scheduled) I spent a total of 70 minutes on the date of the service which included preparing to see the patient, [id number] patient care, completing clinical documentation, obtaining and/or reviewing separately obtained history, performing a medically appropriate examination, counseling and educating the patient/family/caregiver, and ordering medications, tests, or procedures. 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 Marietta is a 33 year old who presents for an annual gynecologic exam without complaints. 2 children ages 4/2 Menses: cycles every 28 days and 3 days of flow Menstrual flow: Light Bleeding amount bothersome: No Period symptoms: mild cramping Sexually active: Yes Contraception: OCPS History of abnormal pap: No Last mammogram: never Sexually active: Yes Pain with intercourse: No Postcoital bleeding: No OB History Gravida6 Para4 Term0 Preterm4 AB2 Living2 SAB2 IAB0 Ectopic0 Multiple0 Live Births3 Problem Relation Age of Onset Hypertension Mother Alcohol/Drug Father Cancer Father other (endometriosis) Sister No Known Problems Brother No Known Problems Brother Hypertension Maternal Grandmother other (parkinsons) Maternal Grandmother Hypertension Maternal Grandfather other (myocardial infarction) Maternal Grandfather Diabetes Paternal Grandmother Hypertension Paternal Grandmother Alzheimer's Disease Paternal Grandmother Hypertension Paternal Grandfather No Known Problems Daughter No Known Problems Son Diabetes Paternal Uncle Asthma Other nephew SOCIAL HISTORY Social History Tobacco Use Smoking status: Never Smokeless tobacco: Never Tobacco comments: parents quit smoking Vaping Use Vaping status: Never Used Substance Use Topics Alcohol use: No Drug use: No REVIEW OF SYSTEMS Abdomen: No abdominal pain, nausea, vomiting, diarrhea, or constipation. No bloating, early satiety, indigestion, or increased flatulence. Some constipation since starting phentermine Bladder: No dysuria, gross hematuria, urinary frequency, urinary urgency, or incontinence. Breast: No breast lumps, nipple d/c, overlying skin changes, redness or skin retraction. Allergies and current medication updated:Yes SENSITIVE EXAM: The sensitive examination was discussed with the Patient or Patient's Authorized Secondary School Teacher Librarian. As applicable, any other physician, advance practice provider, medical student, or other health professional student that will be observing or involved in the sensitive examination for educational or training purposes was discussed with the Patient or Authorized Secondary School Teacher Librarian. The Patient or Authorized Secondary School Teacher Librarian has agreed to proceed with the sensitive examination. (Sensitive examination includes inspection and/or palpation of the breasts, pelvis, prostate and anorectal regions). EXAM: BP 126/80 Ht 5' 3.5" (1.61m) Wt 226 lb (102.5kg) LMP 05/21/2024 BMI 39.40 kg/(m2). GENERAL: pleasant, female in no apparent distress HEENT: Normocephalic, atraumatic, mucus membranes moist, and no lesions NECK: Supple, full range of motion, no adenopathy, and thyroid normal DERMATOLOGY: Normal, without lesions, non-icteric, and non-hirsute BREAST: soft, non-tender, symmetric, no dominant mass, normal nipple-areolar complex, no lymphadenopathy, and no nipple discharge CHEST: Normal inspiratory effort ABDOMEN: soft, non-tender, and no masses PELVIC: external genitalia normal, normal Bartholin's glands, urethra, Jewell's glands, no vulvar lesions, no cervical lesions, good vaginal support, physiologic discharge present, normal appearing perineal body and perianal region BIMANUAL: uterus normal size, shape and consistency, no adnexal masses, and non-tender RECTOVAGINAL: deferred. NEURO: alert and oriented x3,exam grossly non-focal EXTREMITIES: normal ASSESSMENT/PLAN: 1) Health maintenance: Pap/HPV up to date. Mammogram starting age 40. Nutrition, exercise and routine health maintenance exams reviewed. Colon cancer screening: start at age 45 2) Contraception: combined hormonal contraceptives. Contraceptive options reviewed and information provided. 3) STD screening: Declined STD check. 4) Follow up one year or sooner as needed 5) weight mgmt program consult ordered per patient request Nacho Alcantara MD Allergies As of Date: 05/30/2024 (No Known Allergies) Date Reviewed: 05/30/2024 Reviewed by: Delma Crockett MA - Fully Assessed Reason for Visit: Yearly Exam [187] Primary Visit Diagnosis:Encounter for gynecological examination (general) (routine) without abnormal findings [Z01.419] Other Visit Diagnoses:Surveillance for control, oral contraceptives [Z30.41] Class 2 obesity with body mass index (BMI) of 39.0 to 39.9 in adult, unspecified obesity type, unspecified whether serious comorbidity present [E66.812, Z68.39] Order(s):Norethindrone Acet-Ethinyl Est (MICROGESTIN 1.5/30) 1.5-30 mg-mcgTake 1 tablet by mouth once daily.Disp: 21 tabletRfl: 11 CONSULT TO [facility] WEIGHT MANAGEMENT PROGRAM [[id number]] Order #: [id number]: 1 FUTURE Prescriptions as of 05/30/2024 - Phentermine HCl 37.5 mg tablet TAKE 1 TABLET BY MOUTH ONCE DAILY IN THE MORNING - Norethindrone Acet-Ethinyl Est (MICROGESTIN .07/19) 1.5-30 mg-mcg Take 1 tablet by mouth once daily. 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] 06/05/2009 11/11/2015 Cholecystitis with cholelithiasis [K80.10] 10/19/2012 11/11/2015 Obesity in [O99.210] 10/22/2015 Family history of cleft lip and palate [Z82.79] 10/22/2015 Patient requested diagnostic testing [Z01.89] 10/22/2015 11/27/2015 Rh negative status in duong in fi*11/12/2015 Patient requested diagnostic testing [Z01.89] 04/07/2016 04/13/2017 History of delivery [Z87.51] 12/22/2016 Incompetent cervix, abdominal cerclage in place*05/02/2017 H/O section [Z98.891] 05/05/2017 Elevated blood pressure reading without diagnos*10/10/2017 Maternal care for intrauterine [O36.4XX0] 10/10/2017 02/17/2021 Other complications of the puerperium, not else*10/10/2017 labor second tri w delivery sec*10/10/2017 02/17/2021 Single stillbirth (CODE) [Z37.1] 08/16/2016 Obesity, Class III, BMI >= 40 [E66.01] 11/28/2017 History of premature rupture of membran*06/10/2019 History of diet controlled gestational diabetes*10/17/2019 06/08/2021 Gestational hypertension [O13.9] 11/04/2019 02/17/2021 Prematurity [P07.30] 11/04/2019 02/17/2021 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] 11/05/2019 Anovulation [N97.0] 11/05/2019 Elevated blood pressure reading [R03.0] 11/21/2019 35 weeks gestation of [Z3A.35] 11/21/2019 02/17/2021 Pre-eclampsia, severe [O14.10] 11/21/2019 02/17/2021 Pre-eclampsia in third trimester [O14.93] 11/21/2019 02/17/2021 with history of section, ant*11/26/2020 Short interval between pregnancies affecting pr*11/26/2020 H/O pre-eclampsia in prior , currently*11/26/2020 History of gestational diabetes in prior pregna*11/26/2020 Gestational diabetes mellitus, class A1 [O24.41*05/07/2021 06/08/2021 Insulin controlled gestational diabetes mellitu*06/08/2021 Prescriptions ordered this encounter Disp Refills Start End NORETHINDRONE ACETATE 1.5 MG-ETHINYL* 21 t* 11 05/30/2024 Route: ORAL Sig: Take 1 tablet by mouth once daily. Medications Discontinued During This Encounter Prescriptions - Norethindrone Acet-Ethinyl Est (MICROGESTIN 1.5/30) 1.5-30 mg-mcg (Discontinued) Take 1 tablet by mouth once daily. - VITAMIN K2 ORAL (Discontinued) Take by mouth. With D3 - Fbtnnwyu-Lf-Tyw-Fe-FA ( VITAMIN) tab (Discontinued) Take 1 tablet by mouth once daily. Disposition: Return in 1 year (on 05/30/2025) for Annual Exam. Follow-up and Disposition History for Encounter Date Provider Department Center 05/30/2024 [id number] MCINTOSH,*KOBE Vazquez Encounter Status:Closed by NACHO GARZA on 05/30/24 PROGRESS Observed: 05/30/2024 1:46 PM Status: COMPLETED Source: [facility] ID: [id number] Author: NACHO VERMA MD Service: ? 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 2 children ages 4/2 Menses: cycles every 28 days and 3 days of flow Menstrual flow: Light Bleeding amount bothersome: No Period symptoms: mild cramping Sexually active: Yes Contraception: OCPS History of abnormal pap: No Last mammogram: never Sexually active: Yes Pain with intercourse: No Postcoital bleeding: No OB History Gravida6 Para4 Term0 Preterm4 AB2 Living2 SAB2 IAB0 Ectopic0 Multiple0 Live Births3 Problem Relation Age of Onset Hypertension Mother Alcohol/Drug Father Cancer Father other (endometriosis) Sister No Known Problems Brother No Known Problems Brother Hypertension Maternal Grandmother other (parkinsons) Maternal Grandmother Hypertension Maternal Grandfather other (myocardial infarction) Maternal Grandfather Diabetes Paternal Grandmother Hypertension Paternal Grandmother Alzheimer's Disease Paternal Grandmother Hypertension Paternal Grandfather No Known Problems Daughter No Known Problems Son Diabetes Paternal Uncle Asthma Other nephew SOCIAL HISTORY Social History Tobacco Use Smoking status: Never Smokeless tobacco: Never Tobacco comments: parents quit smoking Vaping Use Vaping status: Never Used Substance Use Topics Alcohol use: No Drug use: No REVIEW OF SYSTEMS Abdomen: No abdominal pain, nausea, vomiting, diarrhea, or constipation. No bloating, early satiety, indigestion, or increased flatulence. Some constipation since starting phentermine Bladder: No dysuria, gross hematuria, urinary frequency, urinary urgency, or incontinence. Breast: No breast lumps, nipple d/c, overlying skin changes, redness or skin retraction. Allergies and current medication updated:Yes SENSITIVE EXAM: The sensitive examination was discussed with the Patient or Patient's Authorized Secondary School Teacher Librarian. As applicable, any other physician, advance practice provider, medical student, or other health professional student that will be observing or involved in the sensitive examination for educational or training purposes was discussed with the Patient or Authorized Secondary School Teacher Librarian. The Patient or Authorized Secondary School Teacher Librarian has agreed to proceed with the sensitive examination. (Sensitive examination includes inspection and/or palpation of the breasts, pelvis, prostate and anorectal regions). EXAM: BP 126/80 Ht 5' 3.5" (1.61m) Wt 226 lb (102.5kg) LMP 05/21/2024 BMI 39.40 kg/(m2). GENERAL: pleasant, female in no apparent distress HEENT: Normocephalic, atraumatic, mucus membranes moist, and no lesions NECK: Supple, full range of motion, no adenopathy, and thyroid normal DERMATOLOGY: Normal, without lesions, non-icteric, and non-hirsute BREAST: soft, non-tender, symmetric, no dominant mass, normal nipple-areolar complex, no lymphadenopathy, and no nipple discharge CHEST: Normal inspiratory effort ABDOMEN: soft, non-tender, and no masses PELVIC: external genitalia normal, normal Bartholin's glands, urethra, Jewell's glands, no vulvar lesions, no cervical lesions, good vaginal support, physiologic discharge present, normal appearing perineal body and perianal region BIMANUAL: uterus normal size, shape and consistency, no adnexal masses, and non-tender RECTOVAGINAL: deferred. NEURO: alert and oriented x3,exam grossly non-focal EXTREMITIES: normal ASSESSMENT/PLAN: 1) Health maintenance: Pap/HPV up to date. Mammogram starting age 40. Nutrition, exercise and routine health maintenance exams reviewed. Colon cancer screening: start at age 45 2) Contraception: combined hormonal contraceptives. Contraceptive options reviewed and information provided. 3) STD screening: Declined STD check. 4) Follow up one year or sooner as needed 5) weight mgmt program consult ordered per patient request Nacho Alcantara MD ALLERGIES DATE TYPE / CODE NAME / CODE REACTION SEVERITY SOURCE Drug Class/[id number](SNO MED CT) NO KNOWN ALLERGIES [facility] ENCOUNTERS ADMIT/DISCHARGE ACCOUNT NUMBER ADMITTING ENCOUNTER CLASS LOC ATION SOURCE 10/15/2024/ 5 [id number] [facility] 09/02/2024/ 5 [id number] [facility] 08/13/2024/ 5 [id number]/04/[facility]/ 5 [id number] Amb[facility] 06/22/2024/ 5 [id number] [facility] CampusBuild ing:CHERI [facility] 06/06/2024/ 5 [id number] [facility] HospitalBuild ing:[facility] 05/30/2024/ [id number] [facility] HospitalBuild ing:[facility] PAYERS ENCOUNTER GUARANTOR PAYER SUBSCRIBER SOURCE 10/15/2024 Primary Insurance:BLUE ACCESS PPOPolicy Number: [id number] Date:4764-88-46Kpnz Name:Toro MARTI: [id number] [address] [place] [phone] [facility] 09/02/2024 Primary Insurance:BLUE ACCESS PPOPolicy Number: [id number] Date:0180-48-15Smpl Name:Toro MARTI: [id number] [address] [place] [id number] [facility] 08/13/2024 Primary Insurance:BLUE ACCESS PPOPolicy Number: [id number] Date:4068-30-95Jggv Name:Toro MARTI: [id number] [address] [place] [id number] [facility] 07/04/2024 Primary Insurance:BLUE ACCESS PPOPolicy Number: [id number] Date:9860-43-37Ugwp Name:Toro MARTI: [id number] [address] [place] [phone] [facility] 06/22/2024 Primary Insurance:BLUE ACCESS PPOPolicy Number: [id number] Date:1469-80-20Xyyi Name:Toro MARTI: [id number] [address] [place] [phone] [facility] 06/06/2024 Primary Insurance:BLUE ACCESS PPOPolicy Number: [id number] Date:9159-47-45Tssu Name:Toro MRATI: [id number] [address] [place] [id number] [facility] 05/30/2024 Primary Insurance:BLUE ACCESS PPOPolicy Number: [id number] Date:2515-81-10Prqa Name:Toro GARCIAOB: [id number], [place] [address] [facility]
--- NOTE | 2024-11-19 06:43 | MRI_ITS ---
PROCEDURE: UPPER EXT NO JOINT W/WO CONT 11/19/2024 REASON FOR EXAM: 1ST WEB SPACE HAND MASS TECHNIQUE: T1, T2, postcontrast T1 fat-sat procedure Code: [id number] Modality: MR Procedure: UPPER EXT NO JOINT W/WO CONT CONTRAST: 19 cc Clariscan COMPARISON: None FINDINGS: Marrow: There is normal marrow signal in the distal radius and ulna and in the carpal bones with no occult fracture or erosion. Tendons: The flexor and extensor tendons appear intact. There is increased fluid in the tendon sheaths of the extensor carpi radialis longus and brevis with mild tenosynovitis. There is increased fluid within the extensor digitorum tendon sheaths at the level of the carpal bones with mild tenosynovitis. Carpal tunnel: The carpal tunnel and median nerve are normal in appearance. Triangular fibrocartilage: Triangular fibrocartilage appears intact. Effusion: There is no significant effusion. There is a complex ganglion extending from the radiocarpal articulation with a component extending deep to the extensor carpi radialis longus and brevis in the dorsal wrist, measuring approximately 2.0 by 0.7 by 0.8 cm. There is a ganglion component extending into the anterior lateral soft tissues proximal to the distal radius, measuring 2.2 by 1.6 by 1.5 cm. There are no suspicious enhancing lesions. MRI/Upper Ext No Joint W/WO Cont IMPRESSION: There is increased fluid in the tendon sheaths of the extensor carpi radialis l ongus and brevis with mild tenosynovitis. There is increased fluid within the extensor digitorum tendon sheaths at the level of th e carpal bones with mild tenosynovitis. There is a complex ganglion extending from the radiocarpal articulation with a component extending deep to the extensor carpi radialis longus and brevis in the dorsal wrist, measuring approximately 2.0 by 0.7 by 0.8 cm. There is a ganglion component extending into the anterior lateral soft tissues proximal to the distal radius, measuring 2.2 by 1.6 by 1.5 cm. [facility]
== END 2024-11-19 23:59 | disposition home or self-care (01) ==
PROVIDERS: PCP Family Medicine; Referring Provider Surgery Plastic and Reconstructive Surgery; Visit Provider Surgery Plastic and Reconstructive Surgery
DX: R22.32 Localized swelling, mass and lump, left upper limb (principal)
CPT/HCPCS: 73220; A9575; A4216

== ENCOUNTER 2024-12-13 12:05 | Day surgery (SDC) | payer BC, SELFPAY ==
[2024-12-04 12:04] VITALS: BP 142/94; PULSE 80; RESP 16; TEMP 36.4; O2SAT 99; BMI 36.3
[2024-12-04] MEDS: Lactated Ringers 1,000 ML 15 ML IV (12:07)
[2024-12-04 12:11] LABS: Internal QC Validated? YES +Cl - CLEAR BKGD; Pregnancy, Serum, hCG Quali. NEGATIVE Negative
[2024-12-04 12:12] LABS: Record Kit Lot#, Serum Preg. 0000980607
--- NOTE | 2024-12-04 12:27 | PRE.ANES_ITS ---
Assessment & Plan Anesthesia* Anesthesia Assessment Anesthesia Assessment: Discussed sedation and/or anesthesia options, risks, benefits, and alternatives with patient/parents/legal guardian/POA. Questions invited. The patient/parents/legal guardian/POA seems to understand and agrees to proceed with anesthesia plan. Reviewed the physical assessment, medical history, allergy history and patient home medications list prior to surgery/procedure/anesthetic and documented any changes. Performed airway and anesthesia risk assessments. Anesthesia Focused Assessment* Temperature: 97.6 F Pulse Rate: 80 Blood Pressure: 142/94 Respiratory Rate: 16 Pulse Ox: 99 Oxygen Delivery Method: Room Air Airway Assessment Mouth opens: >3 cm Mallampati Score: II Labs Anesthesia Preop lab: CBC WBC, (4.4-11.0) 5.7 K/mm3 07/01/21, 05:40 RBC, (4.2-5.4) 3.69 M/mm3 L 07/01/21, 05:40 Hgb, (12.0-15.0) 10.6 g/dL L 07/01/21, 05:40 Hct, (37-47) 32.6 % L 07/01/21, 05:40 Plt Count, (150-450) 134 K/mm3 L 07/01/21, 05:40 CHEMISTRY Potassium, (3.3-5.1) 4.0 mmol/L 11/27/24, 08:00 Sodium, (133-145) 137 mmol/L 11/27/24, 08:00 BUN, (4-19) 12 mg/dL 11/27/24, 08:00 Creatinine, (0.70-1.20) 0.74 mg/dL 11/27/24, 08:00 Glucose, (70-99) 75 mg/dL 11/27/24, 08:00 POC Glucose, (74-106) 73 mg/dL L 07/01/21, 05:36 TSH, (0.358-3.74) 1.47 uIU/mL 11/22/22, 16:00 COAG PT, (11.7-14.9) 13.2 SECONDS 07/31/16, 20:35 Pre-Assessment Diagnosis/Proposed Procedure Planned Operative Procedure(s): GANGLION CYST LEFT WRIST Anesthesia History Anesthesia History - workforce management manager: Anesthesia History - workforce management manager Hx Hospitalization No 12/03/24 09:31 Any Problems With Anesthesia No 12/03/24 09:31 Cholinesterase deficiency No 12/03/24 09:31 You/Your Family Experience No 12/03/24 09:31 fever (hyperthermia) with Relationship Recent Exposure to Contagious No 12/04/24 12:04 Disease Does patient have nerve No 12/03/24 09:31 stimulator Patient instructed to have device shut off --Does patient have Pacemaker No 12/04/24 12:04 or ICD? When Was Last Pacemaker Check QUESTION #4 FULL TEXT: You/Your Family Experience fever (hyperthermia) with Anesthesia Last Oral Intake Last Oral intake: Last Oral Intake NPO since 00:00 12/04/24 12:04 Meds taken in AM with sips of No 12/04/24 12:04 water? Meds patient instructed to take am of surgery PONV PONV - workforce management manager: PONV - workforce management manager Female Yes 12/03/24 09:31 HX of Motion Sickness No 12/03/24 09:31 HX of N/V After Surgery Yes 12/03/24 09:31 Non-Smoker Yes 12/03/24 09:31 Duration of Surgery greater No 12/03/24 09:31 than 60 minutes Number of Risk Factors 3 12/03/24 09:31 PONV Score Moderate Risk 12/03/24 09:31 Height & Weight Height & Weight: Anesthesia: Height & Weight Height 5 ft 3 in 12/04/24 12:04 Weight: 93 kg 12/04/24 12:04 Body Mass Index (BMI) 36.3 12/04/24 12:04 Respiratory Assessment Respiratory Assessment - workforce management manager: Respiratory Tract Infection Hx - workforce management manager Hx Respiratory Tract Infection No 12/03/24 09:31 STOP Sleep Apnea STOP Sleep Apnea - workforce management manager: STOP Sleep Apnea - workforce management manager Hx Hypertension Yes 12/03/24 09:31 Hx Sleep Apnea No 12/03/24 09:31 CPAP BIPAP Do you snore loudly (louder No 12/03/24 09:31 than talking or can be heard Do you often feel tired/ No 12/03/24 09:31 fatigued/ sleepy during daytime? Has anyone observed you stop No 12/03/24 09:31 breathing during sleep? STOP Results Negative 12/03/24 09:31 QUESTION #5 FULL TEXT : Do you snore loudly (louder than talking or can be heard through closed doors)? Tobacco Use History Tobacco Use History - workforce management manager: Tobacco Use History - workforce management manager Tobacco Use Smoking Status Never smoker 12/03/24 09:31 Hx Tobacco Use No 12/03/24 09:31 Years Smoking Packs Smoked per Day Smoking Cessation Date was within the last 15 years Hx Smoking Cessation Date Hx Smoking Cessation Counseling Hematologic Medial History Hematologic Hx - workforce management manager: Hematologic Medical Hx - compliance professional Hx of Blood Transfusion No 12/03/24 09:31 Hx of Transfusion in last 3 No 12/03/24 09:31 Months Date of Last Transfusion (if within last 3 months) Ever experience any problems No 12/03/24 09:31 with transfusion(s)? Specify any problems Hx of Preganancy in last 3 No 12/03/24 09:31 Months Nurse Filling Out Transfusion [place] 12/03/24 09:31 & Questions: Date: 12/03/24 12/03/24 09:31 Time: 09:36 12/03/24 09:31 Patient unable to answer at this time (ie. confused, unrespo /Reproduction History /Reproductive History - workforce management manager: /Reproductive Hx- workforce management manager Hx Now No 12/03/24 09:31 Gestational Age (in weeks): EDC: Hx Hx Para Hx Section SAB No 12/03/24 09:31 Active Medications Active Medications: Current Medications Generic Name Dose Route Start Last Admin Trade Name Freq PRN Reason Stop Dose Admin Cefazolin Sodium 2 gm/ Sodium 110 mls @ 200 mls/hr 12/04/24 13:00 Chloride IV 12/04/24 13:32 INTRAOP ONE Lactated Ringer's 1,000 mls @ 15 mls/hr 12/04/24 12:15 12/04/24 12:07 IV 15 mls/hr .Q48H RICKEY Administration PFSH Medical History Wears contact lenses Wears glasses Non-smoker Obesity Obesity affecting Gestational diabetes mellitus (GDM) Cervical incompetence Thyroid disorder Pre-eclampsia Gestational diabetes Home Medications Medication Instructions Recorded Last Taken Type magnesium 200 mg tablet 200 mg PO DAILY 12/03/24 History metformin 500 mg tablet,extended 1,000 mg PO BID 12/0312/03/24 History release 24 hr phentermine 37.5 mg tablet 37.5 mg PO DAILY 12/03/24 1 History topiramate 50 mg tablet 50 mg PO DAILY 12/03/2411/20 History vitamin D3 1,250 mcg (50,000 1 cap PO DAILY 12/03/24 1 History unit)-vitamin K2 200 mcg capsule (Decara K) Allergy/AdvReac Type Severity Reaction Status Date / Time No Known Allergies Allergy Verified 12/04/24 11:37 Surgical History Delivery by section Delivery by section History of surgery Previous section History of gynecologic surgery Social History Smoking Status: Never smoker Review of Systems (Anesthesia) ROS Narrative System reviewed and no additional complaints, except as documented.
[2024-12-04 12:28] VITALS: BP 142/94; PULSE 80; RESP 16; TEMP 36.4; O2SAT 99
[2024-12-13] VITALS (10 sets, daily range): BP systolic 116–133; BP diastolic 78–94; PULSE 70–94; RESP 12–20; TEMP 36.6–36.9; O2SAT 93–99; BMI 36.8
--- NOTE | 2024-12-13 11:02 | PCM.HP.STD ---
HPI - General HPI Narrative MARIETTA CORLEY, is a 34 F who presents for left ganglion cyst of the wrist excision with Dr. Judge The patient is a 34-year-old female presenting with a ganglion cyst on the left wrist. The cyst has been present for a couple of years and has progressively increased in size, now causing pain. The patient reports no history of trauma to the wrist and denies any numbness or tingling in the hand. MRI obtained showed ganglion cyst with volar component and no soft tissue mass in first webspace. The patient has a history of an incompetent cervix, for which she has an abdominal cerclage in place. She has undergone sections due to this condition. The patient is currently taking topiramate and phentermine, the latter being used as an appetite suppressant. She denies any history of bleeding or clotting disorders and reports no family history of blood clots. ROS: - Neurological: Denies numbness or tingling in the hand - Hematological: Denies history of bleeding or clotting problems She was initially scheduled for surgery on 12/04/24 however she was unaware that she needed to stop her phentermine therefore surgery was cancelled and rescheduled to today after adequate amount of time has passed holding the medication. She states it's a little more achy today as she was lifting but denies increase in size, new numbness, weakness, tingling, drainage. She denies changes in her medical health since her last visit. Denies fever, chills, URI, rashes, dental infection. [facility] Medical History Wears contact lenses Wears glasses Non-smoker Obesity Obesity affecting Gestational diabetes mellitus (GDM) Cervical incompetence Thyroid disorder Pre-eclampsia Gestational diabetes Home Medications Medication Instructions Recorded Last Taken Type magnesium 200 mg tablet 200 mg PO DAILY 12/03/24 12/03/24 History metformin 500 mg tablet,extended 1,000 mg PO BID 12/03/24 12/03/24 History release 24 hr phentermine 37.5 mg tablet 37.5 mg PO DAILY 12/03/24 12/03/24 History topiramate 50 mg tablet 50 mg PO DAILY 12/03/24 12/03/24 History vitamin D3 1,250 mcg (50,000 1 cap PO DAILY 12/03/24 12/03/24 History unit)-vitamin K2 200 mcg capsule (Decara K) Allergy/AdvReac Type Severity Reaction Status Date / Time No Known Allergies Allergy Verified 12/13/24 12:22 Surgical History Delivery by section Delivery by section History of surgery Previous section History of gynecologic surgery Social History Smoking Status: Never smoker Vital Signs Vital Signs Vital Signs: Weight Weight: 205 lb 0.478 oz Body Mass Index (BMI) 36.3 Physical Exam Narrative Afebrile/VSS. No respiratory distress, speaks in full sentences without distress or increased effort Abdomen is not distended Left Upper Extremity Inspection/Palpation: 2 x 3 cm left wrist ganglion cyst, volar and radial, over/superficial to the radial artery (no pulsatility). Motor: Able to bend and extend all MP, PIP, and DIP joints. Sensory: Intact to light touch on the radial and ulnar borders. Vascular: Finger tips are warm and well perfused with greater than 2 second capillary refill. Assessment & Plan Assessment/Plan (1) Ganglion cyst: PLAN: Presents today for left ganglion cyst excision. Plan to dc same day.
[2024-12-13 12:36] LABS: Internal QC Validated? YES +Cl - CLEAR BKGD; Pregnancy, Urine Negative Negative; Record Kit Lot#,Urine Preg 0000980607
[2024-12-13] MEDS: Lactated Ringers 1,000 ML 15 ML IV ×2 (12:43→15:34)
--- NOTE | 2024-12-13 13:30 | GANG_PTH ---
PATIENT: MARIETTA CORLEY [place] [facility] [place][id number] AGE/SX: 34/F ROOM: RE12/13/[address]: Dr. Santi Judge MD : 1990 BED: DIS: 12/13/2024 SPEC #: [id number] RECD: 12/16/24 07:58 STATUS: TANYA REQ #: [id number] AISHA: 12/13/24 13:[address]: Santi Judge DEPT: SURGICAL PATHOLOGY RECD BY: Riki Elizondo ENTERED: 12/16/24 10:30 SP TYPE: GANGLION OTHR DR: Dr. Kar Almendarez MD Tissues: A - GANGLION CYST Procedures: Surgery Specimen Level III HEADER OPERATION: Excision of ganglion cyst of left wrist PRE-OP DIAGNOSIS: Ganglion, unspecified site TISSUE SUBMITTED: A- Ganglion cyst - left wrist MICROSCOPIC DIAGNOSIS A. Left wrist, "ganglion cyst", excision: - Fibrous cyst wall with attenuated lining consistent with ganglion cyst. MICROSCOPIC DESCRIPTION Slides are reviewed. GROSS DESCRIPTION A. Received in formalin labeled with the patient's name and date of . Designated as "ganglion cyst left wrist" is a 1.7 x 1.5 x 0.3 cm perez-white disrupted cyst wall. The specimen is serially sectioned and entirely submitted in 1 cassette. [place] 12/16/2024 CPT:67266
--- NOTE | 2024-12-13 13:35 | PCM.PRE.AN2 ---
ASA Classification* ASA Classification ASA Classification: 2 Assessment & Plan Anesthesia* Anesthesia Assessment Anesthesia Assessment: Discussed sedation and/or anesthesia options, risks, benefits, and alternatives with patient/parents/legal guardian/POA. Questions invited. The patient/parents/legal guardian/POA seems to understand and agrees to proceed with anesthesia plan. Reviewed the physical assessment, medical history, allergy history and patient home medications list prior to surgery/procedure/anesthetic and documented any changes. Performed airway and anesthesia risk assessments. Anesthesia Type Anesthesia Type: General History Source History Obtained from:: Patient and Chart Anesthesia Focused Assessment* Temperature: 97.9 F Pulse Rate: 75 Blood Pressure: 126/88 Respiratory Rate: 16 Pulse Ox: 99 Oxygen Delivery Method: Room Air Airway Assessment Mouth opens: >3 cm Mallampati Score: II Teeth Condition: Intact Neck Range of motion (ROM): Full ROM Labs Anesthesia Preop lab: CBC WBC, (4.4-11.0) 5.7 K/mm3 07/01/21, 05:40 RBC, (4.2-5.4) 3.69 M/mm3 L 07/01/21, 05:40 Hgb, (12.0-15.0) 10.6 g/dL L 07/01/21, 05:40 Hct, (37-47) 32.6 % L 07/01/21, 05:40 Plt Count, (150-450) 134 K/mm3 L 07/01/21, 05:40 CHEMISTRY Potassium, (3.3-5.1) 4.0 mmol/L 11/27/24, 08:00 Sodium, (133-145) 137 mmol/L 11/27/24, 08:00 BUN, (4-19) 12 mg/dL 11/27/24, 08:00 Creatinine, (0.70-1.20) 0.74 mg/dL 11/27/24, 08:00 Glucose, (70-99) 75 mg/dL 11/27/24, 08:00 POC Glucose, (74-106) 73 mg/dL L 07/01/21, 05:36 TSH, (0.358-3.74) 1.47 uIU/mL 11/22/22, 16:00 COAG PT, (11.7-14.9) 13.2 SECONDS 07/31/16, 20:35 Urine Test Negative Negative Today, 12:18 Pre-Assessment Diagnosis/Proposed Procedure Planned Operative Procedure(s): GANGLION CYST LEFT WRIST Anesthesia History Anesthesia History - strategic partnership specialist: Anesthesia History - strategic partnership specialist Hx Hospitalization No 12/03/24 09:31 Any Problems With Anesthesia No 12/03/24 09:31 Cholinesterase deficiency No 12/03/24 09:31 You/Your Family Experience No 12/03/24 09:31 fever (hyperthermia) with Relationship Recent Exposure to Contagious No 12/04/24 12:04 Disease Does patient have nerve No 12/03/24 09:31 stimulator Patient instructed to have device shut off --Does patient have Pacemaker No 12/13/24 12:27 or ICD? When Was Last Pacemaker Check QUESTION #4 FULL TEXT: You/Your Family Experience fever (hyperthermia) with Anesthesia Last Oral Intake Last Oral intake: Last Oral Intake NPO since 08:00 12/13/24 12:27 Meds taken in AM with sips of No 12/13/24 12:27 water? Meds patient instructed to take am of surgery Any additional information?: Yes NPO since: 07:59 (Patient had water until 759am.) Meds taken in AM with sips of water?: No PONV PONV - strategic partnership specialist: PONV - strategic partnership specialist Female Yes 12/03/24 09:31 HX of Motion Sickness No 12/03/24 09:31 HX of N/V After Surgery Yes 12/03/24 09:31 Non-Smoker Yes 12/03/24 09:31 Duration of Surgery greater No 12/03/24 09:31 than 60 minutes Number of Risk Factors 3 12/03/24 09:31 PONV Score Moderate Risk 12/03/24 09:31 Height & Weight Height & Weight: Anesthesia: Height & Weight Height 5 ft 3 in 12/13/24 12:27 Weight: 94.3 kg 12/13/24 12:27 Body Mass Index (BMI) 36.8 12/13/24 12:27 Respiratory Assessment Respiratory Assessment - strategic partnership specialist: Respiratory Tract Infection Hx - strategic partnership specialist Hx Respiratory Tract Infection No 12/03/24 09:31 STOP Sleep Apnea STOP Sleep Apnea - strategic partnership specialist: STOP Sleep Apnea - strategic partnership specialist Hx Hypertension Yes 12/03/24 09:31 Hx Sleep Apnea No 12/03/24 09:31 CPAP BIPAP Do you snore loudly (louder No 12/03/24 09:31 than talking or can be heard Do you often feel tired/ No 12/03/24 09:31 fatigued/ sleepy during daytime? Has anyone observed you stop No 12/03/24 09:31 breathing during sleep? STOP Results Negative 12/03/24 09:31 QUESTION #5 FULL TEXT : Do you snore loudly (louder than talking or can be heard through closed doors)? 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 Specify any problems Hx of Preganancy in last 3 No 12/03/24 09:31 Months Nurse Filling Out Transfusion [place] 12/03/24 09:31 & Questions: Date: 12/03/24 12/03/24 09:31 Time: 09:36 12/03/24 09:31 Patient unable to answer at this time (ie. confused, unrespo /Reproduction History /Reproductive History - strategic partnership specialist: /Reproductive Hx- strategic partnership specialist Hx Now No 12/03/24 09:31 Gestational Age (in weeks): EDC: Hx Hx Para Hx Section SAB No 12/03/24 09:31 Active Medications Active Medications: Current Medications Generic Name Dose Route Start Last Admin Trade Name Freq PRN Reason Stop Dose Admin Cefazolin Sodium 2 gm/ Sodium 110 mls @ 200 mls/hr 12/13/24 13:30 Chloride IV 12/13/24 14:02 INTRAOP ONE Lactated Ringer's 1,000 mls @ 15 mls/hr 12/13/24 12:15 12/13/24 12:43 IV 15 mls/hr .Q48H IRCKEY Administration PFSH Medical History Wears contact lenses Wears glasses Non-smoker Obesity Obesity affecting Gestational diabetes mellitus (GDM) Cervical incompetence Thyroid disorder Pre-eclampsia Gestational diabetes Home Medications Medication Instructions Recorded Last Taken Type magnesium 200 mg tablet 200 mg PO DAILY 12/03/24 12/03/24 History metformin 500 mg tablet,extended 1,000 mg PO BID 12/03/24 12/03/24 History release 24 hr phentermine 37.5 mg tablet 37.5 mg PO DAILY 12/03/24 12/03/24 History topiramate 50 mg tablet 50 mg PO DAILY 12/03/24 12/03/24 History vitamin D3 1,250 mcg (50,000 1 cap PO DAILY 12/03/24 12/03/24 History unit)-vitamin K2 200 mcg capsule (Decara K) oxycodone 5 mg tablet 5 mg PO Q8H PRN pain 5 days #15 12/13/24 Unknown Rx tabs Allergy/AdvReac Type Severity Reaction Status Date / Time No Known Allergies Allergy Verified 12/13/24 12:22 Surgical History Delivery by section Delivery by section History of surgery Previous section History of gynecologic surgery Social History Smoking Status: Never smoker Review of Systems (Anesthesia) ROS Narrative System reviewed and no additional complaints, except as documented.
[2024-12-13] MEDS: Lactated Ringers 1,000 ML 1000 ML IV (13:42)
[2024-12-13] MEDS: Midazolam 2 MG/2 ML Syringe IV (13:42)
[2024-12-13] MEDS: Cefazolin 1 GM/5 ML Vial 2 GM IV (13:45)
[2024-12-13] MEDS: Lidocaine 1% (5 ml sdv) 5 ML Vial IV (13:47)
[2024-12-13] MEDS: fentaNYL 100 MCG/2 ML Ampul IV (13:47)
[2024-12-13] MEDS: Bupiv/Epi 0.25% 30 ML Vial ×2 (14:25→14:35)
--- NOTE | 2024-12-13 14:53 | PCM.POST.ANE ---
Anesthesia: Postop Eval I Current Vital Signs Temperature: 98.5 F Pulse Rate: 94 Blood Pressure: 120/79 Respiratory Rate: 20 Pulse Ox: 97 Oxygen Delivery Method: Room Air Assessment Airway patent: Yes Spontaneous unlabored respirations: Yes Mental status: Awake and Calm nausea: No Vomiting: No Anesthesia Complication: No Fluid Hydration Crystalloid volume administer (ml): 900 Total IV fluid infused: 900 Progress Note Anesthesia document: Postop Eval 1 completed: Yes
--- NOTE | 2024-12-13 15:29 | PCM.OPRPT ---
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 conditioner installer: Yes Ribbon Lapper Tender: Susanne Krueger Tasks completed by assistant unit forester: Retracting Type of Anesthesia: General/Supplemental (3 cc of quarter percent Marcaine with 1-200,000 epinephrine) RN Documented Start/Stop Times: Operation Date: 12/13/24 13:30 Case Time Into Pre-Op 12/13/24 12:00 Out of Pre-Op 12/13/24 13:35 Anesthesia Start 12/13/24 13:41 Into Room 12/13/24 13:41 Procedure Start 12/13/24 14:00 Procedure End 12/13/24 14:44 Anesthesia End 12/13/24 14:49 Out of Room 12/13/24 14:49 Into Recovery 12/13/24 14:50 Procedure Start Time: 14:00 Procedure Stop Time: 14:44 Select all DRAINS/GRAFTS/IMPLANTS that apply: None Estimated Blood Loss: Minimal Specimen collected: Yes Description of specimen(s) removed: Left wrist ganglion cyst Description of surgery: Indications: Patient is delightful 34-year-old female with a left wrist volar ganglion cyst. Presents today for excision. Discussed risk benefits and alternatives to the procedure. She elected to proceed Procedure details: Patient was correct identified in preoperative holding and marked. She is taken back to the operating room where she was administered local anesthesia and prepped and draped in sterile fashion. All proper timeouts were performed. 15 blade scalpel was used to make a longitudinal incision over the left volar forearm mass under the tourniquet at 250 mmHg. Care was taken to dissect careful tenotomy scissors primarily ganglion cyst, preserving a branch of the superficial branch of the radial nerve which was located just radial to the cyst incision, as well as care taken to prevent injury to the radial artery which was just ulnar to the ganglion cyst. Once it was circumferentially dissected, the cyst stalk was excised from its base. It was sent to pathology in 1 piece. Bipolar electrocautery was used at the base of the cyst stalk. The wound was irrigated with copious amounts normal saline and hemostasis obtained with bipolar electrocautery as the tourniquet was let down. The wound was then closed in layers with 3-0 Monocryl deep dermal sutures followed by 4-0 Monocryl running subcuticular suture. Steri-Strips and a volar blocking splint (with the wrist in slight extension) were placed. Patient tolerated the procedure well. She was awakened and taken to the PACU in stable condition. Surgical Findings: Ganglion cyst in an interval between a branch of the superficial branch of the radial nerve and the radial artery Complications Complications: No
--- NOTE | 2024-12-13 15:30 | POSTOPAN2_ITS ---
Anesthesia Postop Eval I Sum Postop Eval Completion status Anesthesia document: Postop Eval 1 completed: Yes Anesthesia Postop Eval I Summary Anesthesia Postop Eval I Summary: Anesthesia Postop Eval I: Assessment Summary Airway patent Yes 12/13/24 14:54 MASH FILTER PRESS [email or web address] Spontaneous unlabored Yes 12/13/24 14:54 MASH FILTER PRESS [email or web address] respirations Mental status Awake,Calm 12/13/24 14:54 MASH FILTER PRESS [email or web address] nausea No 12/13/24 14:54 MASH FILTER PRESS [email or web address].[email or web address] Vomiting No 12/13/24 14:54 MASH FILTER PRESS [email or web address] Anesthesia Postop Eval I: Fluid Summary Crystalloid volume administer 900 12/13/24 14:54 MASH FILTER PRESS [email or web address] (ml) Colloids volume administered ( ml) Blood Product volume administered (ml) Total IV fluid infused 900 12/13/24 14:54 MASH FILTER PRESS [email or web address].[email or web address] Anesthesia Postop Eval I: Summary Notes Anesthesia Complication No 12/13/24 14:54 MASH FILTER PRESS [email or web address] Anesthesia Complication Comment: Post-operative progress note Anesthesia: Postop Eval II Evaluation Mental status: Awake Pain Level: 5 nausea: No Vomiting: No
--- NOTE | 2024-12-13 15:30 | PCM.POSTANE2 ---
Anesthesia Postop Eval I Sum Postop Eval Completion status Anesthesia document: Postop Eval 1 completed: Yes Anesthesia Postop Eval I Summary Anesthesia Postop Eval I Summary: Anesthesia Postop Eval I: Assessment Summary Airway patent Yes 12/13/24 14:54 [email or web address] Spontaneous unlabored Yes 12/13/24 14:54 [email or web address] [email or web address] respirations Mental status Awake,Calm 12/13/24 14:54 [email or web address] [email or web address] nausea No 12/13/24 14:54 [email or web address] [email or web address] Vomiting No 12/13/24 14:54 [email or web address] Anesthesia Postop Eval I: Fluid Summary Crystalloid volume administer 900 12/13/24 14:54 [email or web address] (ml) Colloids volume administered ( ml) Blood Product volume administered (ml) Total IV fluid infused 900 12/13/24 14:54 [email or web address] [email or web address] Anesthesia Postop Eval I: Summary Notes Anesthesia Complication No 12/13/24 14:54 [email or web address] [email or web address] Anesthesia Complication Comment: Post-operative progress note Anesthesia: Postop Eval II Evaluation Mental status: Awake Pain Level: 5 nausea: No Vomiting: No
== END 2024-12-13 17:17 | disposition home or self-care (01) ==
LOC: SDC 12:06 → AC 12:06
PROVIDERS: Anesthesiology; PCP Family Medicine; Referring Provider Surgery Plastic and Reconstructive Surgery; Visit Provider Surgery Plastic and Reconstructive Surgery
PROC: (CPT 25111; principal; 2024-12-13 13:15)
DX: M67.432 Ganglion, left wrist (principal); Z79.899 Other long term (current) drug therapy; Z79.84 Long term (current) use of oral hypoglycemic drugs
CPT/HCPCS: 25111; 01810; 81025; 84703; 88304; J2405